=== PATIENT | female | born 1950 | race Caucasian/White ===

== ENCOUNTER 2016-12-12 12:32 | Inpatient (IN) ==
[2016-12-12] MEDS ORDERED: Aspirin 325 MG TABLET PO ONE (13:11)
[2016-12-12 13:14] LABS: Hematocrit 25.5 % (35.3-44.9); Mean Corpuscular Volume 95.5 fL (83.0-100.0); Mean Platelet Volume 11.6 fL (9.4-12.4); Red Blood Count 2.67 M/mcL (3.82-4.97)
[2016-12-12 13:16] LABS: Hemoglobin 8.2 g/dL (11.5-15.4); Immature Platelets 11.5 % (1.1-6.1); Mean Corpuscular HGB Conc 32.2 g/dL (31.6-35.5); Mean Corpuscular Hemoglobin 30.7 pg (28.0-33.3); Red Cell Distribution Width 16.9 % (11.5-14.5)
[2016-12-12 13:17] LABS: Platelet Count 54 K/mcL (140-400)
[2016-12-12 13:20] LABS: INR 1.2; Prothrombin Time 12.9 Seconds (9.4-12.1)
[2016-12-12 13:22] LABS: Activated Partial Thrombo Time 26.3 Seconds (26.0-36.0)
[2016-12-12 13:27] LABS: Calcium 8.8 mg/dL (8.6-10.8); Potassium 4.2 mEq/L (3.5-4.5)
[2016-12-12 13:33] LABS: Eosinophils # 0.4 K/mcL (0.0-0.6); Lymphocytes # 0.8 K/mcL (0.6-4.6); Monocytes # 0.1 K/mcL (0.0-1.3); Neutrophils # 2.3 K/mcL (1.6-8.9)
[2016-12-12 13:34] LABS: Platelet Estimate Marked Decrease (Normal)
[2016-12-12 13:35] LABS: Basophilic Stippling 1+ (Not Present)
[2016-12-12] MEDS ORDERED: *HR* Heparin 5,000 UNIT/ML VIAL IVP PRN ×2 (13:41)
[2016-12-12] MEDS ORDERED: *HR* Heparin 5,000 UNIT/ML VIAL IVP ONE (13:41)
[2016-12-12] MEDS ORDERED: Heparin 25,000 UNIT/500 ML D5W 25,000 UNIT/500 ML MLS IVC SCH (13:45)
[2016-12-12 13:49] LABS: Thyroid Stimulating Hormone 3.215 mcIU/mL (0.350-4.840)
--- NOTE | 2016-12-12 14:13 | Emergency Department Note ---
Disposition Clinical Impression: NSTEMI (non-ST elevated myocardial infarction), Abnormal EKG Disposition: Admitted As Inpatient Condition: Good Time of Disposition: 14:27 Chest Pain HPI - General Chief Complaint: ED Chest Pain Stated Complaint: JANENE, chest pain Time Seen by Provider: 12/12/16 12:57 Source: patient Mode of arrival: ambulatory Limitations: no limitations Vital Signs Reviewed: Yes Nursing Notes Reviewed: Yes - History of Present Illness HPI Narrative: Patient is a 66-year-old female with past medical history of MN in October with stent placement 2, CHF, HTN, hyperlipidemia. She is currently on Brilinta 90 mg twice daily. She presents today due to chest discomfort and shortness of breath. Patient has been short of breath the past week, she also has centered chest pressure and discomfort with exertion. Denies any radiation of the chest pain, any nausea, vomiting, sweating. Denies any other fevers, abdominal pain, diarrhea, urinary symptoms. Patient currently takes diuretic and states that is not helping with her shortness breath. She did not take any aspirin or nitroglycerin today. Severity scale (1-10): 0 - Related Data Home Medications Medication Instructions Recorded Confirmed Acetaminophen [Tylenol] 2 tab PO Q4H PRN 12/28/15 12/12/16 Aspirin 81 mg PO DAILY 12/28/15 12/12/16 Cholecalciferol (Vitamin D3) 1,000 unit PO DAILY 12/28/15 12/12/16 [Vitamin D3] Docusate Sodium [Dok] 100 mg PO BID 12/28/15 12/12/16 Levothyroxine [Synthroid] 75 mcg PO DAILY 12/28/15 12/12/16 Lisinopril 2.5 mg PO DAILY 12/28/15 12/12/16 Melatonin 3 mg PO HS 12/28/15 12/12/16 Metoprolol XL (24 HR) Succ [Toprol 50 mg PO DAILY 01/08/16 12/12/16 Xl] Pravastatin Sodium [Pravachol] 20 mg PO DAILY 02/08/16 12/12/16 Insulin Human Regular [HumuLIN R] 0 unit SQ AD MDD PER SLIDING SCALE 12/12/16 12/12/16 Insulin NPH, HUMAN [HumuLIN N] 0 unit SQ AD MDD SLIDING SCALE 12/12/16 12/12/16 Ticagrelor [Brilinta] 90 mg PO BID 12/12/16 12/12/16 Previous Rx's Medication Instructions Recorded Furosemide [Lasix] 60 mg PO DAILY #90 tablet 01/19/16 Metolazone [Zaroxolyn] 5 mg PO DAILY #90 tablet 03/02/16 Hydrocortisone 1% CREAM [Cortaid] 28 appl TP DAILY PRN #1 bottle 11/11/16 Lenalidomide [Revlimid] 15 mg PO DAILY #21 capsule 11/17/16 Allergies Allergy/AdvReac Type Severity Reaction Status Date / Time nitrofurantoin Allergy Rash Verified 08/08/16 16:39 [From Macrobid] octreotide Allergy Rash Verified 08/08/16 16:39 Penicillins Allergy Rash Verified 08/08/16 16:39 vancomycin Allergy Rash Verified 08/08/16 16:39 Constitutional: Denies: fever Cardiovascular: Reports: chest pain, dyspnea on exertion Respiratory: Reports: dyspnea. Denies: cough, wheezes Gastrointestinal: Denies: abdominal pain, nausea, vomiting, diarrhea Genitourinary: Denies: urgency, dysuria Integumentary: Denies: rash Neurological: Denies: headache, weakness, numbness, paresthesias Chest Pain PMH - Past Medical History Medical history: Reports: arthritis, CHF, coronary artery disease, diabetes, hyperlipidemia, hypertension, myocardial infarction, pulmonary embolus, renal disease, thyroid disease, other Surgical history: Reports: cataract, coronary bypass (CABG), other Psychiatric history: Reports: depression - Social History Smoking Status: Never smoker Alcohol use: Reports: none Drug use: Reports: none Physical Exam - General Limitations: no limitations General appearance: alert, in no apparent distress - Head Head exam: atraumatic, normocephalic, normal inspection - Eye Eye exam: Present: normal appearance, PERRL, EOMI - ENT ENT exam: normal exam, normal oropharynx, mucous membranes moist - Neck Neck exam: Present: normal inspection, full ROM, trachea midline - Chest Chest inspection: Present: normal inspection, symmetric chest wall rise - Respiratory Respiratory exam: Present: normal lung sounds bilaterally, other (mildly labored breathing) - Cardiovascular Cardiovascular exam: Present: regular rate, normal rhythm, normal heart sounds - Abdominal Exam Abdominal exam: Present: soft, Non-Tender. Absent: tenderness, distention, guarding, rebound, rigidity - Extremities Exam Extremities exam: Present: normal inspection, full ROM, pedal edema (bilateral, mild pitting). Absent: tenderness - Neurological Exam Neurological exam: Present: alert, oriented X3 - Psychiatric Psychiatric exam: Present: normal affect, normal mood - Skin Skin exam: Present: warm, dry, intact, normal color Course Course Narrative: Vitals within normal limits. Physical exam shows heart regular rate and rhythm , clear lungs to auscultation. Aspirin 325mg givne. However, the patient does have labored breathing while at rest. EKG obtained and showed new ST depression in V4, V5, V6. Cardiac labs obtained. Troponin elevated 0.18. Chest x-ray negative for any acute cardiopulmonary process. Dr. Ramirez was consulted, he recommended starting the patient heparin and giving the patient Brilinta if she didnt take her dosing today. However, the patient does state that she took her Brilinta 90mg today. Heparin started. Patient is currently chest pain-free as long as she is not exerting herself. No nitroglycerin given at this time.Dr. Marquez accepted for admission. Chest X-Ray 12/12/16 12:40 IMPRESSION: No acute cardiac or pulmonary disease. Ill-defined pulmonary nodules, seen better on recent CT. D/ / Vasquez Charles MD / Vasquez Charles MD Interpreting Provider: Vasquez Charles MD Vital Signs Temperature 98.4 F 12/12/16 12:35 Pulse Rate 75 12/12/16 12:35 Respiratory Rate 20 12/12/16 12:35 Blood Pressure 121/52 12/12/16 12:35 O2 Sat by Pulse Oximetry 99 12/12/16 12:35 Temperature 98.4 F 12/12/16 12:35 Pulse Rate 55 12/12/16 13:25 Respiratory Rate 20 12/12/16 13:25 Blood Pressure 121/46 12/12/16 13:25 O2 Sat by Pulse Oximetry 100 12/12/16 13:25 Oxygen Delivery Oxygen Delivery Nasal Cannula Chest Pain - MDM Narrative Medical decision making narrative: Vitals within normal limits. Physical exam shows heart regular rate and rhythm , clear lungs to auscultation. Aspirin 325mg givne. However, the patient does have labored breathing while at rest. EKG obtained and showed new ST depression in V4, V5, V6. Cardiac labs obtained. Troponin elevated 0.18. Chest x-ray negative for any acute cardiopulmonary process. Dr. Ramirez was consulted, he recommended starting the patient heparin and giving the patient Brilinta if she didnt take her dosing today. However, the patient does state that she took her Brilinta 90mg today. Heparin started. Patient is currently chest pain-free as long as she is not exerting herself. No nitroglycerin given at this time.Dr. Marquez accepted for admission. - Medical Records Medical records reviewed: Yes I reviewed the patient's medical records. - Lab Data Lab results reviewed: Yes I reviewed the patient's lab results. Result diagrams: 12/12/16 13:08 12/12/16 13:08 Lab Results 12/12/16 12/12/16 12/12/16 Range/Units 13:08 13:08 13:08 WBC 3.6 L (4.3-11.1) K/mcL RBC 2.67 L (3.82-4.97) M/mcL Hgb 8.2 L (11.5-15.4) g/dL Hct 25.5 L (35.3-44.9) % MCV 95.5 (83.0-100.0) fL MCH 30.7 (28.0-33.3) pg MCHC 32.2 (31.6-35.5) g/dL RDW 16.9 H (11.5-14.5) % Plt Count 54 L (140-400) K/mcL MPV 11.6 (9.4-12.4) fL Seg Neutrophils % 58.0 % Band Neutrophils % 6.0 H (0-4) % Lymphocytes % 22.0 % Monocytes % 2.0 % Eosinophils % 12.0 % Neutrophils # 2.3 (1.6-8.9) K/mcL Lymphocytes # 0.8 (0.6-4.6) K/mcL Monocytes # 0.1 (0.0-1.3) K/mcL Eosinophils # 0.4 (0.0-0.6) K/mcL Platelet Estimate Marked Decrease L (Normal) Immature Plt Fraction 11.5 H (1.1-6.1) % Basophilic Stippling 1+ A (Not Present) PT 12.9 H (9.4-12.1) Seconds INR 1.2 APTT 26.3 (26.0-36.0) Seconds Sodium 141 (136-145) mEq/L Potassium 4.2 (3.5-4.5) mEq/L Chloride 107 (98-109) mEq/L Carbon Dioxide 24 (19-29) mEq/L BUN 38 H (7-20) mg/dL Creatinine 1.36 H (0.57-1.11) mg/dL Est GFR ( Amer) 47 L (> 60) Est GFR (Non-Af Amer) 39 L (> 60) BUN/Creatinine Ratio 28 H (6-26) Glucose 114 H (70-99) mg/dL Calculated Osmolality 302 H (280-300) Calcium 8.8 (8.6-10.8) mg/dL Troponin I (0-0.03) ng/mL TSH 3.215 (0.350-4.840) mcIU/mL 12/12/16 Range/Units 13:08 WBC (4.3-11.1) K/mcL RBC (3.82-4.97) M/mcL Hgb (11.5-15.4) g/dL Hct (35.3-44.9) % MCV (83.0-100.0) fL MCH (28.0-33.3) pg MCHC (31.6-35.5) g/dL RDW (11.5-14.5) % Plt Count (140-400) K/mcL MPV (9.4-12.4) fL Seg Neutrophils % % Band Neutrophils % (0-4) % Lymphocytes % % Monocytes % % Eosinophils % % Neutrophils # (1.6-8.9) K/mcL Lymphocytes # (0.6-4.6) K/mcL Monocytes # (0.0-1.3) K/mcL Eosinophils # (0.0-0.6) K/mcL Platelet Estimate (Normal) Immature Plt Fraction (1.1-6.1) % Basophilic Stippling (Not Present) PT (9.4-12.1) Seconds INR APTT (26.0-36.0) Seconds Sodium (136-145) mEq/L Potassium (3.5-4.5) mEq/L Chloride (98-109) mEq/L Carbon Dioxide (19-29) mEq/L BUN (7-20) mg/dL Creatinine (0.57-1.11) mg/dL Est GFR ( Amer) (> 60) Est GFR (Non-Af Amer) (> 60) BUN/Creatinine Ratio (6-26) Glucose (70-99) mg/dL Calculated Osmolality (280-300) Calcium (8.6-10.8) mg/dL Troponin I 0.18 H* (0-0.03) ng/mL TSH (0.350-4.840) mcIU/mL - Radiology Data Radiology results reviewed: Yes I reviewed the patient's radiology results. Chest X-Ray 12/12/16 12:40 IMPRESSION: No acute cardiac or pulmonary disease. Ill-defined pulmonary nodules, seen better on recent CT. D/ / Vasquez Charles MD / Vasquez Charles MD Interpreting Provider: Vasquez Charles MD - EKG Data EKG attestation: Yes I reviewed and interpreted this EKG. EKG results narrative: 12/12/2016 at 12:48. Normal sinus rhythm. Rate 79.AL 163. QRS 101. QTC 399. Left axis deviation. ST depression in V3, V4, V5, V6. This is new from previous EKG on 10/05/2016 12/12/2016 at 13:13. Normal sinus rhythm. Rate 72. AL interval 166. QRS 86. QTC 381. Left axis deviation. Continued ST depression in V3, V4, V5, V6. S.B.A.R. - S.B.A.R. Situation: Demographics, MOA Background: Presenting Complaint, Relevant PMH, Meds, & Allergies Assessment: Vital Signs, Course and respsone to treatment, Exam Concerns, Patient/Family Expectation, Pertinant Lab Results, Outstanding Labs Recommendation: Barrier(s) to disposition, Recommendation based on pending studies, treatments, or consults S.B.A.R. Report Given to: Dr. marcos Hargrove Repor Time: 14:27 Attestation Statement - Attestation Attestation: I examined this patient and my medical decision-making was reviewed with the YARN MAN/PA/Advanced Practice Nurse/Resident Physician. I agree with the documented findings, disposition and treatment plan as described except to the extent set forth below. Patient to the emergency department with a chief complaint of chest pain. Describes substernal chest pain when she ambulates and exerts herself. History of an MN with stent placement in October. On examination she is in no acute distress. Her lungs are clear. Heart regular rate and rhythm. Plan. The patient has EKG changes with lateral ST depressions. Troponin is positive. She was discussed with cardiology. She started on heparin. Patient is admitted to medicine with cardiology consult. 35 minutes of critical care exclusive of separately billable procedures.
--- NOTE | 2016-12-12 14:40 | Internal Med History&Physical ---
Date of Encounter: 12/12/16 Time of Encounter: 14:36 Assessment and Plan (1) NSTEMI (non-ST elevated myocardial infarction) Current visit: Yes Status: Acute Elevated troponin to 0.18, complaints of chest pain with shortness of breath. Recently had stent placement, 2 stents placed at [facility] on October 2016. comes with chest pain thats vague , dull aching and has been going on for the last week. worsened by exertion. started on heparin drip, cardiology has been consulted. will follow recommendtaions, get records from [facility]. has been taking DAPT, will continue the same. (2) Diffuse large b-cell lymphoma, lymph nodes of multiple sites Current visit: No Status: Acute Follows with Dr. PALMER and is taking cancer therapy. (3) Pancytopenia due to antineoplastic chemotherapy Current visit: No Status: Chronic pancytopenia most likely 2/2 chemotherapy no urgent need for transfusion at this time/ no active bleeding, will monitor cbc Internal Medicine - H&P: HPI Chief complaint: chest pain Admitted From: Home Plans for Post Hospital Care: Home History of present illness: Ms. Noyola is a 66 year old female with past medical history of CAD, status post CABG and recent stent placement in October 2016 at [facility], hypertension, diffuse large cell lymphoma with complaints of chest pain. Patient reports that she has been having this chest pain on and off for the last week. Ever since she had stent placed in October/2016 at [facility], she never has been chest pain-free. She says it is very vague and is diffuse,she says it is worse when she moves or walks around, she has followed with her vocational coordinator once after stent placement. She says the chest pain started this morning today, diffuse, no exacerbating or relieving factor. Also complains of concomitant shortness of breath, denies any fever or cough. she has been taking asa and brilllinta as advised. No palpitations, no leg swelling. Past Med Surg Social Fam HX - Past Medical History Medical history: arthritis, CHF, coronary artery disease, diabetes, hyperlipidemia, hypertension, myocardial infarction, pulmonary embolus, renal disease, thyroid disease, other Psychiatric history: depression - Past Surgical History Surgical History: cataract, coronary bypass (CABG), other - Social History Smoking Status: Never smoker Smokeless Tobacco Status: No Alcohol use: none Drug use: none - Family History Father Hx Family Cardiac Disorders: No Hx Family Respiratory Disorders: No Hx Family Cancer: Yes Hx Family GI Disorders: No Hx Family Endocrine Disorder: No Hx Family Neuromuscular Disorders: No Hx Family Neurologic Disorders: No Hx Family HEENT Disorders: No Hx Family Autoimmune Disorders: No Internal Medicine - H&P: Meds Acetaminophen [Tylenol] 2 tab PO Q4H PRN 12/28/15 [History] Aspirin 81 mg PO DAILY 12/28/15 [History] Cholecalciferol (Vitamin D3) [Vitamin D3] 1,000 unit PO DAILY 12/28/15 [History] Docusate Sodium [Dok] 100 mg PO BID 12/28/15 [History] Levothyroxine [Synthroid] 75 mcg PO DAILY 12/28/15 [History] Lisinopril 2.5 mg PO DAILY 12/28/15 [History] Melatonin 3 mg PO HS 12/28/15 [History] Metoprolol XL (24 HR) Succ [Toprol Xl] 50 mg PO DAILY 01/08/16 [History] Furosemide [Lasix] 60 mg PO DAILY #90 tablet 01/19/16 [Rx] Pravastatin Sodium [Pravachol] 20 mg PO DAILY 02/08/16 [History] Metolazone [Zaroxolyn] 5 mg PO DAILY #90 tablet 03/02/16 [Rx] Hydrocortisone 1% CREAM [Cortaid] 28 appl TP DAILY PRN #1 bottle 11/11/16 [Rx] Lenalidomide [Revlimid] 15 mg PO DAILY #21 capsule 11/17/16 [Rx] Insulin Human Regular [HumuLIN R] 0 unit SQ AD MDD PER SLIDING SCALE 12/12/16 [ History] Insulin NPH, HUMAN [HumuLIN N] 0 unit SQ AD MDD SLIDING SCALE 12/12/16 [History ] Ticagrelor [Brilinta] 90 mg PO BID 12/12/16 [History] Allergies nitrofurantoin [From Macrobid] Allergy (Verified 08/08/16 16:39) Rash octreotide Allergy (Verified 08/08/16 16:39) Rash Red Man Syndrome Penicillins Allergy (Verified 08/08/16 16:39) Rash vancomycin Allergy (Verified 08/08/16 16:39) Rash Red Man Syndrome All Systems PM: A 10-system review of systems was performed and is negative for pertinent findings except as documented above in the HPI. - Constitutional Vitals: Temp Pulse Resp BP Pulse Ox 98.4 F 55 20 121/46 100 12/12/16 12:35 12/12/16 13:25 12/12/16 13:25 12/12/16 13:25 12/12/16 13:25 General appearance: Present: A&O X 3, no acute distress Exam: Neck supple. Chest bilateral clear, no added sounds. CVS S1-S2, no murmurs rubs or gallops. Abdomen soft, nontender, bowel sounds are present. Extremities no edema. Neuro no focal deficits, alert and awake. Internal Med - H&P Results - Labs CBC & Chem 7: 12/12/16 13:08 12/12/16 13:08 Labs: Short CBC 12/12/16 Range/Units 13:08 WBC 3.6 L (4.3-11.1) K/mcL Hgb 8.2 L (11.5-15.4) g/dL Hct 25.5 L (35.3-44.9) % Plt Count 54 L (140-400) K/mcL Neutrophils # 2.3 (1.6-8.9) K/mcL BMP 12/12/16 13:08 Sodium 141 Potassium 4.2 Chloride 107 Carbon Dioxide 24 BUN 38 H Creatinine 1.36 H Glucose 114 H Calcium 8.8 Cardiac Enzymes 12/12/16 Range/Units 13:08 Troponin I 0.18 H* (0-0.03) ng/mL - Impressions ITS Impressions Chest X-Ray 12/12/16 12:40 IMPRESSION: No acute cardiac or pulmonary disease. Ill-defined pulmonary nodules, seen better on recent CT. D/ / Vasquez Charles MD / Vasquez Charles MD Interpreting Provider: Vasquez Charles MD
[2016-12-12] MEDS ORDERED: Naloxone 0.4 MG/ML INJ IVP PRN (14:45)
[2016-12-12] MEDS ORDERED: *HR* Morphine 2 MG/ML SYRINGE IVP PRN (14:45)
[2016-12-12] MEDS ORDERED: Dextrose Gel 15 GM PO PRN ×2 (14:47)
[2016-12-12] MEDS ORDERED: D5% in Water 1,000 ML IVC PRN (14:47)
[2016-12-12] MEDS ORDERED: *HR* Dextrose 50 % in Water (Syg) 50 ML SYRINGE IVP PRN (14:47)
--- NOTE | 2016-12-12 14:56 | Cardiology Consult Note ---
Date of Encounter: 12/12/16 Time of Encounter: 14:54 Assessment and Plan (1) Abnormal EKG Current Visit: Yes Status: Acute EKG shows 1mm of ST depression in V4-V6. T wave changes present in precordial leads. If symptoms of chest pain, dyspnea, or arm/jaw pain begin recommend repeating. (2) NSTEMI (non-ST elevated myocardial infarction) Current Visit: Yes Status: Acute EKG does not show ST elevation. Inferior ST changes present in lateral leads. Troponin elevated at 0.18. Prior stent placed 1 month ago at [facility] No chest pain at rest. Agree with heparin drip Continue aspirin and Brilinta Recommend to trend troponin Recommend echocardiogram Will obtain cath report from [facility]. (3) Chest pain, exertional Current Visit: Yes Status: Acute Nitroglycerin PRN for chest discomfort. Currently asymptomatic at rest Discussion w patient/family: The assessment and plan as outlined above was discussed with the patient and/or family members who expressed understanding and agreement. All questions were answered. Thank you for involving us in the care of your patient. Please call with any questions. History of Present Illness Consult date: 12/12/16 Consult reason: EKG changes with elevated troponin Chief complaint: dyspnea/CP with exertion History of present illness: Ms. Noyola is a 66 year old female who presented to the ER today due to worsening dyspnea with exertion and chest pain with exertion. Significant PMH of B cell lymphoma and is currently on Rituximab. Significant cardiac history with failed stent and bypass in 1995. X1 stent in 2005. 1 month ago she had worsening CP/JANENE with exertion and received 2 stents at [facility] in [place]. Since then she has had worsening Dyspnea with exertion and chest pain. She denies any symptoms at rest. She has been having LE edema but it is no worse today. She is already on Brilinta 90 BID and asa 81mg. Does not take anticoagulants. She wears 2L of O2 at all times at home. Past Med Surg Social Fam HX - Past Medical History Medical history: arthritis, CHF, coronary artery disease, diabetes, hyperlipidemia, hypertension, myocardial infarction, pulmonary embolus, renal disease, thyroid disease, other Psychiatric history: depression - Past Surgical History Surgical History: cataract, coronary bypass (CABG), other - Social History Smoking Status: Never smoker Smokeless Tobacco Status: No Alcohol use: none Drug use: none - Family History Father Hx Family Cardiac Disorders: No Hx Family Respiratory Disorders: No Hx Family Cancer: Yes Hx Family GI Disorders: No Hx Family Endocrine Disorder: No Hx Family Neuromuscular Disorders: No Hx Family Neurologic Disorders: No Hx Family HEENT Disorders: No Hx Family Autoimmune Disorders: No Medications and Allergies Acetaminophen [Tylenol] 2 tab PO Q4H PRN 12/28/15 [History] Aspirin 81 mg PO DAILY 12/28/15 [History] Cholecalciferol (Vitamin D3) [Vitamin D3] 1,000 unit PO DAILY 12/28/15 [History] Docusate Sodium [Dok] 100 mg PO BID 12/28/15 [History] Levothyroxine [Synthroid] 75 mcg PO DAILY 12/28/15 [History] Lisinopril 2.5 mg PO DAILY 12/28/15 [History] Melatonin 3 mg PO HS 12/28/15 [History] Metoprolol XL (24 HR) Succ [Toprol Xl] 50 mg PO DAILY 01/08/16 [History] Furosemide [Lasix] 60 mg PO DAILY #90 tablet 01/19/16 [Rx] Pravastatin Sodium [Pravachol] 20 mg PO DAILY 02/08/16 [History] Metolazone [Zaroxolyn] 5 mg PO DAILY #90 tablet 03/02/16 [Rx] Hydrocortisone 1% CREAM [Cortaid] 28 appl TP DAILY PRN #1 bottle 11/11/16 [Rx] Lenalidomide [Revlimid] 15 mg PO DAILY #21 capsule 11/17/16 [Rx] Insulin Human Regular [HumuLIN R] 0 unit SQ AD MDD PER SLIDING SCALE 12/12/16 [ History] Insulin NPH, HUMAN [HumuLIN N] 0 unit SQ AD MDD SLIDING SCALE 12/12/16 [History ] Ticagrelor [Brilinta] 90 mg PO BID 12/12/16 [History] Allergies nitrofurantoin [From Macrobid] Allergy (Verified 08/08/16 16:39) Rash octreotide Allergy (Verified 08/08/16 16:39) Rash Red Man Syndrome Penicillins Allergy (Verified 08/08/16 16:39) Rash vancomycin Allergy (Verified 08/08/16 16:39) Rash Red Man Syndrome All Systems Review: A 10-system review of systems was performed and is negative for pertinent findings except as documented above in the HPI. - Constitutional Constitutional: no fever(s), no headache(s) - EENT Eyes: no blurred vision - Cardiovascular Cardiovascular: chest pain with exertion, dyspnea on exertion, leg edema, no claudication, no dyspnea at rest, no radiating jaw, neck or arm pain, no palpitations, no syncope - Respiratory Respiratory: no cough - Integumentary Integumentary: no rash - Neurological Neurological: no syncope Physical Examination General: Conversant, No Apparent Distress HEENT: Atraumatic Neck: No JVD Cardiac: Reg Rate and Rhythm, Other (systolic murmur.) Lungs: Normal Breath Sounds Neuro: Alert and responsive, No focal deficits noted Abdomen: Soft Skin: No rashes noted on visualized skin Musculoskeletal: No Chest Wall Tenderness Extremities: No Cyanosis, Normal Pulses, Other (2+ LE edema) Results 12/12/16 13:08 12/12/16 13:08 Consult Discharge Plan - Plan Referrals: Luis Martinez, REFRIGERATION MECHANIC HELPER [Primary Care Provider] -
[2016-12-12] MEDS: Insulin LISPRO 300 UNITS/3 ML VIAL SQ SCH ×2 (20:30→20:59)
[2016-12-12] MEDS ORDERED: *HR* Ticagrelor 90 MG TABLET PO SCH (21:00)
[2016-12-13 03:43] LABS: Basophils % 0.6 %; Eosinophils # 0.5 K/mcL (0.0-0.6); Eosinophils % 15.1 %; Hematocrit 22.7 % (35.3-44.9); Hemoglobin 7.4 g/dL (11.5-15.4); Immature Granulocytes % 0.3 % (0-4); Lymphocytes % 30.9 %; Mean Corpuscular HGB Conc 32.6 g/dL (31.6-35.5); Mean Corpuscular Hemoglobin 31.4 pg (28.0-33.3); Mean Corpuscular Volume 96.2 fL (83.0-100.0); Monocytes # 0.2 K/mcL (0.0-1.3); Monocytes % 6.1 %; Neutrophils # 1.5 K/mcL (1.6-8.9); Red Blood Count 2.36 M/mcL (3.82-4.97); Red Cell Distribution Width 16.9 % (11.5-14.5)
[2016-12-13 03:44] LABS: Platelet Count 49 K/mcL (140-400)
[2016-12-13 04:00] LABS: Calcium 8.4 mg/dL (8.6-10.8); Potassium 4.1 mEq/L (3.5-4.5)
--- NOTE | 2016-12-13 07:07 | Electrocardiograph Report ---
[place] [address] Test Date: 2016-12-12 Pat Name: Ai Noyola Department: 104 Room: [id number] Gender: F Territory Outside Sales Manager: : 1950 Requested By: Brooke See Order Number: [id number] Reading MD: Vick Ramirez MD Measurements Intervals Emerson Rate: 72 P: 36 WV: 166 QRS: -18 QRSD: 86 T: 161 QT: 357 QTc: 381 Interpretive Statements SINUS RHYTHM LEFT VENTRICULAR HYPERTROPHY AND ST-T CHANGE Electronically Signed On 12-13-2016 7:05:37 EDT by Vick Ramirez MD
[2016-12-13 07:13] LABS: Heparin anti-factor XA UFH 0.22 IU/mL (0.30-0.70)
--- NOTE | 2016-12-13 07:51 | Event Note ---
Date of Encounter: 12/13/16 Time of Encounter: 06:00 Notified by nursing staff of patient with count of less than 50,000 and associated episodes of bleeding from cutaneous wounds. This occurring while on intravenous heparin drip therapy for ACS/UA protocol. Concomitantly patient is receiving Brilinta and aspirin. Patient had recently received PCI intervention out [facility] and stent placement and likely required extended heparin therapy concern is made for possible HIT. He does acknowledge that the patient is a diagnosis of B-cell lymphoma and is currently on rituximab therapy. The case was discussed briefly with attending supervisor rose grading and since this is to discontinue heparin therapy at this time as well as interrupted Brilinta therapy pending further investigation. Cardiology has been consultative. Hematology oncology will also be consulted. Orders written. Vital Signs Temp Pulse Resp BP Pulse Ox 12/13/16 07:00 97.8 F 70 16 128/47 100 12/13/16 05:05 97.9 F 79 17 126/55 92 12/13/16 00:12 98.0 F 71 16 116/52 100 12/12/16 21:51 97.9 F 71 18 122/44 100 12/12/16 20:45 100 12/12/16 17:58 98.2 F 69 16 139/64 96 12/12/16 17:54 98 12/12/16 16:48 20 113/40 12/12/16 15:24 52 20 113/40 100 12/12/16 13:25 55 20 121/46 100 12/12/16 13:24 99 12/12/16 12:35 98.4 F 75 20 121/52 99 Intake and Output 12/12/16 12/12/16 12/13/16 15:59 23:59 07:59 Intake Total 100 / 100 300 / 300 Balance 100 / 100 300 / 300 Intake: IV Fluids 100 / 100 300 / 300 Heparin 25,000 UNIT/500 100 / 100 300 / 300 ML D5W 25,000 unit In 500 ml @ 9 UNIT/KG/HR 20.003 mls/hr IVC .Q24H KRISTA Rx# :[id number] Other: Weight 111.13 kg 132 kg Blood Glucose* 173 198 Patient Weight 12/13/16 23:59 Weight 132 kg Short CBC 12/13/16 12/12/16 Range/Units 03:08 13:08 WBC 3.1 L 3.6 L (4.3-11.1) K/mcL Hgb 7.4 L 8.2 L (11.5-15.4) g/dL Hct 22.7 L 25.5 L (35.3-44.9) % Plt Count 49 L 54 L (140-400) K/mcL Neutrophils # 1.5 L 2.3 (1.6-8.9) K/mcL BMP 12/13/16 12/12/16 Range/Units 03:08 13:08 Sodium 140 141 (136-145) mEq/L Potassium 4.1 4.2 (3.5-4.5) mEq/L Chloride 106 107 (98-109) mEq/L Carbon Dioxide 25 24 (19-29) mEq/L BUN 37 H 38 H (7-20) mg/dL Creatinine 1.31 H 1.36 H (0.57-1.11) mg/dL Glucose 143 H 114 H (70-99) mg/dL Calcium 8.4 L 8.8 (8.6-10.8) mg/dL Cardiac Enzymes 12/13/16 12/12/16 12/12/16 Range/Units 00:56 19:52 13:08 Troponin I 0.18 H* 0.18 H* 0.18 H* (0-0.03) ng/mL Abnormal lab results WBC 3.1 K/mcL (4.3-11.1) L 12/13/16 03:08 RBC 2.36 M/mcL (3.82-4.97) L 12/13/16 03:08 Hgb 7.4 g/dL (11.5-15.4) L 12/13/16 03:08 Hct 22.7 % (35.3-44.9) L 12/13/16 03:08 RDW 16.9 % (11.5-14.5) H 12/13/16 03:08 Plt Count 49 K/mcL (140-400) L 12/13/16 03:08 MPV 13.0 fL (9.4-12.4) H 12/13/16 03:08 Band Neutrophils % 6.0 % (0-4) H 12/12/16 13:08 Neutrophils # 1.5 K/mcL (1.6-8.9) L 12/13/16 03:08 Platelet Estimate Marked Decrease (Normal) L 12/12/16 13:08 Immature Plt Fraction 11.5 % (1.1-6.1) H 12/12/16 13:08 Basophilic Stippling 1+ (Not Present) A 12/12/16 13:08 PT 12.9 Seconds (9.4-12.1) H 12/12/16 13:08 APTT 74.5 Seconds (26.0-36.0) H D 12/13/16 03:08 D-Dimer 3905 ng/mLFEU (0-500) H 12/13/16 06:43 Heparin Anti-Xa, Unfract 0.22 IU/mL (0.30-0.70) L 12/13/16 06:43 BUN 37 mg/dL (7-20) H 12/13/16 03:08 Creatinine 1.31 mg/dL (0.57-1.11) H 12/13/16 03:08 Est GFR ( Amer) 49 (> 60) L 12/13/16 03:08 Est GFR (Non-Af Amer) 40 (> 60) L 12/13/16 03:08 BUN/Creatinine Ratio 28 (6-26) H 12/13/16 03:08 Glucose 143 mg/dL (70-99) H 12/13/16 03:08 POC Glucose 182 (58-89) H 12/13/16 05:43 Calculated Osmolality 301 (280-300) H 12/13/16 03:08 Calcium 8.4 mg/dL (8.6-10.8) L 12/13/16 03:08 Troponin I 0.18 ng/mL (0-0.03) H* 12/13/16 00:56 B-Natriuretic Peptide 224 pg/mL (0-100) H 12/13/16 03:08
[2016-12-13] MEDS: Aspirin 81 MG TAB.CHEW PO SCH (10:23)
[2016-12-13] MEDS: metOLazone 5 MG TABLET PO SCH (10:23)
[2016-12-13] MEDS: Metoprolol XL (24 HR) Succ 50 MG TAB.ER.24H PO SCH (10:23)
[2016-12-13] MEDS: Insulin LISPRO 300 UNITS/3 ML VIAL SQ SCH ×4 (10:24→21:16)
[2016-12-13] MEDS: Furosemide 20 MG TABLET PO SCH (10:24)
[2016-12-13] MEDS ORDERED: Ipratropium/Albuterol Neb 3 ML IH SCH (12:00)
[2016-12-13] MEDS ORDERED: 0.9 % Sodium Chloride 250 ML ONE (12:34)
--- NOTE | 2016-12-13 13:49 | Internal Med Progress Note ---
<Bryanna Duran - Last Filed: 12/13/16 15:13> Date of Encounter: 12/13/16 Time of Encounter: 09:00 - Assessment and plan (1) Shortness of breath Current Visit: Yes Status: Acute Assessment and plan: 1 week history of increasing shortness of breath chest x-ray negative for acute processes respiratory infection panel DuoNeb (2) Chest pain, exertional Current Visit: Yes Status: Acute Assessment and plan: nitroglycerin as needed for chest pain If chest pain occurs, repeat EKG (3) NSTEMI (non-ST elevated myocardial infarction) Current Visit: Yes Status: Acute Assessment and plan: Troponin elevated 0.18, prior stent 1 month ago at [facility] No chest pain at rest Brilinta and heparin stopped due to thrombocytopenia and bleeding Echo report pending (4) CAD (coronary artery disease) Current Visit: Yes Status: Acute Assessment and plan: s/p PCI with 2 stents October 2016 Qualifiers: Coronary Disease-Associated Artery/Lesion type: unspecified vessel or lesion type [place] vs. transplanted heart: [place] heart Associated angina: angina presence unspecified Qualified Code(s): I25.10 - Atherosclerotic heart disease of [place] coronary artery without angina pectoris (5) CKD (chronic kidney disease) stage 3, GFR 30-59 ml/min Current Visit: Yes Status: Acute Assessment and plan: follows outpatient with Dr. Butt continue to monitor (6) HTN (hypertension) Current Visit: Yes Status: Acute Assessment and plan: continue home medications Qualifiers: Hypertension type: essential hypertension Qualified Code(s): I10 - Essential (primary) hypertension (7) Diffuse large b-cell lymphoma, lymph nodes of multiple sites Current Visit: Yes Status: Chronic Assessment and plan: Patient of Dr. PALMER currently on revlimid Consult to hematology oncology, appreciate recommendations (8) Pancytopenia due to antineoplastic chemotherapy Current Visit: Yes Status: Chronic (9) Chronic respiratory failure Current Visit: Yes Status: Chronic Assessment and plan: patient uses 2L supplemental O2 Qualifiers: Respiratory failure complication: unspecified whether with hypoxia or hypercapnia Qualified Code(s): J96.10 - Chronic respiratory failure, unspecified whether with hypoxia or hypercapnia (10) Type II diabetes mellitus Current Visit: Yes Status: Chronic Assessment and plan: accuchecks and sliding scale Qualifiers: Diabetes mellitus complication status: with unspecified complications Diabetes mellitus long term care administrator insulin use: unspecified snf insulin use status Qualified Code(s): E11.8 - Type 2 diabetes mellitus with unspecified complications; N18.3 - Chronic kidney disease, stage 3 (moderate) (11) DVT prophylaxis Current Visit: Yes Status: Acute Assessment and plan: SCDs - Subjective Interval history: Patient seen and examined. She states her main concern and reason for coming to the hospital as a one-week history of increasing shortness of breath especially with exertion. When she is having this shortness of breath with exertion she also had chest pain. She has a recent history of PCI with 2 stents in October 2016. She states that her overall health has declined since then due to decreased mobility. - Constitutional Vitals: Temp Pulse Resp BP Pulse Ox 97.2 F L 52 14 124/51 98 12/13/16 12:41 12/13/16 12:41 12/13/16 12:41 12/13/16 12:41 12/13/16 12:41 General appearance: Present: A&O X 3, morbidly obese, no acute distress - Head Head exam: Present: atraumatic, normocephalic - Eye Eye exam: Present: PERRL, conjuntiva pink, sclera anicteric Pupils: Present: PERRL - Neck Neck exam general surgery: Present: supple - Respiratory Respiratory exam: Present: CTAB - Cardiovascular Cardiovascular exam: Present: RRR, +S1, +S2 - GI/Abdominal GI/Abdominal exam: Present: normal bowel sounds, soft. Absent: tenderness - Extremities Exam Extremities exam: Present: warm. Absent: pedal edema, tenderness - Neurological Exam Neurological exam: Present: alert, CN II-XII intact, oriented X3, no focal deficits Internal Medicine: Result - Labs CBC & Chem 7: 12/13/16 03:08 12/13/16 03:08 - ABG Interpretation ABG results: PT/INR, D-dimer PT 12.9 Seconds (9.4-12.1) H 12/12/16 13:08 D-Dimer 3905 ng/mLFEU (0-500) H 12/13/16 06:43 Consult Discharge Plan - Plan Referrals: Luis Martinez, CLINICAL PHARMACY SPECIALIST [Primary Care Provider] - <Tavo Gil - Last Filed: 04/18/17 17:41> Date of Encounter: 12/13/16 - Assessment and plan (1) Acute and chronic respiratory failure Current Visit: Yes Status: Acute Assessment and plan: Supportive care with oxygen supplementation. Qualifiers: Respiratory failure complication: hypoxia Qualified Code(s): J96.21 - Acute and chronic respiratory failure with hypoxia (2) CAD (coronary artery disease) Current Visit: Yes Status: Acute Qualifiers: Coronary Disease-Associated Artery/Lesion type: unspecified vessel or lesion type [place] vs. transplanted heart: [place] heart Associated angina: angina presence unspecified Qualified Code(s): I25.10 - Atherosclerotic heart disease of [place] coronary artery without angina pectoris (3) CKD (chronic kidney disease) stage 3, GFR 30-59 ml/min Current Visit: Yes Status: Acute (4) HTN (hypertension) Current Visit: Yes Status: Acute Qualifiers: Hypertension type: essential hypertension Qualified Code(s): I10 - Essential (primary) hypertension (5) Type II diabetes mellitus Current Visit: Yes Status: Chronic Qualifiers: Diabetes mellitus complication status: with kidney complications Diabetes mellitus complication detail: with chronic kidney disease Diabetes mellitus long term care administrator insulin use: without long term care administrator use Chronic kidney disease stage: stage 3 (moderate) Qualified Code(s): E11.22 - Type 2 diabetes mellitus with diabetic chronic kidney disease; N18.3 - Chronic kidney disease, stage 3 ( moderate) (6) Pancytopenia due to antineoplastic chemotherapy Current Visit: Yes Status: Chronic (7) Diffuse large b-cell lymphoma, lymph nodes of multiple sites Current Visit: Yes Status: Chronic - Constitutional Vitals: Temp Pulse Resp BP Pulse Ox 98.2 F 49 17 115/34 99 12/13/16 15:00 12/13/16 15:00 12/13/16 15:00 12/13/16 15:00 12/13/16 15:00 Internal Medicine: Result - Labs CBC & Chem 7: 12/13/16 03:08 12/13/16 03:08 - ABG Interpretation ABG results: PT/INR, D-dimer PT 12.9 Seconds (9.4-12.1) H 12/12/16 13:08 D-Dimer 3905 ng/mLFEU (0-500) H 12/13/16 06:43 - Attending Attestation I examined this patient and my medical decision-making was reviewed with the Resident Physician on 12/13/16. I agree with the documented findings, disposition and treatment plan as described except to the extent set forth below. Ms. Noyola is currently admitted for chest pain with concern for NSTEMI and pancytopenia. She is moderate to high risk due to potential for worsening respiratory and cardiac issues. Ms. Noyola is resting comfortably. No acute issues. Heparin is off due to bleeding. HIT antibody negative. Heme onc is coming to see her. Exam Alert. Comfortable Heart reg Lungs without wheeze or rales No edema I/P 1. Chest pain - awaiting cath report from [facility] 2. Dyspnea - unclear etiology. Further diagnoses and plan as above.
--- NOTE | 2016-12-13 14:59 | Cardiology Progress Note ---
Date of Encounter: 12/13/16 Time of Encounter: 14:57 Assessment and Plan (1) Abnormal EKG Current Visit: Yes Status: Acute EKG shows 1mm of ST depression in V4-V6. T wave changes present in precordial leads. If symptoms of chest pain, dyspnea, or arm/jaw pain begin recommend repeating. (2) NSTEMI (non-ST elevated myocardial infarction) Current Visit: Yes Status: Acute EKG does not show ST elevation. Inferior ST changes present in lateral leads. Troponin elevated at 0.18. Prior stent placed 1 month ago at [facility] No chest pain at rest. Heparin drip and brilinta has been stopped due to thrombocytopenia. Troponin did not increase after being trended Will obtain cath report from [facility]. Echocardiogram has been completed and read is pending. Cardiology will sign off if echocardiogram is unchanged from prior. (3) Chest pain, exertional Current Visit: Yes Status: Acute Nitroglycerin PRN for chest discomfort. Currently asymptomatic at rest Discussion w patient/family: The assessment and plan as outlined above was discussed with the patient and/or family members who expressed understanding and agreement. All questions were answered. Thank you for involving us in the care of your patient. Please call with any questions. Subjective Principal diagnosis: NSTEMI Interval history: She reports no change in her dyspnea with exertion. Denies any chest pain since admission. Heme/onc has been consulted as her platelet count has continued to fall. Her heparin was stopped due to the thrombocytopenia, as was her brilinta. laboratory apparatus glass blower report is still pending from [facility]. She did receive a platelet transfusion per primary team. Objective Vital Signs, Last 4 Hours Temp Pulse Resp BP Pulse Ox 12/13/16 14:13 97.9 F 70 14 110/62 95 General: Conversant HEENT: Atraumatic Neck: No JVD Cardiac: Reg Rate and Rhythm, Other (systolic murmur) Lungs: Normal Breath Sounds, No Wheeze, Rales, Rhonchi Neuro: Alert and responsive Abdomen: Soft Skin: No rashes noted on visualized skin Extremities: No Cyanosis, Normal Pulses, Other (2+ LE edema) Results 12/13/16 03:08 12/13/16 03:08 Consult Discharge Plan - Plan Referrals: Luis Martinez, CORPORATE HEALTH CONSULTANT [Primary Care Provider] -
[2016-12-13] MEDS ORDERED: Nitroglycerin 0.4 MG TAB.SUBL SL PRN (15:20)
--- NOTE | 2016-12-13 16:40 | Electrocardiograph Report ---
[address] [address] Test Date: 2016-12-12 Pat Name: Ai Noyola Department: 105 Room: [facility] Gender: F Environmental Web Crawler: AM : 1950 Requested By: Tavo Gil Order Number: [id number] Reading MD: Mi Gallo Measurements Intervals Prospect Rate: 79 P: 32 ID: [id number] QRS: -19 QRSD: 101 T: 161 QT: 365 QTc: 399 Interpretive Statements SINUS RHYTHM LEFT VENTRICULAR HYPERTROPHY AND ST-T CHANGE [VOLTAGE CRITERIA PLUS ST/T ABNORMALITY] Electronically Signed On 12-13-2016 16:38:57 EDT by Mi Gallo
--- NOTE | 2016-12-13 16:40 | ECHO - Doppler Report ---
Limited Echocardiogram Name: Ai Noyola Date of Study: 12/13/2016 Date: 1950 Ht: 63.0 in Medical Record#: [id number] Age: 66 Wt: 291.0 lb Gender: Female BSA: 2.27 Order #: [id number] Location: [facility] Room #: [id number] Reading Physician: Patel Arteaga DO, FACC, FASE Environment Artist: Glenda Coronado Ordering Physician: Dorian Colón DO Primary Physician: Luis Martinez CNP Indications: Elevated troponin w/chest pain Impressions: LVEF 60-65%. Normal LV chamber size and function. Mild concentric left ventricular hypertrophy. Left Ventricular Wall Motion: Rest Echo Findings All wall segments showed normal motion. Findings: Study Quality * Technically adequate exam. ECG Findings * Normal sinus rhythm. Left Ventricle * LVEF 60-65%. * Normal LV chamber size and function. * Mild concentric left ventricular hypertrophy. History Hypertension Diabetes Hypercholesteremia Family History of CAD History of CAD/PTCA Myocardial Infarction Coronary Artery Bypass Graft Congestive Heart Failure 04/25/2016 a Previous Echo was performed. Measurements: BP: 128/ 47 2D Normal Values RVIDd: 3.80 cm <2.7 cm IVSd: 1.30 cm 0.6 - 1.0 cm LVIDd: 4.70 cm 3.7 - 5.6 cm LVPWd: 1.30 cm 0.6 - 1.1 cm LVIDs: 2.90 cm 1.5 - 3.6 cm AO: 3.20 cm < 4.0 cm LA: 4.80 cm 2.0 - 4.0cm %FS: 38.30 cm >25 % LA volume: Updated by Patel Arteaga DO, FACC, FASE, FASNC on 12/13/2016 4:35:15 PM electronically signed on 12/13/2016 4:36:37 PM with status of Final Wall Motion Bruce: 1=Normal, 2=Hypokinesis, 3=Akinesis, 4=Dyskinesis, 5=Aneurysmal, 6=Hyperkinetic, X=Not Visualized (Blank)=Missing
--- NOTE | 2016-12-13 18:10 | Oncology Inp Consult Note ---
Date of Encounter: 12/13/16 Time of Encounter: 17:00 Assessment and Plan (1) Diffuse large b-cell lymphoma, lymph nodes of multiple sites Status: Chronic Assessment and plan: recurrent on revlimid and rituximab treatment, hospitalized with SOB, she is s/ p hospitalization at [facility] and cardiac w/u and stent placement after ID. Echo reviewed, cardiology input appreciated. Cytopenia from revlimid. Heparin held. She will stop her revlimid and restart with next cycle at 10mg dose. Riruximab next wk. Monitor plt counts. Consider imaging with Ct chest to r/o worsening lumg disease /lymphadenopathy. Transfuse plt for bleeding/PRBC is HGb<7 due to SOB. Plan of care discussed with patient. 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 She was then diagnosed with DLBCL. CT abdomen and pelvis showed lymphadenopathy and bone marrow biopsy from the OSH that was concerning for B cell lymphoma with extensive marrow involvement, diffuse interstitial to near solid infiltrative pattern, involving 80% of the core biopsy. Repeat Bone marrow at [facility] from 12/01/15 showed 90% hypercellular marrow with demonstration of CD20, Pax5, and focal CD10, and was negative for TdT, CD5, and CD3. PET scan showed hyperintensity of the right kidney and hypermetabolic lymph nodes in the chest, abdomen, and pelvis. RP mass/lymph node was biopsied by IR on 12/09/2015, which was consistent with diffuse large B cell lymphoma. LP was unable to be obtained due ascites and pleural effusions. The patient was given RCHOP on , which the patient tolerated relatively well. She had increased insulin requirement with the prednisone. Completed RCHOP C6 04/12.. 04/25/2016: Restaging CT shows near resolution of pleural effusions and ascites. LAD much better. 08/08/2016: Surveillance CT shows worsening Lymphadenopathy consistent with disease progression.\ She was seen at [facility] and PET was recommended, if she is progressing not a transplant candidate-revlimid could be an option Reimaging 10/14-lung nodules-disseminated lymphoma cannot be ruled out. She is SOB with exertion but is nl for her, no cough or cold symptoms. She could not have PET scan due to her inability to lay down flat--bronch bx and flow shows kappa restricted clonal cells positive for CD19 and Cd20 highly suspicious for lymphoma She did Revlimid and 2 days after she was hospitalized at at [facility] with chest pain/SOB rule out ID. Patient underwent a cardiac catheter and stent placement. She developed a skin rash in the back. Dose was decreased to 15mg daily. Rash improved. She is hospitalized with SOb and chest discomfort-non ST segment elevated ID. Heparin stopped due to worsening thrombocytopenia. Due to skin/ subcut bleeding, she was given a plt transfusion. She is not rs=estrated her revlimid. Echo nl LV, wall motion. CXR pulm nodules. SOB is stable as long as she is in the bed wearing oxygen. Denies cough or chest pain. Lower ext swelling. Past Med Surg Social Fam HX - Past Medical History Medical history: arthritis, CHF, coronary artery disease, diabetes, hyperlipidemia, hypertension, myocardial infarction, pulmonary embolus, renal disease, thyroid disease, other Psychiatric history: depression - Past Surgical History Surgical History: cataract, coronary bypass (CABG), other - Social History Smoking Status: Never smoker Smokeless Tobacco Status: No Alcohol use: none Drug use: none - Family History Father Hx Family Cardiac Disorders: No Hx Family Respiratory Disorders: No Hx Family Cancer: Yes Hx Family GI Disorders: No Hx Family Endocrine Disorder: No Hx Family Neuromuscular Disorders: No Hx Family Neurologic Disorders: No Hx Family HEENT Disorders: No Hx Family Autoimmune Disorders: No Medications and Allergies Acetaminophen [Tylenol] 2 tab PO Q4H PRN 12/28/15 [History] Aspirin 81 mg PO DAILY 12/28/15 [History] Cholecalciferol (Vitamin D3) [Vitamin D3] 1,000 unit PO DAILY 12/28/15 [History] Docusate Sodium [Dok] 100 mg PO BID 12/28/15 [History] Levothyroxine [Synthroid] 75 mcg PO DAILY 12/28/15 [History] Lisinopril 2.5 mg PO DAILY 12/28/15 [History] Melatonin 3 mg PO HS 12/28/15 [History] Metoprolol XL (24 HR) Succ [Toprol Xl] 50 mg PO DAILY 01/08/16 [History] Furosemide [Lasix] 60 mg PO DAILY #90 tablet 01/19/16 [Rx] Pravastatin Sodium [Pravachol] 20 mg PO DAILY 02/08/16 [History] Metolazone [Zaroxolyn] 5 mg PO DAILY #90 tablet 03/02/16 [Rx] Hydrocortisone 1% CREAM [Cortaid] 28 appl TP DAILY PRN #1 bottle 11/11/16 [Rx] Lenalidomide [Revlimid] 15 mg PO DAILY #21 capsule 11/17/16 [Rx] Insulin Human Regular [HumuLIN R] 0 unit SQ AD MDD PER SLIDING SCALE 12/12/16 [ History] Insulin NPH, HUMAN [HumuLIN N] 0 unit SQ AD MDD SLIDING SCALE 12/12/16 [History ] Ticagrelor [Brilinta] 90 mg PO BID 12/12/16 [History] Allergies nitrofurantoin [From Macrobid] Allergy (Verified 08/08/16 16:39) Rash octreotide Allergy (Verified 08/08/16 16:39) Rash [place] Syndrome Penicillins Allergy (Verified 08/08/16 16:39) Rash vancomycin Allergy (Verified 08/08/16 16:39) Rash [place] Syndrome Review of systems: as above Oncology - Exam - Constitutional Vitals: Temp Pulse Resp BP Pulse Ox 98.2 F 49 17 115/34 99 12/13/16 15:00 12/13/16 15:00 12/13/16 15:00 12/13/16 15:00 12/13/16 15:00 General appearance: obese - Head Head exam: Present: atraumatic, normal inspection - Eye Eye exam: Present: sclera anicteric - ENT ENT exam: Present: mucous membranes dry Additional comments: O2 NC - Neck Neck exam: Present: full ROM - Respiratory Respiratory exam: Present: CTAB - Cardiovascular Cardiovascular exam: Present: +S1, +S2 - GI/Abdominal GI/Abdominal exam: Present: distended, normal bowel sounds - Extremities Exam Additional comments: tiny bruisng left upper ext, IV line without bleeding - Neurological Exam Neurological exam: Present: alert, oriented X3 - Psychiatric Psychiatric exam: Present: normal affect, normal mood Consult Discharge Plan - Plan Referrals: Luis Martinez, NETWORK SECURITY OFFICER [Primary Care Provider] -
[2016-12-13] MEDS: Ipratropium/Albuterol Neb 3 ML IH SCH ×2 (19:00→20:08)
[2016-12-13] MEDS ORDERED: *HR* Ticagrelor 90 MG TABLET PO SCH (21:00)
[2016-12-14] MEDS: Ipratropium/Albuterol Neb 3 ML IH SCH ×7 (00:01→23:37)
[2016-12-14 04:59] LABS: INR 1.2
[2016-12-14 05:03] LABS: Activated Partial Thrombo Time 27.1 Seconds (26.0-36.0); Immature Granulocytes % 0.5 % (0-4)
[2016-12-14 05:05] LABS: Basophils % 0.5 %; Eosinophils # 0.2 K/mcL (0.0-0.6); Eosinophils % 9.3 %; Hematocrit 22.2 % (35.3-44.9); Hemoglobin 7.2 g/dL (11.5-15.4); Immature Platelets 9.3 % (1.1-6.1); Lymphocytes # 0.9 K/mcL (0.6-4.6); Lymphocytes % 41.7 %; Mean Corpuscular HGB Conc 32.4 g/dL (31.6-35.5); Mean Corpuscular Hemoglobin 30.6 pg (28.0-33.3); Mean Corpuscular Volume 94.5 fL (83.0-100.0); Mean Platelet Volume 12.7 fL (9.4-12.4); Monocytes # 0.1 K/mcL (0.0-1.3); Neutrophils # 0.9 K/mcL (1.6-8.9); Red Blood Count 2.35 M/mcL (3.82-4.97); Red Cell Distribution Width 16.7 % (11.5-14.5)
[2016-12-14 05:15] LABS: Calcium 8.9 mg/dL (8.6-10.8); Potassium 3.6 mEq/L (3.5-4.5)
[2016-12-14 05:47] LABS: Platelet Count 53 K/mcL (140-400)
[2016-12-14 05:48] LABS: Anisocytosis 1+ (Not Present); Macrocytosis Present (Not Present); Platelet Estimate Decreased (Normal)
[2016-12-14 05:49] LABS: Microcytosis Present (Not Present); Polychromasia 1+ (Not Present)
[2016-12-14] MEDS: Metoprolol XL (24 HR) Succ 50 MG TAB.ER.24H PO SCH (09:05)
[2016-12-14] MEDS: Aspirin 81 MG TAB.CHEW PO SCH (09:05)
[2016-12-14] MEDS: metOLazone 5 MG TABLET PO SCH (09:05)
[2016-12-14] MEDS: Furosemide 20 MG TABLET PO SCH (09:05)
[2016-12-14] MEDS: Insulin LISPRO 300 UNITS/3 ML VIAL SQ SCH ×4 (09:06→21:12)
--- NOTE | 2016-12-14 09:29 | Internal Med Progress Note ---
Addendum entered and electronically signed by Bryanna Duran DO 11:14: [facility] records show that stent is drug-eluting. Brilinta restarted with AM dose delayed. Original Note: <Bryanna Duran - Last Filed: 12/14/16 09:27> Date of Encounter: 12/14/16 Time of Encounter: 09:27 - Assessment and plan (1) Shortness of breath Current Visit: Yes Status: Acute Assessment and plan: 1 week history of increasing shortness of breath chest x-ray negative for acute processes respiratory infection panel DuoNeb 12/14 CTA chest ordered to rule out acute cardiopulmonary processes, hydrate with 500 mL of fluid (2) Chest pain, exertional Current Visit: Yes Status: Acute Assessment and plan: nitroglycerin as needed for chest pain If chest pain occurs, repeat EKG (3) NSTEMI (non-ST elevated myocardial infarction) Current Visit: Yes Status: Acute Assessment and plan: Troponin elevated 0.18, prior stent 1 month ago at [facility] No chest pain at rest Brilinta and heparin stopped due to thrombocytopenia and bleeding Echo report pending Getting records from [facility] to find out if stent was bare metal or drug-eluting (4) CAD (coronary artery disease) Current Visit: Yes Status: Acute Assessment and plan: s/p PCI with 2 stents October 2016 Qualifiers: Coronary Disease-Associated Artery/Lesion type: unspecified vessel or lesion type [place] vs. transplanted heart: [place] heart Associated angina: angina presence unspecified Qualified Code(s): I25.10 - Atherosclerotic heart disease of [place] coronary artery without angina pectoris (5) CKD (chronic kidney disease) stage 3, GFR 30-59 ml/min Current Visit: Yes Status: Acute Assessment and plan: follows outpatient with Dr. Butt continue to monitor (6) HTN (hypertension) Current Visit: Yes Status: Acute Assessment and plan: continue home medications Qualifiers: Hypertension type: essential hypertension Qualified Code(s): I10 - Essential (primary) hypertension (7) Diffuse large b-cell lymphoma, lymph nodes of multiple sites Current Visit: Yes Status: Chronic Assessment and plan: Patient of Dr. ESTELA barahona hematology oncology recommendations (8) Pancytopenia due to antineoplastic chemotherapy Current Visit: Yes Status: Chronic (9) Chronic respiratory failure Current Visit: Yes Status: Chronic Assessment and plan: patient uses 2L supplemental O2 Qualifiers: Respiratory failure complication: unspecified whether with hypoxia or hypercapnia Qualified Code(s): J96.10 - Chronic respiratory failure, unspecified whether with hypoxia or hypercapnia (10) Type II diabetes mellitus Current Visit: Yes Status: Chronic Assessment and plan: accuchecks and sliding scale Qualifiers: Diabetes mellitus complication status: with kidney complications Diabetes mellitus complication detail: with chronic kidney disease Diabetes mellitus assistant terminal manager insulin use: without mcc use Chronic kidney disease stage: stage 3 (moderate) Qualified Code(s): E11.22 - Type 2 diabetes mellitus with diabetic chronic kidney disease; N18.3 - Chronic kidney disease, stage 3 ( moderate) (11) DVT prophylaxis Current Visit: Yes Status: Acute Assessment and plan: SCDs - Subjective Interval history: Patient seen and examined. States that her oxygen saturation went down to 79 with using the bedside commode this morning. She is hesitant to use the nasal swab for the respiratory infection panel due to having a nosebleed recently and having to have nasal packing for 3 days. She states she will get it done this morning though. - Constitutional Vitals: Temp Pulse Resp BP Pulse Ox 98.5 F 67 18 108/41 96 12/14/16 07:55 12/14/16 07:55 12/14/16 08:09 12/14/16 07:55 12/14/16 08:09 General appearance: Present: A&O X 3, morbidly obese, no acute distress - Head Head exam: Present: atraumatic, normocephalic - Eye Eye exam: Present: PERRL, conjuntiva pink, sclera anicteric Pupils: Present: PERRL - Neck Neck exam general surgery: Present: supple - Respiratory Respiratory exam: Present: CTAB - Cardiovascular Cardiovascular exam: Present: RRR, +S1, +S2 - GI/Abdominal GI/Abdominal exam: Present: soft. Absent: tenderness - Extremities Exam Extremities exam: Present: warm. Absent: pedal edema, tenderness - Neurological Exam Neurological exam: Present: alert, CN II-XII intact, oriented X3, no focal deficits Internal Medicine: Result - Labs CBC & Chem 7: 12/14/16 04:16 12/14/16 04:16 Labs: Short CBC 12/14/16 Range/Units 04:16 WBC 2.2 L (4.3-11.1) K/mcL Hgb 7.2 L (11.5-15.4) g/dL Hct 22.2 L (35.3-44.9) % Plt Count 53 L (140-400) K/mcL Neutrophils # 0.9 L (1.6-8.9) K/mcL BMP 12/14/16 04:16 Sodium 140 Potassium 3.6 Chloride 102 Carbon Dioxide 27 BUN 34 H Creatinine 1.27 H Glucose 148 H Calcium 8.9 - ABG Interpretation ABG results: PT/INR, D-dimer PT 13.0 Seconds (9.4-12.1) H 12/14/16 04:16 D-Dimer 3905 ng/mLFEU (0-500) H 12/13/16 06:43 Consult Discharge Plan - Plan Referrals: Luis Martinez, [employer] [Primary Care Provider] - <Tavo Gil - Last Filed: 12/14/16 13:21> Date of Encounter: 12/14/16 - Assessment and plan (1) Acute and chronic respiratory failure Current Visit: Yes Status: Acute Assessment and plan: CTA of chest today. Qualifiers: Respiratory failure complication: hypoxia Qualified Code(s): J96.21 - Acute and chronic respiratory failure with hypoxia (2) CAD (coronary artery disease) Current Visit: Yes Status: Acute Qualifiers: Coronary Disease-Associated Artery/Lesion type: unspecified vessel or lesion type [place] vs. transplanted heart: [place] heart Associated angina: angina presence unspecified Qualified Code(s): I25.10 - Atherosclerotic heart disease of [place] coronary artery without angina pectoris (3) CKD (chronic kidney disease) stage 3, GFR 30-59 ml/min Current Visit: Yes Status: Acute (4) HTN (hypertension) Current Visit: Yes Status: Acute Qualifiers: Hypertension type: essential hypertension Qualified Code(s): I10 - Essential (primary) hypertension (5) Type II diabetes mellitus Current Visit: Yes Status: Chronic Qualifiers: Diabetes mellitus complication status: with kidney complications Diabetes mellitus complication detail: with chronic kidney disease Diabetes mellitus mcc insulin use: without assistant terminal manager use Chronic kidney disease stage: stage 3 (moderate) Qualified Code(s): E11.22 - Type 2 diabetes mellitus with diabetic chronic kidney disease; N18.3 - Chronic kidney disease, stage 3 ( moderate) (6) Pancytopenia due to antineoplastic chemotherapy Current Visit: Yes Status: Chronic Assessment and plan: Heme/onc following. (7) Diffuse large b-cell lymphoma, lymph nodes of multiple sites Current Visit: Yes Status: Chronic - Constitutional Vitals: Temp Pulse Resp BP Pulse Ox 98.5 F 75 18 105/40 95 12/14/16 11:59 12/14/16 11:59 12/14/16 11:59 12/14/16 11:59 12/14/16 11:59 Internal Medicine: Result - Labs CBC & Chem 7: 12/14/16 04:16 12/14/16 04:16 Labs: Short CBC 12/14/16 Range/Units 04:16 WBC 2.2 L (4.3-11.1) K/mcL Hgb 7.2 L (11.5-15.4) g/dL Hct 22.2 L (35.3-44.9) % Plt Count 53 L (140-400) K/mcL Neutrophils # 0.9 L (1.6-8.9) K/mcL BMP 12/14/16 04:16 Sodium 140 Potassium 3.6 Chloride 102 Carbon Dioxide 27 BUN 34 H Creatinine 1.27 H Glucose 148 H Calcium 8.9 - ABG Interpretation ABG results: PT/INR, D-dimer PT 13.0 Seconds (9.4-12.1) H 12/14/16 04:16 D-Dimer 3905 ng/mLFEU (0-500) H 12/13/16 06:43 - Impressions Impressions Chest CTA 12/14/16 11:30 IMPRESSION: 1. No acute pulmonary emboli. New trace bilateral pleural effusions. 2. Stable borderline enlarged lymph nodes with no interval progressive or new lymphadenopathy. 3. Improving bilateral lower lobe predominant subcentimeter pulmonary nodules. D/ / 12/14/2016 12:05:25 Rob Bacon MD / Mayte Maxwell Interpreting Provider: Rob Bacon MD - Attending Attestation I examined this patient and my medical decision-making was reviewed with the Resident Physician on 12/14/16. I agree with the documented findings, disposition and treatment plan as described except to the extent set forth below. Ms Noyola is currently admitted for thrombocytopenia and dyspnea. She is currently moderate to high risk due to potential for worsening respiratory status. Ms. Noyola is still dyspneic and desaturates with movement. No CP. No GI symptoms. [facility] records show she received 2 drug eluting stents. Brlinta restarted. Exam Alert. Comfortable Heart reg Lungs diminished but clear Abd soft I/P 1. Dyspnea - CTA ordered today 2. B cell lymphoma - per oncology 3. pancytopenia Further diagnoses and plan as above.
[2016-12-14] MEDS ORDERED: 0.9 % Sodium Chloride 1,000 ML IVC SCH (09:45)
[2016-12-14] MEDS: *HR* Ticagrelor 90 MG TABLET PO SCH ×2 (12:24→21:11)
--- NOTE | 2016-12-14 13:33 | Cardiology Progress Note ---
Date of Encounter: 12/14/16 Time of Encounter: 13:31 Assessment and Plan (1) Abnormal EKG Current Visit: Yes Status: Acute EKG shows 1mm of ST depression in V4-V6. T wave changes present in precordial leads. If symptoms of chest pain, dyspnea, or arm/jaw pain begin recommend repeating. (2) NSTEMI (non-ST elevated myocardial infarction) Current Visit: Yes Status: Acute EKG does not show ST elevation. Inferior ST changes present in lateral leads. Troponin elevated at 0.18. Prior stent placed 1 month ago at [facility] No chest pain at rest. Heparin drip and brilinta has been stopped due to thrombocytopenia. Troponin did not increase after being trended Will obtain cath report from [facility]. Echocardiogram has been completed and is unchanged from prior (3) Chest pain, exertional Current Visit: Yes Status: Acute Nitroglycerin PRN for chest discomfort. Currently asymptomatic at rest (4) Thrombocytopenia Current Visit: No Status: Acute Recommend to keep taking Brilinta due to risk of re-stenosis in drug eluting stent May hold aspirin while having thrombocytopenia Cardiology signing off. Please contact with any questions Discussion w patient/family: The assessment and plan as outlined above was discussed with the patient and/or family members who expressed understanding and agreement. All questions were answered. Thank you for involving us in the care of your patient. Please call with any questions. Subjective Principal diagnosis: NSTEMI Interval history: No changes overnight. label cutter report was obtained which showed 2 stents placed in the obtuse marginal. Drug eluting stents. Asked by inpatient team if the patient should be on Brilinta (which was recently held due to bleeding). Objective Vital Signs, Last 4 Hours Temp Pulse Resp BP Pulse Ox 12/14/16 11:59 98.5 F 75 18 105/40 95 General: Conversant HEENT: Atraumatic Neck: No JVD Cardiac: Other (systolic murmur present) Lungs: Normal Breath Sounds Neuro: Alert and responsive Abdomen: Soft Skin: No rashes noted on visualized skin Extremities: No Cyanosis, Normal Pulses Results 12/14/16 04:16 12/14/16 04:16 Lab Results 12/14/16 12/14/16 12/14/16 04:16 04:16 04:16 WBC 2.2 L Hgb 7.2 L Hct 22.2 L Plt Count 53 L INR 1.2 APTT 27.1 D Sodium 140 Potassium 3.6 Chloride 102 Carbon Dioxide 27 BUN 34 H Creatinine 1.27 H Glucose 148 H Calcium 8.9 Consult Discharge Plan - Plan Referrals: Luis Martinez, [employer] [Primary Care Provider] -
--- NOTE | 2016-12-14 19:50 | Oncology Inp Progress Note ---
Date of Encounter: 12/14/16 Time of Encounter: 21:19 (1) Diffuse large b-cell lymphoma, lymph nodes of multiple sites Current Visit: Yes Status: Chronic Assessment and plan: Status post treatment with 6 cycles of CHOP completed in March 2016 with progressive disease seen in July 2016 and so a started on Revlimid. On account of cytopenias we will hold Revlimid and consider restarting a lower dose. Repeat CT scans to assess response to Revlimid (2) Thrombocytopenia Current Visit: No Status: Acute Assessment and plan: Patient with chronic thrombocytopenia. Could have been worsened by Revlimid. Cytopenia preceded the initiation of heparin so NIXON is less likely. It could be due to bone marrow involvement by lymphoma or auto immune thrombocytopenia which is typically seen in patients with lymphoma. We will check platelet autoantibodies and direct Sarah test to rule out Lou syndrome. May consider trial of steroids. (3) NSTEMI (non-ST elevated myocardial infarction) Current Visit: Yes Status: Acute Assessment and plan: Troponin elevated 0.18, prior stent 1 month ago at [facility]. Brilinta and heparin stopped due to thrombocytopenia and bleeding, but brilinta was restarted on account of drug-eluting stent being placed a month ago. Management as per cardiology and primary team. (4) Anemia Current Visit: No Status: Chronic Assessment and plan: Chronic. Could be secondary to malignancy with bone marrow involvement with a component of immune mediated hemolytic anemia. We will check a direct Sarah test, haptoglobin. Typically hemoglobin should be maintained above 8, but in this setting of possible acute coronary syndrome would recommend a higher level of between 9 and 10. Patient with HB of 7.2 and chest pain with exertion. Will transfuse 2 units of PRBC. Qualifiers: Anemia type: bone marrow failure Bone marrow failure anemia type: pancytopenia, antineoplastic chemotherapy-induced Qualified Code(s): D61.810 - Antineoplastic chemotherapy induced pancytopenia Oncology: Subj Interval history: Patient is doing okay. She reports some chest pain with exertion but no chest pain at rest. - Constitutional Vitals: Vital Signs Temp Pulse Resp BP Pulse Ox 12/14/16 16:03 97.9 F 15 111/36 95 12/14/16 15:41 18 95 12/14/16 11:59 98.5 F 75 18 105/40 95 12/14/16 09:00 96 12/14/16 08:09 18 96 12/14/16 07:55 98.5 F 67 18 108/41 98 12/14/16 03:56 98.7 F 76 17 125/56 95 12/14/16 03:55 18 93 12/14/16 00:01 16 97 12/13/16 21:15 99 12/13/16 20:38 98.0 F 72 16 123/48 99 12/13/16 20:08 18 95 Intake and Output 12/14/16 12/14/16 12/14/16 07:59 15:59 23:59 Intake Total 0 / 0 240 / 240 500 / 500 Output Total 500 / 500 300 / 300 Balance -500 / -500 -60 / -60 500 / 500 Intake: Oral 0 / 0 240 / 240 500 / 500 Output: Urine 500 / 500 300 / 300 Other: Meal Lunch Percent of Meal Consumed 100% Stool Size Moderate Large Stool Consistency soft liquid Stool Characteristics Normal for Patient Stool Color Yellow Yellow # Voids 1 1 # Bowel Movements 1 1 # Bowel Movement Diapers 1 Weight 110.8 kg Blood Glucose* 231 248 199 Patient Weight 12/14/16 23:59 Weight 110.8 kg General appearance: obese, no febrile, no no acute distress, no severe distress - Head Head exam: Present: atraumatic, normal inspection - Eye Eye exam: Present: EOMI, normal appearance - ENT ENT exam: Present: mucous membranes moist, normal oropharynx - Neck Neck exam: Absent: lymphadenopathy, tenderness - Respiratory Respiratory exam: Present: CTAB - Cardiovascular Cardiovascular exam: Present: RRR, +S1, +S2 - GI/Abdominal GI/Abdominal exam: Present: soft, tenderness. Absent: mass, organomegaly, rebound, rigid - Extremities Exam Extremities exam: Present: normal inspection. Absent: pedal edema - Neurological Exam Neurological exam: Present: alert, oriented X3 - Psychiatric Psychiatric exam: Present: normal affect, normal mood Oncology: Obj Data - Labs CBC & Chem 7: 12/14/16 04:16 12/14/16 04:16 Labs: Laboratory Results - last 24 hr 12/13/16 12/13/16 12/14/16 15:43 20:39 04:16 WBC 2.2 L RBC 2.35 L Hgb 7.2 L Hct 22.2 L MCV 94.5 MCH 30.6 MCHC 32.4 RDW 16.7 H Plt Count 53 L MPV 12.7 H Immature Gran % 0.5 Seg Neutrophils % 42.0 Lymphocytes % 41.7 Monocytes % 6.0 Eosinophils % 9.3 Basophils % 0.5 Neutrophils # 0.9 L Lymphocytes # 0.9 Monocytes # 0.1 Eosinophils # 0.2 Basophils # 0.0 Platelet Estimate Decreased L Immature Plt Fraction 9.3 H Polychromasia 1+ A Anisocytosis 1+ A Microcytosis Present A Macrocytosis Present A PT INR APTT Sodium Potassium Chloride Carbon Dioxide BUN Creatinine Est GFR ( Amer) Est GFR (Non-Af Amer) BUN/Creatinine Ratio Glucose POC Glucose 137 H 173 H Calculated Osmolality Calcium 12/14/16 12/14/16 12/14/16 04:16 04:16 12:01 WBC RBC Hgb Hct MCV MCH MCHC RDW Plt Count MPV Immature Gran % Seg Neutrophils % Lymphocytes % Monocytes % Eosinophils % Basophils % Neutrophils # Lymphocytes # Monocytes # Eosinophils # Basophils # Platelet Estimate Immature Plt Fraction Polychromasia Anisocytosis Microcytosis Macrocytosis PT 13.0 H INR 1.2 APTT 27.1 D Sodium 140 Potassium 3.6 Chloride 102 Carbon Dioxide 27 BUN 34 H Creatinine 1.27 H Est GFR ( Amer) 51 L Est GFR (Non-Af Amer) 42 L BUN/Creatinine Ratio 27 H Glucose 148 H POC Glucose 248 H Calculated Osmolality 300 Calcium 8.9 12/14/16 16:10 WBC RBC Hgb Hct MCV MCH MCHC RDW Plt Count MPV Immature Gran % Seg Neutrophils % Lymphocytes % Monocytes % Eosinophils % Basophils % Neutrophils # Lymphocytes # Monocytes # Eosinophils # Basophils # Platelet Estimate Immature Plt Fraction Polychromasia Anisocytosis Microcytosis Macrocytosis PT INR APTT Sodium Potassium Chloride Carbon Dioxide BUN Creatinine Est GFR ( Amer) Est GFR (Non-Af Amer) BUN/Creatinine Ratio Glucose POC Glucose 199 H Calculated Osmolality Calcium - Impressions Impressions Chest CTA 12/14/16 11:30 IMPRESSION: 1. No acute pulmonary emboli. New trace bilateral pleural effusions. 2. Stable borderline enlarged lymph nodes with no interval progressive or new lymphadenopathy. 3. Improving bilateral lower lobe predominant subcentimeter pulmonary nodules. D/ / 12/14/2016 12:05:25 Rob Bacon MD / Mayte Maxwell Interpreting Provider: Rob Bacon MD - ABG Interpretation ABG results: PT/INR, D-dimer PT 13.0 Seconds (9.4-12.1) H 12/14/16 04:16 D-Dimer 3905 ng/mLFEU (0-500) H 12/13/16 06:43 Consult Discharge Plan - Plan Referrals: Luis Martinez, [employer] [Primary Care Provider] -
[2016-12-14] MEDS ORDERED: Furosemide 40 MG/4 ML VIAL IVP ONE (20:33)
[2016-12-14 20:40] LABS: Immature Reticulocyte % 12.5 % (11.0-38.0); Retculocyte # 0.06 M/mcL (0.05-0.10); Reticulocyte % 2.6 % (1.6-2.8)
[2016-12-14] MEDS ORDERED: 0.9 % Sodium Chloride 250 ML ONE (22:21)
[2016-12-15] MEDS: Ipratropium/Albuterol Neb 3 ML IH SCH ×6 (03:59→23:23)
[2016-12-15] MEDS ORDERED: 0.9 % Sodium Chloride 250 ML ONE (04:49)
[2016-12-15 06:00] LABS: Basophils % 0.9 %
[2016-12-15 06:02] LABS: Eosinophils # 0.3 K/mcL (0.0-0.6); Eosinophils % 11.2 %; Hematocrit 25.1 % (35.3-44.9); Hemoglobin 8.1 g/dL (11.5-15.4); Immature Granulocytes % 0.9 % (0-4); Lymphocytes # 0.7 K/mcL (0.6-4.6); Lymphocytes % 32.3 %; Mean Corpuscular HGB Conc 32.3 g/dL (31.6-35.5); Mean Corpuscular Hemoglobin 30.3 pg (28.0-33.3); Monocytes # 0.2 K/mcL (0.0-1.3); Monocytes % 9.9 %; Red Blood Count 2.67 M/mcL (3.82-4.97); Red Cell Distribution Width 17.4 % (11.5-14.5); Segmented Neutrophils % 44.8 %
[2016-12-15 06:04] LABS: INR 1.2; Prothrombin Time 13.4 Seconds (9.4-12.1)
[2016-12-15 06:07] LABS: Activated Partial Thrombo Time 31.2 Seconds (26.0-36.0)
[2016-12-15 06:08] LABS: Platelet Count 55 K/mcL (140-400)
[2016-12-15 06:18] LABS: Calcium 9.2 mg/dL (8.6-10.8); Potassium 4.2 mEq/L (3.5-4.5)
[2016-12-15 06:37] LABS: Platelet Estimate Decreased (Normal); Reactive Lymphocytes Present (Not Present)
[2016-12-15 06:40] LABS: Anisocytosis 1+ (Not Present)
[2016-12-15] MEDS: Insulin LISPRO 300 UNITS/3 ML VIAL SQ SCH ×4 (08:56→23:19)
[2016-12-15] MEDS: metOLazone 5 MG TABLET PO SCH (08:57)
[2016-12-15] MEDS: *HR* Ticagrelor 90 MG TABLET PO SCH ×2 (08:57→23:18)
[2016-12-15] MEDS: Furosemide 20 MG TABLET PO SCH (08:57)
[2016-12-15] MEDS: Metoprolol XL (24 HR) Succ 50 MG TAB.ER.24H PO SCH (08:57)
--- NOTE | 2016-12-15 09:19 | Oncology Inp Progress Note ---
Date of Encounter: 12/15/16 Time of Encounter: 19:59 (1) Diffuse large b-cell lymphoma, lymph nodes of multiple sites Current Visit: Yes Status: Chronic Assessment and plan: Status post treatment with 6 cycles of CHOP completed in March 2016 with progressive disease seen in July 2016 and so a started on Revlimid. On account of cytopenias Revlimid currently on hold and will be restarted a lower dose in the outpatient setting. Repeat CT scans showing stable borderline enlarged lymph nodes. (2) Thrombocytopenia Current Visit: No Status: Acute Assessment and plan: Patient with chronic thrombocytopenia. Could have been worsened by Revlimid. Cytopenia preceded the initiation of heparin so NIXON is less likely. It could be due to bone marrow involvement by lymphoma or auto immune thrombocytopenia which is typically seen in patients with lymphoma. Awaiting platelet autoantibodies and direct Sarah test to rule out Lou syndrome. (3) NSTEMI (non-ST elevated myocardial infarction) Current Visit: Yes Status: Acute Assessment and plan: Troponin elevated 0.18, prior stent 1 month ago at [facility]. Brilinta and heparin stopped due to thrombocytopenia and bleeding, but brilinta was restarted on account of drug-eluting stent being placed a month ago. Management as per cardiology and primary team. (4) Anemia Current Visit: Yes Status: Chronic Assessment and plan: Chronic. Could be secondary to malignancy with bone marrow involvement with a component of immune mediated hemolytic anemia. Direct Sarah test was however negative. Typically hemoglobin should be maintained above 8, but in this setting of possible acute coronary syndrome would recommend a higher level of between 9 and 10. Patient was transfused 2 units of PRBC. 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 She got PRBC transfusion overnight, which should help with intravascular volume. Qualifiers: Qualified Code(s): N17.9 - Acute kidney failure, unspecified Oncology: Subj Interval history: Patient is doing well and is baseline. She has no new complaints today. - Constitutional Vitals: Vital Signs Temp Pulse Resp BP Pulse Ox 12/15/16 09:00 98 12/15/16 08:30 97.9 F 67 16 106/49 98 12/15/16 08:01 12 98 12/15/16 07:42 97.9 F 67 16 106/49 98 12/15/16 05:22 97.9 F 70 18 112/46 99 12/15/16 05:14 20 99 12/15/16 05:07 97.9 F 16 112/52 12/15/16 04:23 98.9 F 70 15 119/57 99 12/15/16 02:08 98 F 71 16 103/41 98 12/15/16 00:15 98.4 F 65 16 124/43 98 12/14/16 23:40 16 95 12/14/16 23:14 98.5 F 56 18 122/42 99 12/14/16 22:59 99 F 56 18 110/38 100 12/14/16 21:15 100 12/14/16 20:19 98.2 F 74 16 123/61 100 12/14/16 20:08 16 99 12/14/16 16:03 97.9 F 15 111/36 95 12/14/16 15:41 18 95 12/14/16 11:59 98.5 F 75 18 105/40 95 Intake and Output 12/14/16 12/15/16 12/15/16 23:59 07:59 15:59 Intake Total 500 / 500 350 / 350 350 / 350 Output Total 575 / 575 Balance 500 / 500 -225 / -225 350 / 350 Intake: Oral 500 / 500 Blood Product 0 / 0 350 / 350 350 / 350 Rbcs Leuko Poor As-1 0 / 0 350 / 350 Unit [id number] Rbcs Leuko Poor As-1 0 / 0 350 / 350 Unit [id number] Output: Urine 575 / 575 Other: Stool Size Moderate Stool Consistency soft Stool Color Brown Yellow # Voids 1 1 # Bowel Movements 1 Blood Glucose* 235 263 General appearance: no acute distress, obese, no febrile - Head Head exam: Present: normal inspection - Eye Eye exam: Present: EOMI, normal appearance - ENT ENT exam: Present: normal external ear exam - Neck Neck exam: Present: normal inspection. Absent: meningismus - Respiratory Respiratory exam: Present: CTAB. Absent: stridor, wheezes - Cardiovascular Cardiovascular exam: Present: RRR, +S1, +S2 - GI/Abdominal GI/Abdominal exam: Present: soft. Absent: rebound, rigid, tenderness - Extremities Exam Additional comments: Trace bilateral pitting pedal edema - Neurological Exam Neurological exam: Present: alert, oriented X3 - Psychiatric Psychiatric exam: Present: normal affect, normal mood - Skin Additional comments: Bruises seen in the upper extremities Oncology: Obj Data - Labs CBC & Chem 7: 12/15/16 17:04 12/15/16 05:42 Labs: Laboratory Results - last 24 hr 12/14/16 12/14/16 12/14/16 07:54 12:01 16:10 WBC RBC Hgb Hct MCV MCH MCHC RDW Plt Count MPV Reticulocyte # Immature Gran % Seg Neutrophils % Lymphocytes % Monocytes % Eosinophils % Basophils % Neutrophils # Lymphocytes # Monocytes # Eosinophils # Basophils # Reactive Lymphocytes Platelet Estimate Immature Plt Fraction Anisocytosis Percent Retic Immature Retic Fraction Retic Hgb Equivalent PT INR APTT Sodium Potassium Chloride Carbon Dioxide BUN Creatinine Est GFR ( Amer) Est GFR (Non-Af Amer) BUN/Creatinine Ratio Glucose POC Glucose 231 H 248 H 199 H Calculated Osmolality Calcium Lactate Dehydrogenase MODESTA, Poly Interpret Crossmatch 12/14/16 12/14/16 12/14/16 20:26 20:26 20:26 WBC RBC Hgb Hct MCV MCH MCHC RDW Plt Count MPV Reticulocyte # 0.06 Immature Gran % Seg Neutrophils % Lymphocytes % Monocytes % Eosinophils % Basophils % Neutrophils # Lymphocytes # Monocytes # Eosinophils # Basophils # Reactive Lymphocytes Platelet Estimate Immature Plt Fraction Anisocytosis Percent Retic 2.6 Immature Retic Fraction 12.5 Retic Hgb Equivalent 32.9 PT INR APTT Sodium Potassium Chloride Carbon Dioxide BUN Creatinine Est GFR ( Amer) Est GFR (Non-Af Amer) BUN/Creatinine Ratio Glucose POC Glucose Calculated Osmolality Calcium Lactate Dehydrogenase 158 L MODESTA, Poly Interpret NEG Crossmatch See Detail 12/15/16 12/15/16 12/15/16 05:42 05:42 05:42 WBC 2.2 L RBC 2.67 L Hgb 8.1 L Hct 25.1 L MCV 94.0 MCH 30.3 MCHC 32.3 RDW 17.4 H Plt Count 55 L MPV 11.0 Reticulocyte # Immature Gran % 0.9 Seg Neutrophils % 44.8 Lymphocytes % 32.3 Monocytes % 9.9 Eosinophils % 11.2 Basophils % 0.9 Neutrophils # 1.0 L Lymphocytes # 0.7 Monocytes # 0.2 Eosinophils # 0.3 Basophils # 0.0 Reactive Lymphocytes Present A Platelet Estimate Decreased L Immature Plt Fraction 10.0 H Anisocytosis 1+ A Percent Retic Immature Retic Fraction Retic Hgb Equivalent PT 13.4 H INR 1.2 APTT 31.2 Sodium 139 Potassium 4.2 Chloride 101 Carbon Dioxide 28 BUN 38 H Creatinine 1.43 H Est GFR ( Amer) 44 L Est GFR (Non-Af Amer) 37 L BUN/Creatinine Ratio 27 H Glucose 248 H POC Glucose Calculated Osmolality 305 H Calcium 9.2 Lactate Dehydrogenase MODESTA, Poly Interpret Crossmatch - Impressions Impressions Chest CTA 12/14/16 11:30 IMPRESSION: 1. No acute pulmonary emboli. New trace bilateral pleural effusions. 2. Stable borderline enlarged lymph nodes with no interval progressive or new lymphadenopathy. 3. Improving bilateral lower lobe predominant subcentimeter pulmonary nodules. D/ / 12/14/2016 12:05:25 Rob Bacon MD / Mayte Maxwell Interpreting Provider: Rob Bacon MD - ABG Interpretation ABG results: PT/INR, D-dimer PT 13.4 Seconds (9.4-12.1) H 12/15/16 05:42 D-Dimer 3905 ng/mLFEU (0-500) H 12/13/16 06:43 Consult Discharge Plan - Plan Referrals: Luis Martinez, CAR KNOCKER [Primary Care Provider] -
--- NOTE | 2016-12-15 15:12 | Internal Med Progress Note ---
Date of Encounter: 12/15/16 Time of Encounter: 15:10 - Assessment and plan (1) Shortness of breath Current Visit: Yes Status: Acute Assessment and plan: 1 week history of increasing shortness of breath chest x-ray negative for acute processes respiratory infection panel DuoNeb 12/14 CTA chest ordered to rule out acute cardiopulmonary processes, hydrate with 500 mL of fluid 12/15 CTA negative for acute process, suspect a portion is due to patient de- conditioning s/p PCI 1 month ago (2) Chest pain, exertional Current Visit: Yes Status: Acute Assessment and plan: nitroglycerin as needed for chest pain If chest pain occurs, repeat EKG (3) NSTEMI (non-ST elevated myocardial infarction) Current Visit: Yes Status: Acute Assessment and plan: Troponin elevated 0.18, prior stent 1 month ago at [facility] No chest pain at rest [place] on board due to drug eluting stent Echo: LV 60-65%, normal LV chamber size and function, mild concentric LV hypertrophy. (4) CAD (coronary artery disease) Current Visit: Yes Status: Acute Assessment and plan: s/p PCI with 2 stents October 2016 Qualifiers: Coronary Disease-Associated Artery/Lesion type: unspecified vessel or lesion type [place] vs. transplanted heart: [place] heart Associated angina: angina presence unspecified Qualified Code(s): I25.10 - Atherosclerotic heart disease of [place] coronary artery without angina pectoris (5) CKD (chronic kidney disease) stage 3, GFR 30-59 ml/min Current Visit: Yes Status: Acute Assessment and plan: follows outpatient with Dr. Butt renal function decreased after CTA yesterday continue to monitor (6) HTN (hypertension) Current Visit: Yes Status: Acute Assessment and plan: continue home medications Qualifiers: Hypertension type: essential hypertension Qualified Code(s): I10 - Essential (primary) hypertension (7) Diffuse large b-cell lymphoma, lymph nodes of multiple sites Current Visit: Yes Status: Chronic Assessment and plan: Patient of Dr. ESTELA barahona hematology oncology recommendations (8) Pancytopenia due to antineoplastic chemotherapy Current Visit: Yes Status: Chronic Assessment and plan: Per Heme/onc Anemia: Transfused 2 units pRBC yesterday. Goal Hg 9-10 in setting of possible ACS. Thrombocytopenia: Checking platelet autoantibodies and direct Sarah test to rule out Lou syndrome. May consider trial of steroids. (9) Chronic respiratory failure Current Visit: Yes Status: Chronic Assessment and plan: patient uses 2L supplemental O2 Qualifiers: Respiratory failure complication: unspecified whether with hypoxia or hypercapnia Qualified Code(s): J96.10 - Chronic respiratory failure, unspecified whether with hypoxia or hypercapnia (10) Type II diabetes mellitus Current Visit: Yes Status: Chronic Assessment and plan: accuchecks and sliding scale Qualifiers: Diabetes mellitus complication status: with kidney complications Diabetes mellitus complication detail: with chronic kidney disease Diabetes mellitus salvage determiner insulin use: without salvage determiner use Chronic kidney disease stage: stage 3 (moderate) Qualified Code(s): E11.22 - Type 2 diabetes mellitus with diabetic chronic kidney disease; N18.3 - Chronic kidney disease, stage 3 ( moderate) (11) DVT prophylaxis Current Visit: Yes Status: Acute Assessment and plan: SCDs - Subjective Interval history: Patient seen and examined. Has not been out of bed except to bedside commode. Agreeable to PT evaluation to evaluate dyspnea during exertion. - Constitutional Vitals: Temp Pulse Resp BP Pulse Ox 98.2 F 70 18 109/46 96 12/15/16 11:27 12/15/16 11:27 12/15/16 11:27 12/15/16 11:27 12/15/16 11:27 General appearance: Present: A&O X 3, morbidly obese, no acute distress - Head Head exam: Present: atraumatic, normocephalic - Eye Eye exam: Present: PERRL, conjuntiva pink, sclera anicteric Pupils: Present: PERRL - Neck Neck exam general surgery: Present: supple - Respiratory Respiratory exam: Present: CTAB - Cardiovascular Cardiovascular exam: Present: RRR, +S1, +S2 - GI/Abdominal GI/Abdominal exam: Present: soft. Absent: tenderness - Extremities Exam Extremities exam: Present: warm. Absent: pedal edema, tenderness - Neurological Exam Neurological exam: Present: alert, CN II-XII intact, oriented X3, no focal deficits - Skin Skin exam: Present: dry, intact, warm Internal Medicine: Result - Labs CBC & Chem 7: 12/15/16 05:42 12/15/16 05:42 Labs: Short CBC 12/15/16 Range/Units 05:42 WBC 2.2 L (4.3-11.1) K/mcL Hgb 8.1 L (11.5-15.4) g/dL Hct 25.1 L (35.3-44.9) % Plt Count 55 L (140-400) K/mcL Neutrophils # 1.0 L (1.6-8.9) K/mcL BMP 12/15/16 05:42 Sodium 139 Potassium 4.2 Chloride 101 Carbon Dioxide 28 BUN 38 H Creatinine 1.43 H Glucose 248 H Calcium 9.2 - ABG Interpretation ABG results: PT/INR, D-dimer PT 13.4 Seconds (9.4-12.1) H 12/15/16 05:42 D-Dimer 3905 ng/mLFEU (0-500) H 12/13/16 06:43 - VTE Documentation of Mechanical Device: Intermittent pneumatic compression device Consult Discharge Plan - Plan Referrals: Luis Martinez, EDUCATION DEPARTMENT CHAIR [Primary Care Provider] -
[2016-12-15 15:37] LABS: Adenovirus Not Detected (Not Detect); Bordetella Pertussis Not Detected (Not Detect); Chlamydophila pneumoniae Not Detected (Not Detect); Coronavirus 229E Not Detected (Not Detect); Coronavirus HKU1 Not Detected (Not Detect); Coronavirus NL63 Not Detected (Not Detect); Coronavirus OC43 Not Detected (Not Detect); Human Metapneumovirus Not Detected (Not Detect); Human Rhinovirus/Enterovirus Not Detected (Not Detect); Influenza A Subtype 2009 H1 Not Detected (Not Detect); Influenza A Untypeable Not Detected (Not Detect); Influenza B Not Detected (Not Detect); Mycoplasma pneumoniae Not Detected (Not Detect); Parainfluenza Virus 1 Not Detected (Not Detect); Parainfluenza Virus 2 Not Detected (Not Detect); Parainfluenza Virus 3 Not Detected (Not Detect); Parainfluenza Virus 4 Not Detected (Not Detect); Respiratory Syncytial Virus Not Detected (Not Detect)
[2016-12-15 17:18] LABS: Hematocrit 28.8 % (35.3-44.9); Hemoglobin 9.3 g/dL (11.5-15.4)
[2016-12-16] MEDS: Ipratropium/Albuterol Neb 3 ML IH SCH ×3 (04:07→11:38)
[2016-12-16 05:38] LABS: Basophils % 0.8 %; Red Cell Distribution Width 17.1 % (11.5-14.5)
[2016-12-16 05:40] LABS: Eosinophils # 0.4 K/mcL (0.0-0.6); Eosinophils % 16.7 %; Hemoglobin 9.1 g/dL (11.5-15.4); Immature Platelets 7.3 % (1.1-6.1); Lymphocytes # 0.8 K/mcL (0.6-4.6); Lymphocytes % 31.5 %; Mean Corpuscular HGB Conc 32.5 g/dL (31.6-35.5); Mean Corpuscular Hemoglobin 30.2 pg (28.0-33.3); Mean Platelet Volume 11.4 fL (9.4-12.4); Monocytes # 0.2 K/mcL (0.0-1.3); Neutrophils # 1.1 K/mcL (1.6-8.9); Platelet Count 60 K/mcL (140-400); Red Blood Count 3.01 M/mcL (3.82-4.97)
[2016-12-16 05:41] LABS: INR 1.2; Prothrombin Time 12.9 Seconds (9.4-12.1)
[2016-12-16 05:44] LABS: Activated Partial Thrombo Time 31.7 Seconds (26.0-36.0)
[2016-12-16 05:50] LABS: Calcium 9.3 mg/dL (8.6-10.8); Potassium 3.5 mEq/L (3.5-4.5)
[2016-12-16 07:10] VITALS: BP 107/47
[2016-12-16] MEDS: Furosemide 20 MG TABLET PO SCH (08:46)
[2016-12-16] MEDS: *HR* Ticagrelor 90 MG TABLET PO SCH (08:47)
[2016-12-16] MEDS: metOLazone 5 MG TABLET PO SCH (08:47)
[2016-12-16] MEDS: Metoprolol XL (24 HR) Succ 50 MG TAB.ER.24H PO SCH (08:48)
[2016-12-16] MEDS: Insulin LISPRO 300 UNITS/3 ML VIAL SQ SCH ×2 (08:48→12:12)
--- NOTE | 2016-12-16 10:09 | Discharge Summary ---
Date of Encounter: 12/16/16 Time of Encounter: 09:30 - Discharge Diagnosis (1) Acute and chronic respiratory failure Priority: Primary Status: Acute Qualifiers: Respiratory failure complication: hypoxia Qualified Code(s): J96.21 - Acute and chronic respiratory failure with hypoxia (2) CAD (coronary artery disease) Priority: Primary Status: Acute Qualifiers: Coronary Disease-Associated Artery/Lesion type: unspecified vessel or lesion type [place] vs. transplanted heart: [place] heart Associated angina: angina presence unspecified Qualified Code(s): I25.10 - Atherosclerotic heart disease of [place] coronary artery without angina pectoris (3) CKD (chronic kidney disease) stage 3, GFR 30-59 ml/min Priority: Secondary Status: Acute (4) HTN (hypertension) Priority: Secondary Status: Acute Qualifiers: Hypertension type: essential hypertension Qualified Code(s): I10 - Essential (primary) hypertension (5) Type II diabetes mellitus Priority: Secondary Status: Chronic Qualifiers: Diabetes mellitus complication status: with kidney complications Diabetes mellitus complication detail: with chronic kidney disease Diabetes mellitus dowel inserting machine operator insulin use: without dowel inserting machine operator use Chronic kidney disease stage: stage 3 (moderate) Qualified Code(s): E11.22 - Type 2 diabetes mellitus with diabetic chronic kidney disease; N18.3 - Chronic kidney disease, stage 3 ( moderate) (6) Pancytopenia due to antineoplastic chemotherapy Priority: Primary Status: Chronic (7) Diffuse large b-cell lymphoma, lymph nodes of multiple sites Priority: Secondary Status: Chronic - Discharge Medications Home Medications: Acetaminophen [Tylenol] 2 tab PO Q4H PRN 12/28/15 [History] Cholecalciferol (Vitamin D3) [Vitamin D3] 1,000 unit PO DAILY 12/28/15 [History] Docusate Sodium [Dok] 100 mg PO BID 12/28/15 [History] Levothyroxine [Synthroid] 75 mcg PO DAILY 12/28/15 [History] Lisinopril 2.5 mg PO DAILY 12/28/15 [History] Melatonin 3 mg PO HS 12/28/15 [History] Metoprolol XL (24 HR) Succ [Toprol Xl] 50 mg PO DAILY 01/08/16 [History] Furosemide [Lasix] 60 mg PO DAILY #90 tablet 01/19/16 [Rx] Pravastatin Sodium [Pravachol] 20 mg PO DAILY 02/08/16 [History] Metolazone [Zaroxolyn] 5 mg PO DAILY #90 tablet 03/02/16 [Rx] Hydrocortisone 1% CREAM [Cortaid] 28 appl TP DAILY PRN #1 bottle 11/11/16 [Rx] Insulin Human Regular [HumuLIN R] 0 unit SQ AD MDD PER SLIDING SCALE 12/12/16 [ History] Insulin NPH, HUMAN [HumuLIN N] 0 unit SQ AD MDD SLIDING SCALE 12/12/16 [History ] Ticagrelor [Brilinta] 90 mg PO BID 12/12/16 [History] Allergies/Adverse Reactions: Allergies nitrofurantoin [From Macrobid] Allergy (Verified 08/08/16 16:39) Rash octreotide Allergy (Verified 08/08/16 16:39) Rash Red Man Syndrome Penicillins Allergy (Verified 08/08/16 16:39) Rash vancomycin Allergy (Verified 08/08/16 16:39) Rash Red Man Syndrome Procedures/tests Complete & Pending: Procedures Performed prior 72 hours Category Date Time Status CT angio chest [CT] Routine Cat Scan 12/14/16 11:30 Completed - Notes to Outpatient Provider Renal function needs to be followed as had a slight increase here following CTA of chest. Date of admission: 12/13/16 13:12 Primary care physician: Luis Martinez CNP Consults: 12/13/16 13:27 Consult to Oncology Hematology [CONS] Routine Consulting Provider: Linda Reddy Reason for Consult: diffuse large B cell lymphoma, on revlimid Time Notified: 14:09 Call Completed: Yes 12/15/16 09:29 Consult to Physical Therapy [CONS] Routine Comment: Evaluate, develop and implement POC 12/15/16 13:12 Consult to Children'S Lunchroom Supervisor [CONS] Routine Reason for SW Consult: discharge planning, ?cane Discharging clinician: Tavo Gil Anticipated date of discharge: 12/16/16 - Patient Status Disposition: Home, Self-Care Condition: Good Functional capacity at discharge: independent ambulation Overall status at discharge: patient is progressing back to baseline - Discharge Instructions Instructions: Myocardial Infarction (DC), Chest Pain (DC), Acute Respiratory Distress Syndrome (DC), Acute Kidney Injury (DC), Diabetes Mellitus Type 2 in Adults (DC), Chronic Hypertension (DC), Anemia (GEN) Follow Up With: Martinez,Luis R, SOFTWARE QUALITY ASSURANCE ENGINEER [Primary Care Provider] - Additional Instructions: Follow up with PCP in 1-2 weeks. Need to have renal function rechecked. Follow up with oncology as scheduled. - Diet and Activity Activity: increase activity as tolerated Diet: advance to your usual diet Hospital course: Ms. Noyola is a 66 year old female with hx of B cell lymphoma and pancytopenia presented to the ED with worsening dyspnea. She recently had coronary stent placed about a month ago. Her troponin was slightly elevated and she was admitted for further evaluation and treatment. Ms. Noyola was admitted to [facility]. She was started on heparin drip but started having some mucosal bleeding. Platelets are chronically. Heparin, Brlinta and ASA stopped. She was evaluated by cardiology and since she had 2 PRIYA placed Brlinta was restarted (ASA stopped). She was weaning from oxygen as able. She did have CTA which did not show PE. She was seen by oncology and did receive 2 unit PRBCs with improvement. Revlimid was held. She did have a slight increase in her creatinine following the CTA and will need to be followed. On 12/16/16 she was awake and alert. Her vitals were stable and she was afebrile. She was discharged home at that time. - Time Spent with Patient Total time spent providing and/or coordinating discharge services: 40min - Constitutional Vitals: Temp Pulse Resp BP Pulse Ox 97.9 F 74 18 107/47 100 12/16/16 07:03 12/16/16 07:03 12/16/16 07:42 12/16/16 07:03 12/16/16 08:00 General appearance: Present: A&O X 3, pleasant, answers questions appropriately - Head Head exam: Present: normocephalic - Eye Eye exam: Present: EOMI, conjuntiva pink - ENT ENT exam: Present: mucous membranes dry - Respiratory Respiratory exam: Present: decreased breath sounds, CTAB. Absent: rhonchi, wheezes - Cardiovascular Cardiovascular exam: Present: RRR. Absent: systolic murmur, tachycardia - GI/Abdominal GI/Abdominal exam: Present: normal bowel sounds, soft. Absent: tenderness - Extremities Exam Extremities exam: Present: warm. Absent: tenderness - Neurological Exam Neurological exam: Present: alert, oriented X3, no focal deficits - Psychiatric Psychiatric exam: Present: normal affect, normal mood - Skin Skin exam: Present: warm. Absent: rash - VTE Documentation of Mechanical Device: Intermittent pneumatic compression device
[2016-12-16 13:19] LABS: Haptoglobin 155 mg/dL (30-200)
[2016-12-17 11:28] LABS: Hep Ind Thromb(HIT) PF4 IgG 0.054 OD (<=0.399)
== END 2016-12-16 13:31 | disposition home or self-care (01) | DRG 280 ==
LOC: 2NNU 12:32 → EMEROO 12:32 → 2NENU 14:21
PROVIDERS: ADMIT Internal Medicine; ATTEND Internal Medicine

== ENCOUNTER 2017-03-18 05:30 | Inpatient (IN) ==
--- NOTE | 2017-03-18 05:54 | Emergency Department Note ---
Disposition Clinical Impression: Chest pain Qualifiers: Chest pain type: unspecified Qualified Code(s): R07.9 - Chest pain, unspecified Dyspnea Qualifiers: Dyspnea type: unspecified Qualified Code(s): R06.00 - Dyspnea, unspecified Disposition: Still a Patient Condition: Fair Referrals: Unassigned,Provider [Primary Care Provider] - Forms: ED Satisfaction Letter Time of Disposition: 05:57 SOB HPI - General Chief Complaint: ED Chest Pain Stated Complaint: JANENE, CP Time Seen by Provider: 03/18/17 05:41 Source: patient Limitations: no limitations Nursing Notes Reviewed: Yes Vital Signs Reviewed: Yes - History of Present Illness Alert and oriented and nontoxic-appearing 66-year-old female presents for evaluation of shortness of breath and chest pain. The patient states that she has had worsening shortness of breath over the course of the past 1 week. She states that this shortness of breath is exacerbated by movement, lying supine, and any type of exertion. She is on oxygen at 2 L by nasal cannula at all times at home. She also complains that upon going to bed yesterday evening, she developed some anterior chest wall pain that radiated into her interscapular area. She denies any nausea, diaphoresis, vomiting, cough, hemoptysis, or fever with this. She denies any noticeable increased swelling of her lower extremities. She states that at the onset of her chest pain, it was only a "dull ache". She states that at that time, she would rate her pain a 3 out of 10 on a 10 point scale. By the time of her arrival to the emergency department, she states that her chest pain has resolved. Pt Subjective Complaint: shortness of breath Onset (ago): week(s) (1 week) Severity: moderate Consistency/Duration: gradually worsening Improves with: nothing Worsens with: lying flat, exertion, movement Known history of: congestive heart failure Associated symptoms: Reports: chest pain. Denies: pain with inspiration, fever , cough, wheezing, sputum production, palpitations, hemoptysis, nausea/vomiting Treatment prior to arrival: oxygen Cough present: No - Related Data Home oxygen amount: 2 liters Home Medications Medication Instructions Recorded Confirmed Acetaminophen [Tylenol] 2 tab PO Q4H PRN 12/28/15 03/16/17 Levothyroxine [Synthroid] 75 mcg PO DAILY 12/28/15 03/16/17 Melatonin 3 mg PO HS 12/28/15 03/16/17 Metoprolol XL (24 HR) Succ [Toprol 50 mg PO DAILY 01/08/16 03/16/17 Xl] Pravastatin Sodium [Pravachol] 40 mg PO DAILY 02/08/16 03/16/17 Insulin Human Regular [HumuLIN R] 0 unit SQ AD MDD PER SLIDING SCALE 12/12/16 03/16/17 Insulin NPH, HUMAN [HumuLIN N] 0 unit SQ AD MDD SLIDING SCALE 12/12/16 03/16/17 Ticagrelor [Brilinta] 90 mg PO BID 12/12/16 03/16/17 Previous Rx's Medication Instructions Recorded Furosemide [Lasix] 60 mg PO DAILY #90 tablet 01/19/16 Metolazone [Zaroxolyn] 5 mg PO DAILY #90 tablet 03/02/16 Lenalidomide [Revlimid] 10 mg PO DAILY #21 capsule 03/07/17 Potassium Chloride 20 meq PO DAILY #15 tab.er.prt 03/16/17 Allergies Allergy/AdvReac Type Severity Reaction Status Date / Time nitrofurantoin Allergy Rash Verified 03/16/17 10:43 [From Macrobid] octreotide Allergy Rash Verified 03/16/17 10:43 Penicillins Allergy Rash Verified 03/16/17 10:43 vancomycin Allergy Rash Verified 03/16/17 10:43 All systems ED: reviewed and negative except as stated. Constitutional: Denies: fever, chills, weakness, weight change Eyes: Denies: eye pain, eye discharge, vision change ENT ED: Denies: ear pain, throat pain, dental pain, hearing loss, epistaxis, congestion, dysphagia Cardiovascular: Reports: as per HPI, chest pain, dyspnea on exertion, orthopnea. Denies: palpitations, edema, syncope Respiratory: Reports: as per HPI, dyspnea. Denies: cough, wheezes, hemoptysis, stridor Gastrointestinal: Denies: abdominal pain, nausea, vomiting, diarrhea, constipation, hematemesis, melena, hematochezia Genitourinary: Denies: dysuria, frequency, hematuria, discharge Musculoskeletal: Denies: back pain, neck pain, arthralgia, myalgia Integumentary: Denies: rash, abrasion, lesions Neurological: Denies: headache, weakness, numbness, paresthesias, confusion, abnormal gait, vertigo Psychiatric: Denies: anxiety, depression, suicidal thoughts, homicidal thoughts , auditory hallucinations, visual hallucinations Endocrine: Denies: fatigue Hematological/Lymphatic: Denies: easy bleeding, easy bruising Allergic/Immunologic: Denies: facial swelling, urticaria Past Medical History - Past Medical History Attestation: Yes The following information was validated with the patient. Source: patient, nursing notes reviewed Medical history: Reports: arthritis, cancer, CHF, coronary artery disease, diabetes, hyperlipidemia, hypertension, myocardial infarction, pulmonary embolus , renal disease, thyroid disease, other Surgical history: Reports: cataract, coronary bypass (CABG), other Psychiatric history: Reports: depression - Social History Smoking Status: Never smoker Smokeless Tobacco Status: No Alcohol use: Reports: none Drug use: Reports: none Physical Exam - General Limitations: no limitations General appearance: alert, in no apparent distress - Head Head exam: atraumatic, normocephalic, normal inspection - Eye Eye exam: Present: normal appearance, PERRL, EOMI. Absent: nystagmus - ENT ENT exam: mucous membranes moist - Neck Neck exam: Present: normal inspection, full ROM, trachea midline - Chest Chest inspection: Present: normal inspection, symmetric chest wall rise - Respiratory Respiratory exam: Present: normal lung sounds bilaterally. Absent: respiratory distress, wheezes, stridor, accessory muscle use, prolonged expiratory phase - Cardiovascular Cardiovascular exam: Present: regular rate, normal rhythm, normal heart sounds - Abdominal Exam Abdominal exam: Present: soft, Non-Tender, normal bowel sounds. Absent: tenderness, distention, guarding, rebound, rigidity - Extremities Exam Extremities exam: Present: normal inspection, full ROM. Absent: tenderness, pedal edema - Neurological Exam Neurological exam: Present: alert, oriented X3 - Psychiatric Psychiatric exam: Present: normal affect, normal mood - Skin Skin exam: Present: warm, dry, intact, normal color Course Vital Signs Temperature 98.0 F 03/18/17 05:31 Pulse Rate 78 03/18/17 05:31 Respiratory Rate 20 03/18/17 05:31 Blood Pressure 187/70 03/18/17 05:31 O2 Sat by Pulse Oximetry 99 03/18/17 05:31 Temperature 98.0 F 03/18/17 05:31 Pulse Rate 78 03/18/17 05:31 Respiratory Rate 20 03/18/17 05:31 Blood Pressure 187/70 03/18/17 05:31 O2 Sat by Pulse Oximetry 99 03/18/17 05:31 Oxygen Delivery Oxygen Delivery Nasal Cannula Shortness of Breath/Dyspnea - Medical Records Medical records reviewed: Yes I reviewed the patient's medical records. - EKG Data EKG attestation: Yes I reviewed and interpreted this EKG. EKG results narrative: EKG reviewed by Dr. Cobb as well. EKG shows a sinus rhythm with a sinus arrhythmia and a borderline left axis deviation. Ventricular rate 81 bpm, IA interval 157, QRS duration 96, QT/QTc interval 368/405. No ectopy noted. No STEMI. S.B.A.R. - S.B.A.R. Situation: Demographics, MOA Background: Presenting Complaint, Relevant PMH, Meds, & Allergies Assessment: Vital Signs, Course and respsone to treatment, Exam Concerns, Patient/Family Expectation, Pertinant Lab Results, Outstanding Labs Recommendation: Barrier(s) to disposition, Recommendation based on pending studies, treatments, or consults S.B.A.R. Report Given to: Dillan Villasenor PA-C [id number] Repor Time: 06:00 (Care of this patient has been transferred to Dillan Villasenor PA-C due to mid-level shift change.)
[2017-03-18 06:04] LABS: Mean Corpuscular HGB Conc 32.7 g/dL (31.6-35.5)
[2017-03-18 06:05] LABS: Basophils % 0.6 %; Eosinophils # 0.1 K/mcL (0.0-0.6); Eosinophils % 7.6 %; Hematocrit 29.4 % (35.3-44.9); Hemoglobin 9.6 g/dL (11.5-15.4); Immature Granulocytes % 0.6 % (0-4); Lymphocytes # 0.8 K/mcL (0.6-4.6); Lymphocytes % 50.6 %; Mean Corpuscular Hemoglobin 30.4 pg (28.0-33.3); Mean Platelet Volume 11.9 fL (9.4-12.4); Monocytes # 0.2 K/mcL (0.0-1.3); Monocytes % 14.6 %; Neutrophils # 0.4 K/mcL (1.6-8.9); Red Blood Count 3.16 M/mcL (3.82-4.97); Red Cell Distribution Width 15.3 % (11.5-14.5)
[2017-03-18 06:09] LABS: INR 1.1; Prothrombin Time 12.3 Seconds (9.4-12.1)
[2017-03-18 06:18] LABS: Platelet Count 73 K/mcL (140-400)
[2017-03-18 06:21] LABS: Platelet Estimate Decreased (Normal); Reactive Lymphocytes Present (Not Present)
[2017-03-18 06:27] LABS: BUN/Creatinine Ratio 27 (6-26); Blood Urea Nitrogen 29 mg/dL (7-20); Calcium 8.6 mg/dL (8.6-10.8); Carbon Dioxide 33 mEq/L (19-29); Chloride 100 mEq/L (98-109); Glucose 139 mg/dL (70-99); Osmolality,Calculated 302 (280-300); Potassium 3.2 mEq/L (3.5-4.5); Sodium 142 mEq/L (136-145); eGFR For African Americans > 60 (> 60); eGFR For Non-African Americans 51 (> 60)
[2017-03-18] MEDS ORDERED: Aspirin 81 MG TAB.CHEW PO ONE (06:56)
--- NOTE | 2017-03-18 07:09 | Emergency Department Note ---
Disposition Clinical Impression: Chest pain Qualifiers: Chest pain type: unspecified Qualified Code(s): R07.9 - Chest pain, unspecified Dyspnea Qualifiers: Dyspnea type: unspecified Qualified Code(s): R06.00 - Dyspnea, unspecified Disposition: Still a Patient Condition: Fair Referrals: Unassigned,Provider [Non-Partnered Physician] - Forms: ED Satisfaction Letter General Adult HPI - General Chief complaint: ED Chest Pain Stated complaint: JANENE, CP Time Seen by Provider: 03/18/17 05:41 Source: patient Limitations: no limitations - History of Present Illness Pain Scale: 8 - Related Data Home Medications Medication Instructions Recorded Confirmed Acetaminophen [Tylenol] 2 tab PO Q4H PRN 12/28/15 03/16/17 Levothyroxine [Synthroid] 75 mcg PO DAILY 12/28/15 03/16/17 Melatonin 3 mg PO HS 12/28/15 03/16/17 Metoprolol XL (24 HR) Succ [Toprol 50 mg PO DAILY 01/08/16 03/16/17 Xl] Pravastatin Sodium [Pravachol] 40 mg PO DAILY 02/08/16 03/16/17 Insulin Human Regular [HumuLIN R] 0 unit SQ AD MDD PER SLIDING SCALE 12/12/16 03/16/17 Insulin NPH, HUMAN [HumuLIN N] 0 unit SQ AD MDD SLIDING SCALE 12/12/16 03/16/17 Ticagrelor [Brilinta] 90 mg PO BID 12/12/16 03/16/17 Previous Rx's Medication Instructions Recorded Furosemide [Lasix] 60 mg PO DAILY #90 tablet 01/19/16 Metolazone [Zaroxolyn] 5 mg PO DAILY #90 tablet 03/02/16 Lenalidomide [Revlimid] 10 mg PO DAILY #21 capsule 03/07/17 Potassium Chloride 20 meq PO DAILY #15 tab.er.prt 03/16/17 Allergies Allergy/AdvReac Type Severity Reaction Status Date / Time nitrofurantoin Allergy Rash Verified 03/16/17 10:43 [From Macrobid] octreotide Allergy Rash Verified 03/16/17 10:43 Penicillins Allergy Rash Verified 03/16/17 10:43 vancomycin Allergy Rash Verified 03/16/17 10:43 Constitutional: Denies: fever, chills, weakness, weight change Eyes: Denies: eye pain, eye discharge, vision change ENT ED: Denies: ear pain, throat pain, dental pain, hearing loss, epistaxis, congestion, dysphagia Cardiovascular: Reports: as per HPI, chest pain, dyspnea on exertion, orthopnea. Denies: palpitations, edema, syncope Respiratory: Reports: as per HPI, dyspnea. Denies: cough, wheezes, hemoptysis, stridor Gastrointestinal: Denies: abdominal pain, nausea, vomiting, diarrhea, constipation, hematemesis, melena, hematochezia Genitourinary: Denies: dysuria, frequency, hematuria, discharge Musculoskeletal: Denies: back pain, neck pain, arthralgia, myalgia Integumentary: Denies: rash, abrasion, lesions Neurological: Denies: headache, weakness, numbness, paresthesias, confusion, abnormal gait, vertigo Psychiatric: Denies: anxiety, depression, suicidal thoughts, homicidal thoughts , auditory hallucinations, visual hallucinations Endocrine: Denies: fatigue Hematological/Lymphatic: Denies: easy bleeding, easy bruising Allergic/Immunologic: Denies: facial swelling, urticaria Past Medical History - Past Medical History Medical history: Reports: arthritis, cancer, CHF, coronary artery disease, diabetes, hyperlipidemia, hypertension, myocardial infarction, pulmonary embolus , renal disease, thyroid disease, other Surgical history: Reports: cataract, coronary bypass (CABG), other Psychiatric history: Reports: depression - Social History Smoking Status: Never smoker Smokeless Tobacco Status: No Alcohol use: Reports: none Drug use: Reports: none Physical Exam - General Limitations: no limitations General appearance: alert, in no apparent distress Course Vital Signs Temperature 98.0 F 03/18/17 05:31 Pulse Rate 78 03/18/17 05:31 Respiratory Rate 20 03/18/17 05:31 Blood Pressure 187/70 03/18/17 05:31 O2 Sat by Pulse Oximetry 99 03/18/17 05:31 Temperature 98.0 F 03/18/17 05:31 Pulse Rate 78 03/18/17 05:31 Respiratory Rate 20 03/18/17 05:31 Blood Pressure 187/70 03/18/17 05:31 O2 Sat by Pulse Oximetry 99 03/18/17 05:31 Oxygen Delivery Oxygen Delivery Nasal Cannula Medical Decision Making - Lab Data Result diagrams: 03/18/17 05:53 03/18/17 05:53 Lab Results 03/18/17 03/18/17 03/18/17 Range/Units 05:53 05:53 05:53 WBC 1.6 L (4.3-11.1) K/mcL RBC 3.16 L (3.82-4.97) M/mcL Hgb 9.6 L (11.5-15.4) g/dL Hct 29.4 L (35.3-44.9) % MCV 93.0 (83.0-100.0) fL MCH 30.4 (28.0-33.3) pg MCHC 32.7 (31.6-35.5) g/dL RDW 15.3 H (11.5-14.5) % Plt Count 73 L (140-400) K/mcL MPV 11.9 (9.4-12.4) fL Immature Gran % 0.6 (0-4) % Seg Neutrophils % 26.0 % Lymphocytes % 50.6 % Monocytes % 14.6 % Eosinophils % 7.6 % Basophils % 0.6 % Neutrophils # 0.4 L (1.6-8.9) K/mcL Lymphocytes # 0.8 (0.6-4.6) K/mcL Monocytes # 0.2 (0.0-1.3) K/mcL Eosinophils # 0.1 (0.0-0.6) K/mcL Basophils # 0.0 (0.0-0.2) K/mcL Reactive Lymphocytes Present A (Not Present) Platelet Estimate Decreased L (Normal) PT 12.3 H (9.4-12.1) Seconds INR 1.1 APTT 29.0 (26.0-36.0) Seconds Sodium (136-145) mEq/L Potassium (3.5-4.5) mEq/L Chloride (98-109) mEq/L Carbon Dioxide (19-29) mEq/L BUN (7-20) mg/dL Creatinine (0.57-1.11) mg/dL Est GFR ( Amer) (> 60) Est GFR (Non-Af Amer) (> 60) BUN/Creatinine Ratio (6-26) Glucose (70-99) mg/dL Calculated Osmolality (280-300) Calcium (8.6-10.8) mg/dL Troponin I (0-0.03) ng/mL B-Natriuretic Peptide 325 H (0-100) pg/mL 03/18/17 03/18/17 Range/Units 05:53 05:53 WBC (4.3-11.1) K/mcL RBC (3.82-4.97) M/mcL Hgb (11.5-15.4) g/dL Hct (35.3-44.9) % MCV (83.0-100.0) fL MCH (28.0-33.3) pg MCHC (31.6-35.5) g/dL RDW (11.5-14.5) % Plt Count (140-400) K/mcL MPV (9.4-12.4) fL Immature Gran % (0-4) % Seg Neutrophils % % Lymphocytes % % Monocytes % % Eosinophils % % Basophils % % Neutrophils # (1.6-8.9) K/mcL Lymphocytes # (0.6-4.6) K/mcL Monocytes # (0.0-1.3) K/mcL Eosinophils # (0.0-0.6) K/mcL Basophils # (0.0-0.2) K/mcL Reactive Lymphocytes (Not Present) Platelet Estimate (Normal) PT (9.4-12.1) Seconds INR APTT (26.0-36.0) Seconds Sodium 142 (136-145) mEq/L Potassium 3.2 L (3.5-4.5) mEq/L Chloride 100 (98-109) mEq/L Carbon Dioxide 33 H (19-29) mEq/L BUN 29 H (7-20) mg/dL Creatinine 1.08 (0.57-1.11) mg/dL Est GFR ( Amer) > 60 (> 60) Est GFR (Non-Af Amer) 51 L (> 60) BUN/Creatinine Ratio 27 H (6-26) Glucose 139 H (70-99) mg/dL Calculated Osmolality 302 H (280-300) Calcium 8.6 (8.6-10.8) mg/dL Troponin I 0.15 H* (0-0.03) ng/mL B-Natriuretic Peptide (0-100) pg/mL Attestation Statement - Attestation Attestation: I examined this patient and my medical decision-making was reviewed with the Resident Physician. I agree with the documented findings, disposition and treatment plan as described except to the extent set forth below. [id number] time provided Patient seen and evaluated in conjunction with the mid-level provider Kendell. She presented with chest pain and dyspnea. EKG reviewed by me and is unchanged from previous. Troponin returned elevated. In the setting of the patient's history of coronary artery disease patient will be admitted
--- NOTE | 2017-03-18 07:25 | Emergency Department Note ---
Disposition Clinical Impression: Elevated troponin Chest pain Qualifiers: Chest pain type: unspecified Qualified Code(s): R07.9 - Chest pain, unspecified Dyspnea Qualifiers: Dyspnea type: unspecified Qualified Code(s): R06.00 - Dyspnea, unspecified Disposition: Admitted As Inpatient Condition: Fair Referrals: Unassigned,Provider [Non-Partnered Physician] - Forms: ED Satisfaction Letter Time of Disposition: 08:07 Chest Pain HPI - General Chief Complaint: ED Chest Pain Stated Complaint: JANENE, CP Time Seen by Provider: 03/18/17 05:41 Source: patient Limitations: no limitations - History of Present Illness Severity scale (1-10): 8 - Related Data Home Medications Medication Instructions Recorded Confirmed Levothyroxine [Synthroid] 75 mcg PO DAILY 12/28/15 03/16/17 Melatonin 3 mg PO HS 12/28/15 03/16/17 Metoprolol XL (24 HR) Succ [Toprol 50 mg PO DAILY 01/08/16 03/16/17 Xl] Pravastatin Sodium [Pravachol] 40 mg PO DAILY 02/08/16 03/16/17 Insulin Human Regular [HumuLIN R] 0 unit SQ AD MDD PER SLIDING SCALE 12/12/16 03/16/17 Insulin NPH, HUMAN [HumuLIN N] 0 unit SQ AD MDD SLIDING SCALE 12/12/16 03/16/17 Ticagrelor [Brilinta] 90 mg PO BID 12/12/16 03/16/17 Furosemide [Lasix] 60 mg PO QPM 03/18/17 03/18/17 Lenalidomide [Revlimid] 10 mg PO DAILY 03/18/17 03/18/17 Metolazone [Zaroxolyn] 5 mg PO QPM 03/18/17 03/18/17 Nitroglycerin [Nitrostat] 0.4 mg SL AD PRN 03/18/17 03/18/17 Oxygen 2 l .ROUTE AD 03/18/17 03/18/17 Potassium Chloride 20 meq PO QPM 03/18/17 03/18/17 Allergies Allergy/AdvReac Type Severity Reaction Status Date / Time nitrofurantoin Allergy Rash Verified 03/16/17 10:43 [From Macrobid] octreotide Allergy Rash Verified 03/16/17 10:43 Penicillins Allergy Rash Verified 03/16/17 10:43 vancomycin Allergy Rash Verified 03/16/17 10:43 Constitutional: Denies: fever, chills, weakness, weight change Eyes: Denies: eye pain, eye discharge, vision change ENT ED: Denies: ear pain, throat pain, dental pain, hearing loss, epistaxis, congestion, dysphagia Cardiovascular: Reports: as per HPI, chest pain, dyspnea on exertion, orthopnea. Denies: palpitations, edema, syncope Respiratory: Reports: as per HPI, dyspnea. Denies: cough, wheezes, hemoptysis, stridor Gastrointestinal: Denies: abdominal pain, nausea, vomiting, diarrhea, constipation, hematemesis, melena, hematochezia Genitourinary: Denies: dysuria, frequency, hematuria, discharge Musculoskeletal: Denies: back pain, neck pain, arthralgia, myalgia Integumentary: Denies: rash, abrasion, lesions Neurological: Denies: headache, weakness, numbness, paresthesias, confusion, abnormal gait, vertigo Psychiatric: Denies: anxiety, depression, suicidal thoughts, homicidal thoughts , auditory hallucinations, visual hallucinations Endocrine: Denies: fatigue Hematological/Lymphatic: Denies: easy bleeding, easy bruising Allergic/Immunologic: Denies: facial swelling, urticaria Chest Pain PMH - Past Medical History Medical history: Reports: arthritis, cancer, CHF, coronary artery disease, diabetes, hyperlipidemia, hypertension, myocardial infarction, pulmonary embolus , renal disease, thyroid disease, other Surgical history: Reports: cataract, coronary bypass (CABG), other Psychiatric history: Reports: depression - Social History Smoking Status: Never smoker Alcohol use: Reports: none Drug use: Reports: none Physical Exam - General Limitations: no limitations General appearance: alert, in no apparent distress Course Course Narrative: I took over care of this patient at 0600. Labs were pending. Patient initially presented with intermittent chest pain that became more constant over the last 7 days. Troponin came back positive at 0.15. Plan is to admit patient for serial troponins and further workup. I discussed this with patient at the bedside. She verbalizes understanding and agreement with plan and care. She currently has no pain. Aspirin was given. Currently awaiting callback from hospitalist. [id number] - Consultations Consultation #1: I discussed this patient's case with cardiology, Dr. Matthews, he believes that the patient should be admitted for serial troponins. I talked with the hospitalist and they agreed with plan of care. Patient will be admitted. She is currently chest pain-free. There are no acute EKG changes. Time: 08:06 Vital Signs Temperature 98.0 F 03/18/17 05:31 Pulse Rate 78 03/18/17 05:31 Respiratory Rate 20 03/18/17 05:31 Blood Pressure 187/70 03/18/17 05:31 O2 Sat by Pulse Oximetry 99 03/18/17 05:31 Temperature 98.0 F 03/18/17 05:31 Pulse Rate 96 03/18/17 07:00 Respiratory Rate 20 03/18/17 05:31 Blood Pressure 167/70 03/18/17 07:00 O2 Sat by Pulse Oximetry 99 03/18/17 05:31 Oxygen Delivery Oxygen Delivery Nasal Cannula Chest Pain - Lab Data Result diagrams: 03/18/17 05:53 03/18/17 05:53 Lab Results 03/18/17 03/18/17 03/18/17 Range/Units 05:53 05:53 05:53 WBC 1.6 L (4.3-11.1) K/mcL RBC 3.16 L (3.82-4.97) M/mcL Hgb 9.6 L (11.5-15.4) g/dL Hct 29.4 L (35.3-44.9) % MCV 93.0 (83.0-100.0) fL MCH 30.4 (28.0-33.3) pg MCHC 32.7 (31.6-35.5) g/dL RDW 15.3 H (11.5-14.5) % Plt Count 73 L (140-400) K/mcL MPV 11.9 (9.4-12.4) fL Immature Gran % 0.6 (0-4) % Seg Neutrophils % 26.0 % Lymphocytes % 50.6 % Monocytes % 14.6 % Eosinophils % 7.6 % Basophils % 0.6 % Neutrophils # 0.4 L (1.6-8.9) K/mcL Lymphocytes # 0.8 (0.6-4.6) K/mcL Monocytes # 0.2 (0.0-1.3) K/mcL Eosinophils # 0.1 (0.0-0.6) K/mcL Basophils # 0.0 (0.0-0.2) K/mcL Reactive Lymphocytes Present A (Not Present) Platelet Estimate Decreased L (Normal) PT 12.3 H (9.4-12.1) Seconds INR 1.1 APTT 29.0 (26.0-36.0) Seconds Sodium (136-145) mEq/L Potassium (3.5-4.5) mEq/L Chloride (98-109) mEq/L Carbon Dioxide (19-29) mEq/L BUN (7-20) mg/dL Creatinine (0.57-1.11) mg/dL Est GFR ( Amer) (> 60) Est GFR (Non-Af Amer) (> 60) BUN/Creatinine Ratio (6-26) Glucose (70-99) mg/dL Calculated Osmolality (280-300) Calcium (8.6-10.8) mg/dL Troponin I (0-0.03) ng/mL B-Natriuretic Peptide 325 H (0-100) pg/mL 03/18/17 03/18/17 Range/Units 05:53 05:53 WBC (4.3-11.1) K/mcL RBC (3.82-4.97) M/mcL Hgb (11.5-15.4) g/dL Hct (35.3-44.9) % MCV (83.0-100.0) fL MCH (28.0-33.3) pg MCHC (31.6-35.5) g/dL RDW (11.5-14.5) % Plt Count (140-400) K/mcL MPV (9.4-12.4) fL Immature Gran % (0-4) % Seg Neutrophils % % Lymphocytes % % Monocytes % % Eosinophils % % Basophils % % Neutrophils # (1.6-8.9) K/mcL Lymphocytes # (0.6-4.6) K/mcL Monocytes # (0.0-1.3) K/mcL Eosinophils # (0.0-0.6) K/mcL Basophils # (0.0-0.2) K/mcL Reactive Lymphocytes (Not Present) Platelet Estimate (Normal) PT (9.4-12.1) Seconds INR APTT (26.0-36.0) Seconds Sodium 142 (136-145) mEq/L Potassium 3.2 L (3.5-4.5) mEq/L Chloride 100 (98-109) mEq/L Carbon Dioxide 33 H (19-29) mEq/L BUN 29 H (7-20) mg/dL Creatinine 1.08 (0.57-1.11) mg/dL Est GFR ( Amer) > 60 (> 60) Est GFR (Non-Af Amer) 51 L (> 60) BUN/Creatinine Ratio 27 H (6-26) Glucose 139 H (70-99) mg/dL Calculated Osmolality 302 H (280-300) Calcium 8.6 (8.6-10.8) mg/dL Troponin I 0.15 H* (0-0.03) ng/mL B-Natriuretic Peptide (0-100) pg/mL
[2017-03-18] MEDS ORDERED: Naloxone 0.4 MG/ML INJ IVP PRN (10:40)
[2017-03-18] MEDS ORDERED: Acetaminophen 325 MG TABLET PO PRN (10:40)
[2017-03-18] MEDS ORDERED: *HR* Dextrose 50 % in Water (Syg) 50 ML SYRINGE IVP PRN (10:45)
[2017-03-18] MEDS ORDERED: D5% in Water 1,000 ML IVC PRN (10:45)
[2017-03-18] MEDS ORDERED: Dextrose Gel 15 GM PO PRN ×2 (10:45)
[2017-03-18] MEDS ORDERED: Furosemide 40 MG/4 ML VIAL IVP SCH (10:45)
[2017-03-18] MEDS ORDERED: Nitroglycerin 0.4 MG TAB.SUBL SL PRN (10:47)
[2017-03-18] MEDS ORDERED: NON-FORMULARY MEDICATION 1 EACH EACH (Oxygen [Oxygen] 2 L) SCH (11:00)
--- NOTE | 2017-03-18 11:13 | Internal Med History&Physical ---
Date of Encounter: 03/18/17 Time of Encounter: 10:00 Assessment and Plan (1) CHF exacerbation Current visit: Yes Status: Acute patient has increased shortness of breath. Consider mild CHF exacerbation. Mild elevated BNP but pt is morbid obese. CXR is negative. - Will change pt's po lasix to IV. - Strict I/O. - Previous Echo (recent one in December 12) reviewed, EF 60%, consider diastolic CHF. Qualifiers: Congestive heart failure type: diastolic Qualified Code(s): I50.33 - Acute on chronic diastolic (congestive) heart failure (2) MONICA (obstructive sleep apnea) Current visit: No Status: Chronic Continue night CPAP supportive treatment (3) DVT prophylaxis Current visit: No Status: Acute EPCD, no heparin because of thrombocytopenia (4) Type II diabetes mellitus Current visit: No Status: Chronic continue basal and a sliding-scale insulin coverage Qualifiers: Diabetes mellitus complication status: with kidney complications Diabetes mellitus complication detail: with chronic kidney disease Diabetes mellitus nursing home insulin use: without nursing home use Chronic kidney disease stage: stage 3 (moderate) Qualified Code(s): E11.22 - Type 2 diabetes mellitus with diabetic chronic kidney disease; N18.3 - Chronic kidney disease, stage 3 ( moderate) (5) Morbid obesity Current visit: No Status: Chronic need lifestyle modification (6) Pancytopenia due to antineoplastic chemotherapy Current visit: No Status: Chronic no signs of active bleeding. Patient to follow up with oncology as outpatient. (7) Diffuse large b-cell lymphoma, lymph nodes of multiple sites Current visit: No Status: Chronic on chemotherapy. Patient is following with oncologist as outpatient (8) Hypokalemia Current visit: No Status: Acute Will give supplement. Follow-up potassium level (9) CKD (chronic kidney disease) stage 3, GFR 30-59 ml/min Current visit: No Status: Acute (10) HTN (hypertension) Current visit: No Status: Acute Continue home medications Qualifiers: Hypertension type: essential hypertension Qualified Code(s): I10 - Essential (primary) hypertension (11) CAD (coronary artery disease) Current visit: No Status: Acute patient has recent stent placed in [facility] in October 2016. will continue medical treatment. Pt is on Brilinta only, not on aspirin. 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 Will consult cardio for further management. Qualifiers: Coronary Disease-Associated Artery/Lesion type: unspecified vessel or lesion type [place] vs. transplanted heart: [place] heart Associated angina: angina presence unspecified Qualified Code(s): I25.10 - Atherosclerotic heart disease of [place] coronary artery without angina pectoris (12) Elevated troponin Current visit: Yes Status: Acute patient has chronic elevated troponin back to November 2016. however, patient has new chest pain and increased shortness of breath, need to rule out ACS. - Will place patient on continuous cardiac monitoring. - track 3 sets of troponin. - Cardio consult. Internal Medicine - H&P: HPI Chief complaint: shortness of breath and chest pain Admitted From: Home Plans for Post Hospital Care: Home History of present illness: Ms. Noyola is a 66 year old female with history of diabetes, CHF,diffuse large B cell lymphoma, CAD S/P stent, MONICA, CKD presented to emergency roomfor shortness of breath and chest pain. Patient said she has chronic shortness of breath and on home oxygen. The last week, patient's shortness of breath is gettiing gradually worse and pt has intermittent chest pain. The pain is dull ache, along with SOB. Pt denies nausea or diaphoresis. Pt cannot lay flat due to SOB. Last night, pt has "really bad" SOB and she came to ER this AM. In ER, she was found elevated troponin. She was admitted for further management. Past Med Surg Social Fam HX - Past Medical History Medical history: arthritis, cancer, CHF, coronary artery disease, diabetes, hyperlipidemia, hypertension, myocardial infarction, pulmonary embolus, renal disease, thyroid disease, other Psychiatric history: depression - Past Surgical History Surgical History: cataract, coronary bypass (CABG), other - Social History Smoking Status: Never smoker Smokeless Tobacco Status: No Alcohol use: none Drug use: none - Family History Father Hx Family Cardiac Disorders: No Hx Family Respiratory Disorders: No Hx Family Cancer: Yes Hx Family GI Disorders: No Hx Family Endocrine Disorder: No Hx Family Neuromuscular Disorders: No Hx Family Neurologic Disorders: No Hx Family HEENT Disorders: No Hx Family Autoimmune Disorders: No Internal Medicine - H&P: Meds Levothyroxine [Synthroid] 75 mcg PO QAM 12/28/15 [History] Melatonin 3 mg PO HS 12/28/15 [History] Metoprolol XL (24 HR) Succ [Toprol Xl] 50 mg PO QPM 01/08/16 [History] Pravastatin Sodium [Pravachol] 40 mg PO QPM 02/08/16 [History] Insulin Human Regular [HumuLIN R] 20 unit SQ BID 12/12/16 [History] Insulin NPH, HUMAN [HumuLIN N] 40 unit SQ BID 12/12/16 [History] Ticagrelor [Brilinta] 90 mg PO BID 12/12/16 [History] Furosemide [Lasix] 60 mg PO QPM 03/18/17 [History] Lenalidomide [Revlimid] 10 mg PO DAILY 03/18/17 [History] Metolazone [Zaroxolyn] 5 mg PO QPM 03/18/17 [History] Nitroglycerin [Nitrostat] 0.4 mg SL AD PRN 03/18/17 [History] Oxygen 2 l .ROUTE AD 03/18/17 [History] Potassium Chloride 20 meq PO QPM 03/18/17 [History] Allergies nitrofurantoin [From Macrobid] Allergy (Verified 03/16/17 10:43) Rash octreotide Allergy (Verified 03/16/17 10:43) Rash Red Man Syndrome Penicillins Allergy (Verified 03/16/17 10:43) Rash vancomycin Allergy (Verified 03/16/17 10:43) Rash Red Man Syndrome All Systems PM: A 10-system review of systems was performed and is negative for pertinent findings except as documented above in the HPI. - Constitutional Vitals: Temp Pulse Resp BP Pulse Ox 98.0 F 87 16 126/45 98 03/18/17 05:31 03/18/17 10:08 03/18/17 10:08 03/18/17 10:08 03/18/17 10:08 General appearance: Present: A&O X 3, no acute distress, answers questions appropriately - Head Head exam: Present: atraumatic, normocephalic - Eye Eye exam: Present: PERRL, conjuntiva pink, sclera anicteric Pupils: Present: PERRL - Neck Neck exam general surgery: Present: supple, trachea midline. Absent: lymphadenopathy - Respiratory Respiratory exam: Present: CTAB. Absent: accessory muscle use, rales, rhonchi, wheezes - Cardiovascular Cardiovascular exam: Present: RRR, +S1, +S2. Absent: diastolic murmur, gallop, rubs, systolic murmur - GI/Abdominal GI/Abdominal exam: Present: normal bowel sounds, soft, no peritoneal signs. Absent: distended, tenderness - Extremities Exam Extremities exam: Present: warm, radial pulses palpable and symetrical. Absent : calf tenderness, cyanotic, pedal edema - Neurological Exam Neurological exam: Present: CN II-XII intact, oriented X3, no focal deficits. Absent: pronater drift, facial droop, speech deficit - Skin Skin exam: Present: dry, intact Internal Med - H&P Results - Labs CBC & Chem 7: 03/18/17 05:53 03/18/17 05:53 Labs: Short CBC 03/18/17 Range/Units 05:53 WBC 1.6 L (4.3-11.1) K/mcL Hgb 9.6 L (11.5-15.4) g/dL Hct 29.4 L (35.3-44.9) % Plt Count 73 L (140-400) K/mcL Neutrophils # 0.4 L (1.6-8.9) K/mcL BMP 03/18/17 05:53 Sodium 142 Potassium 3.2 L Chloride 100 Carbon Dioxide 33 H BUN 29 H Creatinine 1.08 Glucose 139 H Calcium 8.6 Cardiac Enzymes 03/18/17 Range/Units 05:53 Troponin I 0.15 H* (0-0.03) ng/mL - EKG Data -: EKG Interpreted by Myself EKG shows normal: sinus rhythm Rate: normal - Impressions ITS Impressions Chest X-Ray 03/18/17 05:41 IMPRESSION: No acute disease. D/ / Shahzad Mina MD / Shahzad Mina MD Interpreting Provider: Shahzad Mina MD
[2017-03-18] MEDS: Insulin LISPRO 300 UNITS/3 ML VIAL SQ SCH ×2 (14:42→18:35)
--- NOTE | 2017-03-18 17:27 | Cardiology Consult Note ---
Date of Encounter: 03/18/17 Time of Encounter: 16:30 Assessment and Plan (1) Elevated troponin Current Visit: Yes Status: Acute Per cardiology: -Troponins 0.15, 0.63. -ECG with improved ST depression from previous ECG. -Recent stenting October 2016. -Reports chest achiness across chest that occured at rest. States has this pain when short of breath. -Limited Echo 11/2016 with LVEF 60-65%, mild concentric left ventricular hypertrophy, all coates with normal motion. -On brilinta, statin, and beta lizz. Does not take asa due to severe nosebleeds that required overnight packing. -Of note BP on admission noted to be 180s systolic. -Will trend troponins. -Of note, WBC 1.6, hemoglobin 9.6, and platelets 73. Patient not a good candidate for invasive cardiac procedures. -Further recommendations pending third troponin. (2) Pancytopenia due to antineoplastic chemotherapy Current Visit: No Status: Chronic Per cardiology: -Currently undergoing treatment for B cell lymphoma. -Last chemo . -WBC 1.6. -Hemoglobin 9.6. -PLatelets 73. -Follows with oncology. -Can consider oncology evaluation while inpatient. -Do not recommend heparin drip at this time due to pancytopenia. (3) CAD (coronary artery disease) Current Visit: No Status: Chronic Per cardiology: -KNown CAD with NSTEMI 10/2016 at [facility] with left main 20%, LAD 10%, ostial circumflex 20-30%, OM1 99%, RCA 10-20%, PDA 10-20%, VEGA to LAD patent, SVG to OM occluded. 2 PRIYA were placed in OM 1. -Echo 11/2016 with LVEF 60-65%, mild concentric left ventricular hypertrophy, all coates with normal motion. -On brilinta, beta lizz, and statin. Not on asa due to nose bleeds that required overnight packing. -Statin changed to atorvastatin. (4) Chest pain Current Visit: Yes Status: Acute Per cardiology: -Patient reports chest achiness. -Reports started at rest and she has had this before when she has been short of breath. -Patient reports shortness of breath. -Troponin elevated, see above. -Denies current chest pain. -Patient states was not on imdur at home. -Further recommendations pending third troponin. -Imdur was started per primary service. Will continue to monitor. Discussion w patient/family: The assessment and plan as outlined above was discussed with the patient who expressed understanding and agreement. All questions were answered. Thank you for involving us in the care of your patient. Please call with any questions. Discussed and reviewed with . History of Present Illness Consult date: 03/18/17 Requesting physician: Ashutosh Villasenor Consult reason: chest pain, elevated troponin, recent stent Chief complaint: shortness of breath History of present illness: Ms. Noyola is a 66 year old female with a relevant past medical history of CAD s /p stenting October 2016, CHF, DM, HTN, pulmonary hypertension, hyperlipidemia, obesity, PE 2003, hypothyroidism, depression, sleep apnea, anemia, B cell lymphoma. Patient presented to [facility] with complaints of increased shortness of breath and chest discomfort. Patient states she was unable to catch her breath at home. Patient states chest discomfort is an achiness in her chest, reports is right and left sided. Patient denies aggravating or alleviating factors. OF note, patient reports she has this pain when she is extremely short of breath. Patient denies current chest pain/achiness. Past Med Surg Social Fam HX - Past Medical History Attestation: Yes The following information was validated with the patient. Source: patient, old records reviewed Medical history: arthritis, cancer, CHF, coronary artery disease, diabetes, hyperlipidemia, hypertension, myocardial infarction, pulmonary embolus, renal disease, thyroid disease, other Psychiatric history: no psych history - Past Surgical History Surgical History: cataract, coronary bypass (CABG), other - Social History Smoking Status: Never smoker Smokeless Tobacco Status: No Alcohol use: none Drug use: none - Family History Father Hx Family Cardiac Disorders: No Hx Family Respiratory Disorders: No Hx Family Cancer: Yes Hx Family GI Disorders: No Hx Family Endocrine Disorder: No Hx Family Neuromuscular Disorders: No Hx Family Neurologic Disorders: No Hx Family HEENT Disorders: No Hx Family Autoimmune Disorders: No Medications and Allergies Levothyroxine [Synthroid] 75 mcg PO QAM 12/28/15 [History] Melatonin 3 mg PO HS 12/28/15 [History] Metoprolol XL (24 HR) Succ [Toprol Xl] 50 mg PO QPM 01/08/16 [History] Pravastatin Sodium [Pravachol] 40 mg PO QPM 02/08/16 [History] Insulin Human Regular [HumuLIN R] 20 unit SQ BID 12/12/16 [History] Insulin NPH, HUMAN [HumuLIN N] 40 unit SQ BID 12/12/16 [History] Ticagrelor [Brilinta] 90 mg PO BID 12/12/16 [History] Furosemide [Lasix] 60 mg PO QPM 03/18/17 [History] Lenalidomide [Revlimid] 10 mg PO DAILY 03/18/17 [History] Metolazone [Zaroxolyn] 5 mg PO QPM 03/18/17 [History] Nitroglycerin [Nitrostat] 0.4 mg SL AD PRN 03/18/17 [History] Oxygen 2 l .ROUTE AD 03/18/17 [History] Potassium Chloride 20 meq PO QPM 03/18/17 [History] Allergies nitrofurantoin [From Macrobid] Allergy (Verified 03/16/17 10:43) Rash octreotide Allergy (Verified 03/16/17 10:43) Rash Red Man Syndrome Penicillins Allergy (Verified 03/16/17 10:43) Rash vancomycin Allergy (Verified 03/16/17 10:43) Rash Red Man Syndrome All Systems Review: A 10-system review of systems was performed and is negative for pertinent findings except as documented above in the HPI. - Cardiovascular Cardiovascular: as per HPI, chest pain at rest, dyspnea at rest, dyspnea on exertion Physical Examination Vital Signs, Last 4 Hours Temp Pulse Resp BP Pulse Ox 03/18/17 15:31 98.2 F 66 17 150/51 97 03/18/17 15:16 79 18 144/60 99 General: Conversant, No Apparent Distress HEENT: Atraumatic, Normocephaly, Mucus Membranes Moist Neck: No JVD, Normal carotid pulses Cardiac: Reg Rate and Rhythm, Normal S1 and S2, No Murmur Lungs: Normal Breath Sounds, No Wheeze, Rales, Rhonchi Neuro: Alert and responsive, No focal deficits noted Abdomen: Soft, Non-Tender Skin: No rashes noted on visualized skin Musculoskeletal: No Chest Wall Tenderness Extremities: No Clubbing, No Cyanosis, No Edema, Normal Pulses Results 03/18/17 05:53 03/18/17 05:53 Impressions Chest X-Ray 03/18/17 05:41 IMPRESSION: No acute disease. D/ / Shahzad Mina MD / Shahzad Mina MD Interpreting Provider: Shahzad Mina MD Active Medications Acetaminophen (Tylenol) 650 mg PO Q6HR PRN PRN Reason: Mild Pain (1-3) Stop: 09/17/17 10:41 Atorvastatin Calcium (Lipitor) 40 mg PO HS [facility] Stop: 09/17/17 21:01 Dextrose/Water (Dextrose 50% (Syg)) 25 ml IVP AD PRN PRN Reason: Hypoglycemia Stop: 09/17/17 10:46 Glucagon (Glucagen) 1 mg IM ONCE PRN PRN Reason: Hypoglycemia Stop: 09/17/17 10:46 Glucose (Gluctose) 15 gm PO ONCE PRN PRN Reason: Hypoglycemia Stop: 09/17/17 10:46 Glucose (Gluctose) 30 gm PO ONCE PRN PRN Reason: Hypoglycemia Stop: 09/17/17 10:46 Dextrose (Dextrose 5%) 1,000 mls @ 100 mls/hr IVC .Q10H PRN PRN Reason: HYPOGLYCEMIA Stop: 09/17/17 10:46 Insulin Detemir (Levemir) 28 unit 0.25 unit/kg (28 unit) SQ HS KRISTA Stop: 09/17/17 21:01 Insulin Human Lispro (Humalog) 0 units SQ HS KRISTA PRN Reason: Protocol Stop: 09/17/17 21:01 Insulin Human Lispro (Humalog) 0 units SQ TIDAC [facility] PRN Reason: Protocol Stop: 09/17/17 11:31 Last Admin: 03/18/17 14:42 Dose: Not Given Isosorbide Mononitrate (Imdur) 30 mg PO DAILY [facility] Stop: 09/17/17 11:01 Levothyroxine Sodium (Synthroid) 75 mcg PO QAM [facility] Stop: 09/18/17 09:01 Melatonin (Melatonin) 3 mg PO HS [facility] Stop: 09/17/17 21:01 Metolazone (Zaroxolyn) 5 mg PO QPM KRISTA Stop: 09/17/17 18:01 Metoprolol Succinate (Toprol Xl) 50 mg PO QPM KRISTA Stop: 09/17/17 18:01 Naloxone HCl (Narcan) 0.4 mg IVP Q2MIN PRN PRN Reason: Opioid Reversal Stop: 09/17/17 10:41 Nitroglycerin (Nitroglycerin) 0.4 mg SL AD PRN PRN Reason: Chest Pain Stop: 09/17/17 10:48 Potassium Chloride (Potassium Chloride) 20 meq PO QPM KRISTA Stop: 09/17/17 18:01 Ticagrelor (Brilinta) 90 mg PO BID KRISTA Stop: 09/17/17 21:01 Laboratory Tests 03/18/17 03/18/17 03/18/17 05:53 05:53 05:53 WBC 1.6 L Hgb 9.6 L Plt Count 73 L Potassium 3.2 L Creatinine 1.08 Troponin I B-Natriuretic Peptide 325 H 03/18/17 03/18/17 05:53 11:42 WBC Hgb Plt Count Potassium Creatinine Troponin I 0.15 H* 0.63 H* B-Natriuretic Peptide - Imaging and Cardiology Chest Xray: report reviewed Echo: report reviewed Cardiac cath: report reviewed - EKG Interpretation EKG results cardiology: personally reviewed (ECG with Sinus rhythm, HR 81. ST depression noted in leads I and II, however improved from previous ECG 12/12/16.) Consult Discharge Plan - Plan Referrals: Luis Martinez, [employer] [Primary Care Provider] -
[2017-03-18] MEDS ORDERED: Metoprolol XL (24 HR) Succ 50 MG TAB.ER.24H PO SCH ×2 (18:00→18:45)
[2017-03-18] MEDS ORDERED: metOLazone 5 MG TABLET PO SCH (18:00)
[2017-03-18] MEDS: Isosorbide MONOnitrate (24 HR) 30 MG TAB.ER.24H PO SCH (18:13)
[2017-03-18] MEDS ORDERED: Melatonin 3 MG TABLET PO SCH (21:00)
[2017-03-18] MEDS ORDERED: Insulin DETEMIR 100 UNIT/ML X5UNITS SQ SCH (21:00)
[2017-03-18] MEDS ORDERED: Insulin LISPRO 300 UNITS/3 ML VIAL SQ SCH (21:00)
[2017-03-18] MEDS: *HR* Ticagrelor 90 MG TABLET PO SCH (22:42)
[2017-03-19 04:26] LABS: Hemoglobin 9.1 g/dL (11.5-15.4)
[2017-03-19 04:28] LABS: Basophils % 1.3 %; Eosinophils # 0.1 K/mcL (0.0-0.6); Eosinophils % 5.3 %; Hematocrit 27.7 % (35.3-44.9); Lymphocytes # 0.7 K/mcL (0.6-4.6); Lymphocytes % 49.3 %; Mean Corpuscular HGB Conc 32.9 g/dL (31.6-35.5); Mean Corpuscular Volume 94.2 fL (83.0-100.0); Mean Platelet Volume 11.8 fL (9.4-12.4); Monocytes # 0.2 K/mcL (0.0-1.3); Neutrophils # 0.4 K/mcL (1.6-8.9); Red Blood Count 2.94 M/mcL (3.82-4.97); Red Cell Distribution Width 15.3 % (11.5-14.5); Segmented Neutrophils % 28.1 %
[2017-03-19 04:37] LABS: Platelet Count 67 K/mcL (140-400)
[2017-03-19 04:39] LABS: BUN/Creatinine Ratio 22 (6-26); Blood Urea Nitrogen 22 mg/dL (7-20); Calcium 8.3 mg/dL (8.6-10.8); Carbon Dioxide 37 mEq/L (19-29); Chloride 100 mEq/L (98-109); Glucose 154 mg/dL (70-99); Magnesium 1.1 mg/dL (1.6-2.6); Osmolality,Calculated 300 (280-300); Potassium 3.6 mEq/L (3.5-4.5); Sodium 142 mEq/L (136-145); eGFR For African Americans > 60 (> 60); eGFR For Non-African Americans 56 (> 60)
[2017-03-19 04:50] LABS: Reactive Lymphocytes Present (Not Present)
[2017-03-19 04:51] LABS: Large Platelets Present (Not Present); Platelet Estimate Decreased (Normal)
[2017-03-19] MEDS: Isosorbide MONOnitrate (24 HR) 30 MG TAB.ER.24H PO SCH (08:32)
[2017-03-19] MEDS: *HR* Ticagrelor 90 MG TABLET PO SCH (08:32)
[2017-03-19] MEDS: Insulin LISPRO 300 UNITS/3 ML VIAL SQ SCH ×2 (08:34→12:22)
[2017-03-19] MEDS: Magnesium Sulfate 1 GM in D5% in Water 100 ML IVPB SCH ×2 (10:44→12:21)
--- NOTE | 2017-03-19 13:50 | Discharge Summary ---
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 insulin use: without nursing home use Chronic kidney disease stage: stage 3 (moderate) Qualified Code(s): E11.22 - Type 2 diabetes mellitus with diabetic chronic kidney disease; N18.3 - Chronic kidney disease, stage 3 ( moderate) (5) Morbid obesity Priority: Secondary Status: Chronic (6) Acute and chronic respiratory failure Priority: Primary Status: Resolved Qualifiers: Respiratory failure complication: hypoxia Qualified Code(s): J96.21 - Acute and chronic respiratory failure with hypoxia (7) HTN (hypertension) Priority: Secondary Status: Chronic Qualifiers: Hypertension type: essential hypertension Qualified Code(s): I10 - Essential (primary) hypertension (8) CAD (coronary artery disease) Priority: Secondary Status: Chronic Qualifiers: Coronary Disease-Associated Artery/Lesion type: unspecified vessel or lesion type [place] vs. transplanted heart: [place] heart Associated angina: angina presence unspecified Qualified Code(s): I25.10 - Atherosclerotic heart disease of [place] coronary artery without angina pectoris (9) Elevated troponin Priority: Secondary Status: Chronic - Discharge Medications Prescriptions: Atorvastatin [Lipitor] 40 mg PO HS #30 tab Isosorbide MONOnitrate (24 HR) [Imdur] 30 mg PO DAILY #30 Home Medications: Levothyroxine [Synthroid] 75 mcg PO QAM 12/28/15 [History] Melatonin 3 mg PO HS 12/28/15 [History] Metoprolol XL (24 HR) Succ [Toprol Xl] 50 mg PO QPM 01/08/16 [History] Insulin Human Regular [HumuLIN R] 20 unit SQ BID 12/12/16 [History] Insulin NPH, HUMAN [HumuLIN N] 40 unit SQ BID 12/12/16 [History] Ticagrelor [Brilinta] 90 mg PO BID 12/12/16 [History] Furosemide [Lasix] 60 mg PO QPM 03/18/17 [History] Lenalidomide [Revlimid] 10 mg PO DAILY 03/18/17 [History] Metolazone [Zaroxolyn] 5 mg PO QPM 03/18/17 [History] Nitroglycerin [Nitrostat] 0.4 mg SL AD PRN 03/18/17 [History] Oxygen 2 l .ROUTE AD 03/18/17 [History] Potassium Chloride 20 meq PO QPM 03/18/17 [History] Atorvastatin [Lipitor] 40 mg PO HS #30 tab 03/19/17 [Rx] Isosorbide MONOnitrate (24 HR) [Imdur] 30 mg PO DAILY #30 03/19/17 [Rx] Allergies/Adverse Reactions: Allergies nitrofurantoin [From Macrobid] Allergy (Verified 03/16/17 10:43) Rash octreotide Allergy (Verified 03/16/17 10:43) Rash Red Man Syndrome Penicillins Allergy (Verified 03/16/17 10:43) Rash vancomycin Allergy (Verified 03/16/17 10:43) Rash Red Man Syndrome Date of admission: 03/18/17 15:09 Primary care physician: Luis Martinez CNP Consults: 03/18/17 16:34 Consult to Computational Chemist [CONS] Routine Reason for SW Consult: LIVES ALONE, HAS CANCER NEEDS ADVANCE DIRECTIVE INFO. Discharging clinician: Laura Thorne Anticipated date of discharge: 03/19/17 - Patient Status Disposition: Home, Self-Care Condition: Fair Functional capacity at discharge: independent ambulation Overall status at discharge: patient is back to baseline - Discharge Instructions Follow Up With: Luis Martinez CNP [Primary Care Provider] - Additional Instructions: Please follow-up with your primary care physician and corrosion prevention metal sprayer within 1 week after your discharge from the hospital. Imdur has been added to your home medications, please take this medication as prescribed. Your home dose of simvastatin has been discontinued and atorvastatin has been started. Please take this medication as prescribed. Please inform your corrosion prevention metal sprayer that your metoprolol was not increased to 75 mg due to reported heart rate being in the 50s during your hospitalization. Please continue to take your Metoprolol XL 50mg once daily. Closely monitor your HR before and after taking this medication. Closely monitor your Blood pressure at home. If your Systolic Blood pressure if less than 100, please hold metoprolol and imdur and inform your primary care physician. Please seek medical help if you have chest pain or difficulty breathing. Please resume all your other home medications as prescribed by your primary care physician. - Diet and Activity Activity: resume usual activities as tolerated, wear oxygen at all times Diet: diabetic diet, low salt diet Hospital course: Ms. Noyola is a 66 year old female with PMH of diabetes, CHF,diffuse large B cell lymphoma, CAD S/P stent, MONICA, CKD who was admitted for management of worsening shortness of breath and noted to have mild elevation in TNI. Patient was seen by cardiology and Imdur was added to her home medications. Her simvastatin was changed to atorvastatin, and increase in BB was recommended. patient was noted to have HR in 50s due to which patient's BB was not increased , however she responded appropriately to the addition of imdur. She states she never really had any chest pain, it was more so exertional dyspnea. At this time she is back to baseline respiratory status and reports of feeling well at this time. Denies any chest, sob, or any discomfort. She is hemodynamically stable and will be discharged to home with follow up with PCP and cardiology. Patient demonstrates understanding of her diagnosis and agrees with the discharge care and plan. - Time Spent with Patient Total time spent providing and/or coordinating discharge services: Greater than 30 minutes - Constitutional Vitals: Temp Pulse Resp BP Pulse Ox 98.1 F 68 16 122/48 98 03/19/17 11:46 03/19/17 11:46 03/19/17 11:46 03/19/17 11:46 03/19/17 11:46 General appearance: Present: cooperative, A&O X 3, morbidly obese, pleasant, no acute distress, answers questions appropriately - Head Head exam: Present: atraumatic, normocephalic - Eye Eye exam: Present: normal appearance, conjuntiva pink, sclera anicteric - Respiratory Respiratory exam: Present: CTAB. Absent: accessory muscle use, rales, rhonchi, wheezes - Cardiovascular Cardiovascular exam: Present: RRR, +S1, +S2. Absent: diastolic murmur, gallop, rubs, systolic murmur - GI/Abdominal GI/Abdominal exam: Present: normal bowel sounds, soft, no peritoneal signs. Absent: distended, tenderness - Extremities Exam Extremities exam: Present: warm, radial pulses palpable and symetrical. Absent : calf tenderness, cyanotic, pedal edema - Neurological Exam Neurological exam: Present: alert, oriented X3 - Psychiatric Psychiatric exam: Present: normal affect, normal mood
[2017-03-19 16:03] VITALS: BP 135/51
[2017-03-19] MEDS ORDERED: Metoprolol XL (24 HR) Succ 25 MG TAB.ER.24H PO ONE (20:11)
--- NOTE | 2017-03-20 14:29 | Electrocardiograph Report ---
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
== END 2017-03-19 17:15 | disposition home or self-care (01) | DRG 291 ==
LOC: EMEROO 05:30 → 2NENU 15:09
PROVIDERS: ADMIT Internal Medicine; ATTEND Internal Medicine

== ENCOUNTER 2018-05-27 19:22 | Inpatient (IN) ==
[2018-05-27] MEDS ORDERED: Nitroglycerin 0.4 MG TAB.SUBL SL PRN (21:08)
[2018-05-27] MEDS ORDERED: NON-FORMULARY MEDICATION 1 EACH EACH (Oxygen [Oxygen] 2 L) SCH (21:15)
[2018-05-27] MEDS ORDERED: *HR* Heparin 5,000 UNIT/ML VIAL IVP PRN ×2 (21:28)
[2018-05-27] MEDS ORDERED: Heparin 25,000 UNIT/500 ML D5W 25,000 UNIT/500 ML BAG IVC SCH (21:30)
--- NOTE | 2018-05-27 21:58 | Internal Med History&Physical ---
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 She was then diagnosed with diffuse large B-cell lymphoma. She received 6 cycles of RCHOP in Mar 2016 then was on lenalidomide with rituximab but is now being monitored off therapy. She has significant CAD, getting a PRIYA in October 2016 at [facility] (left main 20%, LAD 10%, ostial circumflex 20-30%, OM1 99%, RCA 10-20%, PDA 10-20%, VEGA to LAD patent, SVG to OM occluded. 2 PRIYA were placed in OM 1). She has been admitted here on 2 occasions after that for NSTEMI that was medically managed, last seen in February 2018 at which time she was deemed not a suitable candidate for invasive cardiac procedures and was also notably pancytopenic from chemo therapy heparin was not given. She presents now on transfer from [facility] where she went to with complaints of chest pain, described as a heavy pressure on her chest. Her initial EKG showed ST depression in the anterior leads which did not appear unchanged from prior with 1st troponin negative. A 2nd troponin done 2 hours after elevated to 0.93. Her chest pain did not resolve with sublingual NTG and ASA so she was placed on NTG drip as well as heparin. On arrival here she reports feeling well and has no complaints. She says her chest pain has resolved and is no longer dyspneic. She does confirm that she frequently has chest pain episodes with moderate exertion but that they last usually only a minute and resolve however today she was at rest and it persisted over time accompanied by dyspnea. Review of outside records showed a normal CBC and BMP parameters. EKG seen independently by me revealing ST depression in D1 and aVL with 1 mm elevation in aVR. Past Med Surg Social Fam HX - Past Medical History Medical history: arthritis, cancer, CHF, coronary artery disease, diabetes, hyperlipidemia, hypertension, myocardial infarction, pulmonary embolus, renal disease, thyroid disease, other Additional medical history: SLEEP APNEA Psychiatric history: no psych history - Past Surgical History Surgical History: cataract, coronary bypass (CABG), other Additional surgical history: STOMACH SURGERY - Social History Smoking Status: Never smoker Smokeless Tobacco Status: No Alcohol use: none Drug use: none - Family History Father Hx Family Cardiac Disorders: No Hx Family Respiratory Disorders: No Hx Family Cancer: Yes Hx Family GI Disorders: No Hx Family Endocrine Disorder: No Hx Family Neuromuscular Disorders: No Hx Family Neurologic Disorders: No Hx Family HEENT Disorders: No Hx Family Autoimmune Disorders: No Internal Medicine - H&P: Meds Levothyroxine [Synthroid] 75 mcg PO QAM 12/28/15 [History] Melatonin 3 mg PO HS 12/28/15 [History] Metoprolol XL (24 HR) Succ [Toprol Xl] 75 mg PO QPM 01/08/16 [History] Insulin Human Regular [HumuLIN R] 45 unit SQ BID 12/12/16 [History] Ticagrelor [Brilinta] 90 mg PO BID 12/12/16 [History] Furosemide [Lasix] 60 mg PO Q48H 03/18/17 [History] Metolazone [Zaroxolyn] 5 mg PO Q48H 03/18/17 [History] Nitroglycerin [Nitrostat] 0.4 mg SL AD PRN 03/18/17 [History] Oxygen 2 l .ROUTE AD 03/18/17 [History] Potassium Chloride 20 meq PO DAILY 03/18/17 [History] Atorvastatin [Lipitor] 40 mg PO HS #30 tab 03/19/17 [Rx] Isosorbide MONOnitrate (24 HR) [Imdur] 30 mg PO DAILY #30 03/19/17 [Rx] Liraglutide [Victoza 2-Rob] 1.2 mg SQ DAILY 08/18/17 [History] Handicap Placard 1 each .ROUTE AD #1 each 04/20/18 [Rx] 3 Allergy/AdvReac Type Severity Reaction Status Date / Time nitrofurantoin Allergy Rash Verified 04/20/18 09:57 [From Macrobid] octreotide Allergy Rash Verified 04/20/18 09:57 Penicillins Allergy Rash Verified 04/20/18 09:57 vancomycin Allergy Rash Verified 04/20/18 09:57 All Systems PM: A 10-system review of systems was performed and is negative for pertinent findings except as documented above in the HPI. - Constitutional Vitals: Temp Pulse Resp BP Pulse Ox 98.9 F 90 15 150/69 98 05/27/18 21:19 05/27/18 21:19 05/27/18 21:19 05/27/18 21:19 05/27/18 21:19 Exam: Vitals: Reviewed General: Well-developed obese woman sitting comfortably up in bed in no acute distress Skin: Warm and supple HEENT: Moist mucous membranes. No conjunctivae pallor. Left eye pink with some clear discharge. Neck: No lymphadenopathy. No JVD. Chest: Normal thoracic expansion. Normal breath sounds. Clear to auscultation. Heart: Normal S1 & S2; rhythmic. Grade 4/6 holosystolic murmur in the right upper sternal border with radiation to the carotids. Abdomen: Non-distended, soft and non-tender to palpation. No peritoneal reaction. Extremities: No clubbing, cyanosis. 1+ lower extremity edema with trophic changes of venous stasis. No calf tenderness. Normal distal pulses. Neurological: Awake, alert and oriented to person, place and time. No focal deficits. Psych: Affect appropriate. - Assessment and plan (1) Angina at rest Current Visit: Yes Status: Acute Assessment and plan: Patient with known coronary artery disease who is now presenting with angina at rest which is concerning for unstable angina however with positive troponin level and EKG changes now concerning for a new episode of an NSTEMI. She will continue antiplatelet therapy; an intolerance to aspirin has been reported for which reason she is on ticagrelor alone. Continue beta-blockade. Will remain on heparin drip for now until cardiology is able to evaluate her. Monitor on telemetry, trend troponins and repeat EKG. (2) CAD (coronary artery disease) Current Visit: Yes Status: Chronic Assessment and plan: As noted above. Qualifiers: Coronary Disease-Associated Artery/Lesion type: bypass graft [place] vs. transplanted heart: [place] heart Associated angina: with unstable angina Qualified Code(s): I25.700 - Atherosclerosis of coronary artery bypass graft(s) , unspecified, with unstable angina pectoris (3) CKD (chronic kidney disease) stage 3, GFR 30-59 ml/min Current Visit: Yes Status: Chronic Assessment and plan: We will check her current creatinine clearance and medications will be adjusted accordingly. (4) Diffuse large b-cell lymphoma, lymph nodes of multiple sites Current Visit: Yes Status: Chronic Assessment and plan: Appears to be in remission and she follows with outpatient oncology. (5) HTN (hypertension) Current Visit: Yes Status: Chronic Assessment and plan: Home antihypertensives will be resumed. Qualifiers: Hypertension type: essential hypertension Qualified Code(s): I10 - Essential (primary) hypertension (6) Morbid obesity Current Visit: Yes Status: Chronic Assessment and plan: Low-fat diet. (7) Type II diabetes mellitus Current Visit: Yes Status: Chronic Assessment and plan: Insulin sliding scale in effect. Qualifiers: Diabetes mellitus exterminator insulin use: without exterminator use Diabetes mellitus complication status: with kidney complications Diabetes mellitus complication detail: with chronic kidney disease Chronic kidney disease stage : stage 3 (moderate) Qualified Code(s): E11.22 - Type 2 diabetes mellitus with diabetic chronic kidney disease; N18.3 - Chronic kidney disease, stage 3 ( moderate) - Time Spent With Patient Total time spent is greater than 50% in coordination of care (as documented) at patient's floor/unit and/or counseling patient: Greater than 35 minutes
[2018-05-27] MEDS ORDERED: D5% in Water 1,000 ML IVC PRN (22:02)
[2018-05-27] MEDS ORDERED: Dextrose Gel 15 GM/37.5 ML TUBE PO PRN ×2 (22:02)
[2018-05-27] MEDS ORDERED: *HR* Dextrose 50 % in Water (Syg) 50 ML SYRINGE IVP PRN (22:02)
[2018-05-27 23:12] LABS: Basophils % 0.3 %; Eosinophils # 0.1 K/mcL (0.0-0.6); Eosinophils % 0.9 %; Hematocrit 33.7 % (35.3-44.9); Hemoglobin 11.1 g/dL (11.5-15.4); Immature Granulocytes % 0.5 % (0-4); Lymphocytes # 0.8 K/mcL (0.6-4.6); Lymphocytes % 11.6 %; Mean Corpuscular HGB Conc 32.9 g/dL (31.6-35.5); Mean Corpuscular Hemoglobin 31.4 pg (28.0-33.3); Mean Corpuscular Volume 95.2 fL (83.0-100.0); Mean Platelet Volume 11.5 fL (9.4-12.4); Monocytes # 0.5 K/mcL (0.0-1.3); Monocytes % 7.5 %; Neutrophils # 5.2 K/mcL (1.6-8.9); Red Blood Count 3.54 M/mcL (3.82-4.97); Segmented Neutrophils % 79.2 %
[2018-05-27 23:13] LABS: Platelet Count 98 K/mcL (140-400)
[2018-05-27 23:18] LABS: Heparin anti-factor XA UFH 0.37 IU/mL (0.30-0.70); INR 1.1; Prothrombin Time 11.9 Seconds (9.4-12.1)
[2018-05-27 23:20] LABS: Activated Partial Thrombo Time 59.6 Seconds (26.0-36.0)
[2018-05-27 23:33] LABS: Alanine Aminotransferase 37 Units/L (7-52); Albumin 4.3 g/dL (3.5-5.7); Albumin/Globulin Ratio 2.2 (1.1-2.2); Alkaline Phosphatase 51 Units/L (34-104); Aspartate Amino Transferase 53 Units/L (13-39); BUN/Creatinine Ratio 20 (6-26); Bilirubin,Direct 0.2 mg/dL (0.0-0.2); Bilirubin,Indirect 0.4 mg/dL (0.0-1.2); Bilirubin,Total 0.6 mg/dL (0.3-1.0); Blood Urea Nitrogen 18 mg/dL (8-23); Calcium 9.3 mg/dL (8.6-10.3); Carbon Dioxide 32 mEq/L (23-29); Chloride 103 mEq/L (98-107); Glucose 199 mg/dL (70-105); Osmolality,Calculated 303 (280-300); Potassium 3.5 mEq/L (3.5-5.1); Sodium 143 mEq/L (136-145); Total Protein 6.3 g/dL (6.4-8.9); eGFR For Non-African Americans > 60 (> 60)
[2018-05-27 23:43] LABS: Troponin I 7.68 ng/mL (< 0.04)
[2018-05-28] MEDS ORDERED: Ciprofloxacin OPTH Soln 2.5 ML BOTTLE RIGHT EYE SCH
[2018-05-28] MEDS: Metoprolol XL (24 HR) Succ 50 MG TAB.ER.24H PO SCH ×2 (00:08→16:42)
[2018-05-28] MEDS: Ciprofloxacin OPTH Soln 2.5 ML BOTTLE BOTH EYES SCH ×3 (00:09→07:44)
[2018-05-28] MEDS: Insulin LISPRO 300 UNITS/3 ML VIAL SQ SCH ×4 (05:14→16:43)
--- NOTE | 2018-05-28 05:53 | Event Note ---
Date of Encounter: 05/28/18 Time of Encounter: 05:50 The patient has remained clinically stable. No chest pain since arrival to our unit therefore nitroglycerin drip was discontinued. Her vitals remain stable. Troponin noted to be elevating; heparin drip remains and is being titrated by pharmacy. She has no complaints and reports feeling well. Repeat EKGs done showing some ST depressions in the anterolateral leads, similar to previous. Cardiac monitoring ongoing. Cardiology consult requested. Will remain NPO for possible intervention.
[2018-05-28] MEDS: Isosorbide MONOnitrate (24 HR) 30 MG TAB.ER.24H PO SCH (07:44)
[2018-05-28] MEDS: *HR* Ticagrelor 90 MG TABLET PO SCH ×2 (07:44→22:11)
--- NOTE | 2018-05-28 10:34 | Cardiology Consult Note ---
Date of Encounter: 05/28/18 Time of Encounter: 10:31 Assessment and Plan (1) NSTEMI (non-ST elevated myocardial infarction) Current Visit: No Status: Acute Peak troponin 10.40. Presented with CP, radiation into shoulders and left neck. EKG similar to prior. Hx CAD with CABG in the remote past and PCI 10/2016 at [facility]. On heparin gtt. Continue Brilinta, Statin, BB. Will add 81mg ASA. PLT 98, chronic--large B cell lymphoma. No active bleeding issues. To note, plan for SCC removal with Dr. Coronado 06/07. Called his office, per nurse he performs resection on DAPT. TTE to evaluate structure and function. TTE 11/2016 EF preserved. Recommend LHC. R/B/A discussed. Pt agrees to proceed. LHC today. Continue to follow. (2) CAD (coronary artery disease) Current Visit: Yes Status: Chronic Hx CABG and PCI. ASA, Brilinta, Statin, BB. Qualifiers: Coronary Disease-Associated Artery/Lesion type: bypass graft [place] vs. transplanted heart: [place] heart Associated angina: with unstable angina Qualified Code(s): I25.700 - Atherosclerosis of coronary artery bypass graft(s) , unspecified, with unstable angina pectoris (3) Thrombocytopenia Current Visit: Yes Status: Acute Chronic. Large B cell lymphoma, currently off treatment. Discussion w patient/family: The assessment and plan as outlined above was discussed with the patient and/or family members who expressed understanding and agreement. All questions were answered. Thank you for involving us in the care of your patient. Please call with any questions. I will discuss all the above with Dr. Ramirez and make changes as necessary. History of Present Illness Consult date: 05/28/18 Requesting physician: Aniya Bhardwaj Consult reason: NSTEMI Chief complaint: Chest pain History of present illness: Ms. 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 She received 6 cycles of RCHOP in Mar 2016 then was on lenalidomide with rituximab but is now being monitored off therapy. Most recent LHC was PRIYA in October 2016 at [facility] (left main 20%, LAD 10% , ostial circumflex 20-30%, OM1 99%, RCA 10-20%, PDA 10-20%, VEGA to LAD patent , SVG to OM occluded. 2 PRIYA were placed in OM 1). States a couple of months after 10/2016 PCI she began experiencing exertional chest pain that was always brief and resolved spontaneously. Yesterday at rest she developed chest pain/ aching with radiation across chest and into her shoulders and into left side of neck associated with worsening dyspnea. Presented to [facility], troponin 0.93 and transferred to [facility]. Troponins 7.68, 10.40, currently CP free. Nitro improved her pain. Prior CV testing: Limited TTE 12/13/16: LVEF 60-65%. Normal LV chamber size and function. Mild concentric left ventricular hypertrophy. Past Med Surg Social Fam HX - Past Medical History Medical history: arthritis, cancer, CHF, coronary artery disease, diabetes, hyperlipidemia, hypertension, myocardial infarction, pulmonary embolus, renal disease, thyroid disease, other Additional medical history: SLEEP APNEA Psychiatric history: no psych history - Past Surgical History Surgical History: cataract, coronary bypass (CABG), other Additional surgical history: STOMACH SURGERY - Social History Smoking Status: Never smoker Smokeless Tobacco Status: No Alcohol use: none Drug use: none - Family History Father Hx Family Cardiac Disorders: No Hx Family Respiratory Disorders: No Hx Family Cancer: Yes Hx Family GI Disorders: No Hx Family Endocrine Disorder: No Hx Family Neuromuscular Disorders: No Hx Family Neurologic Disorders: No Hx Family HEENT Disorders: No Hx Family Autoimmune Disorders: No Medications and Allergies Levothyroxine [Synthroid] 75 mcg PO QAM 12/28/15 [History] Melatonin 3 mg PO HS 12/28/15 [History] Metoprolol XL (24 HR) Succ [Toprol Xl] 75 mg PO QPM 01/08/16 [History] Ticagrelor [Brilinta] 90 mg PO BID 12/12/16 [History] Furosemide [Lasix] 60 mg PO 3XW PRN 03/18/17 [History] Metolazone [Zaroxolyn] 5 mg PO 3XW PRN 03/18/17 [History] Nitroglycerin [Nitrostat] 0.4 mg SL AD PRN 03/18/17 [History] Oxygen 2 l .ROUTE AD 03/18/17 [History] Potassium Chloride 20 meq PO DAILY 03/18/17 [History] Atorvastatin [Lipitor] 40 mg PO HS #30 tab 03/19/17 [Rx] Isosorbide MONOnitrate (24 HR) [Imdur] 30 mg PO DAILY #30 03/19/17 [Rx] Liraglutide [Victoza 2-Rob] 1.2 mg SQ DAILY 08/18/17 [History] Insulin NPH Human Isophane [Novolin N] 50 unit SQ BID 05/28/18 [History] Insulin Regular, Human [Novolin R] 50 unit SQ BID 05/28/18 [History] glyBURIDE [GlyBURIDE] 5 mg PO DAILY 05/28/18 [History] 3 Allergy/AdvReac Type Severity Reaction Status Date / Time nitrofurantoin Allergy Rash Verified 04/20/18 09:57 [From Macrobid] octreotide Allergy Rash Verified 04/20/18 09:57 Penicillins Allergy Rash Verified 04/20/18 09:57 vancomycin Allergy Rash Verified 04/20/18 09:57 All Systems Review: The remainder of the systems were reviewed and are negative - Cardiovascular Cardiovascular: as per HPI, chest pain at rest, chest pain with exertion, dyspnea at rest, dyspnea on exertion, radiating jaw, neck or arm pain, orthopnea - Respiratory Respiratory: dyspnea Physical Examination Vital Signs, Last 4 Hours Temp Pulse Resp BP Pulse Ox 05/28/18 08:00 98.7 F 76 19 120/68 100 Vital Signs Temp Pulse Resp BP Pulse Ox 05/28/18 08:00 98.7 F 76 19 120/68 100 05/28/18 04:29 98.4 F 78 15 130/67 98 05/27/18 23:28 98.5 F 88 15 111/58 100 05/27/18 21:37 99 05/27/18 21:19 98.9 F 90 15 150/69 98 Intake and Output 05/27/18 05/28/18 05/28/18 23:59 07:59 15:59 Intake Total 100 / 100 Balance 100 / 100 Intake: IV Fluids 100 / 100 Heparin 25,000 UNIT/500 ML D5W 100 / 100 25,000 unit In 500 ml @ 8.8 UNIT/KG/HR 19.99 mls/hr IVC . Q24H [facility] Rx#:[id number] Other: Stool Size Small Stool Consistency formed # Voids 1 # Bowel Movements 1 Weight 113.58 kg Blood Glucose* 100 General: Conversant, No Apparent Distress HEENT: Atraumatic, Normocephaly, Mucus Membranes Moist Neck: No JVD, Normal carotid pulses Cardiac: Reg Rate and Rhythm, Normal S1 and S2, No Murmur Lungs: Normal Breath Sounds, No Wheeze, Rales, Rhonchi Neuro: Alert and responsive, No focal deficits noted Abdomen: Soft, Non-Tender Skin: No rashes noted on visualized skin Musculoskeletal: No Chest Wall Tenderness Extremities: No Clubbing, No Cyanosis, No Edema, Normal Pulses Results 05/27/18 22:22 05/27/18 22:22 Lab Results 05/27/18 05/27/18 05/27/18 22:22 22:22 22:22 WBC 6.6 Hgb 11.1 L Hct 33.7 L Plt Count 98 L INR 1.1 APTT 59.6 H Sodium 143 Potassium 3.5 Chloride 103 Carbon Dioxide 32 H BUN 18 Creatinine 0.88 Glucose 199 H Calcium 9.3 Total Bilirubin 0.6 AST 53 H ALT 37 Alkaline Phosphatase 51 Troponin I 7.68 H* 05/28/18 04:24 WBC Hgb Hct Plt Count INR APTT Sodium Potassium Chloride Carbon Dioxide BUN Creatinine Glucose Calcium Total Bilirubin AST ALT Alkaline Phosphatase Troponin I 10.40 H* Short CBC 05/27/18 Range/Units 22:22 WBC 6.6 (4.3-11.1) K/mcL Hgb 11.1 L (11.5-15.4) g/dL Hct 33.7 L (35.3-44.9) % Plt Count 98 L (140-400) K/mcL Neutrophils # 5.2 (1.6-8.9) K/mcL BMP 05/27/18 Range/Units 22:22 Sodium 143 (136-145) mEq/L Potassium 3.5 (3.5-5.1) mEq/L Chloride 103 (98-107) mEq/L Carbon Dioxide 32 H (23-29) mEq/L BUN 18 (8-23) mg/dL Creatinine 0.88 (0.60-1.20) mg/dL Glucose 199 H (70-105) mg/dL Calcium 9.3 (8.6-10.3) mg/dL Cardiac Enzymes 10/01/18 09/30/18 Range/Units 04:24 22:22 Troponin I 10.40 H* 7.68 H* (< 0.04) ng/mL Liver Function 05/27/18 Range/Units 22:22 Total Bilirubin 0.6 (0.3-1.0) mg/dL Direct Bilirubin 0.2 (0.0-0.2) mg/dL AST 53 H (13-39) Units/L ALT 37 (7-52) Units/L Alkaline Phosphatase 51 (34-104) Units/L Albumin 4.3 (3.5-5.7) g/dL Active Medications Atorvastatin Calcium (Lipitor) 40 mg PO HS [facility] Stop: 11/27/18 21:01 Ciprofloxacin HCl (Ciloxan Opth Soln) 2 drop BOTH EYES Q4HR [facility] Stop: 05/28/18 20:01 Last Admin: 05/28/18 07:44 Dose: Not Given Dextrose/Water (Dextrose 50% (Syg)) 25 ml IVP AD PRN PRN Reason: Hypoglycemia Stop: 11/26/18 22:03 Glucose (Gluctose) 15 gm PO ONCE PRN PRN Reason: Hypoglycemia Stop: 11/26/18 22:03 Glucose (Gluctose) 30 gm PO ONCE PRN PRN Reason: Hypoglycemia Stop: 11/26/18 22:03 Heparin Sodium (Porcine) (Heparin) 4,000 unit IVP Q6HR PRN PRN Reason: SEE COMMENTS Stop: 11/26/18 21:29 Heparin Sodium (Porcine) (Heparin) 2,000 unit IVP Q6H PRN PRN Reason: SEE COMMENTS Stop: 11/26/18 21:29 Last Admin: 05/28/18 08:36 Dose: 2,000 unit Heparin Sodium/Dextrose (Heparin 25,000 Unit/500 Ml D5w) 25,000 unit in 500 mls @ 19.99 mls/hr IVC .Q24H KRISTA; 8.8 UNIT/KG/HR PRN Reason: Protocol Stop: 11/26/18 21:31 Last Titration: 05/28/18 08:34 Dose: 10.82 unit/kg/hr, 24.6 mls/hr Dextrose (Dextrose 5%) 1,000 mls @ 100 mls/hr IVC .Q10H PRN PRN Reason: HYPOGLYCEMIA Stop: 11/26/18 22:03 Insulin Human Lispro (Humalog) 0 units SQ Q6HR [facility] PRN Reason: Protocol Stop: 11/27/18 00:01 Last Admin: 05/28/18 06:28 Dose: Not Given Isosorbide Mononitrate (Imdur) 30 mg PO DAILY [facility] Stop: 11/27/18 09:01 Last Admin: 05/28/18 07:44 Dose: 30 mg Levothyroxine Sodium (Synthroid) 75 mcg PO 0630 [facility] Stop: 11/27/18 06:31 Last Admin: 05/28/18 06:34 Dose: Not Given Melatonin (Melatonin) 3 mg PO HS [facility] Stop: 11/27/18 21:01 Metoprolol Succinate (Toprol Xl) 75 mg PO QPM [facility] Stop: 11/26/18 21:16 Last Admin: 05/28/18 00:08 Dose: 75 mg Nitroglycerin (Nitroglycerin) 0.4 mg SL AD PRN PRN Reason: Chest Pain Stop: 11/26/18 21:09 Ticagrelor (Brilinta) 90 mg PO BID [facility] Stop: 11/27/18 09:01 Last Admin: 05/28/18 07:44 Dose: 90 mg - Imaging and Cardiology Echo: report reviewed Cardiac cath: report reviewed - EKG Interpretation EKG results cardiology: personally reviewed, other (12 hr tele AVG HR 76, SR, no significant pauses or arrhythmias) Consult Discharge Plan - Plan Referrals: Pam Duenas, [employer] [Primary Care Provider] -
[2018-05-28] MEDS ORDERED: Perflutren Lipid Microsphere 1.3 ML in 0.9 % Sodium Chloride 8.7 ML IVP ONE (10:51)
--- NOTE | 2018-05-28 10:54 | Internal Med Progress Note ---
Hospitalist Progress Note - Encounter Date of Encounter: 05/28/18 Time of Encounter: 17:18 - Subjective Interval History: Pt states she had some chest pain this am but states has since resolved. Denies sOB or palpitations. She denies fever or chills, N/V or diarrhea. - Exam Vitals: Temp Pulse Resp BP Pulse Ox 98.7 F 76 19 120/68 100 05/28/18 08:00 05/28/18 08:00 05/28/18 08:00 05/28/18 08:00 05/28/18 08:00 Exam: Vitals: Reviewed General: Well-developed obese woman sitting comfortably up in bed in no acute distress Skin: Warm and supple HEENT: Moist mucous membranes. No conjunctivae pallor. Left eye pink with some clear discharge. Neck: No lymphadenopathy. No JVD. Chest: Normal thoracic expansion. Normal breath sounds. Clear to auscultation. Heart: Normal S1 & S2; rhythmic. Grade 4/6 holosystolic murmur in the right upper sternal border with radiation to the carotids. Abdomen: Non-distended, soft and non-tender to palpation. No peritoneal reaction. Extremities: No clubbing, cyanosis. 1+ lower extremity edema with trophic changes of venous stasis. No calf tenderness. Normal distal pulses. Neurological: Awake, alert and oriented to person, place and time. No focal deficits. Psych: Affect appropriate. - Assessment and Plan (1) NSTEMI (non-ST elevated myocardial infarction) Current Visit: No Status: Acute Assessment and Plan: Heparin gtt and NTG gtt. Seen by cardiology and echo done today. Planing for heart cath today. (2) CAD (coronary artery disease) Current Visit: Yes Status: Chronic Assessment and Plan: Lipitor and Brilinta. On Heparin. (3) Diffuse large b-cell lymphoma, lymph nodes of multiple sites Current Visit: Yes Status: Chronic Assessment and Plan: Pt states he is ni remission. Out pt f/u ith oncology as recommended. (4) CKD (chronic kidney disease) stage 3, GFR 30-59 ml/min Current Visit: Yes Status: Chronic Assessment and Plan: Per hx but GFR > 60 and Cr 0.88. (5) Type II diabetes mellitus Current Visit: Yes Status: Chronic Assessment and Plan: Glyburide and NPH 50 units BID. GLucose has been in 100's so will decrease NPH to 25 units BID. Also on SSI. (6) Morbid obesity Current Visit: Yes Status: Chronic Assessment and Plan: Life style modification such as diet and exercise recommended. (7) HTN (hypertension) Current Visit: Yes Status: Chronic Assessment and Plan: Imdur, Zaroxolyn and Metoprolol. 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 She was then diagnosed with diffuse large B-cell lymphoma. She received 6 cycles of RCHOP in Mar 2016 then was on lenalidomide with rituximab but is now being monitored off therapy. She has significant CAD, getting a PRIYA in October 2016 at [facility] (left main 20%, LAD 10%, ostial circumflex 20-30%, OM1 99%, RCA 10-20%, PDA 10-20%, VEGA to LAD patent, SVG to OM occluded. 2 PRIYA were placed in OM 1). She has been admitted here on 2 occasions after that for NSTEMI that was medically managed, last seen in February 2018 at which time she was deemed not a suitable candidate for invasive cardiac procedures and was also notably pancytopenic from chemo therapy heparin was not given. She presents now on transfer from [facility] where she went to with complaints of chest pain, described as a heavy pressure on her chest. Her initial EKG showed ST depression in the anterior leads which did not appear unchanged from prior with 1st troponin negative. A 2nd troponin done 2 hours after elevated to 0.93. Her chest pain did not resolve with sublingual NTG and ASA so she was placed on NTG drip as well as heparin. On arrival here she reports feeling well and has no complaints. She says her chest pain has resolved and is no longer dyspneic. She does confirm that she frequently has chest pain episodes with moderate exertion but that they last usually only a minute and resolve however today she was at rest and it persisted over time accompanied by dyspnea. Review of outside records showed a normal CBC and BMP parameters. EKG seen independently by me revealing ST depression in D1 and aVL with 1 mm elevation in aVR. - Time Spent with Patient Total time spent is greater than 50% in coordination of care (as documented) at patient's floor/unit and/or counseling patient: less than 15 minutes Plan of Care Discussed with: patient Internal Medicine: Result - Labs CBC & Chem 7: 05/27/18 22:22 05/27/18 22:22 Labs: Short CBC 05/27/18 Range/Units 22:22 WBC 6.6 (4.3-11.1) K/mcL Hgb 11.1 L (11.5-15.4) g/dL Hct 33.7 L (35.3-44.9) % Plt Count 98 L (140-400) K/mcL Neutrophils # 5.2 (1.6-8.9) K/mcL BMP 05/27/18 22:22 Sodium 143 Potassium 3.5 Chloride 103 Carbon Dioxide 32 H BUN 18 Creatinine 0.88 Glucose 199 H Calcium 9.3 Cardiac Enzymes 05/27/18 05/28/18 Range/Units 22:22 04:24 Troponin I 7.68 H* 10.40 H* (< 0.04) ng/mL Liver Function 05/27/18 Range/Units 22:22 Total Bilirubin 0.6 (0.3-1.0) mg/dL Direct Bilirubin 0.2 (0.0-0.2) mg/dL AST 53 H (13-39) Units/L ALT 37 (7-52) Units/L Alkaline Phosphatase 51 (34-104) Units/L Albumin 4.3 (3.5-5.7) g/dL - ABG Interpretation ABG results: PT/INR, D-dimer PT 11.9 Seconds (9.4-12.1) 05/27/18 22:22 Consult Discharge Plan - Plan Referrals: Pam Duenas, GIFT CONSULTANT [Primary Care Provider] - (2) CAD (coronary artery disease) Qualifiers: Coronary Disease-Associated Artery/Lesion type: bypass graft [place] vs. transplanted heart: [place] heart Associated angina: with unstable angina Qualified Code(s): I25.700 - Atherosclerosis of coronary artery bypass graft(s) , unspecified, with unstable angina pectoris (5) Type II diabetes mellitus Qualifiers: Diabetes mellitus dedicated intermodal truck driver insulin use: without dedicated intermodal truck driver use Diabetes mellitus complication status: with kidney complications Diabetes mellitus complication detail: with chronic kidney disease Chronic kidney disease stage: stage 3 (moderate) Qualified Code(s): E11.22 - Type 2 diabetes mellitus with diabetic chronic kidney disease; N18.3 - Chronic kidney disease, stage 3 ( moderate) (7) HTN (hypertension) Qualifiers: Hypertension type: essential hypertension Qualified Code(s): I10 - Essential (primary) hypertension
[2018-05-28] MEDS ORDERED: Furosemide 20 MG TABLET PO PRN (11:59)
[2018-05-28] MEDS ORDERED: metOLazone 5 MG TABLET PO PRN (11:59)
[2018-05-28] MEDS ORDERED: Tirofiban 12.5 MG/250ML 12.5 MG/250 ML BAG IVC SCH (12:00)
--- NOTE | 2018-05-28 12:07 | Pre-Sedation Evaluation ---
Pre-sedation evaluation - Pre-sedation checklist Date of procedure: 05/28/18 Procedure: C Recent Vitals: Last Vital Signs Temp 98.2 F 05/28/18 11:47 Pulse 81 05/28/18 11:47 Resp 18 05/28/18 11:47 BP 137/78 05/28/18 11:47 Pulse Ox 96 05/28/18 11:47 H&P (including ROS) documented in medical record: Yes Previous reaction to sedatives/anesthetics: No Dietary Status: NPO after Midnight Dentition: No loose teeth or bridges ASA Classification *see protocol: CLASS II-Mild systemic disease Cardiac Registry (Cardio Only) - Functional Capacity Functional Capacity: >=4 METS with symptoms - Clincal Frailty Scale Clinical Frailty Scale: Managing Well
[2018-05-28] MEDS ORDERED: 0.9 % Sodium Chloride 1,000 ML ONE ×2 (12:38→12:47)
[2018-05-28] MEDS ORDERED: *HR* Heparin 10,000 UNIT/10 ML VIAL ONE (12:38)
[2018-05-28] MEDS ORDERED: ISOVUE-370 200 ML INFUS..BTL IV ONE (12:38)
[2018-05-28] MEDS ORDERED: Nitroglycerin 1,000 MCG/10 ML VIAL IV ONE (12:38)
[2018-05-28] MEDS ORDERED: Heparin 1,000 UNITS/500 mL 500 ML ONE (12:38)
[2018-05-28] MEDS ORDERED: *HR* Midazolam HCl 2 MG/2 ML VIAL ONE (12:47)
[2018-05-28] MEDS ORDERED: *HR* FentaNYL (PF) 100 MCG/2 ML VIAL ONE (12:47)
--- NOTE | 2018-05-28 13:47 | Invasive Diagnostic Lab Proc ---
Name: Ai Noyola Date of Study: 05/28/2018 Date: 1950 Ht: 63.0in Medical Record#: [id number] Age: 68 Wt: 251.33lb Gender: Female BSA: 2.13 Order #: [id number] BMI: 44.53 Physicians Procedure Physician: You Nunez MD Referring MD: Referring MD: Staff Name Position Time In Holly Almazan RN Technician Helper Instrument 12:56 PM Michelle Jackson RN Monitor 12:56 PM Diana Harris RT (R) Scrub 12:56 PM Indications Indication Non-Stemi Procedures Performed Procedure CORONARY ART/GRFT ANGIO S&I Pre-Procedure Checklist Informed consent is complete signed and on chart. H&P is on chart. ID band is on and ID verified with patient. Patient NPO for procedure The procedure was described for the patient and questions were answered. ECG is on chart. Plan of Care Patient will tolerate the procedure without complications. Adequate level of comfort will be maintained. Hemodynamics will remain stable Patient will recover from procedure without complications. Respiratory function will be maintained. Cardiac rhythm will remain stable. Patient temperature will be maintained. Patient and/or family have verbalized understanding of the procedure. Patient Education Chief Complaint/Reason for Test: Cardiac Cath Developmental Category: Geriatric (65+ years) Developmentally Appropriate for Age: Yes Learning Barriers: None Education Needs: Procedure Education Method: Verbal Information Taught: Cardiac Cath Educational Evaluation: Able to repeat information Intravenous Access Time IV Size Location DC'd Fluid/Drip Rate Units RN 20g 1 08/31" Patent On Arrival 0.9NaCl Allergies Penicillin Nitrofurantoin Monohydrate/N nitrofurantoin Penicillins PENICILLAN, MACROBID octreotide vancomycin Vital Signs Time BP (mmHg) HR (bpm) O2 Sat. RR (bpm) LOC 12:56 PM / % 5 = Fully awake and oriented or at pre-proc level 12:56 PM / % 4 = Oriented but drowsy 01:12 PM / % 4 = Oriented but drowsy 01:31 PM 135 / 71 78 100 % 22 12:57 PM 151 / 78 87 100 % 21 01:01 PM 136 / 67 82 98 % 16 01:06 PM 126 / 69 80 98 % 17 01:11 PM 134 / 67 82 98 % 19 01:16 PM 135 / 60 78 98 % 15 01:21 PM 133 / 63 80 99 % 12 01:26 PM 124 / 68 85 100 % 30 Procedural Medications Time Medication Dose Units Method Given By 12:56 PM Oxygen 2 L/min nasal cannula Holly Almazan RN 01:09 PM Versed 1 mg Intravenous Holly Almazan RN 01:09 PM Fentanyl 50 mcg Intravenous Holly Almazan RN 01:14 PM Lidocaine 2% 20 ml Subcutaneous You Nunez MD ASA Classification: CLASS II- Mild systemic disease (i.e. well-controlled diabetes, hypertension, asthma, cigarette smoking) Garry Score Preprocedure Postprocedure Activity 2- Moves 4 extremities sustained head lift Activity 2- Moves 4 extremities sustained head lift Circulation 2- SBP +/= 20 points of pre-anesthetic level Circulation 2- SBP +/= 20 points of pre-anesthetic level Consciousness 2- Awake and alert oriented x 3 Consciousness 2- Awake and alert oriented x 3 O2 Saturation 2- Able to maintain O2 satruation of 92% on room air O2 Saturation 2- Able to maintain O2 satruation of 92% on room air Respiratory 2- Able to deep breathe and cough well Respiratory 2- Able to deep breathe and cough well Total Score 10 Total Score 10 Contrast Agent: Isovue Diagnostic Contrast: 71 ml Total Contrast: 71 ml Fluoro Dose: 6583 mGy Procedure Log Time Note Enter By 12:55 PM CathStat 12:55 PM Vitals capture started with the following parameters, Patient=Adult, Interval=5 min, Initial Ldvcvksq=162 mmHg, Deflation Rate=5 mmHg, Cuff placed on Right Arm 12:56 PM [facility] geophysical laboratory chief [facility] PM Physician arrived 12:56 [facility] 12:56 PM Meet and greet completed [facility] 12:56 PM Sign in performed according to hospital policy. Informed consent was obtained. [facility] 12:56 PM Procedure start 12:56 [facility] 12:56 PM Holly Almazan RN Position: Technician Helper Instrument Time in: 12:56 mm 12:56 PM Michelle Jackson RN Position: Monitor Time in: 12:56 [facility] 12:56 PM Diana Harris (R) Position: Scrub Time in: 12:56 [facility] 12:56 PM Patient charges- Angio tray pack, Navilyst 3mm J, Pulse Oximetry and ACIST tubing and transducer [facility] 12:56 PM Case Delayed [facility] 12[facility] PM Hair removed from procedure site in procedure lab using clippers. Bilateral groin prepped with Chloraprep by Michelle Jackson RN, then patient was draped. Skin intact. [facility] 12[facility]56 PM Time: 12:56 Oxygen on at 2 L/min per nasal cannula by Holly Almazan RN [email or web address] 12:56 PM Time: 12:56 Patient comfortable and pain free: Yes [facility] 12[facility] PM Time: 12:56LOC: 5 = Fully awake and oriented or at pre-proc level [facility] 12:57 PM HR=87 bpm, UVRP=088/78 mmhg, CoG2=123.0 %, Resp=21 B/min 01:00 PM Recorded ECG: HR=82 Condition=Condition 1 01:01 PM HR=82 bpm, IQVD=865/67 mmhg, SpO2=98.0 %, Resp=16 B/min, EtCO2=45 mmHg, Comment=nsr 01:06 PM HR=80 bpm, OHBS=759/69 mmhg, SpO2=98.0 %, Resp=17 B/min, EtCO2=46 mmHg, Comment=nsr 01:07 PM Pressure channel 1 zeroed. 01:08 PM ASA Class CLASS II- Mild systemic disease (i.e. well-controlled diabetes, hypertension, asthma, cigarette smoking) [facility] 01:09 PM Clinical Presentation: [facility]I [facility] 01[facility] PM Time out was performed according to hospital policy. Conscious sedation and anesthesia was achieved (see medication log with in this report above) [facility] 01:09 PM Time: 13:09 Versed 1 mg Intravenous Given by Holly Almazan RN jenifer 01:09 PM Time: 13:09 Fentanyl 50 mcg Intravenous Given by Holly Almazan RN [email or web address] 01:11 PM HR=82 bpm, FUDA=725/67 mmhg, SpO2=98.0 %, Resp=19 B/min, EtCO2=45 mmHg, Comment=nsr 01:12 PM Time: 12:56LOC: 4 = Oriented but drowsy [email or web address] 01:12 PM Time: 12:56 Patient comfortable and pain free: Yes 01:14 PM Time: 13:14 20 ml Lidocaine 2% to right groin Subcutaneous Given by You Nunez MD chandleraguilar 01:16 PM HR=78 bpm, VOES=816/60 mmhg, SpO2=98.0 %, Resp=15 B/min, EtCO2=46 mmHg, Comment=nsr 01:19 PM Access obtained by percutaneous puncture. 6Fr 10cm Terumo [place] sheath placed in right Femoral artery. [id number] 01:20 PM 0.035 145cm Navilyst 3mmJ wire [id number] 01:21 PM 5Fr FL 4 catheter inserted over the wire [facility] aguilar :21 PM HR=80 bpm, VEBM=196/63 mmhg, SpO2=99.0 %, Resp=12 B/min, EtCO2=47 mmHg, Comment=nsr 01: PM Recorded Pressure: Ao, HR=80, Condition=Condition 1 (Aorta) Ao 125/72/96 01:21 PM Wire removed :22 PM LCA angiography performed in multiple views. 01:23 PM Catheter removed 01:24 PM 5Fr FR 4 catheter inserted over the wire [facility] aguilar :25 PM RCA angiography performed in multiple views. oumm:25 PM Recorded Pressure: Ao, HR=86, Condition=Condition 1 (Aorta) Ao 122/79/98 01:26 PM Coronary Dominance: right aguilar :26 PM HR=85 bpm, AEZP=391/68 mmhg, BiV7=663.0 %, Resp=30 B/min, EtCO2=47 mmHg, Comment=nsr 01:26 PM Recorded Pressure: Ao, HR=86, Condition=Condition 1 (Aorta) Ao 133/83/107 01:27 PM catheter repositioned to view VEGA jenifer : PM Time: 13:12LOC: 4 = Oriented but drowsy tschandlermmaguilar :27 PM Left CARL to the LAD angio performed in multiple views. [email or web address] 01:27 PM Catheter removed jami :29 PM Bolus angiogram of right Femoral complete: 2 ml/sec for a total of 4 mls jenifer 01:29 PM Procedure completed at 13:29 05/28/2018 [email or web address] 01:30 PM Did you address TAMEKA flow and Dominance? Yes oumm 01:31 PM Sign out completed: Radiation Dose 652.28 mGy, 6582.51 cGy/cm2 Fluoro Time: 2.9 Isovue 370 - 200ml contrast 71 ml given by You Nunez MD. Complications: None. The patient was discharged out of the slab installer in stable condition. Cardiac Rehab Consult needed: NoConfirmed administered medications: Yes oummers 01:31 PM Isovue 370 - 200ml,1 Bottle(s) used. [email or web address] 01:31 PM HR=78 bpm, YBYU=569/71 mmhg, ZdW2=336.0 %, Resp=22 B/min, EtCO2=44 mmHg, Comment=nsr 01:31 PM Arterial sheath pulled, Angio-seal closure device used and was Successful [id number] S/N. tsoummers 01:32 PM Estimated Blood Loss: minimal tsoummers 01:32 PM Post ECG NSR tsoummers 01:32 PM Post Blood Pressure 135/71 tsoummers 01:32 PM 13:32 Post Pulses Bilateral DP & PT 1+ tsoummers 01:33 PM Information taught Cardiac Cath and Angioseal tsoummers 01:33 PM Education needs Procedure, Plan of Care, Responsibilities of Patient in Care, and Disease Process tsoummers 01:33 PM Learning barriers :None tsoummers 01:33 PM Education Methods Verbal tsoummers 01:33 PM Education evaluation Able to repeat information tsoummers 01:33 PM Site status No bleeding/hematoma - Rt Groin as reported by Sites, Diana RT (R) at 13:33 tsoummers 01:33 PM Opsite applied tsoummers 01:33 PM Plavix, Effient or Brilinta given No tsoummers 01:33 PM Delay to floor No tsoummers 01:33 PM No family present tsoummers 01:33 PM Complications: None tsoummers 01:34 PM Lesion found in Proximal LMCA. Pre Stenosis: 20 Pre TAMEKA Flow: tsoummers 01:34 PM Lesion found in Mid LAD. Pre Stenosis: 100 Pre TAMEKA Flow: tsoummers 01:35 PM Lesion found in Distal Circumflex. Pre Stenosis: 50 Pre TAMEKA Flow: tsoummers 01:35 PM Lesion found in 1st Marginal. Pre Stenosis: 100 Pre TAMEKA Flow: tsoummers 01:35 PM Left Main Coronary Artery with 20% stenosis tsoummers 01:35 PM Mid/Distal Left Anterior Descending Coronary Artery and diagonal branches with 100% stenosis. If graft is supplying this area, 0 % stenosis tsoummers 01:35 PM Circumflex, Obtuse Marginal, Left Posterior Descending, and Left Posterolateral Coronary Arteries with 100 % stenosis. If graft is supplying this area, 0 % stenosis tsoummers 01:40 PM Report given to Fanny SIDHU Pt taken to 2A Room #34. 13:40 jami 01:40 PM Patient out of room: 13:40 jami Complications Complication None Hemodynamics Pressures Site Systolic/A Wave Diastolic/V Wave Mean AO 125 72 96 AO 122 79 98 AO 133 83 107 Post Procedure Information Blood Pressure: 135/71 mmHg Rhythm: NSR Post procedural instructions were given Closure Device Time Device Success/Fail 05/28/2018 1:31:00 PM Angio-Seal VIP Successful Site Checks Time Location Status Staff Sheath In? Note 01:33 PM Rt Groin No bleeding/hematoma Sites, Diana RT (R) Pulses Time Site Pre-Procedure Post-Procedure Note Bilateral DP & PT 2+ Bilateral radial 2+ 1:32:00 PM Bilateral DP & PT 1+ Updated by Michelle Jackson RN on 05/28/2018 1:41:15 PM electronically signed on 05/28/2018 1:41:37 PM with status of Final
[2018-05-28] MEDS: Moxifloxacin OPTH Drops 3 ML BOTTLE BOTH EYES SCH ×2 (16:42→22:21)
[2018-05-28] MEDS: Insulin NPH/REG 70/30 100 UNIT/ML (x5UNIT) SQ SCH (16:43)
[2018-05-28] MEDS ORDERED: Melatonin 3 MG TABLET PO SCH (21:00)
[2018-05-28] MEDS ORDERED: Insulin NPH 100 UNIT/ML (x5UNIT) SQ SCH (21:00)
[2018-05-28] MEDS ORDERED: Insulin Regular, Human 100 UNIT/ML SQ SCH (21:00)
[2018-05-29] MEDS: Insulin LISPRO 300 UNITS/3 ML VIAL SQ SCH (05:48)
[2018-05-29] MEDS ORDERED: Furosemide 20 MG/2 ML VIAL IVP ONE (06:27)
[2018-05-29] MEDS: *HR* Ticagrelor 90 MG TABLET PO SCH (08:04)
[2018-05-29] MEDS: Insulin NPH/REG 70/30 100 UNIT/ML (x5UNIT) SQ SCH (08:04)
[2018-05-29] MEDS: Isosorbide MONOnitrate (24 HR) 30 MG TAB.ER.24H PO SCH (08:04)
[2018-05-29] MEDS: Moxifloxacin OPTH Drops 3 ML BOTTLE BOTH EYES SCH (08:05)
[2018-05-29 08:29] LABS: BUN/Creatinine Ratio 16 (6-26); Blood Urea Nitrogen 13 mg/dL (8-23); eGFR For Non-African Americans > 60 (> 60)
[2018-05-29 08:47] LABS: Hematocrit 33.1 % (35.3-44.9)
[2018-05-29] MEDS ORDERED: LIRAGLUTIDE 1.2 MG SQ SCH (09:00)
[2018-05-29] MEDS ORDERED: *HR* GlyBURIDE 5 MG TABLET PO SCH (09:00)
--- NOTE | 2018-05-29 10:23 | Cardiology Progress Note ---
Date of Encounter: 05/29/18 Time of Encounter: 10:20 Assessment and Plan (1) NSTEMI (non-ST elevated myocardial infarction) Current Visit: No Status: Acute Peak troponin 10.40. Presented with CP, radiation into shoulders and left neck. EKG similar to prior. Hx CAD with CABG in the remote past and PCI 10/2016 at [facility]. S/P [place] yesterday--S/P CABG 1 of 2 patent bypass grafts. The SVG to OM is known to be occluded per previous cath. There is severe two vessel coronary artery disease. Occluded STENTS to the OM1 recently placed at outside hospital. Collaterals from distal RCA to OM1. Medical management was recommended. No intervention. Pt denies chest pain overnight. Reports dyspnea is worse today than yesterday. Dose of IV Lasix given this AM. Diurese as needed. TTE --Technically difficult study due to poor windows. LVEF 60-65%. No obvious segmental wall motion abnormalities. Mild cLVH, mild LVDD. Moderate . Mean gradient 21 mmHg. Mild phtn. Add 81mg ASA in setting of NSTEMI. Continue Brilinta. DAPT, pt verbalizes understanding. Continue BB, Statin. Will increase Imdur. Right femoral access site healing well. No bleeding, hematoma or ecchymosis noted. Restrictions discussed. Cardiology signing off. Reconsult PRN. (2) CAD (coronary artery disease) Current Visit: Yes Status: Chronic Hx CABG and PCI. [place] yesterday no intervention. ASA, Brilinta, Statin, BB, nitrates. Qualifiers: Coronary Disease-Associated Artery/Lesion type: bypass graft [place] vs. transplanted heart: [place] heart Associated angina: with unstable angina Qualified Code(s): I25.700 - Atherosclerosis of coronary artery bypass graft(s) , unspecified, with unstable angina pectoris (3) Thrombocytopenia Current Visit: Yes Status: Acute Chronic. Large B cell lymphoma, currently off treatment. Discussion w patient/family: The assessment and plan as outlined above was discussed with the patient and/or family members who expressed understanding and agreement. All questions were answered. Thank you for involving us in the care of your patient. Please call with any questions. I will discuss all the above with Dr. Ramirez and make changes as necessary. Subjective Principal diagnosis: nstemi Interval history: S/P [place] yesterday--S/P CABG 1 of 2 patent bypass grafts. The SVG to OM is known to be occluded per previous cath. There is severe two vessel coronary artery disease. Occluded STENTS to the OM1 recently placed at outside hospital. Collaterals from distal RCA to OM1. Pt denies chest pain overnight. Reports dyspnea is worse today than yesterday. TTE resulted--Technically difficult study due to poor windows. LVEF 60-65%. No obvious segmental wall motion abnormalities. Mild cLVH, mild LVDD. Moderate aortic stenosis. Mean gradient 21 mmHg. Mild pulmonary hypertension. Objective Vital Signs, Last 4 Hours Temp Pulse Resp BP Pulse Ox 05/29/18 07:43 99.0 F 74 16 119/66 99 Vital Signs Temp Pulse Resp BP Pulse Ox 05/29/18 07:43 99.0 F 74 16 119/66 99 05/29/18 03:52 98.3 F 74 16 123/67 97 05/28/18 23:56 98.1 F 74 16 125/59 98 05/28/18 19:41 98.0 F 77 16 114/70 99 05/28/18 16:36 98.2 F 74 16 118/59 99 05/28/18 14:31 74 113/51 05/28/18 14:19 77 137/65 05/28/18 14:02 130/62 05/28/18 11:47 98.2 F 81 18 137/78 96 Intake and Output 05/28/18 05/29/18 05/29/18 23:59 07:59 15:59 Output Total 400 / 400 Balance -400 / -400 Output: Urine 400 / 400 Other: Stool Size Large Stool Consistency loose Stool Color Brown # Voids 1 Weight 113.6 kg Blood Glucose* 172 267 General: Conversant, No Apparent Distress HEENT: Atraumatic, Normocephaly, Mucus Membranes Moist Neck: No JVD, Normal carotid pulses Cardiac: Reg Rate and Rhythm, Normal S1 and S2, No Murmur Lungs: Other (diminished) Neuro: Alert and responsive, No focal deficits noted Abdomen: Soft, Non-Tender Skin: Other (right femoral access site healing well. No bleeding, hematoma or ecchymosis noted.) Musculoskeletal: No Chest Wall Tenderness Extremities: No Clubbing, No Cyanosis, No Edema, Normal Pulses Results 05/29/18 07:32 05/29/18 07:32 Lab Results 05/28/18 05/29/18 05/29/18 10:18 07:32 07:32 Hgb 11.0 L Hct 33.1 L Plt Count 82 L BUN 13 Creatinine 0.81 Troponin I 8.34 H* Short CBC 05/29/18 Range/Units 07:32 Hgb 11.0 L (11.5-15.4) g/dL Hct 33.1 L (35.3-44.9) % Plt Count 82 L (140-400) K/mcL BMP 05/29/18 Range/Units 07:32 BUN 13 (8-23) mg/dL Creatinine 0.81 (0.60-1.20) mg/dL Cardiac Enzymes 05/28/18 Range/Units 10:18 Troponin I 8.34 H* (< 0.04) ng/mL Impressions Echocardiogram 05/28/18 22:03 Impressions: Technically difficult study due to poor windows. LVEF 60-65%. Normal LV chamber size and function. No obvious segmental wall motion abnormalities. Mild concentric left ventricular hypertrophy. Mild left ventricular diastolic dysfunction. Normal right ventricular structure and function. Moderate aortic stenosis. Mean gradient 21 mmHg. Mild pulmonary hypertension. Left Ventricular Wall Motion: Rest Echo Findings All wall segments showed normal motion. Findings: Study Quality * Technically sub-optimal due to poor echocardiographic windows. ECG Findings * Normal sinus rhythm. Left Ventricle * LVEF 60-65%. * Normal LV chamber size and function. * Mild concentric left ventricular hypertrophy. * Atypical septal motion consistent with postoperative septum. * Mild left ventricular diastolic dysfunction. Right Ventricle * Normal right ventricular structure and function. Left Atrium * Moderately dilated left atrium. Right Atrium * Normal right atrial size. Aortic Valve * Mildly calcified aortic valve. Number of leaflets cannot be determined. * Mild aortic regurgitation. * Moderate aortic stenosis. Mean gradient 21 mmHg. Mitral Valve * Mild mitral annular calcification * Trace mitral regurgitation. * No mitral stenosis. Tricuspid Valve * Normal tricuspid valve structure and function. * Trace tricuspid regurgitation. * Mild pulmonary hypertension. Pulmonic Valve * Pulmonic valve is not well visualized. Aorta * Normally sized aortic root. Pericardium * The pericardium appears normal. IVC * The IVC is not well evaluated. Pulmonary Artery * Pulmonary artery not well visualized. Active Medications Atorvastatin Calcium (Lipitor) 40 mg PO HS KRISTA Stop: 11/27/18 21:01 Last Admin: 05/28/18 22:11 Dose: 40 mg Dextrose/Water (Dextrose 50% (Syg)) 25 ml IVP AD PRN PRN Reason: Hypoglycemia Stop: 11/26/18 22:03 Glucose (Gluctose) 15 gm PO ONCE PRN PRN Reason: Hypoglycemia Stop: 11/26/18 22:03 Glucose (Gluctose) 30 gm PO ONCE PRN PRN Reason: Hypoglycemia Stop: 11/26/18 22:03 Dextrose (Dextrose 5%) 1,000 mls @ 100 mls/hr IVC .Q10H PRN PRN Reason: HYPOGLYCEMIA Stop: 11/26/18 22:03 Insulin Human Lispro (Humalog) 0 units SQ HS KRISTA PRN Reason: Protocol Stop: 11/28/18 21:01 Insulin Human Lispro (Humalog) 0 units SQ TIDAC KRISTA PRN Reason: Protocol Stop: 11/28/18 11:31 Insulin Isophane/Insulin Regular (Humulin 70/30 Vial) 25 unit SQ BIDAC [facility] Stop: 11/27/18 16:31 Last Admin: 05/29/18 08:04 Dose: 25 unit Isosorbide Mononitrate (Imdur) 30 mg PO DAILY [facility] Stop: 11/27/18 09:01 Last Admin: 05/29/18 08:04 Dose: 30 mg Levothyroxine Sodium (Synthroid) 75 mcg PO 0630 KRISTA Stop: 11/27/18 06:31 Last Admin: 05/29/18 06:01 Dose: 75 mcg Melatonin (Melatonin) 3 mg PO HS [facility] Stop: 11/27/18 21:01 Last Admin: 05/28/18 22:12 Dose: 3 mg Metoprolol Succinate (Toprol Xl) 75 mg PO QPM [facility]STA Stop: 11/26/18 21:16 Last Admin: 05/28/18 16:42 Dose: 75 mg Moxifloxacin HCl (Vigamox) 1 drop BOTH EYES BID [facility] Stop: 05/29/18 11:16 Last Admin: 05/29/18 08:05 Dose: 1 drop Nitroglycerin (Nitroglycerin) 0.4 mg SL AD PRN PRN Reason: Chest Pain Stop: 11/26/18 21:09 Potassium Chloride (Potassium Chloride) 20 meq PO DAILY KRISTA Stop: 11/28/18 09:01 Last Admin: 05/29/18 08:04 Dose: 20 meq Ticagrelor (Brilinta) 90 mg PO BID KRISTA Stop: 11/27/18 09:01 Last Admin: 05/29/18 08:04 Dose: 90 mg - Imaging and Cardiology Echo: report reviewed Cardiac cath: report reviewed - EKG Interpretation EKG results cardiology: other (12 hr tele AVG HR 74, SR, no significant pauses or arrhythmias) Consult Discharge Plan - Plan Additional Instructions: RISK FACTORS: STOP SMOKING: If you smoke, STOP. Smoking or tobacco use significantly increases your risk of heart disease because nicotine causes the arteries to narrow or constrict. It also causes fats to stick to the artery. Your chances of having a heart attack are greatly increased if you continue to smoke. For more information, call the education line for smoking cessation 3-734-FTBBFQO EAT A LOW FAT/CHOLESTEROL/SODIUM DIET: This diet may help reduce your chances of having a heart attack. LIFTING: Avoid lifting anything more than 10 pounds for 5-7 days Prior to straining, laughing, sneezing and/or coughing, apply manual pressure directly over insertion site. ACTIVITY: You may walk or climb stairs as tolerated You can resume sexual activity as tolerated In general, you are encouraged to engage in a minimum of 30 minutes or more of moderate intensity physical activity, such as brisk walking, daily or at least 3 -4 times weekly BATHING Do not submerge the site into water (bath tub, hot tub, swimming pool) for 1 week. This can be a source for infection into the blood stream. You may shower after 24 hours SITE CARE: After 24 hours, you may remove the dressing and leave the site open to air. Keep the site clean and dry. Clean gently and pat dry. You can expect bruising and tenderness that gradually resolve within a week or two. Return to work as instructed per your physician Resume driving as instructed per physician Keep all scheduled follow up appointments Resume medications as instructed IMPORTANT: If prescribed a Platelet Aggregation Inhibitor such as, Plavix, Brilinta or Effient: Duration of therapy is minimum one year These medications are often used in combination with Aspirin in prevention of future heart attacks Never discontinue unless consult with your Manufacturing Area Manager STROKE (CVA) Risk factors for a stroke are: Age, cigarette smoking, diabetes, excessive alcohol consumption, family history, high blood pressure, overweight, physical inactivity, prior stroke, heart attack, diagnosis of carotid artery stenosis or other artery disease. Warning signs: Sudden numbness or weakness of the face, arm or leg; especially on one side of the body, sudden confusion, trouble speaking or understanding, sudden trouble seeing in one or both eyes, sudden trouble walking, dizziness, loss of balance or coordination, sudden severe headache with no cause. Call 911 or go to the Emergency Room. CONGESTIVE HEART FAILURE: If you have been diagnosed with Congestive Heart Failure (CHF) and your symptoms return, make an appointment with your physician Weigh yourself daily. Notify your physician if you have a weight gain of two or more pounds in one day or five or more pounds in one week. If you experience any difficulty breathing, please call 911 BLEEDING: Although the risk of bleeding is minimal, it can happen. If you have any bleeding from the site, apply firm pressure above the puncture site for 10-15 minutes. If the bleeding does not stop, continue manual pressure and call 911 Contact your physician if: You develop a fever greater than 101 degrees Fahrenheit Your site becomes reddened or has any drainage You have an increase in pain or burning at the site or if a large knot forms at the site. If you experience chest pain, shortness of breath, dizziness, or extreme tiredness, stop the activity and rest. Please notify your physicians office if you experience any of these symptoms and they are not relieved by rest please call 911! Referrals: Pam Duenas, JERI [Primary Care Provider] -
[2018-05-29] MEDS ORDERED: Aspirin 81 MG TAB.CHEW PO SCH (10:30)
[2018-05-29 11:19] VITALS: BP 136/73
[2018-05-29] MEDS ORDERED: Insulin LISPRO 300 UNITS/3 ML VIAL SQ SCH ×2 (11:30→21:00)
--- NOTE | 2018-05-29 11:53 | Discharge Summary ---
- NOTES TO OUTPATIENT PROVIDER Notes to Outpatient Provider: PCP in 5 to 7 days Orders not resulted at time of discharge: Pending orders 05/29/18 06:00 ECG 12 lead ECG [ECG] AM 0600 Date of Encounter: 05/29/18 Time of Encounter: 11:52 - Discharge Diagnosis (1) NSTEMI (non-ST elevated myocardial infarction) Priority: Primary Status: Acute Assessment and Plan: Heparin gtt and NTG gtt. Seen by cardiology and is s/p LHC. Per cardiology LHC showed 1 of 2 patent bypass grafts, SVG to OM is known to be occluded per previous cath, severe two vessel coronary artery disease, Occluded STENTS to the OM1 recently placed at outside hospital, and Collaterals from distal RCA to OM1. Cardiology recommends medical management and no further intervention. ASA, Brilinta, BB, Statin and cardiology increased imdur dose. Echo EV/EV echocardiogram Impressions: Technically difficult study due to poor windows. LVEF 60-65%. Normal LV chamber size and function. No obvious segmental wall motion abnormalities. Mild concentric left ventricular hypertrophy. Mild left ventricular diastolic dysfunction. Normal right ventricular structure and function. Moderate aortic stenosis. Mean gradient 21 mmHg. Mild pulmonary hypertension. Left Ventricular Wall Motion: Rest Echo Findings All wall segments showed normal motion. (2) CAD (coronary artery disease) Priority: Secondary Status: Chronic Assessment and Plan: Hx CABG and PCI. [place] yesterday no intervention. ASA, Brilinta, Statin, BB, nitrates. Qualifiers: Coronary Disease-Associated Artery/Lesion type: bypass graft [place] vs. transplanted heart: [place] heart Associated angina: with unstable angina Qualified Code(s): I25.700 - Atherosclerosis of coronary artery bypass graft(s) , unspecified, with unstable angina pectoris (3) Diffuse large b-cell lymphoma, lymph nodes of multiple sites Priority: Secondary Status: Chronic Assessment and Plan: Pt states she is in remission. Out pt f/u with oncology as recommended. (4) CKD (chronic kidney disease) stage 3, GFR 30-59 ml/min Priority: Secondary Status: Chronic Assessment and Plan: Per hx but GFR > 60 and Cr 0.88. (5) Type II diabetes mellitus Priority: Secondary Status: Chronic Assessment and Plan: Glyburide and NPH 50 units BID. Glucose has been in 100's so will decrease NPH to 25 units BID. Also on SSI. Qualifiers: Diabetes mellitus halfway insulin use: without halfway use Diabetes mellitus complication status: with kidney complications Diabetes mellitus complication detail: with chronic kidney disease Chronic kidney disease stage : stage 3 (moderate) Qualified Code(s): E11.22 - Type 2 diabetes mellitus with diabetic chronic kidney disease; N18.3 - Chronic kidney disease, stage 3 ( moderate) (6) Morbid obesity Priority: Secondary Status: Chronic Assessment and Plan: Life style modification such as diet and exercise recommended. (7) HTN (hypertension) Priority: Secondary Status: Chronic Assessment and Plan: mdnica, Zaroxolyn and Metoprolol. Qualifiers: Hypertension type: essential hypertension Qualified Code(s): I10 - Essential (primary) hypertension Hospital course: Ms. 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 She was then diagnosed with diffuse large B-cell lymphoma. She received 6 cycles of RCHOP in Mar 2016 then was on lenalidomide with rituximab but is now being monitored off therapy. She has significant CAD, getting a PRIYA in October 2016 at [facility] (left main 20%, LAD 10%, ostial circumflex 20-30%, OM1 99%, RCA 10-20%, PDA 10-20%, VEGA to LAD patent, SVG to OM occluded. 2 PRIYA were placed in OM 1). She has been admitted here on 2 occasions after that for NSTEMI that was medically managed, last seen in February 2018 at which time she was deemed not a suitable candidate for invasive cardiac procedures and was also notably pancytopenic from chemo therapy heparin was not given. She presented from [facility] with c/o chest pain and heavy chets pressur. HEr initial EKG showed ST depression in anterior leads which did not appear unchanged from prior with 1st troponin negative. A 2nd troponin done 2 hours after elevated to 0.93. Her chest pain did not resolve with sublingual NTG and ASA so she was placed on NTG drip as well as heparin. Upon arrival she stated her chest pain had resolved. Troponin was elevated at 7.68. Pt was therefore admitted for evaluation by cardiology. Discharge discussed with: patient - Time Spent with Patient Total time spent providing and/or coordinating discharge services: Greater than 30 minutes - Discharge Medications Home Medications: Levothyroxine [Synthroid] 75 mcg PO QAM 12/28/15 [History] Melatonin 3 mg PO HS 12/28/15 [History] Metoprolol XL (24 HR) Succ [Toprol Xl] 75 mg PO QPM 01/08/16 [History] Ticagrelor [Brilinta] 90 mg PO BID 12/12/16 [History] Furosemide [Lasix] 60 mg PO 3XW PRN 03/18/17 [History] Metolazone [Zaroxolyn] 5 mg PO 3XW PRN 03/18/17 [History] Nitroglycerin [Nitrostat] 0.4 mg SL AD PRN 03/18/17 [History] Oxygen 2 l .ROUTE AD 03/18/17 [History] Potassium Chloride 20 meq PO DAILY 03/18/17 [History] Atorvastatin [Lipitor] 40 mg PO HS #30 tab 03/19/17 [Rx] Isosorbide MONOnitrate (24 HR) [Imdur] 30 mg PO DAILY #30 03/19/17 [Rx] Liraglutide [Victoza 2-Rob] 1.2 mg SQ DAILY 08/18/17 [History] Insulin NPH Human Isophane [Novolin N] 50 unit SQ BID 05/28/18 [History] Insulin Regular, Human [Novolin R] 50 unit SQ BID 05/28/18 [History] glyBURIDE [GlyBURIDE] 5 mg PO DAILY 05/28/18 [History] Allergies/Adverse Reactions: 3 Allergy/AdvReac Type Severity Reaction Status Date / Time nitrofurantoin Allergy Rash Verified 04/20/18 09:57 [From Macrobid] octreotide Allergy Rash Verified 04/20/18 09:57 Penicillins Allergy Rash Verified 04/20/18 09:57 vancomycin Allergy Rash Verified 04/20/18 09:57 Date of admission: 05/27/18 21:07 Primary care physician: Pam Duenas CNP Consults: 05/27/18 21:32 Consult to Cardiology [CONS] Routine Comment: Consulting Provider: Cardiology [place] Reason for Consult: NSTEMI patient. Recurring symptoms. Call Completed: No 05/28/18 02:40 Consult to Invasive Line Access Team [CONS] Routine Reason for Consult: Difficult peripheral access in a patient who needs IV heparin Line Type: EPIV 05/28/18 11:57 Consult to Cardiac Rehabilitation-Phase1 [CONS] Routine Comment: Reason for Consult: post op PCI Call Completed: Yes Discharging clinician: Sharri Schultz Anticipated date of discharge: 05/29/18 - Constitutional Vitals: Temp Pulse Resp BP Pulse Ox 99.3 F 86 15 136/73 100 05/29/18 11:14 05/29/18 11:14 05/29/18 11:14 05/29/18 11:14 05/29/18 11:14 Exam: Vitals: Reviewed General: Well-developed obese woman sitting comfortably up in bed in no acute distress Skin: Warm and supple HEENT: Moist mucous membranes. No conjunctivae pallor. Left eye pink with some clear discharge. Neck: No lymphadenopathy. No JVD. Chest: Normal thoracic expansion. Normal breath sounds. Clear to auscultation. Heart: Normal S1 & S2; rhythmic. Grade 4/6 holosystolic murmur in the right upper sternal border with radiation to the carotids. Abdomen: Non-distended, soft and non-tender to palpation. No peritoneal reaction. Extremities: No clubbing, cyanosis. 1+ lower extremity edema with trophic changes of venous stasis. No calf tenderness. Normal distal pulses. Neurological: Awake, alert and oriented to person, place and time. No focal deficits. Psych: Affect appropriate. - Neck Neck exam general surgery: Absent: lymphadenopathy - Respiratory Respiratory exam: Absent: accessory muscle use, rales, rhonchi, wheezes - Cardiovascular Cardiovascular exam: Absent: diastolic murmur, gallop, rubs, systolic murmur - GI/Abdominal GI/Abdominal exam: Absent: distended, tenderness - Extremities Exam Extremities exam: Absent: calf tenderness, cyanotic, pedal edema - Neurological Exam Neurological exam: Absent: pronater drift, facial droop, speech deficit - Patient Status Disposition: Home, Self-Care Condition: Fair Overall status at discharge: patient is progressing back to baseline - Discharge Instructions Follow Up With: Pam Duenas BREAKDOWN WORKER [Primary Care Provider] - Additional Instructions: RISK FACTORS: STOP SMOKING: If you smoke, STOP. Smoking or tobacco use significantly increases your risk of heart disease because nicotine causes the arteries to narrow or constrict. It also causes fats to stick to the artery. Your chances of having a heart attack are greatly increased if you continue to smoke. For more information, call the education line for smoking cessation 9-517-JLTWOUM EAT A LOW FAT/CHOLESTEROL/SODIUM DIET: This diet may help reduce your chances of having a heart attack. LIFTING: Avoid lifting anything more than 10 pounds for 5-7 days Prior to straining, laughing, sneezing and/or coughing, apply manual pressure directly over insertion site. ACTIVITY: You may walk or climb stairs as tolerated You can resume sexual activity as tolerated In general, you are encouraged to engage in a minimum of 30 minutes or more of moderate intensity physical activity, such as brisk walking, daily or at least 3 -4 times weekly BATHING Do not submerge the site into water (bath tub, hot tub, swimming pool) for 1 week. This can be a source for infection into the blood stream. You may shower after 24 hours SITE CARE: After 24 hours, you may remove the dressing and leave the site open to air. Keep the site clean and dry. Clean gently and pat dry. You can expect bruising and tenderness that gradually resolve within a week or two. Return to work as instructed per your physician Resume driving as instructed per physician Keep all scheduled follow up appointments Resume medications as instructed IMPORTANT: If prescribed a Platelet Aggregation Inhibitor such as, Plavix, Brilinta or Effient: Duration of therapy is minimum one year These medications are often used in combination with Aspirin in prevention of future heart attacks Never discontinue unless consult with your Outdoor Pursuits Instructor STROKE (CVA) Risk factors for a stroke are: Age, cigarette smoking, diabetes, excessive alcohol consumption, family history, high blood pressure, overweight, physical inactivity, prior stroke, heart attack, diagnosis of carotid artery stenosis or other artery disease. Warning signs: Sudden numbness or weakness of the face, arm or leg; especially on one side of the body, sudden confusion, trouble speaking or understanding, sudden trouble seeing in one or both eyes, sudden trouble walking, dizziness, loss of balance or coordination, sudden severe headache with no cause. Call 911 or go to the Emergency Room. CONGESTIVE HEART FAILURE: If you have been diagnosed with Congestive Heart Failure (CHF) and your symptoms return, make an appointment with your physician Weigh yourself daily. Notify your physician if you have a weight gain of two or more pounds in one day or five or more pounds in one week. If you experience any difficulty breathing, please call 911 BLEEDING: Although the risk of bleeding is minimal, it can happen. If you have any bleeding from the site, apply firm pressure above the puncture site for 10-15 minutes. If the bleeding does not stop, continue manual pressure and call 911 Contact your physician if: You develop a fever greater than 101 degrees Fahrenheit Your site becomes reddened or has any drainage You have an increase in pain or burning at the site or if a large knot forms at the site. If you experience chest pain, shortness of breath, dizziness, or extreme tiredness, stop the activity and rest. Please notify your physicians office if you experience any of these symptoms and they are not relieved by rest please call 911! - Diet and Activity Activity: increase activity as tolerated Diet: diabetic diet, low fat, low cholesterol, low salt diet
[2018-05-30] MEDS ORDERED: Isosorbide MONOnitrate (24 HR) 30 MG TAB.ER.24H PO SCH (09:00)
--- NOTE | 2018-05-31 09:37 | Electrocardiograph Report ---
[place] [id number] Test Date: 2018-05-28 Pat Name: Ai Noyola Department: 109 Room: 2A34 Gender: F City Attorney: : 1950 Requested By: You Nunez Order Number: [id number] Reading MD: You Nunez Measurements Intervals [place] Rate: 81 P: 112 NM: 221 QRS: -28 QRSD: 98 T: 124 QT: 388 QTc: 425 Interpretive Statements SINUS RHYTHM WITH FIRST DEGREE AV BLOCK BORDERLINE LEFT AXIS DEVIATION LEFT VENTRICULAR HYPERTROPHY ST depression consider ischemia ant-lat lds ant-lat lds Electronically Signed On 05-31-2018 9:35:53 EDT by You Nunez
== END 2018-05-29 13:34 | disposition home or self-care (01) | DRG 281 ==
LOC: 2ANU
PROVIDERS: ADMIT Internal Medicine; ATTEND Internal Medicine

== ENCOUNTER 2018-08-28 05:19 | Inpatient (IN) ==
[2018-08-28 08:25] LABS: Hemoglobin 11.9 g/dL (11.5-15.4); Mean Corpuscular Hemoglobin 31.2 pg (28.0-33.3); Mean Corpuscular Volume 94.8 fL (83.0-100.0)
[2018-08-28 08:27] LABS: Hematocrit 36.2 % (35.3-44.9); Immature Platelets 6.2 % (1.1-6.1); Mean Corpuscular HGB Conc 32.9 g/dL (31.6-35.5); Mean Platelet Volume 11.2 fL (9.4-12.4); Red Blood Count 3.82 M/mcL (3.82-4.97); Red Cell Distribution Width 13.6 % (11.5-14.5)
[2018-08-28 08:34] LABS: Heparin anti-factor XA UFH 0.11 IU/mL (0.30-0.70); INR 1.1; Prothrombin Time 11.9 Seconds (9.4-12.1)
[2018-08-28] MEDS ORDERED: Naloxone 0.4 MG/ML INJ IVP PRN (10:22)
[2018-08-28] MEDS ORDERED: Dextrose Gel 15 GM/37.5 ML TUBE PO PRN ×2 (10:47)
[2018-08-28] MEDS ORDERED: *HR* Dextrose 50 % in Water (Syg) 50 ML SYRINGE IVP PRN (10:47)
[2018-08-28] MEDS ORDERED: D5% in Water 1,000 ML IVC PRN (10:47)
[2018-08-28] MEDS ORDERED: *HR* Heparin 5,000 UNIT/ML VIAL IVP PRN (10:51)
[2018-08-28] MEDS: Insulin NPH 100 UNIT/ML (x5UNIT) SQ SCH ×2 (11:23→20:51)
[2018-08-28 11:24] LABS: Hematocrit 37.9 % (35.3-44.9); Hemoglobin 12.7 g/dL (11.5-15.4); Mean Corpuscular HGB Conc 33.5 g/dL (31.6-35.5); Mean Corpuscular Hemoglobin 31.4 pg (28.0-33.3); Mean Corpuscular Volume 93.6 fL (83.0-100.0); Platelet Count 101 K/mcL (140-400); Red Blood Count 4.05 M/mcL (3.82-4.97); Red Cell Distribution Width 13.8 % (11.5-14.5)
[2018-08-28] MEDS: Heparin 25,000 UNIT/500 ML D5W 25,000 UNIT/500 ML BAG IVC SCH (11:30)
[2018-08-28 11:32] LABS: Heparin anti-factor XA UFH 0.18 IU/mL (0.30-0.70)
[2018-08-28 11:33] LABS: Prothrombin Time 11.6 Seconds (9.4-12.1)
[2018-08-28] MEDS: *HR* Heparin 5,000 UNIT/ML VIAL IVP PRN ×2 (11:33→18:07)
[2018-08-28] MEDS: Insulin LISPRO 300 UNITS/3 ML VIAL SQ SCH ×5 (11:39→20:51)
[2018-08-28 12:11] LABS: Estimated Average Glucose 160 mg/dl; Hemoglobin A1C 7.2 %
--- NOTE | 2018-08-28 18:25 | Internal Med History&Physical ---
Date of Encounter: 08/28/18 Time of Encounter: 11:00 Internal Medicine - H&P: HPI Chief complaint: CP Admitted From: Home Plans for Post Hospital Care: Home History of present illness: The patient is a 68-year-old woman. She has underlying type 2 diabetes mellitus, hypertension and hyperlipidemia. She does have coronary artery disease; had CABG surgery in the past. Her last cardiac catheterization was done on May 28, 2018. It showed patent 1 of 2 bypass grafts. It showed severe 2 vessel coronary artery disease. There were occluded stents to the TAMIKA. There were collaterals from the distal RCA to OM1. It was yesterday evening around 8 PM when she developed upper anterior chest pain with radiation to her neck and shoulder. After a few hours as she came to the [facility]'s clinic in [place], [place]. She arrived there around 1 AM last night. After emergency room treatments and starting her on IV heparin her chest pain subsided. The patient admits having exertional chest pain recently. Associated with some dyspnea but not nausea or vomiting. PAST MEDICAL HX: Coronary artery disease (had CABG surgery and stents). Type 2 diabetes mellitus, hypertension, hyperlipidemia, COPD and hypothyroidism. PAST FAMILY HX: See below.. PAST SOCIAL HX: See below.. REVIEW OF SYSTEMS: All 14 organ systems were reviewed by me with the patient. Positive and pertinent negative findings are listed above. The rest of organ systems is negative. PHYSICAL EXAM: The patient is obese; BMI of 44.5. Skin: Free of rash and discoloration. Eyes: Sclera is white. There is no discharge from eyes. ENMT: Oral/pharyngeal mucosa is normal in appearance. There is no discharge from nose or ears. Respiratory: Normal breath sounds with no crackles and wheezes bilaterally. CV: Heart is regular with no gallop or murmur. GI: Abdomen is flat and soft with no palpable mass or visceromegaly. : There is no tenderness in patient's flanks bilaterally. Neuro exam: He has good strength in upper and lower extremities. He has normal eye movements. Psychiatric: He has normal affect. His thought process is appropriate to the situation. ADDITIONAL DATA: EKG done last night showed sinus tachycardia with heart rate of 113; no evidence for ischemia or myocardial infarction. Repeated EKG done at 4:23 AM showed features of LVH with secondary repolarization abnormality. Heart rate was 99. Her troponin was below 0.056 and 0.063; with normal range between 0 and 0.056. They did a CBC. It was normal. They did BMP. Potassium was 3.2 with creatinine of 1.14 and random glucose of 230. They did NT proBNP. It was 1165. They did CT Angio of chest. It showed normal findings (no evidence for emboli). We did EKG today morningafter the admission. It showed heart rate of 68 and features of left ventricular hypertrophy. We did troponin on 2 occasions they were 0.21 and 0.13. A/P: The patient likely suffers from NSTEMI. Cardiology is consulted. We will continue IV heparin drip with Lopressor, Lipitor, Brilinta and aspirin. She is also on Imdur and Ranexa. Type 2 diabetes mellitus. Insulin-dependent. I will continue her Humulin N. She will get Humalog with meals. She will stay on diabetic diet. Hypertension. Seems to be under control. To continue Lopressor. Hypothyroidism. We will check her TSH. It seems to be under control. Lymphoma. In remission. The patient will continue outpatient follow-up with her oncologist. Past Med Surg Social Fam HX - Past Medical History Medical history: arthritis, cancer, CHF, coronary artery disease, diabetes, hyperlipidemia, hypertension, myocardial infarction, pulmonary embolus, renal disease, thyroid disease, other Additional medical history: SLEEP APNEA Psychiatric history: no psych history - Past Surgical History Surgical History: cataract, coronary bypass (CABG), other Additional surgical history: STOMACH SURGERY - Social History Smoking Status: Never smoker Smokeless Tobacco Status: No Alcohol use: none Drug use: none - Family History Mother Living Status: Age at : 72 Hx Family Cardiac Disorders: Yes Hx Family Respiratory Disorders: Yes Hx Family Cancer: No Hx Family GI Disorders: Yes Hx Family Genitourinary Disorders: No Hx Family Endocrine Disorder: No Hx Family Musculoskeletal Disorders: No Hx Family Neuromuscular Disorders: No Father Living Status: Age at : 75 Cause of : lung cancer Hx Family Cardiac Disorders: No Hx Family Respiratory Disorders: No Hx Family Cancer: Yes Hx Family GI Disorders: No Hx Family Endocrine Disorder: No Hx Family Neuromuscular Disorders: No Hx Family Neurologic Disorders: No Hx Family HEENT Disorders: No Hx Family Autoimmune Disorders: No Internal Medicine - H&P: Meds Levothyroxine [Synthroid] 75 mcg PO QAM 12/28/15 [History] Melatonin 3 mg PO HS 12/28/15 [History] Metoprolol XL (24 HR) Succ [Toprol Xl] 75 mg PO QPM 01/08/16 [History] Ticagrelor [Brilinta] 90 mg PO BID 12/12/16 [History] Furosemide [Lasix] 60 mg PO 3XW PRN 03/18/17 [History] Nitroglycerin [Nitrostat] 0.4 mg SL AD PRN 03/18/17 [History] Oxygen 2 l .ROUTE AD 03/18/17 [History] Potassium Chloride 20 meq PO DAILY 03/18/17 [History] Atorvastatin [Lipitor] 40 mg PO HS #30 tab 03/19/17 [Rx] Liraglutide [Victoza 2-Rob] 1.2 mg SQ DAILY 08/18/17 [History] Insulin NPH Human Isophane [Novolin N] 50 unit SQ BID 05/28/18 [History] Insulin Regular, Human [Novolin R] 50 unit SQ BID 05/28/18 [History] glyBURIDE [GlyBURIDE] 5 mg PO DAILY 05/28/18 [History] Aspirin 81 mg PO DAILY tab.chew 05/29/18 [Rx] Cholecalciferol (D-3) [Vitamin D] 2,000 unit PO DAILY 08/28/18 [History] Isosorbide MONOnitrate [Isosorbide Mononitrate ER] 120 mg PO DAILY 08/28/18 [History] metOLazone [Zaroxolyn] 5 mg PO 3XW 08/28/18 [History] Allergy/AdvReac Type Severity Reaction Status Date / Time nitrofurantoin Allergy Rash Verified 08/28/18 11:26 [From Macrobid] octreotide Allergy Rash Verified 08/28/18 11:26 Penicillins Allergy Rash Verified 08/28/18 11:26 vancomycin Allergy Rash Verified 08/28/18 11:26 - Constitutional Vitals: Temp Pulse Resp BP Pulse Ox 98.3 F 68 16 167/85 98 08/28/18 15:47 08/28/18 15:47 08/28/18 15:47 08/28/18 15:47 08/28/18 15:47 General appearance: Present: A&O X 3, no acute distress, obese, answers questions appropriately Exam: XX Internal Med - H&P Results - Labs CBC & Chem 7: 08/28/18 11:08 Labs: Short CBC 08/28/18 08/28/18 Range/Units 08:13 11:08 WBC 5.3 5.8 (4.3-11.1) K/mcL Hgb 11.9 12.7 (11.5-15.4) g/dL Hct 36.2 37.9 (35.3-44.9) % Plt Count 89 L 101 L (140-400) K/mcL Cardiac Enzymes 08/28/18 08/28/18 Range/Units 08:13 11:08 Troponin I 0.13 H* 0.21 H* (< 0.04) ng/mL - Assessment and plan (1) NSTEMI (non-ST elevated myocardial infarction) Current Visit: Yes Status: Acute (2) Type 2 diabetes mellitus Current Visit: Yes Status: Chronic Qualifiers: Diabetes mellitus longwall foreman insulin use: with usp use Diabetes charles carter complication status: without complication Qualified Code(s): E11.9 - Type 2 diabetes mellitus without complications; Z79.4 - tank terminal gauger (current) use of insulin (3) Hypothyroidism (acquired) Current Visit: Yes Status: Chronic (4) Lymphoma in remission Current Visit: Yes Status: Chronic - Time Spent With Patient Total time spent is greater than 50% in coordination of care (as documented) at patient's floor/unit and/or counseling patient: 25 - 35 minutes - VTE Deep Vein Thrombosis/Pulmonary Embolism Present on Admission: No
[2018-08-28] MEDS: *HR* Ticagrelor 90 MG TABLET PO SCH (20:08)
[2018-08-29] MEDS: Heparin 25,000 UNIT/500 ML D5W 25,000 UNIT/500 ML BAG IVC SCH ×2 (05:57→23:23)
--- NOTE | 2018-08-29 08:36 | Cardiology Consult Note ---
Addendum entered and electronically signed by Zeferino Lou DO 08/30/18 14:55: I examined this patient and my medical decision-making was reviewed with the Re sident Physician. I agree with the documented findings, disposition and treatment plan as described except to the extent set forth below. CC: Chest pain HPI: Pt presents for evaluation of mid epigastric chest pain, severe, 7/10, radiating into left shoulder, onset at rest, lasted approx ten minutes before took sl ntg, with improvement in pain, but did not resolve. She reports several months history of continued chest pain on and off, has also resolved with either rest or sl ntg withing minutes. Chest pain prior to admission did not resolve with two sl ntg, and pt called squad. Chest pain eventually resolved with IV medications. She is currently pain free. She has an extensive history of CAD, post CABG, with most recent LHC 06/14, with findings as below. She continues to experience episodes of mild chest pain, 2/10, which come and go spontaneously, last up to ten minutes, resolve if she sits very still. She is pain free at the time of exam. ROS: reviewed PMH: reviewed PE: pt seen and examined, agree with findings as documented Labs and cath films reviewed. IMP/PLan: 1. Chest pain consistent with previous anginal pain, discussed options, recommend LHC/possible, risks and benefits discussed, pt agrees to proceed. 2. CAD: severe triple vessel CAD post CABG, with known failed SVG to OM1 3. NSTEMI: Troponin elevated, recommend LHC 4. BEH: adequate control on current meds, will continue to monitor. Original Note: Date of Encounter: 08/29/18 Time of Encounter: 09:01 Assessment and Plan (1) NSTEMI (non-ST elevated myocardial infarction) Current Visit: Yes Status: Acute Ms. Noyola is a 68 year old female with PMHx significant for CAD s/p stenting and CABG in distant past, CHF, CKD Stage III, HTN, HLD, DM, COPD, Hypothyroidism, large B-cell lymphoma currently in remission who presents with chest pain. Hx of chronic exertional angina and dyspnea; However, angina persisted at rest in this instance; associated with mild dyspnea at rest Workup in [facility] ED: Initial Vitals: BP = 155/71, T = 99.3, HR = 112, RR = 24, O2 = 99% on RA CBC: Within Normal Limits (Plts = 100) EKG: Sinus Tachycardia, HR = 113, No acute ST changes Troponin: 0.056 --> 0.063 BNP: 1165 CT Angio Chest: Negative for PE Pt started on Heparin Drip, and admitted for further observation. Chest pain resolved except for with exertion. Troponins were slightly elevated, but repeat EKG was largely unchanged. Pt requested transfer to [facility]. At [facility]: EKG: HR = 68, normal sinus rhythm, IN = 190, QRS = 89, QTc = 417; left axis deviation; no acute ST changes Troponins: 0.13 --> 0.21 --> 0.10 Recently was evaluated for NSTEMI at the end of Apr 2018. Most recent cardiac catheterization was done 05/28/18 - indicated patent 1 of 2 bypass grafts, and showed severe 2 vessel CAD. Per chart review, Heart catheterization at that time showed left main proximal 20%, mid LAD 100%, distal circumflex 50%, OM1 100% with collaterals from right to left, RCA free of disease. Had patent VEGA to mid LAD. Occluded SVG graft to OM1 area and OM1 drug-eluting stents from October 2016 were occluded. Recent Echo 05/28/18: EF = 60-65%; mild concentric LVH; mild LV diastolic dysfunction; moderate aortic stenosis; mild pulm htn PLAN: Monitor Vitals Cont Heparin Drip Cont Aspirin, brillinta, lopressor, lipitor Cont Imdur, Ranexa Plan for [facility] tomorrow (2) Thrombocytopenia Current Visit: Yes Status: Chronic Chronic Hx of thrombocytopenia Hx of large B-cell lymphoma currently in remission Plts = 89 --> 101 PLAN: Cont to monitor (3) HTN (hypertension) Current Visit: Yes Status: Chronic BP on admission = 158/81 PLAN: Cont Lopressor Qualifiers: Hypertension type: essential hypertension Qualified Code(s): I10 - Essential (primary) hypertension Discussion w patient/family: The assessment and plan as outlined above was discussed with the patient and/or family members who expressed understanding and agreement. All questions were answered. Thank you for involving us in the care of your patient. Please call with any questions. History of Present Illness Consult date: 08/29/18 Requesting physician: Nathan M Sobieraj Consult reason: Chest Pain Chief complaint: Chest Pain History of present illness: Ms. Noyola is a 68 year old female with PMHx significant for CAD s/p stenting and CABG in distant past, CHF, CKD Stage III, HTN, HLD, DM, COPD, H ypothyroidism, large B-cell lymphoma currently in remission who presents with chest pain. Pt notes that she has had multiple NSTEMIs in the past, and chest pain felt similar to previous instances. States that she tends to have exertional angina chronically that resolves with rest after about a minute. However, as of 2 days ago, she had an instance of angina that persisted while she was at rest. Describes heavy, pressure-like, aching pain across her anterior chest that spread up to her neck and to bilateral arms. Also states that she noted her O2 saturation dipped to 90-92% (normally 96-98% on 2L O2). Denied headache, blurry vision, abdominal pain, nausea, vomiting, weakness, fatigue. Immediately proceeded to [facility] ED. EKG: Sinus Tachycardia, HR = 113, No acute ST changes Troponin: 0.056 --> 0.063 BNP: 1165 CT Angio Chest: Negative for PE Pt started on Heparin Drip, and admitted for further observation. Chest resolved except for with exertion. Troponins were slightly elevated, but repeat EKG was largely unchanged. Pt requested transfer to [facility]. On arrival to [facility], patient's chest pain had mostly resolved. Pt seen and examined at bedside in no acute distress, resting comfortably. Denies headache, blurry vision, chest pain, SOB, abdominal pain, nausea, vomiting, extremity weakness, fatigue. Repeat EKG notable for possible conduction abnormality, but otherwise normal sinus rhythm with left ventricular hypertrophy. Troponins trended here: 0.13 --> 0.21 --> 0.10. Currently managed with heparin drip, lopressor, lipitor, brillinta, aspirin, imdur, and ranexa. Past Med Surg Social Fam HX - Past Medical History Attestation: Yes The following information was validated with the patient. Source: old records reviewed Medical history: arthritis, cancer, CHF, coronary artery disease, diabetes, hyperlipidemia, hypertension, myocardial infarction, pulmonary embolus, renal disease, thyroid disease, other Additional medical history: SLEEP APNEA Psychiatric history: no psych history - Past Surgical History Surgical History: cataract, coronary bypass (CABG), other Additional surgical history: STOMACH SURGERY - Social History Smoking Status: Never smoker Smokeless Tobacco Status: No Alcohol use: none Drug use: none - Family History Mother Living Status: Age at : 72 Hx Family Cardiac Disorders: Yes Hx Family Respiratory Disorders: Yes Hx Family Cancer: No Hx Family GI Disorders: Yes Hx Family Genitourinary Disorders: No Hx Family Endocrine Disorder: No Hx Family Musculoskeletal Disorders: No Hx Family Neuromuscular Disorders: No Father Living Status: Age at : 75 Cause of : lung cancer Hx Family Cardiac Disorders: No Hx Family Respiratory Disorders: No Hx Family Cancer: Yes Hx Family GI Disorders: No Hx Family Endocrine Disorder: No Hx Family Neuromuscular Disorders: No Hx Family Neurologic Disorders: No Hx Family HEENT Disorders: No Hx Family Autoimmune Disorders: No Medications and Allergies Levothyroxine [Synthroid] 75 mcg PO QAM 12/28/15 [History] Melatonin 3 mg PO HS 12/28/15 [History] Metoprolol XL (24 HR) Succ [Toprol Xl] 75 mg PO QPM 01/08/16 [History] Ticagrelor [Brilinta] 90 mg PO BID 12/12/16 [History] Furosemide [Lasix] 60 mg PO 3XW PRN 03/18/17 [History] Nitroglycerin [Nitrostat] 0.4 mg SL AD PRN 03/18/17 [History] Oxygen 2 l .ROUTE AD 03/18/17 [History] Potassium Chloride 20 meq PO DAILY 03/18/17 [History] Atorvastatin [Lipitor] 40 mg PO HS #30 tab 03/19/17 [Rx] Liraglutide [Victoza 2-Rob] 1.2 mg SQ DAILY 08/18/17 [History] Insulin NPH Human Isophane [Novolin N] 50 unit SQ BID 05/28/18 [History] Insulin Regular, Human [Novolin R] 50 unit SQ BID 05/28/18 [History] glyBURIDE [GlyBURIDE] 5 mg PO DAILY 05/28/18 [History] Aspirin 81 mg PO DAILY tab.chew 05/29/18 [Rx] Cholecalciferol (D-3) [Vitamin D] 2,000 unit PO DAILY 08/28/18 [History] Isosorbide MONOnitrate [Isosorbide Mononitrate ER] 120 mg PO DAILY 08/28/18 [History] metOLazone [Zaroxolyn] 5 mg PO 3XW 08/28/18 [History] Allergy/AdvReac Type Severity Reaction Status Date / Time nitrofurantoin Allergy Rash Verified 08/28/18 11:26 [From Macrobid] octreotide Allergy Rash Verified 08/28/18 11:26 Penicillins Allergy Rash Verified 08/28/18 11:26 vancomycin Allergy Rash Verified 08/28/18 11:26 All Systems Review: The remainder of the systems were reviewed and are negative - Constitutional Constitutional: no chills, no fatigue, no fever(s), no headache(s), no lethargy, no malaise, no weakness - EENT Eyes: no blurred vision - Cardiovascular Cardiovascular: chest pain with exertion, no chest pain at rest, no dyspnea at rest, no dyspnea on exertion, no irregular heart rhythm, no radiating jaw, neck or arm pain, no lightheadedness, no palpitations, no rapid heart rate - Respiratory Respiratory: no cough - Gastrointestinal Gastrointestinal: no abdominal pain, no diarrhea, no nausea - Musculoskeletal Musculoskeletal: no back pain - Integumentary Integumentary: no rash Physical Examination Vital Signs, Last 4 Hours Temp Pulse Resp BP Pulse Ox 08/29/18 07:43 97.6 F 68 18 130/75 99 General: Conversant HEENT: Atraumatic, Normocephaly, Mucus Membranes Moist Cardiac: Reg Rate and Rhythm, Normal S1 and S2, No Murmur Lungs: Normal Breath Sounds, No Wheeze, Rales, Rhonchi Neuro: Alert and responsive, No focal deficits noted Abdomen: Soft, Non-Tender Skin: No rashes noted on visualized skin Extremities: No Edema, Normal Pulses Results 08/28/18 11:08 Lab Results 08/28/18 08/28/18 08/28/18 08:13 08:13 11:08 WBC 5.8 Hgb 12.7 Hct 37.9 Plt Count 101 L INR 1.1 Troponin I 0.13 H* 08/28/18 08/28/18 11:08 11:08 WBC Hgb Hct Plt Count INR 1.0 Troponin I 0.21 H* Consult Discharge Plan - Plan Referrals: Pam Duenas, POT FIREMAN [Advanced Practice Nurse] - 09/05/18 12:30 pm
[2018-08-29] MEDS: Insulin LISPRO 300 UNITS/3 ML VIAL SQ SCH ×7 (10:57→21:07)
[2018-08-29] MEDS: Isosorbide MONOnitrate (24 HR) 60 MG TAB.ER.24H PO SCH (11:03)
[2018-08-29] MEDS: *HR* Ticagrelor 90 MG TABLET PO SCH ×2 (11:03→21:08)
[2018-08-29] MEDS: Aspirin 81 MG TAB.CHEW PO SCH (11:04)
--- NOTE | 2018-08-29 12:27 | Internal Med Progress Note ---
Hospitalist Progress Note - Encounter Date of Encounter: 08/29/18 Time of Encounter: 12:25 - Subjective Interval History: Pt states that she has no chest pain right now. denies sob, palpitation, or syncope. - Exam Vitals: Temp Pulse Resp BP Pulse Ox 98.2 F 69 19 124/66 100 08/29/18 11:29 08/29/18 11:29 08/29/18 11:29 08/29/18 11:29 08/29/18 11:29 Exam: PHYSICAL EXAMINATION: GENERAL APPEARANCE: The patient is alert, oriented and in no acute distress. HEENT: Head is normocephalic. The sinuses are nontender. Pupils are equal and reactive. The nares are patent. Oropharynx clear without lesions. NECK: Supple without lymphadenopathy. HEART: Regular rate and rhythm. LUNGS: No crackles or wheezes are heard. ABDOMEN: Soft, nontender, nondistended with good bowel sounds heard. Inguinal area is normal. EXTREMITIES: Without cyanosis, clubbing or edema. NEUROLOGICAL: Gross nonfocal. SKIN: Warm and dry without any rash. - Assessment and Plan (1) NSTEMI (non-ST elevated myocardial infarction) Current Visit: Yes Status: Acute Assessment and Plan: Ms. Noyola is a 68 year old female with PMHx significant for CAD s/p stenting and CABG in distant past, CHF, CKD Stage III, HTN, HLD, DM, COPD, Hypothyroidism, large B-cell lymphoma currently in remission who presents with chest pain. troponin was elevated upon arrival but has went down on the repeat labs. EKG remains free of acute ST-T changes. - cardiology consulted. recommended continue Heparin gtt. Plan for [facility] tomorrow. - Continue asa, brillinta, BB, imdue, and statins. - Continue tele, EAKG as needed. (2) Type 2 diabetes mellitus Current Visit: Yes Status: Chronic Assessment and Plan: Continue current insulin regimen. (3) Hypothyroidism (acquired) Current Visit: No Status: Chronic Assessment and Plan: Continue home meds. (4) Lymphoma in remission Current Visit: Yes Status: Chronic Assessment and Plan: outpt f/u. DVT Prophylaxis: ON Heparin gtt. - Time Spent with Patient Total time spent is greater than 50% in coordination of care (as documented) at patient's floor/unit and/or counseling patient: Greater than 35 minutes Plan of Care Discussed with: patient Internal Medicine: Result - Labs CBC & Chem 7: 08/28/18 11:08 Labs: Cardiac Enzymes 08/29/18 Range/Units 08:59 Troponin I 0.10 H* (< 0.04) ng/mL - ABG Interpretation ABG results: PT/INR, D-dimer PT 11.6 Seconds (9.4-12.1) 08/28/18 11:08 - VTE Deep Vein Thrombosis/Pulmonary Embolism Present on Admission: No Consult Discharge Plan - Plan Referrals: Pam Duenas, WOOD INSPECTOR [Advanced Practice Nurse] - 09/05/18 12:30 pm __ (2) Type 2 diabetes mellitus Qualifiers: Diabetes mellitus senior living insulin use: with terminal worker use Diabetes mellitus complication status: without complication Qualified Code(s): E11.9 - Type 2 diabetes mellitus without complications; Z79.4 - watermaster (current) use of insulin
[2018-08-29] MEDS: Insulin NPH 100 UNIT/ML (x5UNIT) SQ SCH ×2 (12:42→21:07)
--- NOTE | 2018-08-29 15:48 | Electrocardiograph Report ---
[place] [id number] Test Date: 2018-08-28 Pat Name: Ai Noyola Department: 113 Room: 3B Gender: F Medical Engineer: : 1950 Requested By: Nathan Herr Order Number: [id number] Reading MD: Patel Arteaga Measurements Intervals [place] Rate: 68 P: 23 MO: 190 QRS: -28 QRSD: 89 T: 154 QT: 399 QTc: 417 Interpretive Statements SINUS RHYTHM WITH PACs BORDERLINE LEFT AXIS DEVIATION LEFT VENTRICULAR HYPERTROPHY AND ST-T CHANGE Electronically Signed On 08-29-2018 15:46:28 EST by Patel Arteaga
[2018-08-29] MEDS ORDERED: Metoprolol XL (24 HR) Succ 50 MG TAB.ER.24H PO SCH (21:00)
[2018-08-29] MEDS: Metoprolol XL (24 HR) Succ 50 MG TAB.ER.24H PO SCH (21:06)
--- NOTE | 2018-08-30 04:16 | Event Note ---
Date of Encounter: 08/30/18 Time of Encounter: 03:45 Alerted by pts. nurse Sandie Segura that the pt. was experiencing a slight nosebleed. Patient had been admitted for chest pain and was currently on heparin gtt. Went to see pt. who was seated on the side of the bed. Asked the pt. about the nose bleed and she stated that she was having to dab her nose because of small amount of blood from left nostril. Hospital gown had drops of blood present. Examined pts. nose and left nostril had small clot inside. Nose was not bleeding during exam. Instructed nurse to use 2x2 gauze squares to roll and lightly pack the pts. left nostril until bleeding subsided. Pt. agreed w/plan of care. Pt. denied any other bleeding. Nurse instructed to monitor pt. closely and inform me immediately of any worsening bleeding or related symptoms.
[2018-08-30 07:47] LABS: Monocytes # 0.4 K/mcL (0.0-1.3)
[2018-08-30 07:49] LABS: Basophils % 0.6 %; Eosinophils # 0.2 K/mcL (0.0-0.6); Eosinophils % 2.8 %; Hematocrit 35.4 % (35.3-44.9); Hemoglobin 11.5 g/dL (11.5-15.4); Immature Granulocytes % 0.2 % (0-4); Immature Platelets 7.2 % (1.1-6.1); Lymphocytes # 0.7 K/mcL (0.6-4.6); Lymphocytes % 13.4 %; Mean Corpuscular HGB Conc 32.5 g/dL (31.6-35.5); Mean Corpuscular Hemoglobin 30.7 pg (28.0-33.3); Mean Corpuscular Volume 94.7 fL (83.0-100.0); Mean Platelet Volume 10.8 fL (9.4-12.4); Red Blood Count 3.74 M/mcL (3.82-4.97); Red Cell Distribution Width 13.8 % (11.5-14.5)
[2018-08-30 07:57] LABS: Neutrophils # 4.1 K/mcL (1.6-8.9); Platelet Count 85 K/mcL (140-400)
[2018-08-30 08:02] LABS: BUN/Creatinine Ratio 28 (6-26); Blood Urea Nitrogen 23 mg/dL (8-23); Calcium 9.5 mg/dL (8.6-10.3); Carbon Dioxide 34 mEq/L (23-29); Chloride 101 mEq/L (98-107); Glucose 204 mg/dL (70-105); Osmolality,Calculated 298 (280-300); Potassium 3.7 mEq/L (3.5-5.1); Sodium 139 mEq/L (136-145); eGFR For Non-African Americans > 60 (> 60)
--- NOTE | 2018-08-30 09:35 | Internal Med Progress Note ---
Hospitalist Progress Note - Encounter Date of Encounter: 08/30/18 Time of Encounter: 09:33 - Subjective Interval History: Pt states that she has no chest pain right now. denies sob, palpitation, or syncope. - Exam Vitals: Temp Pulse Resp BP Pulse Ox 98.5 F 65 15 133/62 100 08/30/18 07:56 08/30/18 07:56 08/30/18 07:56 08/30/18 07:56 08/30/18 07:56 Exam: PHYSICAL EXAMINATION: GENERAL APPEARANCE: The patient is alert, oriented and in no acute distress. HEENT: Head is normocephalic. The sinuses are nontender. Pupils are equal and reactive. The nares are patent. Oropharynx clear without lesions. NECK: Supple without lymphadenopathy. HEART: Regular rate and rhythm. LUNGS: No crackles or wheezes are heard. ABDOMEN: Soft, nontender, nondistended with good bowel sounds heard. Inguinal area is normal. EXTREMITIES: Without cyanosis, clubbing or edema. NEUROLOGICAL: Gross nonfocal. SKIN: Warm and dry without any rash. - Assessment and Plan (1) NSTEMI (non-ST elevated myocardial infarction) Current Visit: Yes Status: Acute Assessment and Plan: 08/29/2018 Ms. Noyola is a 68 year old female with PMHx significant for CAD s/p stenting and CABG in distant past, CHF, CKD Stage III, HTN, HLD, DM, COPD, Hypothyroidism, large B-cell lymphoma currently in remission who presents with chest pain. troponin was elevated upon arrival but has went down on the repeat labs. EKG remains free of acute ST-T changes. - cardiology consulted. recommended continue Heparin gtt. Plan for [facility] tomorrow. - Continue asa, brillinta, BB, imdue, and statins. - Continue tele, EAKG as needed. 1/3 [facility] today. (2) Type 2 diabetes mellitus Current Visit: Yes Status: Chronic Assessment and Plan: Continue current insulin regimen. (3) Hypothyroidism (acquired) Current Visit: No Status: Chronic Assessment and Plan: Continue home meds. (4) Lymphoma in remission Current Visit: Yes Status: Chronic Assessment and Plan: outpt f/u. DVT Prophylaxis: ON Heparin gtt. - Time Spent with Patient Total time spent is greater than 50% in coordination of care (as documented) at patient's floor/unit and/or counseling patient: Greater than 35 minutes Plan of Care Discussed with: patient Internal Medicine: Result - Labs CBC & Chem 7: 08/30/18 07:23 08/30/18 07:23 Labs: Short CBC 08/30/18 Range/Units 07:23 WBC 5.4 (4.3-11.1) K/mcL Hgb 11.5 (11.5-15.4) g/dL Hct 35.4 (35.3-44.9) % Plt Count 85 L (140-400) K/mcL Neutrophils # 4.1 (1.6-8.9) K/mcL BMP 08/30/18 07:23 Sodium 139 Potassium 3.7 Chloride 101 Carbon Dioxide 34 H BUN 23 Creatinine 0.83 Glucose 204 H Calcium 9.5 Cardiac Enzymes 08/29/18 Range/Units 08:59 Troponin I 0.10 H* (< 0.04) ng/mL - ABG Interpretation ABG results: PT/INR, D-dimer PT 11.6 Seconds (9.4-12.1) 08/28/18 11:08 - VTE Deep Vein Thrombosis/Pulmonary Embolism Present on Admission: No Consult Discharge Plan - Plan Referrals: Pam Duenas, MAT MACHINE OPERATOR [Advanced Practice Nurse] - 09/05/18 12:30 pm (2) Type 2 diabetes mellitus Qualifiers: Diabetes mellitus reuse technician insulin use: with reuse technician use Diabetes mellitus complication status: without complication Qualified Code(s): E11.9 - Type 2 diabetes mellitus without complications; 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
[2018-08-30] MEDS ORDERED: Acetaminophen 325 MG TABLET PO PRN (09:57)
[2018-08-30] MEDS: *HR* Ticagrelor 90 MG TABLET PO SCH ×2 (10:04→20:14)
[2018-08-30] MEDS: Aspirin 81 MG TAB.CHEW PO SCH (10:04)
[2018-08-30] MEDS: Isosorbide MONOnitrate (24 HR) 60 MG TAB.ER.24H PO SCH (10:04)
[2018-08-30] MEDS: Insulin LISPRO 300 UNITS/3 ML VIAL SQ SCH ×7 (10:11→20:15)
[2018-08-30] MEDS ORDERED: 0.9 % Sodium Chloride 1,000 ML ONE ×2 (10:47→14:19)
[2018-08-30] MEDS ORDERED: *HR* Midazolam HCl 2 MG/2 ML VIAL ONE (10:55)
[2018-08-30] MEDS ORDERED: *HR* FentaNYL (PF) 100 MCG/2 ML VIAL ONE (10:55)
--- NOTE | 2018-08-30 11:02 | Pre-Sedation Evaluation ---
Pre-sedation evaluation - Pre-sedation checklist Date of procedure: 08/30/18 Procedure: [facility] Recent Vitals: Last Vital Signs Temp 98.5 F 08/30/18 07:56 Pulse 65 08/30/18 07:56 Resp 15 08/30/18 07:56 BP 133/62 08/30/18 07:56 Pulse Ox 100 08/30/18 07:56 H&P (including ROS) documented in medical record: Yes Previous reaction to sedatives/anesthetics: No Dietary Status: NPO after Midnight Dentition: dentures removed ASA Classification *see protocol: CLASS II-Mild systemic disease Plan of Care: Pt appropriate candidate for procedure/moderate/conscious sedation, Risks/benefits of procedure/sedation discussed w/ patient/family Cardiac Registry (Cardio Only) - Functional Capacity Functional Capacity: >=4 METS with symptoms - Clincal Frailty Scale Clinical Frailty Scale: Vulnerable
--- NOTE | 2018-08-30 11:51 | Invasive Diagnostic Lab Proc ---
Name: Ai Noyola Date of Study: 08/30/2018 Date: 1950 Ht: 63.0in Medical Record#: [id number] Age: 68 Wt: 251.33lb Gender: Female BSA: 2.13 Order #: [id number] BMI: 44.53 Physicians Procedure Physician: Vick Ramirez MD, [facility] Referring MD: Referring MD: Staff Name Position Time In Dharmesh Rodolfo RT (R) Scrub 11:05 AM DharmeshDiana RT (R) Monitor 11:05 AM Yordan Bartlett RN Rehabilitation Nurse 11:05 AM Indications Indication Non-Stemi Procedures Performed Procedure L HRT ART/GRFT ANGIO Pre-Procedure Checklist Informed consent is complete signed and on chart. H&P is on chart. ID band is on and ID verified with patient. Patient NPO for procedure The procedure was described for the patient and questions were answered. Blood Pressure: 177/85 ECG is on chart. Rhythm: NSR Plan of Care Patient will tolerate the procedure without complications. Adequate level of comfort will be maintained. Hemodynamics will remain stable Patient will recover from procedure without complications. Respiratory function will be maintained. Cardiac rhythm will remain stable. Patient temperature will be maintained. Patient and/or family have verbalized understanding of the procedure. Patient Education Chief Complaint/Reason for Test: Cardiac Cath Developmental Category: Geriatric (65+ years) Developmentally Appropriate for Age: Yes Learning Barriers: None Education Needs: Procedure Education Method: Verbal Information Taught: Cardiac Cath Educational Evaluation: Able to repeat information Intravenous Access Time IV Size Location DC'd Fluid/Drip Rate Units RN 10:54 AM 20g 1 1/" Patent On Arrival Lt Antecubital 0.9NaCl 25 ml/hr Yordan Bartlett RN Allergies Penicillin Nitrofurantoin Monohydrate/N nitrofurantoin Penicillins PENICILLAN, MACROBID octreotide vancomycin Vital Signs Time BP (mmHg) HR (bpm) O2 Sat. RR (bpm) LOC 10:54 AM / % 11:05 AM / % 5 = Fully awake and oriented or at pre-proc level 11:05 AM / % 4 = Oriented but drowsy 11:20 AM / % 4 = Oriented but drowsy 11:01 AM 177 / 85 76 100 % 11 11:06 AM 167 / 78 76 100 % 12 11:10 AM 133 / 72 76 100 % 17 11:15 AM 142 / 72 76 100 % 18 11:20 AM 144 / 61 75 100 % 17 11:25 AM 139 / 68 74 100 % 30 11:30 AM 126 / 63 65 100 % 33 11:35 AM 138 / 62 76 100 % 25 Procedural Medications Time Medication Dose Units Method Given By 11:05 AM Oxygen 2 L/min nasal cannula Yordan Bartlett RN 11:06 AM Versed 2 mg Intravenous Yordan Bartlett RN 11:06 AM Fentanyl 50 mcg Intravenous Yordan Bartlett RN 11:14 AM Lidocaine 2% 20 ml Subcutaneous Vick Ramirez MD, [facility] ASA Classification: CLASS II- Mild systemic disease (i.e. well-controlled diabetes, hypertension, asthma, cigarette smoking) Garry Score Preprocedure Postprocedure Activity 2- Moves 4 extremities sustained head lift Activity 2- Moves 4 extremities sustained head lift Circulation 2- SBP +/= 20 points of pre-anesthetic level Circulation 2- SBP +/= 20 points of pre-anesthetic level Consciousness 2- Awake and alert oriented x 3 Consciousness 2- Awake and alert oriented x 3 O2 Saturation 2- Able to maintain O2 satruation of 92% on room air O2 Saturation 2- Able to maintain O2 satruation of 92% on room air Respiratory 2- Able to deep breathe and cough well Respiratory 2- Able to deep breathe and cough well Total Score 10 Total Score 10 Contrast Agent: Isovue Diagnostic Contrast: 92 ml Total Contrast: 92 ml Fluoro Dose: 7379 mGy Procedure Log Time Note Enter By 10:58 AM CathStat 11:00 AM Vitals capture started with the following parameters, Patient=Adult, Interval=5 min, Initial Xgedcvwa=165 mmHg, Deflation Rate=5 mmHg, Cuff placed on Right Arm 11:01 AM HR=76 bpm, FRCL=416/85 mmhg, BfA0=977.0 %, Resp=11 B/min 11:05 AM Pt arrived to lab head 2 at 11:05 11:05 AM Physician arrived 11:05 11:05 AM Meet and greet completed 11:05 AM Sign in performed according to hospital policy. Informed consent was obtained. 11: AM Procedure start 11:05 11:05 AM Patient charges- Angio tray pack, Navilyst 3mm J, Pulse Oximetry and ACIST tubing and transducer twilson 11:05 AM Rodolfo Barroso RT (R) Position: Scrub Time in: : tw 11: AM Diana Barroso RT (R) Position: Monitor Time in: : tw: AM Yordan Bartlett RN Position: Rehabilitation Nurse Time in: : twilson 11: AM Case Delayed no twilson : AM Hair removed from procedure site in procedure lab using clippers. Bilateral groin prepped with Chloraprep by Micheal Ace RN, then patient was draped. Skin intact. twilson : AM Time: : Patient comfortable and pain free: Yes twilson AM Time: :LOC: 5 = Fully awake and oriented or at pre-proc level twilson AM Time: : Oxygen on at 2 L/min per nasal cannula by Yordan Bartlett RN [facility] : AM Time: : Versed 2 mg Intravenous Given by Yordan Bartlett RN [facility] : AM HR=76 bpm, CMPN=197/78 mmhg, RxF0=917.0 %, Resp=12 B/min 11: AM Time: 11: Fentanyl 50 mcg Intravenous Given by Yordan Bartlett RN [facility] 11: AM Recorded ECG: HR=86 Condition=Condition 1 11:10 AM HR=76 bpm, RSZD=504/72 mmhg, TjV3=031.0 %, Resp=17 B/min 11:12 AM ASA Class CLASS II- Mild systemic disease (i.e. well-controlled diabetes, hypertension, asthma, cigarette smoking) twilson 11:13 AM Time out was performed according to hospital policy. Conscious sedation and anesthesia was achieved (see medication log with in this report above) twilson : AM Time: 11:14 20 ml Lidocaine 2% to right groin Subcutaneous Given by Vick Ramirez MD, FACC twilson 11:15 AM HR=76 bpm, XSSP=715/72 mmhg, StX0=782.0 %, Resp=18 B/min 11:17 AM Access obtained by percutaneous puncture. 5Fr 10cm [address] sheath placed in right Femoral artery. [id number] twilson 11:17 AM 5Fr FR 4 catheter inserted over the wire DNC twilson : AM Wire removed, intact. twilson : AM Recorded Pressure: Ao, HR=74, Condition=Condition 1 (Aorta) Ao 131/52/84 11:19 AM RCA angiography performed in multiple views. twilson 11:19 AM Recorded Pressure: Ao, HR=79, Condition=Condition 1 (Aorta) Ao 120/65/91 11:20 AM Time: 11:05 Patient comfortable and pain free: Yes twilson 11:20 AM Time: 11:05LOC: 4 = Oriented but drowsy twilson 11:20 AM HR=75 bpm, FJFC=966/61 mmhg, SeX3=437.0 %, Resp=17 B/min 11:21 AM Coronary Dominance: right twilson 11: AM Lesion found in Proximal RCA. Pre Stenosis: 20 Pre TAMEKA Flow: twilson 11: AM Lesion found in Right PDA. Pre Stenosis: 15 Pre TAMEKA Flow: twilson 11:21 AM Right Coronary, Right Posterior Descending Arteries with Right Posterolateral and Acute Marginal branches with 20 % stenosis. If graft is supplying this area, 0 % stenosis twilson 11: AM Pressure channel 1 zeroed. 11:22 AM 0.035 260cm VSI Conrad-Torque wire [id number] twilson 11:22 AM Catheter removed twilson 11: AM 5Fr IM catheter inserted over the wire [id number] twilson 11:23 AM Wire removed twilson 11:23 AM Recorded Pressure: Ao, HR=77, Condition=Condition 1 (Aorta) Ao 109/63/84 11:24 AM Left CARL to the LAD angio performed in multiple views. twilson 11:25 AM Recorded Pressure: Ao, HR=76, Condition=Condition 1 (Aorta) Ao 119/63/88 11:25 AM Recorded Pressure: Ao, HR=75, Condition=Condition 1 (Aorta) Ao 116/63/87 11:25 AM HR=74 bpm, CNLL=305/68 mmhg, HjB3=180.0 %, Resp=30 B/min 11:26 AM Wire reinserted. twilson 11: AM Catheter removed twilson 11: AM 5Fr FL 4 catheter inserted over the wire DNC twilson 11: AM Wire removed, intact. twilson 11:28 AM Recorded Pressure: Ao, HR=76, Condition=Condition 1 (Aorta) Ao 140/-37/55 11:28 AM Recorded Pressure: Ao, HR=73, Condition=Condition 1 (Aorta) Ao 114/60/84 11:29 AM LCA angiography performed in multiple views. twilson 11:29 AM Lesion found in Mid LAD. Pre Stenosis: 100 Pre TAMEKA Flow: twilson 11:29 AM Mid/Distal Left Anterior Descending Coronary Artery and diagonal branches with 100% stenosis. If graft is supplying this area, 0 % stenosis twilson 11:30 AM Lesion found in 1st Marginal. Pre Stenosis: 100 Pre TAMEKA Flow: twilson 11:30 AM Circumflex, Obtuse Marginal, Left Posterior Descending, and Left Posterolateral Coronary Arteries with 100 % stenosis. If graft is supplying this area, 0 % stenosis twilson 11:30 AM Wire reinserted. twilson 11:30 AM Recorded Pressure: LV, HR=75, Condition=Condition 1 (Left Ventricle) LV 153/15/25 11:30 AM HR=65 bpm, CWJX=289/63 mmhg, YjO7=676.0 %, Resp=33 B/min 11:31 AM Catheter removed. twilson 11:31 AM 5Fr Pigtail catheter inserted over the wire [facility] twilson 11:31 AM Catheter crossed the aortic valve and was selectively placed in the left ventricle. Pressures recorded on pullback for left heart catheterization. twilson 11:31 AM Wire removed twilson 11:31 AM Recorded Pressure: LV, Ao, HR=32, Condition=Condition 1 (Left Ventricle) LV ?/?/?, (Aorta) Ao ?/?/? 11:31 AM Bolus angiogram of left Ventricle complete: 10 ml/sec for a total of 30 mls twilson 11:32 AM Wire reinserted. twilson 11:32 AM Catheter removed twilson 11:32 AM Wire removed twilson 11:32 AM Procedure completed at 11:32 08/30/2018 twilson 11:32 AM Bolus angiogram of right Femoral complete: 2 ml/sec for a total of 4 mls twilson 11:32 AM Did you address TAMEKA flow and Dominance? Yes twilson 11:33 AM Sign out completed: Radiation Dose 718.86 mGy, 7379.05 cGy/cm2 Fluoro Time: 4.0 Isovue 370 - 200ml contrast 92 ml given by Vick Ramirez MD, [facility]. Complications: None. The patient was discharged out of the cath lab radiological technologist in stable condition. Cardiac Rehab Consult needed: NoConfirmed administered medications: Yes twilson 11:33 AM Isovue 370 - 200ml,1 Bottle(s) used. twilson 11:33 AM Arterial sheath pulled, Mynx closure device used and was Successful S/N. twilson 11:33 AM Estimated Blood Loss: minimal twilson 11:34 AM Post ECG NSR twilson 11:34 AM Post Blood Pressure 126/63 twilson 11:34 AM 11:34 Post Pulses Bilateral DP & PT 1+ twilson 11:34 AM 11:34 Post Pulses Bilateral radial 2+ twilson 11:34 AM Information taught Cardiac Cath and Mynx twilson 11:35 AM Education needs Procedure, Plan of Care, and Responsibilities of Patient in Care twilson 11:35 AM Learning barriers :None twilson 11:35 AM Education Methods Verbal twilson 11:35 AM Education evaluation Able to repeat information twilson 11:35 AM Site status No bleeding/hematoma - Rt Groin as reported by Rodolfo Barroso RT (R) at 11:35 twilson 11:35 AM Opsite applied twilson 11:35 AM Family placed in consult room. twilson 11:35 AM HR=76 bpm, EZUU=448/62 mmhg, HnC3=311.0 %, Resp=25 B/min 11:36 AM Time: 11:20LOC: 4 = Oriented but drowsy twilson 11:36 AM Time: 11:20 Patient comfortable and pain free: Yes twilson 11:44 AM Report given to Chantale SIDHU Pt taken to 3B Room #. 11:43 twilson 11:44 AM Delay to floor No twilson 11:44 AM Patient out of room: 11:44 twilson Complications Complication None Hemodynamics Pressures Site Systolic/A Wave Diastolic/V Wave Mean AO 131 52 84 AO 120 65 91 AO 109 63 84 AO 119 63 88 AO 116 63 87 AO 140 -37 55 AO 114 60 84 LV 153 15 25 LV AO Post Procedure Information Blood Pressure: 126/63 mmHg Rhythm: NSR Post procedural instructions were given Closure Device Time Device Success/Fail 08/30/2018 11:38:00 AM MynxGrip Successful Site Checks Time Location Status Staff Sheath In? Note 11:35 AM Rt Groin No bleeding/hematoma Rodolfo Barroso RT (R) Pulses Time Site Pre-Procedure Post-Procedure Note 08/30/2018 10:54:00 AM 08/30/2018 10:54:00 AM 11:34:00 AM Bilateral DP & PT 1+ 11:34:00 AM Bilateral radial 2+ Updated by RT Monisha (R) on 08/30/2018 11:44:54 AM electronically signed on 08/30/2018 11:45:18 AM with status of Final
--- NOTE | 2018-08-30 14:16 | Event Note ---
Date of Encounter: 08/30/18 Time of Encounter: 14:15 - Cardiology Event Note Per discussion with Dr. Ramirez following Cath, no intervention needed. Cath report to follow. Plan to maximize medical management. Will increase Lipitor to 80mg qHS, increase Imdur to 180mg PO QD. Cont Aspirin, Metoprolol, Brilinta. Cardiology to sign off for now. Reconsult PRN. Will coordinate outpatient follow up.
[2018-08-30] MEDS ORDERED: *HR* Heparin 10,000 UNIT/10 ML VIAL ONE (14:20)
[2018-08-30] MEDS ORDERED: Heparin 1,000 UNITS/500 mL 500 ML ONE (14:20)
[2018-08-30] MEDS ORDERED: Nitroglycerin 1,000 MCG/10 ML VIAL IV ONE ×2 (14:20→14:28)
[2018-08-30] MEDS ORDERED: ISOVUE-370 200 ML INFUS..BTL ONE (14:20)
[2018-08-30] MEDS: Insulin NPH 100 UNIT/ML (x5UNIT) SQ SCH ×2 (17:12→20:14)
[2018-08-30] MEDS: Metoprolol XL (24 HR) Succ 50 MG TAB.ER.24H PO SCH (20:14)
[2018-08-31 05:56] LABS: Hematocrit 33.1 % (35.3-44.9); Hemoglobin 10.9 g/dL (11.5-15.4); Mean Corpuscular HGB Conc 32.9 g/dL (31.6-35.5); Mean Corpuscular Hemoglobin 30.9 pg (28.0-33.3); Mean Corpuscular Volume 93.8 fL (83.0-100.0); Mean Platelet Volume 11.1 fL (9.4-12.4); Red Blood Count 3.53 M/mcL (3.82-4.97); Red Cell Distribution Width 13.7 % (11.5-14.5)
[2018-08-31 05:57] LABS: Platelet Count 78 K/mcL (140-400)
[2018-08-31 07:26] LABS: BUN/Creatinine Ratio 26 (6-26); Blood Urea Nitrogen 22 mg/dL (8-23); Calcium 9.4 mg/dL (8.6-10.3); Carbon Dioxide 24 mEq/L (23-29); Chloride 105 mEq/L (98-107); Glucose 241 mg/dL (70-105); Osmolality,Calculated 303 (280-300); Potassium 4.2 mEq/L (3.5-5.1); Sodium 141 mEq/L (136-145); eGFR For Non-African Americans > 60 (> 60)
[2018-08-31 08:28] VITALS: BP 160/71
[2018-08-31] MEDS: Insulin LISPRO 300 UNITS/3 ML VIAL SQ SCH ×4 (08:45→12:42)
[2018-08-31] MEDS: *HR* Ticagrelor 90 MG TABLET PO SCH (08:46)
[2018-08-31] MEDS: Aspirin 81 MG TAB.CHEW PO SCH (08:46)
[2018-08-31] MEDS ORDERED: Isosorbide MONOnitrate (24 HR) 60 MG TAB.ER.24H PO SCH (09:00)
[2018-08-31] MEDS: Insulin NPH 100 UNIT/ML (x5UNIT) SQ SCH (09:50)
--- NOTE | 2018-08-31 10:14 | Discharge Summary ---
- NOTES TO OUTPATIENT PROVIDER Notes to Outpatient Provider: f/u with PCP within a week. f/u with cardiology within 2 weeks. 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 Noyola is a 68 year old female. She has underlying type 2 diabetes mellitus, hypertension and hyperlipidemia. She does have coronary artery disease; had CABG surgery in the past. Her last cardiac catheterization was done on May 28, 2018. It showed patent 1 of 2 bypass grafts. It showed severe 2 vessel coronary artery disease. There were occluded stents to the TAMIKA. There were collaterals from the distal RCA to OM1. It was yesterday evening around 8 PM when she developed upper anterior chest pain with radiation to her neck and shoulder. After a few hours as she came to the [facility]'s clinic in [place], [place]. She arrived there around 1 AM last night. After emergency room treatments and starting her on IV heparin her chest pain subsided. The patient admits having exertional chest pain recently. Associated with some dyspnea but not nausea or vomiting. Troponin was slightly elevated and pt was placed on heparin gtt. She underwent left cardiac catheterization on 08/30/2018. Per discussion with Dr. Ramirez following Cath, no intervention needed. Plan to maximize medical management. increase Lipitor to 80mg qHS, increase Imdur to 180mg PO QD. Cont Aspirin, Metoprolol, Brilinta. On the discharge day, her vital signs were stable, She is pain free. Pt will be discharged home. Medications reviewed with pt. She will f/u with PCP and cardiology as scheduled. Discharge discussed with: patient Time spent discussing smoking cessation with patient: more than 10 minutes - Time Spent with Patient Total time spent providing and/or coordinating discharge services: Greater than 30 minutes - Discharge Medications Prescriptions: Atorvastatin [Lipitor] 80 mg PO HS #30 tablet Isosorbide MONOnitrate (24 HR) [Imdur] 180 mg PO DAILY #30 tab.er.24h Home Medications: Levothyroxine [Synthroid] 75 mcg PO QAM 12/28/15 [History] Melatonin 3 mg PO HS 12/28/15 [History] Metoprolol XL (24 HR) Succ [Toprol Xl] 75 mg PO QPM 01/08/16 [History] Ticagrelor [Brilinta] 90 mg PO BID 12/12/16 [History] Furosemide [Lasix] 60 mg PO 3XW PRN 03/18/17 [History] Nitroglycerin [Nitrostat] 0.4 mg SL AD PRN 03/18/17 [History] Oxygen 2 l .ROUTE AD 03/18/17 [History] Potassium Chloride 20 meq PO DAILY 03/18/17 [History] Liraglutide [Victoza 2-Rob] 1.2 mg SQ DAILY 08/18/17 [History] Insulin NPH Human Isophane [Novolin N] 50 unit SQ BID 05/28/18 [History] Insulin Regular, Human [Novolin R] 50 unit SQ BID 05/28/18 [History] glyBURIDE [GlyBURIDE] 5 mg PO DAILY 05/28/18 [History] Aspirin 81 mg PO DAILY tab.chew 05/29/18 [Rx] Cholecalciferol (D-3) [Vitamin D] 2,000 unit PO DAILY 08/28/18 [History] metOLazone [Zaroxolyn] 5 mg PO 3XW 08/28/18 [History] Atorvastatin [Lipitor] 80 mg PO HS #30 tablet 08/31/18 [Rx] Isosorbide MONOnitrate (24 HR) [Imdur] 180 mg PO DAILY #30 tab.er.24h 08/31/18 [Rx] Allergies/Adverse Reactions: Allergy/AdvReac Type Severity Reaction Status Date / Time nitrofurantoin Allergy Rash Verified 08/28/18 11:26 [From Macrobid] octreotide Allergy Rash Verified 08/28/18 11:26 Penicillins Allergy Rash Verified 08/28/18 11:26 vancomycin Allergy Rash Verified 08/28/18 11:26 Date of admission: 08/28/18 06:44 Primary care physician: Lalito Stark CNP Consults: 08/28/18 10:26 Consult to Cardiology [CONS] Routine Comment: Consulting Provider: Cardiology Jena Reason for Consult: ACS Time Notified: 10:00 Call Completed: Yes Anticipated date of discharge: 08/31/18 - Constitutional Vitals: Temp Pulse Resp BP Pulse Ox 98.5 F 56 15 160/71 99 08/31/18 08:21 08/31/18 08:21 08/31/18 08:21 08/31/18 08:21 08/31/18 08:21 General appearance: Present: A&O X 3, no acute distress, obese, answers questions appropriately Exam: PHYSICAL EXAMINATION: GENERAL APPEARANCE: The patient is alert, oriented and in no acute distress. HEENT: Head is normocephalic. The sinuses are nontender. Pupils are equal and reactive. The nares are patent. Oropharynx clear without lesions. NECK: Supple without lymphadenopathy. HEART: Regular rate and rhythm. LUNGS: No crackles or wheezes are heard. ABDOMEN: Soft, nontender, nondistended with good bowel sounds heard. Inguinal area is normal. EXTREMITIES: Without cyanosis, clubbing or edema. NEUROLOGICAL: Gross nonfocal. SKIN: Warm and dry without any rash. - Patient Status Disposition: Home, Self-Care Condition: Fair Functional capacity at discharge: independent ambulation Overall status at discharge: patient is progressing back to baseline - Discharge Instructions Follow Up With: Pam Duenas CNP [Advanced Practice Nurse] - 09/05/18 12:30 pm - Diet and Activity Activity: increase activity as tolerated Diet: diabetic diet, low fat, low cholesterol, low salt diet - VTE Deep Vein Thrombosis/Pulmonary Embolism Present on Admission: No
== END 2018-08-31 13:56 | disposition home or self-care (01) | DRG 281 ==
LOC: 3BNU → OBSVTOIN 06:44 → SUATTDRO 06:44
PROVIDERS: ADMIT Family Medicine; ATTEND Internal Medicine

== ENCOUNTER 2018-10-18 09:36 | Inpatient (IN) ==
--- NOTE | 2018-10-18 10:26 | Emergency Department Note ---
Disposition Clinical Impression: Exertional dyspnea, Unstable angina Disposition: Admitted As Inpatient Condition: Fair Time of Disposition: 12:02 General Adult HPI - General Chief complaint: ED Chest Pain Stated complaint: CP/SOB Time Seen by Provider: 10/18/18 09:38 Source: patient, family Mode of arrival: wheelchair Limitations: no limitations Nursing Notes Reviewed: Yes Vital Signs Reviewed: Yes - History of Present Illness HPI Narrative: Patient is a 68-year-old female with a past medical history of CHF, CAD with CABG and stent placement with most recent catheter in May 2018 which she required no stents, HTN, PAD, renal disease and thyroid disorder presents to the emergency department for evaluation of exertional dyspnea and chest pain. Patient states that over the past week has been normal for her to have chest pain with exertion however there have been several moments where she is having chest pain at rest. She denies any chest pain at this time but states she is having and this prior to arrival. States the chest pain goes across her entire chest and across her upper back describes as an aching-like pain associated with dyspnea. She is on 2 L nasal cannula at home. States this morning in particular when she woke up she was diaphoretic and had increasing dyspnea as well as chest pain which prompted her to come in for evaluation. Her sister is at bedside states the patient appears to be more short of breath than usual even when speaking. Pain Scale: 0 - Related Data Home Medications Medication Instructions Recorded Confirmed Levothyroxine [Synthroid] 75 mcg PO QAM 12/28/15 10/18/18 Melatonin 3 mg PO HS PRN 12/28/15 10/18/18 Metoprolol XL (24 HR) Succ [Toprol 75 mg PO QPM 01/08/16 10/18/18 Xl] Furosemide [Lasix] 60 mg PO Q48H 03/18/17 10/18/18 Nitroglycerin [Nitrostat] 0.4 mg SL AD PRN 03/18/17 10/18/18 Oxygen 2 l .ROUTE AD 03/18/17 10/18/18 Potassium Chloride 20 meq PO DAILY 03/18/17 10/18/18 Liraglutide [Victoza 2-Rob] 1.2 mg SQ DAILY 08/18/17 10/18/18 Insulin NPH Human Isophane 50 unit SQ BID 05/28/18 10/18/18 [Novolin N] Insulin Regular, Human [Novolin R] 50 unit SQ BID 05/28/18 10/18/18 glyBURIDE [GlyBURIDE] 5 mg PO DAILY 05/28/18 10/18/18 Cholecalciferol (D-3) [Vitamin D] 2,000 unit PO DAILY 08/28/18 10/18/18 metOLazone [Zaroxolyn] 5 mg PO Q48H 08/28/18 10/18/18 Clopidogrel [Plavix] 75 mg PO DAILY 10/18/18 10/18/18 Previous Rx's Medication Instructions Recorded Aspirin 81 mg PO DAILY tab.chew 05/29/18 Atorvastatin [Lipitor] 80 mg PO HS #30 tablet 08/31/18 Isosorbide MONOnitrate (24 HR) 180 mg PO DAILY #30 tab.er.24h 08/31/18 [Imdur] Allergies Allergy/AdvReac Type Severity Reaction Status Date / Time nitrofurantoin Allergy Rash Verified 08/28/18 11:26 [From Macrobid] octreotide Allergy Rash Verified 08/28/18 11:26 Penicillins Allergy Rash Verified 08/28/18 11:26 vancomycin Allergy Rash Verified 08/28/18 11:26 All systems ED: reviewed and negative except as stated. Review of Systems: As Per HPI Constitutional: Denies: fever, chills Cardiovascular: Reports: chest pain, dyspnea on exertion, orthopnea. Denies: palpitations, edema, syncope, paroxysmal nocturnal dyspnea Respiratory: Reports: dyspnea. Denies: cough, wheezes, hemoptysis, sputum production Gastrointestinal: Denies: abdominal pain, nausea, vomiting, diarrhea Genitourinary: Denies: urgency, dysuria, frequency Musculoskeletal: Denies: back pain, neck pain Integumentary: Denies: rash Past Medical History - Past Medical History Attestation: Yes The following information was validated with the patient. Medical history: Reports: arthritis, cancer, CHF, coronary artery disease, diabetes, hyperlipidemia, hypertension, myocardial infarction, pulmonary embolus, renal disease, thyroid disease, other Surgical history: Reports: cataract, coronary bypass (CABG), other Psychiatric history: Reports: no psych history - Social History Smoking Status: Never smoker Smokeless Tobacco Status: No Alcohol use: Reports: none Drug use: Reports: none Physical Exam - General Limitations: no limitations General appearance: alert, in no apparent distress - Head Head exam: atraumatic, normocephalic, normal inspection - Eye Eye exam: Present: normal appearance, PERRL, EOMI - ENT ENT exam: normal exam, normal oropharynx, mucous membranes moist - Neck Neck exam: Present: normal inspection, full ROM, trachea midline - Chest Chest inspection: Present: normal inspection, symmetric chest wall rise - Respiratory Respiratory exam: Present: wheezes (RUL wheezing appreciated). Absent: respiratory distress - Cardiovascular Cardiovascular exam: Present: regular rate, normal rhythm, normal heart sounds, +S1, +S2 - Abdominal Exam Abdominal exam: Present: soft, Non-Tender. Absent: tenderness, distention, guarding, rebound, rigidity - Extremities Exam Extremities exam: Present: normal inspection, full ROM, other (chronic venous stasis changes). Absent: tenderness, pedal edema - Back Exam Back exam: Present: normal inspection, full ROM. Absent: tenderness, CVA tenderness (R), CVA tenderness (L) - Neurological Exam Neurological exam: Present: alert, oriented X3 - Psychiatric Psychiatric exam: Present: normal affect, normal mood - Skin Skin exam: Present: warm, dry, intact, normal color Course Course Narrative: Patient was seen and evaluated in August 2018 which she was admitted for an an STEMI with troponin elevations. She had a heart catheterization of time and there is no need for stent intervention. She is medically managed with cardio logy consultation. She will undergo evaluation for her exertional dyspnea and chest pain with chest x-ray, cardiac workup including troponin and BNP. She is a symptomatically as far as chest pain at this time but she will given a full dose of aspirin. She does have mild wheezing we will give her one breathing treatment however I do not think this is an exacerbation of her COPD. Ultimately given her comorbidities and risk factors she will need to come into the hospital for further evaluation of her chest pain. - Reevaluation(s) Reevaluation #1: Patient was found elevation of her troponin of 0.2 which she has had chronic elevations in the past. But in the setting of worsening unstable angina the patient will be brought in to the hospital for further evaluation. I discussed the patient's case with hospitalist on-call, Dr. Henderson. She agrees to accept the patient. Time: 12:13 Vital Signs Temperature 98.1 F 10/18/18 09:51 Pulse Rate 98 10/18/18 09:51 Respiratory Rate 22 10/18/18 09:51 Blood Pressure 165/70 10/18/18 09:51 O2 Sat by Pulse Oximetry 91 10/18/18 09:51 Temperature 98.1 F 10/18/18 10:06 Pulse Rate 91 10/18/18 10:06 Respiratory Rate 17 10/18/18 10:55 Blood Pressure 166/68 10/18/18 10:06 O2 Sat by Pulse Oximetry 100 10/18/18 10:55 Oxygen Delivery Oxygen Delivery Nasal Cannula Medical Decision Making - Medical Records Medical records reviewed: Yes I reviewed the patient's medical records. - Lab Data Lab results reviewed: Yes I reviewed the patient's lab results. Result diagrams: 10/18/18 12:08 10/18/18 10:37 Lab Results 10/18/18 10/18/18 10/18/18 Range/Units 10:37 10:37 10:37 WBC 5.2 (4.3-11.1) K/mcL RBC 3.74 L (3.82-4.97) M/mcL Hgb 11.5 (11.5-15.4) g/dL Hct 36.3 (35.3-44.9) % MCV 97.1 (83.0-100.0) fL MCH 30.7 (28.0-33.3) pg MCHC 31.7 (31.6-35.5) g/dL RDW 14.4 (11.5-14.5) % Plt Count 93 L (140-400) K/mcL MPV 10.9 (9.4-12.4) fL Immature Gran % 0.6 (0-4) % Seg Neutrophils % 81.6 % Lymphocytes % 7.7 % Monocytes % 8.7 % Eosinophils % 1.2 % Basophils % 0.2 % Neutrophils # 4.2 (1.6-8.9) K/mcL Lymphocytes # 0.4 L (0.6-4.6) K/mcL Monocytes # 0.5 (0.0-1.3) K/mcL Eosinophils # 0.1 (0.0-0.6) K/mcL Basophils # 0.0 (0.0-0.2) K/mcL Immature Plt Fraction 5.8 (1.1-6.1) % Sodium 143 (136-145) mEq/L Potassium 4.0 (3.5-5.1) mEq/L Chloride 102 (98-107) mEq/L Carbon Dioxide 33 H (23-29) mEq/L BUN 13 (8-23) mg/dL Creatinine 0.79 (0.60-1.20) mg/dL Est GFR ( Amer) > 60 (> 60) Est GFR (Non-Af Amer) > 60 (> 60) BUN/Creatinine Ratio 16 (6-26) Glucose 180 H (70-105) mg/dL Calculated Osmolality 301 H (280-300) Calcium 9.9 (8.6-10.3) mg/dL Troponin I 0.21 H* (< 0.04) ng/mL B-Natriuretic Peptide 187 H (Less than 100) pg/mL Urine Color (Yellow) Urine Clarity (Clear) Urine pH (5.0-8.0) pH Units Ur Specific [place] (1.010-1.025) Urine Protein (Neg-Trace) mg/dL Urine Glucose (UA) (Normal) mg/dL Urine Ketones (Negative) mg/dL Urine Blood (Negative) Urine Nitrite (Negative) Urine Bilirubin (Negative) Urine Urobilinogen (Normal) mg/dL Ur Leukocyte Esterase (Negative) Ur Culture Indicated? (NO) 10/18/18 Range/Units 10:46 WBC (4.3-11.1) K/mcL RBC (3.82-4.97) M/mcL Hgb (11.5-15.4) g/dL Hct (35.3-44.9) % MCV (83.0-100.0) fL MCH (28.0-33.3) pg MCHC (31.6-35.5) g/dL RDW (11.5-14.5) % Plt Count (140-400) K/mcL MPV (9.4-12.4) fL Immature Gran % (0-4) % Seg Neutrophils % % Lymphocytes % % Monocytes % % Eosinophils % % Basophils % % Neutrophils # (1.6-8.9) K/mcL Lymphocytes # (0.6-4.6) K/mcL Monocytes # (0.0-1.3) K/mcL Eosinophils # (0.0-0.6) K/mcL Basophils # (0.0-0.2) K/mcL Immature Plt Fraction (1.1-6.1) % Sodium (136-145) mEq/L Potassium (3.5-5.1) mEq/L Chloride (98-107) mEq/L Carbon Dioxide (23-29) mEq/L BUN (8-23) mg/dL Creatinine (0.60-1.20) mg/dL Est GFR ( Amer) (> 60) Est GFR (Non-Af Amer) (> 60) BUN/Creatinine Ratio (6-26) Glucose (70-105) mg/dL Calculated Osmolality (280-300) Calcium (8.6-10.3) mg/dL Troponin I (< 0.04) ng/mL B-Natriuretic Peptide (Less than 100) pg/mL Urine Color Yellow (Yellow) Urine Clarity Clear (Clear) Urine pH 6.5 (5.0-8.0) pH Units Ur Specific [place] 1.014 (1.010-1.025) Urine Protein Negative (Neg-Trace) mg/dL Urine Glucose (UA) Normal (Normal) mg/dL Urine Ketones Negative (Negative) mg/dL Urine Blood Negative (Negative) Urine Nitrite Negative (Negative) Urine Bilirubin Negative (Negative) Urine Urobilinogen Normal (Normal) mg/dL Ur Leukocyte Esterase Negative (Negative) Ur Culture Indicated? NO (NO) - Radiology Data Radiology results reviewed: Yes I reviewed the patient's radiology results. Chest X-Ray 10/18/18 10:06 IMPRESSION: No acute process. Stable elevation of the right hemidiaphragm D/ / Laz Meyers MD / Laz Meyers MD Interpreting Provider: Laz Meyers MD - EKG Data EKG #1 EKG attestation: Yes I reviewed and interpreted this EKG. EKG results narrative: EKG done at 10:07 shows sinus tachycardia rate of 90 bpm. Normal axis. Intervals within normal limits. No signs of ST elevation, ST depression or Q waves present patient does have 3 PVCs. Attestation Statement - Attestation Attestation: I, Augustine Fragoso, examined this patient and my medical decision-making was reviewed with the RIB CUTTER/PA/Advanced Practice Nurse/Resident Physician. I agree with the documented findings, disposition and treatment plan as described except to the extent set forth below. 68-year-old female presents emergency Department with concerns of acute shortness of breath. Patient states she woke during the middle the night with diaphoresis shortness of breath and chest pain. Patient states she has a history of COPD and cardiac disease. Patient had a stent about 4 months ago which did not show evidence of coronary artery stenosis requiring stenting. Patient had elevated troponin of 0.21 but she did not have evidence of STEMI on EKG. Patient will be admitted to the hospitalist for further care and evaluation.
[2018-10-18] MEDS: Aspirin 81 MG TAB.CHEW PO SCH (10:34)
[2018-10-18] MEDS ORDERED: Ipratropium/Albuterol Neb 3 ML IH ONE (10:36)
[2018-10-18 10:56] LABS: Basophils % 0.2 %; Immature Granulocytes % 0.6 % (0-4)
[2018-10-18 10:58] LABS: Eosinophils # 0.1 K/mcL (0.0-0.6); Eosinophils % 1.2 %; Hematocrit 36.3 % (35.3-44.9); Hemoglobin 11.5 g/dL (11.5-15.4); Immature Platelets 5.8 % (1.1-6.1); Lymphocytes # 0.4 K/mcL (0.6-4.6); Lymphocytes % 7.7 %; Mean Corpuscular HGB Conc 31.7 g/dL (31.6-35.5); Mean Corpuscular Hemoglobin 30.7 pg (28.0-33.3); Mean Corpuscular Volume 97.1 fL (83.0-100.0); Mean Platelet Volume 10.9 fL (9.4-12.4); Monocytes # 0.5 K/mcL (0.0-1.3); Monocytes % 8.7 %; Neutrophils # 4.2 K/mcL (1.6-8.9); Red Blood Count 3.74 M/mcL (3.82-4.97); Red Cell Distribution Width 14.4 % (11.5-14.5); Segmented Neutrophils % 81.6 %
[2018-10-18 11:08] LABS: Bilirubin,Urine Negative (Negative); Blood,Urine Negative (Negative); Clarity,Urine Clear (Clear); Color,Urine Yellow (Yellow); Glucose,Urine (UA) Normal (Normal); Ketones,Urine Negative (Negative); Leukocyte Esterase,Urine Negative (Negative); Nitrite,Urine Negative (Negative); PH,Urine 6.5 pH Units (5.0-8.0); Protein,Urine Negative (Neg-Trace); Specific Gravity,Urine 1.014 (1.010-1.025); Urobilinogen,Urine Normal (Normal)
[2018-10-18 11:16] LABS: BUN/Creatinine Ratio 16 (6-26); Blood Urea Nitrogen 13 mg/dL (8-23); Calcium 9.9 mg/dL (8.6-10.3); Carbon Dioxide 33 mEq/L (23-29); Chloride 102 mEq/L (98-107); Glucose 180 mg/dL (70-105); Osmolality,Calculated 301 (280-300); Sodium 143 mEq/L (136-145); eGFR For Non-African Americans > 60 (> 60)
[2018-10-18 11:18] LABS: Platelet Count 93 K/mcL (140-400)
[2018-10-18 11:19] LABS: Troponin I 0.21 ng/mL (< 0.04)
[2018-10-18] MEDS ORDERED: *HR* Heparin 5,000 UNIT/ML VIAL IVP ONE (12:01)
[2018-10-18] MEDS ORDERED: *HR* Heparin 5,000 UNIT/ML VIAL IVP PRN ×2 (12:01)
[2018-10-18 12:18] LABS: Hematocrit 34.4 % (35.3-44.9); Mean Corpuscular Hemoglobin 30.8 pg (28.0-33.3); Mean Corpuscular Volume 96.4 fL (83.0-100.0); Mean Platelet Volume 11.1 fL (9.4-12.4); Red Blood Count 3.57 M/mcL (3.82-4.97); Red Cell Distribution Width 14.5 % (11.5-14.5)
[2018-10-18 12:19] LABS: Platelet Count 87 K/mcL (140-400)
[2018-10-18 12:26] LABS: INR 1.1; Prothrombin Time 12.2 Seconds (9.4-12.1)
[2018-10-18] MEDS: Heparin 25,000 UNIT/500 ML D5W 25,000 UNIT/500 ML BAG IVC SCH (12:48)
[2018-10-18] MEDS ORDERED: Nitroglycerin 0.4 MG TAB.SUBL SL PRN (12:51)
--- NOTE | 2018-10-18 12:53 | Internal Med History&Physical ---
Date of Encounter: 10/18/18 Time of Encounter: 12:47 Internal Medicine - H&P: HPI Chief complaint: chest pain at rest and on exertion Admitted From: Home Plans for Post Hospital Care: Home History of present illness: Ms. 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 as per patietn she has started to experience chest pain for the past 2 weeks that is progressively worsening. chest pain is intermittent and pressure like. her pain lasts for a few minutes and is relieved by rest. she reports that exertiona dn ambulation aggravate the chest pain. she is compliant with all her medications however she reports that she has not taken her Plavix this morning. In addition to chest pressure she also complains of shortness of breath both on exertion and at rest. She denies PND or orthopnea however its been getting increasingly difficult for her to move around the house due to shortness of breath. In addition to shortness of breath she complains of bilateral lower extremity swelling and tightness. She has never had symptoms like this before and feels as though her calfs are More Tight. She Does Report That She Is Not Ambulating As Much As She Used To Due To Chest Pressure and Shortness of Breath. She Denies fever, chills, recent upper respiratory tract infections, palpitations, nausea, vomiting, diarrhea. While in the emergency department her troponin was 0.21 EKG did not show any significant changes she was started on heparin drip and was loaded with aspirin and was endorsed for further evaluation of her non-STEMI. As per chart review she had a recent catheter performed in August 2018 and as per the cardiology recommendations she was to optimize medical management. At that time and/or and Lipitor dosages were increased. Past Med Surg Social Fam HX - Past Medical History Medical history: arthritis, cancer, CHF, coronary artery disease, diabetes, hyperlipidemia, hypertension, myocardial infarction, pulmonary embolus, renal disease, thyroid disease, other Additional medical history: SLEEP APNEA Psychiatric history: no psych history - Past Surgical History Surgical History: cataract, coronary bypass (CABG), other Additional surgical history: STOMACH SURGERY - Social History Smoking Status: Never smoker Smokeless Tobacco Status: No Alcohol use: none Drug use: none - Family History Mother Living Status: Hx Family Cardiac Disorders: Yes Hx Family Respiratory Disorders: Yes Hx Family Cancer: No Hx Family GI Disorders: Yes Hx Family Endocrine Disorder: No Hx Family Neuromuscular Disorders: No Father Living Status: Hx Family Cardiac Disorders: No Hx Family Respiratory Disorders: No Hx Family Cancer: Yes Hx Family GI Disorders: No Hx Family Endocrine Disorder: No Hx Family Neuromuscular Disorders: No Hx Family Neurologic Disorders: No Hx Family HEENT Disorders: No Hx Family Autoimmune Disorders: No Internal Medicine - H&P: Meds Levothyroxine [Synthroid] 75 mcg PO QAM 12/28/15 [History] Melatonin 3 mg PO HS 12/28/15 [History] Metoprolol XL (24 HR) Succ [Toprol Xl] 75 mg PO QPM 01/08/16 [History] Furosemide [Lasix] 60 mg PO 3XW PRN 03/18/17 [History] Nitroglycerin [Nitrostat] 0.4 mg SL AD PRN 03/18/17 [History] Oxygen 2 l .ROUTE AD 03/18/17 [History] Potassium Chloride 20 meq PO DAILY 03/18/17 [History] Liraglutide [Victoza 2-Rob] 1.2 mg SQ DAILY 08/18/17 [History] Insulin NPH Human Isophane [Novolin N] 50 unit SQ BID 05/28/18 [History] Insulin Regular, Human [Novolin R] 50 unit SQ BID 05/28/18 [History] glyBURIDE [GlyBURIDE] 5 mg PO DAILY 05/28/18 [History] Aspirin 81 mg PO DAILY tab.chew 05/29/18 [Rx] Cholecalciferol (D-3) [Vitamin D] 2,000 unit PO DAILY 08/28/18 [History] metOLazone [Zaroxolyn] 5 mg PO 3XW 08/28/18 [History] Atorvastatin [Lipitor] 80 mg PO HS #30 tablet 08/31/18 [Rx] Isosorbide MONOnitrate (24 HR) [Imdur] 180 mg PO DAILY #30 tab.er.24h 08/31/18 [Rx] Clopidogrel [Plavix] 75 mg PO DAILY 10/18/18 [History] Allergy/AdvReac Type Severity Reaction Status Date / Time nitrofurantoin Allergy Rash Verified 08/28/18 11:26 [From Macrobid] octreotide Allergy Rash Verified 08/28/18 11:26 Penicillins Allergy Rash Verified 08/28/18 11:26 vancomycin Allergy Rash Verified 08/28/18 11:26 All Systems PM: A 10-system review of systems was performed and is negative for pertinent findings except as documented above in the HPI. - Constitutional Vitals: Temp Pulse Resp BP Pulse Ox 98.1 F 75 20 130/50 98 10/18/18 10:06 10/18/18 12:11 10/18/18 12:11 10/18/18 12:11 10/18/18 12:11 Exam: General: Patient is alert, oriented, no acute distress, speaks in full sente nces, obese Head: atraumatic, normocephalic, Eye: normal appearance, PERRL, no scleral icterus, no conjunctival injection ENT: mucous membranes moist, normal external ear exam Neck: normal inspection, trachea midline, full ROM, no carotid bruits Chest: normal inspection, symmetric chest rise Respiratory: Distant breath sounds secondary to body habitus Good respiratory effort. Bilateral breath sounds are clear without wheezing, crackles, or rhonchi. Cardiovascular: Distant heart sounds secondary to body habitus Regular rate and rhythm. s1 and s2 No clicks, rubs, gallops, or murmors. Abdomen: Bowel sounds present normoactive x-4 quadrants. Abdomen is soft, nondistended. no Epigastric tenderness. No guarding or rebound. No organomegaly noted, obese musculoskeletal: Spontaneously moving all extremities.+1 edema of bilateral lower extremities, the calfs are tight and tender to touch, varicose veins Skin: warm, dry, intact. Neuro: Alert and oriented x4. no focal deficit Psych: Patient's affect is normal Internal Med - H&P Results - Labs CBC & Chem 7: 10/18/18 12:08 10/18/18 10:37 Labs: Short CBC 10/18/18 10/18/18 Range/Units 10:37 12:08 WBC 5.2 5.1 (4.3-11.1) K/mcL Hgb 11.5 11.0 L (11.5-15.4) g/dL Hct 36.3 34.4 L (35.3-44.9) % Plt Count 93 L 87 L (140-400) K/mcL Neutrophils # 4.2 (1.6-8.9) K/mcL BMP 10/18/18 10:37 Sodium 143 Potassium 4.0 Chloride 102 Carbon Dioxide 33 H BUN 13 Creatinine 0.79 Glucose 180 H Calcium 9.9 Cardiac Enzymes 10/18/18 Range/Units 10:37 Troponin I 0.21 H* (< 0.04) ng/mL Urine 10/18/18 Range/Units 10:46 Urine Color Yellow (Yellow) Urine Clarity Clear (Clear) Urine pH 6.5 (5.0-8.0) pH Units Ur Specific [place] 1.014 (1.010-1.025) Urine Protein Negative (Neg-Trace) mg/dL Urine Glucose (UA) Normal (Normal) mg/dL - EKG Data -: EKG Interpreted by Myself (Sinus tachycardia, PVCs, left axis deviation,) - EKG Data Prior EKG available for review: yes When compared to previous EKG: there is no significant change - Impressions ITS Impressions Chest X-Ray 10/18/18 10:06 IMPRESSION: No acute process. Stable elevation of the right hemidiaphragm D/ / Laz Meyers MD / Laz Meyers MD Interpreting Provider: Laz Meyers MD - Assessment and plan (1) NSTEMI (non-ST elevated myocardial infarction) Current Visit: No Status: Acute Assessment and plan: Chest pain on exertion now at rest Troponin is 0.21, continue to follow every 6 hours along with EKG Heparin drip was started in the emergency department we will continue Was loaded with aspirin 325 mg daily ED will continue Continue with home dose aspirin and plavix- she did not take dose this AM Continue with beta blockers, statins and IMDUR - starting today- has not taken medications today cardiology consulted and i discussed case with Dr. Mann who will see the patient and is in agreement with heparin Drip continue with cardiac monitoring cardiac cath 08/2018- Impressions: There is severe two vessel coronary artery disease. The left ventricle is normal and has normal contractility EF 65% S/P CABG 1 of 2 patent bypass grafts. Left to left collateral vessels of small Oms that are occluded There is a previous stent in Mid LAD with severe in-stent stenosis that was not intervened on (VEGA patent) TTE 05/2018-Impressions: Technically difficult study due to poor windows. LVEF 60-65%. Normal LV chamber size and function. No obvious segmental wall motion abnormalities. Mild concentric left ventricular hypertrophy. Mild left ventricular diastolic dysfunction. Normal right ventricular structure and function. Moderate aortic stenosis. Mean gradient 21 mmHg. Mild pulmonary hypertension. (2) Dyspnea Current Visit: Yes Status: Acute Assessment and plan: dyspnea both at rest and on ambulation rule out PE wells criteria for PE 8.5 ( tachycardic, history of cancer, HR >100, clinical sign of DVT, PE likely) Chest x-ray is clear will get VQ scan ( has history of ARF) DVT study of bilateral lower extremities as they are swollen Doubt due to heart failure as BNP is 187 echocardiogram Qualifiers: Dyspnea type: dyspnea on exertion Qualified Code(s): R06.09 - Other forms of dyspnea (3) Thrombocytopenia Current Visit: No Status: Chronic Assessment and plan: Chronic thrombocytopenia Continue to monitor platelets (4) Type II diabetes mellitus Current Visit: No Status: Chronic Assessment and plan: Started on long-acting insulin along with sliding scale adjust as per fingersticks A1c in AM Qualifiers: Diabetes mellitus alf insulin use: with alf use Diabetes mellitus complication status: with circulatory complication Diabetes mellitus complication detail: with other circulatory complications Qualified Code(s): E11.59 - Type 2 diabetes mellitus with other circulatory complications; Z79.4 - skilled nursing (current) use of insulin (5) MONICA on CPAP Current Visit: Yes Status: Acute Assessment and plan: continue with CPAP at nights (6) Hypothyroidism (acquired) Current Visit: Yes Status: Acute Assessment and plan: continue home synthroid (7) DLBCL (diffuse large B cell lymphoma) Current Visit: Yes Status: Acute Assessment and plan: DLBCL-who is seen in follow-up after cycle 6 [facility] (04/12) She also has FL/grade IIIA per [facility] records She had seen Dr. Byrne at [facility]-- Revlimid/rituximab if there is evidence of relapse She started revlimid and was hospitalized due to cardiac issues and treatment interrupted. follows with Dr. Lott - consider hematology/oncology consult Qualifiers: Lymphoma site: unspecified region Qualified Code(s): C83.30 - Diffuse large B-cell lymphoma, unspecified site (8) DVT prophylaxis Current Visit: Yes Status: Acute Assessment and plan: on heparin drip - Time Spent With Patient Total time spent is greater than 50% in coordination of care (as documented) at patient's floor/unit and/or counseling patient:
[2018-10-18] MEDS ORDERED: *HR* HYDROcodone/Acet 5/325 mg TABLET PO PRN (12:55)
[2018-10-18] MEDS ORDERED: Acetaminophen 325 MG TABLET PO PRN (12:55)
[2018-10-18] MEDS ORDERED: Naloxone 0.4 MG/ML INJ IVP PRN (12:55)
[2018-10-18] MEDS ORDERED: *HR* Ticagrelor 90 MG TABLET PO SCH (13:00)
[2018-10-18] MEDS ORDERED: Dextrose 4 GM Chewable Tablets PO PRN ×2 (13:02)
[2018-10-18] MEDS ORDERED: Dextrose Gel 15 GM/37.5 ML TUBE PO PRN ×2 (13:02)
[2018-10-18] MEDS ORDERED: *HR* Dextrose 50 % in Water (Syg) 50 ML SYRINGE IVP PRN (13:02)
[2018-10-18] MEDS ORDERED: D5% in Water 1,000 ML IVC PRN (13:02)
[2018-10-18] MEDS ORDERED: metOLazone 5 MG TABLET PO SCH (13:30)
[2018-10-18] MEDS ORDERED: Melatonin 3 MG TABLET PO PRN (13:30)
[2018-10-18] MEDS: Furosemide 20 MG TABLET PO SCH (14:10)
[2018-10-18] MEDS: Isosorbide MONOnitrate (24 HR) 60 MG TAB.ER.24H PO SCH (14:10)
--- NOTE | 2018-10-18 14:13 | Cardiology Consult Note ---
<Ubaldo Fraga - Last Filed: 10/18/18 14:24> Date of Encounter: 10/18/18 Time of Encounter: 14:05 Assessment and Plan (1) Elevated troponin Current Visit: Yes Status: Acute Elevated troponin at 0.12. Continue to trend. NSTEMI vs demand ischemia. Known severe small vessel CAD not amendable to PCI on [facility] 08/29/18. Medical Management recommended at that time. Ranexa was recommended. Patient does not remember starting. Appears to have chronic troponin elevation. Symptoms concerning for angina. Start ranexa. TTE and VQ scan pending. Trend troponin. She is on heparin gtt. Continue asa, plavix, statin, and bb. Indication, use, and adverse effects of SL NTG discussed. (2) CAD (coronary artery disease) Current Visit: No Status: Chronic H/o prior CABG. Last [facility] 08/29/18 100% stenosis in the Mid LAD. VEGA-LAD patent. The lesion has collaterals which feed from left to left. 100% stenosis in the 1st Marginal (and second Marginal) - small vessels. The lesion has collaterals which feed from left to left. SVG- OM occluded. 20% stenosis in the Proximal RCA, 15% stenosis in the Right PDA. EF 65%. Last TTE 05/28/18-LVEF 60-65%. Normal LV chamber size and function. No obvious segmental wall motion abnormalities. Mild concentric left ventricular hypertrophy. Mild left ventricular diastolic dysfunction. Normal right ventricular structure and function. Moderate aortic stenosis. Mean gradient 21 mmHg. Mild pulmonary hypertension. Continue GDMT with asa, plavix, statin, bb. Continue imdur and add ranexa. Qualifiers: Coronary Disease-Associated Artery/Lesion type: bypass graft [place] vs. transplanted heart: [place] heart Associated angina: with unstable angina Qualified Code(s): I25.700 - Atherosclerosis of coronary artery bypass graft(s), unspecified, with unstable angina pectoris Discussion w patient/family: The assessment and plan as outlined above was discussed with the patient and/or family members who expressed understanding and agreement. All questions were answered. Thank you for involving us in the care of your patient. Please call with any questions. History of Present Illness Consult date: 10/18/18 Requesting physician: Beatriz Ortez Consult reason: chest pain/NSTEMI Chief complaint: increasing chest pain, SOB, diaphoresis History of present illness: Ms. Noyola is a 68 year old female with past medical history of CAD s/p 2V CABG, HFpEF, COPD, HTN, HLD, DM type II, and b cell lymphoma in remission who presents with chest pain. She is s/p NSTEMI 08/29/18. She underwent LHC at that time with no intervention. Medical management recommended. She has chronic angina. States that over the past couple of weeks she noted increased frequency of chest pain and SOB. C/o midsternal chest burning and pressure with minimal activity around her home. The pain is relieved with rest. Denies using SL NTG. States she is af raid it will mask a heart attack. Cardiac work up reveals elevated troponin at 0.21. Her troponin was also elevated up to 0.21 in August. Past Med Surg Social Fam HX - Past Medical History Medical history: arthritis, cancer, CHF, coronary artery disease, diabetes, hyperlipidemia, hypertension, myocardial infarction, pulmonary embolus, renal disease, thyroid disease, other Additional medical history: SLEEP APNEA Psychiatric history: no psych history - Past Surgical History Surgical History: cataract, coronary bypass (CABG), other Additional surgical history: STOMACH SURGERY - Social History Smoking Status: Never smoker Smokeless Tobacco Status: No Alcohol use: none Drug use: none - Family History Mother Living Status: Hx Family Cardiac Disorders: Yes Hx Family Respiratory Disorders: Yes Hx Family Cancer: No Hx Family GI Disorders: Yes Hx Family Endocrine Disorder: No Hx Family Neuromuscular Disorders: No Father Living Status: Hx Family Cardiac Disorders: No Hx Family Respiratory Disorders: No Hx Family Cancer: Yes Hx Family GI Disorders: No Hx Family Endocrine Disorder: No Hx Family Neuromuscular Disorders: No Hx Family Neurologic Disorders: No Hx Family HEENT Disorders: No Hx Family Autoimmune Disorders: No Medications and Allergies Levothyroxine [Synthroid] 75 mcg PO QAM 12/28/15 [History] Melatonin 3 mg PO HS PRN 12/28/15 [History] Metoprolol XL (24 HR) Succ [Toprol Xl] 75 mg PO QPM 01/08/16 [History] Furosemide [Lasix] 60 mg PO Q48H 03/18/17 [History] Nitroglycerin [Nitrostat] 0.4 mg SL AD PRN 03/18/17 [History] Oxygen 2 l .ROUTE AD 03/18/17 [History] Potassium Chloride 20 meq PO DAILY 03/18/17 [History] Liraglutide [Victoza 2-Rob] 1.2 mg SQ DAILY 08/18/17 [History] Insulin NPH Human Isophane [Novolin N] 50 unit SQ BID 05/28/18 [History] Insulin Regular, Human [Novolin R] 50 unit SQ BID 05/28/18 [History] glyBURIDE [GlyBURIDE] 5 mg PO DAILY 05/28/18 [History] Aspirin 81 mg PO DAILY tab.chew 05/29/18 [Rx] Cholecalciferol (D-3) [Vitamin D] 2,000 unit PO DAILY 08/28/18 [History] metOLazone [Zaroxolyn] 5 mg PO Q48H 08/28/18 [History] Atorvastatin [Lipitor] 80 mg PO HS #30 tablet 08/31/18 [Rx] Isosorbide MONOnitrate (24 HR) [Imdur] 180 mg PO DAILY #30 tab.er.24h 08/31/18 [Rx] Clopidogrel [Plavix] 75 mg PO DAILY 10/18/18 [History] Allergy/AdvReac Type Severity Reaction Status Date / Time nitrofurantoin Allergy Rash Verified 08/28/18 11:26 [From Macrobid] octreotide Allergy Rash Verified 08/28/18 11:26 Penicillins Allergy Rash Verified 08/28/18 11:26 vancomycin Allergy Rash Verified 08/28/18 11:26 All Systems Review: The remainder of the systems were reviewed and are negative Physical Examination Vital Signs, Last 4 Hours Temp Pulse Resp BP Pulse Ox 10/18/18 12:11 75 20 130/50 98 10/18/18 10:55 17 100 10/18/18 10:06 98.1 F 91 18 166/68 100 General: Conversant, No Apparent Distress HEENT: Atraumatic, Normocephaly, Mucus Membranes Moist Neck: No JVD, Normal carotid pulses Cardiac: Reg Rate and Rhythm, Normal S1 and S2, Other (2/6 murmur) Lungs: Normal Breath Sounds, No Wheeze, Rales, Rhonchi Neuro: Alert and responsive, No focal deficits noted Abdomen: Soft, Non-Tender Skin: No rashes noted on visualized skin Musculoskeletal: No Chest Wall Tenderness Extremities: No Clubbing, No Cyanosis, No Edema, Normal Pulses Results 10/18/18 12:08 10/18/18 10:37 Lab Results 10/18/18 10/18/18 10/18/18 10:37 10:37 10:37 WBC 5.2 Hgb 11.5 Hct 36.3 Plt Count 93 L INR Sodium 143 Potassium 4.0 Chloride 102 Carbon Dioxide 33 H BUN 13 Creatinine 0.79 Glucose 180 H Calcium 9.9 Troponin I 0.21 H* B-Natriuretic Peptide 187 H 10/18/18 10/18/18 12:08 12:08 WBC 5.1 Hgb 11.0 L Hct 34.4 L Plt Count 87 L INR 1.1 Sodium Potassium Chloride Carbon Dioxide BUN Creatinine Glucose Calcium Troponin I B-Natriuretic Peptide - Imaging and Cardiology Echo: report reviewed - EKG Interpretation EKG results cardiology: personally reviewed Consult Discharge Plan - Plan Referrals: Pam Duenas, [employer] COUNTER CLERK [Primary Care Provider] - <Shreyas Mann - Last Filed: 10/18/18 17:49> Date of Encounter: 10/18/18 - Attending Attestation Patient was seen and evaluated independently by me. Findings, assessment and plan were discussed at length with patient, questions answered. Agree with nurse practitioner's/resident's documentation. Addition as follows, 68 yoCF ho CABG last [facility] for NSTEMI: VEGA-LAD patent with L-L collaterals to LCx, mild RCA stenosis, HFpEF, DM2, HTN, lymphoma. P/w worsening exertional angina 2 wks. ECG SR, PVCs, NS TWI. Trop to 0.2. No LARISSA VSS, CTA, RR, no LE edema. A: NSTEMI type II vs I, accelerating angina, need anti-anginal optimization CAD s/p CABG HFpEF DM2 P: limited Echo trending trop till flat not on ranexa at home, add ranexa, c/w imdur, toprol c/w DAPT, statin if EF nl w/o RWMA with mild trop, no LHC Shreyas Mann MD, PhD Assessment and Plan Discussion w patient/family: The assessment and plan as outlined above was discussed with the patient and/or family members who expressed understanding and agreement. All questions were answered. Thank you for involving us in the care of your patient. Please call with any questions. History of Present Illness History of present illness: Ms. Noyola is a 68 year old female All Systems Review: The remainder of the systems were reviewed and are negative Physical Examination Vital Signs, Last 4 Hours Temp Pulse Resp BP Pulse Ox 10/18/18 14:06 98.4 F 85 16 130/60 95 Results 10/18/18 12:08 10/18/18 10:37 Lab Results 10/18/18 10/18/18 10/18/18 10:37 10:37 10:37 WBC 5.2 Hgb 11.5 Hct 36.3 Plt Count 93 L INR Sodium 143 Potassium 4.0 Chloride 102 Carbon Dioxide 33 H BUN 13 Creatinine 0.79 Glucose 180 H Calcium 9.9 Troponin I 0.21 H* B-Natriuretic Peptide 187 H 10/18/18 10/18/18 12:08 12:08 WBC 5.1 Hgb 11.0 L Hct 34.4 L Plt Count 87 L INR 1.1 Sodium Potassium Chloride Carbon Dioxide BUN Creatinine Glucose Calcium Troponin I B-Natriuretic Peptide
[2018-10-18] MEDS ORDERED: Perflutren Lipid Microsphere 1.3 ML in 0.9 % Sodium Chloride 8.7 ML IVP ONE (15:11)
[2018-10-18] MEDS: Metoprolol XL (24 HR) Succ 50 MG TAB.ER.24H PO SCH (17:09)
[2018-10-18] MEDS: Ranolazine 500 MG TAB.ER.12H PO SCH ×2 (17:10→20:14)
[2018-10-18] MEDS: Insulin LISPRO 300 UNITS/3 ML VIAL SQ SCH ×2 (17:10→20:14)
[2018-10-18] MEDS: Insulin DETEMIR 100 UNIT/ML X5UNITS SQ SCH (20:14)
--- NOTE | 2018-10-18 20:54 | Electrocardiograph Report ---
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
[2018-10-19 01:58] LABS: Basophils % 0.4 %; Red Blood Count 3.78 M/mcL (3.82-4.97)
[2018-10-19 01:59] LABS: Eosinophils # 0.1 K/mcL (0.0-0.6); Eosinophils % 1.9 %; Hematocrit 36.3 % (35.3-44.9); Hemoglobin 11.8 g/dL (11.5-15.4); Immature Granulocytes % 0.2 % (0-4); Immature Platelets 5.7 % (1.1-6.1); Lymphocytes # 0.8 K/mcL (0.6-4.6); Lymphocytes % 16.9 %; Mean Corpuscular HGB Conc 32.5 g/dL (31.6-35.5); Mean Corpuscular Hemoglobin 31.2 pg (28.0-33.3); Mean Platelet Volume 10.3 fL (9.4-12.4); Monocytes # 0.5 K/mcL (0.0-1.3); Monocytes % 10.7 %; Neutrophils # 3.3 K/mcL (1.6-8.9); Red Cell Distribution Width 14.5 % (11.5-14.5); Segmented Neutrophils % 69.9 %
[2018-10-19 02:11] LABS: Platelet Count 94 K/mcL (140-400)
[2018-10-19 02:28] LABS: BUN/Creatinine Ratio 18 (6-26); Blood Urea Nitrogen 19 mg/dL (8-23); Calcium 9.8 mg/dL (8.6-10.3); Carbon Dioxide 36 mEq/L (23-29); Chloride 96 mEq/L (98-107); Chol/HDL Ratio 3.3 (0-4.9); Cholesterol 98 mg/dL (< 200); Glucose 155 mg/dL (70-105); HDL Cholesterol 30 mg/dL (40-59); LDL Cholesterol,Calculated 40 mg/dL (0-99); Magnesium 1.5 mg/dL (1.6-2.6); Osmolality,Calculated 295 (280-300); Phosphorous 4.8 mg/dL (2.7-4.5); Potassium 3.8 mEq/L (3.5-5.1); Sodium 140 mEq/L (136-145); Triglycerides 140 mg/dL (< 150); eGFR For Non-African Americans 51 (> 60)
[2018-10-19 03:03] LABS: Estimated Average Glucose 148 mg/dl; Hemoglobin A1C 6.8 %
[2018-10-19] MEDS: Cholecalciferol (D-3) 1,000 UNIT TABLET PO SCH (08:19)
[2018-10-19] MEDS: Insulin LISPRO 300 UNITS/3 ML VIAL SQ SCH ×4 (08:19→20:47)
[2018-10-19] MEDS: Isosorbide MONOnitrate (24 HR) 60 MG TAB.ER.24H PO SCH (08:19)
[2018-10-19] MEDS: Ranolazine 500 MG TAB.ER.12H PO SCH ×2 (08:20→20:47)
[2018-10-19] MEDS: Aspirin 81 MG TAB.CHEW PO SCH ×2 (08:20→08:23)
--- NOTE | 2018-10-19 10:22 | Cardiology Progress Note ---
Date of Encounter: 10/19/18 Time of Encounter: 10: Assessment and Plan (1) NSTEMI (non-ST elevated myocardial infarction) Current Visit: No Status: Acute Elevated troponin up to 1.2. Now trending down. Known severe small vessel CAD not amendable to PCI on [facility] 08/29/18 and 05/2018. Both [facility] completed for NSTEMI. Medical management recommended both times. [facility] 06/14- 1/2 patent bypass grafts. VEGA -LAD patent. Known occluded SVG-OM. Severe ISR of recently placed OM stent. R-L collaterals. Mild disease in RCA. Troponin up to 10 at that time. [facility] 08/29/18- Stable CAD. No intervention recommended. Troponin up to 0.21 at that time. Appears to have chronic troponin elevation. Continues to have recurrent symptoms despite medical management. Symptoms are concerning for angina. TTE ordered and pending. VQ scan was normal. We asked interventional cardiology to review cath films. Ranexa was started. Continue heparin gtt. More recommendations pending cath film review. (2) CAD (coronary artery disease) Current Visit: No Status: Chronic H/o prior CABG. Last [facility] 08/29/18 100% stenosis in the Mid LAD. VEGA-LAD patent. The lesion has collaterals which feed from left to left. 100% stenosis in the 1st Marginal (and second Marginal) - small vessels. The lesion has collaterals which feed from left to left. SVG- OM occluded. 20% stenosis in the Proximal RCA, 15% stenosis in the Right PDA. EF 65%. Last TTE 05/28/18-LVEF 60-65%. Normal LV chamber size and function. No obvious segmental wall motion abnormalities. Mild concentric left ventricular hypertrophy. Mild left ventricular diastolic dysfunction. Normal right ventricular structure and function. Moderate aortic stenosis. Mean gradient 21 mmHg. Mild pulmonary hypertension. Continue GDMT with asa, plavix, statin, bb. Continue imdur and add ranexa. Qualifiers: Coronary Disease-Associated Artery/Lesion type: bypass graft [place] vs. transplanted heart: [place] heart Associated angina: with unstable angina Qualified Code(s): I25.700 - Atherosclerosis of coronary artery bypass graft(s), unspecified, with unstable angina pectoris Discussion w patient/family: The assessment and plan as outlined above was discussed with the patient and/or family members who expressed understanding and agreement. All questions were answered. Thank you for involving us in the care of your patient. Please call with any questions. Subjective Principal diagnosis: NSTEMI Interval history: Ms. Noyola states that her chest pain has improved but she woke up feeling very unwell. C/o feeling hot and nauseated. She felt the same way the day before and that is what prompted her to come to the hospital. C/o feeling more SOB than usual. Objective Vital Signs, Last 4 Hours Temp Pulse Resp BP Pulse Ox 10/19/18 07:36 97.8 F 72 16 162/63 99 Results 10/19/18 01:50 10/19/18 01:50 Lab Results 10/18/18 10/18/18 10/18/18 10:37 10:37 10:37 WBC 5.2 Hgb 11.5 Hct 36.3 Plt Count 93 L INR Sodium 143 Potassium 4.0 Chloride 102 Carbon Dioxide 33 H BUN 13 Creatinine 0.79 Glucose 180 H Calcium 9.9 Magnesium Troponin I 0.21 H* B-Natriuretic Peptide 187 H 10/18/18 10/18/18 10/18/18 12:08 12:08 17:08 WBC 5.1 Hgb 11.0 L Hct 34.4 L Plt Count 87 L INR 1.1 Sodium Potassium Chloride Carbon Dioxide BUN Creatinine Glucose Calcium Magnesium Troponin I 1.20 H* B-Natriuretic Peptide 10/18/18 10/19/18 10/19/18 22:25 01:50 01:50 WBC 4.7 Hgb 11.8 Hct 36.3 Plt Count 94 L INR Sodium Potassium Chloride Carbon Dioxide BUN Creatinine Glucose Calcium Magnesium Troponin I 1.03 H* 1.11 H* B-Natriuretic Peptide 10/19/18 10/19/18 01:50 08:08 WBC Hgb Hct Plt Count INR Sodium 140 Potassium 3.8 Chloride 96 L Carbon Dioxide 36 H BUN 19 Creatinine 1.07 Glucose 155 H Calcium 9.8 Magnesium 1.5 L Troponin I 0.77 H* B-Natriuretic Peptide Consult Discharge Plan - Plan Referrals: Pam Duenas, SALES PROMOTION OFFICER [Primary Care Provider] -
--- NOTE | 2018-10-19 11:04 | Internal Med Progress Note ---
Hospitalist Progress Note - Encounter Date of Encounter: 10/19/18 Time of Encounter: 10:10 - Subjective Interval History: Patient is feeling better today. Chest pain has improved. Patient does report associated shortness of breath. Denies any palpitations. No nausea or vomiting. - Exam Vitals: Temp Pulse Resp BP Pulse Ox 98 F 74 16 109/48 97 10/19/18 10:55 10/19/18 10:55 10/19/18 10:55 10/19/18 10:55 10/19/18 10:55 Exam: General: Patient is alert, mild distress, oriented x 3 ENT: Mucous membranes moist Respiratory: Good respiratory effort. Normal breath sounds. No wheezing or crackles. Cardiovascular: Regular rate and rhythm. s1 and s2 normal No clicks, rubs, gallops, or murmurs. No pedal edema Abdomen: Abdomen is soft, nontender. Bowel sounds are present Musculoskeletal: Spontaneously moving all extremities , varicose veins noted in bilateral lower extremities but more prominent on the right Skin: warm, dry, intact. Neuro: Alert oriented x 3 normal cranial nerves, no focal deficits - Assessment and Plan (1) NSTEMI (non-ST elevated myocardial infarction) Current Visit: Yes Status: Acute Assessment and Plan: Troponins peaked at 1.2. On IV heparin. Cardiology following. continue aspirin, Plavix and statin. Patient did have left heart catheterization done last month which showed small vessel disease not amenable to stenting. Likely cause of her non-ST elevation [place]. Will follow cardiology recommendations further evaluation. (2) Congestive heart failure Current Visit: Yes Status: Chronic Assessment and Plan: Patient with history of chronic diastolic congestive heart failure. He does report shortness of breath with exertion. However no pedal edema. Chest x-ray did not show any signs of pulmonary edema. Patient does take oral Lasix and received 2 doses today. We will give a trial of 20 mg IV Lasix today and see if this improves her respiratory status. (3) Type II diabetes mellitus Current Visit: Yes Status: Chronic Assessment and Plan: Blood sugars remain slightly elevated. Will add long-acting insulin in the mor josé miguel. (4) Thrombocytopenia Current Visit: Yes Status: Chronic Assessment and Plan: Platelets 94. Patient is receiving IV heparin. Will monitor platelet counts closely (5) MONICA on CPAP Current Visit: Yes Status: Acute Assessment and Plan: Continue CPAP use (6) DVT prophylaxis Current Visit: Yes Status: Acute (7) Dyspnea Current Visit: Yes Status: Acute Assessment and Plan: Patient reports increased dyspnea today. No pedal edema. VQ scan shows low probability of PE. Patient is on IV heparin anyway. Most likely related to non-ST elevation [place]. Will give a small dose of IV Lasix today if blood pressure tolerates. (8) Hypothyroidism (acquired) Current Visit: Yes Status: Chronic Assessment and Plan: Continue levothyroxin (9) DLBCL (diffuse large B cell lymphoma) Current Visit: Yes Status: Chronic Assessment and Plan: Patient willing to follow up with oncology as outpatient. - Time Spent with Patient Total time spent is greater than 50% in coordination of care (as documented) at patient's floor/unit and/or counseling patient: Internal Medicine: Result - Labs CBC & Chem 7: 10/19/18 01:50 10/19/18 01:50 Labs: Short CBC 10/18/18 10/18/18 10/19/18 Range/Units 10:37 12:08 01:50 WBC 5.2 5.1 4.7 (4.3-11.1) K/mcL Hgb 11.5 11.0 L 11.8 (11.5-15.4) g/dL Hct 36.3 34.4 L 36.3 (35.3-44.9) % Plt Count 93 L 87 L 94 L (140-400) K/mcL Neutrophils # 4.2 3.3 (1.6-8.9) K/mcL BMP 10/18/18 10/19/18 10:37 01:50 Sodium 143 140 Potassium 4.0 3.8 Chloride 102 96 L Carbon Dioxide 33 H 36 H BUN 13 19 Creatinine 0.79 1.07 Glucose 180 H 155 H Calcium 9.9 9.8 Cardiac Enzymes 10/18/18 10/18/18 10/18/18 Range/Units 10:37 17:08 22:25 Troponin I 0.21 H* 1.20 H* 1.03 H* (< 0.04) ng/mL 10/19/18 10/19/18 Range/Units 01:50 08:08 Troponin I 1.11 H* 0.77 H* (< 0.04) ng/mL Urine 10/18/18 Range/Units 10:46 Urine Color Yellow (Yellow) Urine Clarity Clear (Clear) Urine pH 6.5 (5.0-8.0) pH Units Ur Specific [place] 1.014 (1.010-1.025) Urine Protein Negative (Neg-Trace) mg/dL Urine Glucose (UA) Normal (Normal) mg/dL - ABG Interpretation ABG results: PT/INR, D-dimer PT 12.2 Seconds (9.4-12.1) H 10/18/18 12:08 - Impressions Impressions Chest X-Ray 10/18/18 10:06 IMPRESSION: No acute process. Stable elevation of the right hemidiaphragm D/ / Laz Meyers MD / Laz Meyers MD Interpreting Provider: Laz Meyers MD Pulmonary Perfusion Imaging 10/18/18 12:59 IMPRESSION: Low probability for pulmonary embolus. D/ / Haider Flores MD / Haider Flores MD Interpreting Provider: Haider Flores MD Consult Discharge Plan - Plan Referrals: Pam Duenas, SPOT FACER [Primary Care Provider] - (2) Congestive heart failure Qualifiers: Heart failure type: diastolic Heart failure chronicity: chronic Qualified Code(s): I50.32 - Chronic diastolic (congestive) heart failure (3) Type II diabetes mellitus Qualifiers: Diabetes mellitus bathroom tiling professional insulin use: with bathroom tiling professional use Diabetes mellitus complication status: with circulatory complication Diabetes mellitus complication detail: with other circulatory complications Qualified Code(s): E11.59 - Type 2 diabetes mellitus with other circulatory complications; Z79.4 - bus steward (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
[2018-10-19] MEDS: Heparin 25,000 UNIT/500 ML D5W 25,000 UNIT/500 ML BAG IVC SCH (11:41)
[2018-10-19] MEDS: Insulin DETEMIR 100 UNIT/ML X5UNITS SQ SCH ×2 (12:04→20:47)
[2018-10-19] MEDS: Metoprolol XL (24 HR) Succ 50 MG TAB.ER.24H PO SCH (17:37)
[2018-10-20] MEDS: Isosorbide MONOnitrate (24 HR) 60 MG TAB.ER.24H PO SCH (07:39)
[2018-10-20] MEDS: Insulin LISPRO 300 UNITS/3 ML VIAL SQ SCH ×2 (07:39→12:01)
[2018-10-20] MEDS: Cholecalciferol (D-3) 1,000 UNIT TABLET PO SCH (07:39)
[2018-10-20] MEDS: Ranolazine 500 MG TAB.ER.12H PO SCH (07:39)
[2018-10-20] MEDS: Aspirin 81 MG TAB.CHEW PO SCH (07:39)
[2018-10-20] MEDS: Insulin DETEMIR 100 UNIT/ML X5UNITS SQ SCH (07:40)
[2018-10-20] MEDS: Heparin 25,000 UNIT/500 ML D5W 25,000 UNIT/500 ML BAG IVC SCH (08:47)
--- NOTE | 2018-10-20 10:16 | Discharge Summary ---
- NOTES TO OUTPATIENT PROVIDER Notes to Outpatient Provider: Patient with history of coronary artery disease status post CABG, diastolic heart failure with preserved ejection fraction, hypertension, diabetes was hospitalized here with complaints of chest pressure and shortness of breath. She was diagnosed with possible non-ST elevation NC as her troponins bumped up to a peak of 1.2. She was placed on IV heparin drip and cardiology was consulted. Cardiology evaluated the patient and her prior films from her most recent left heart catheterization done last month. Patient does have a known severe small vessel coronary artery disease not amenable to PCI. This is likely cause of her chest pain. At this time cardiology recommends continued outpatient management with aspirin, Plavix. They recommended starting patient on Ranexa but patient has a very high co-pay for it. As such they have place her on Cardizem instead. Patient will be discharged later today once she completes IV heparin therapy for 48 hours. Currently she is chest pain-free and feels close to her baseline. She will follow up with cardiology as outpatient for further management. Orders not resulted at time of discharge: Pending orders 10/18/18 16:00 EKG [ECG 12 lead ECG] [ECG] Q6H 10/18/18 22:00 EKG [ECG 12 lead ECG] [ECG] Q6H 10/20/18 14:00 Heparin anti-factor XA UFH [COAG] Timed Date of Encounter: 10/20/18 Time of Encounter: 10:13 - Discharge Diagnosis (1) NSTEMI (non-ST elevated myocardial infarction) Priority: Primary Status: Acute (2) Congestive heart failure Priority: Secondary Status: Chronic Qualifiers: Heart failure type: diastolic Heart failure chronicity: chronic Qualified Code(s): I50.32 - Chronic diastolic (congestive) heart failure (3) Type II diabetes mellitus Priority: Secondary Status: Chronic Qualifiers: Diabetes mellitus watermelon inspector insulin use: with watermelon inspector use Diabetes mellitus complication status: with circulatory complication Diabetes mellitus complication detail: with other circulatory complications Qualified Code(s): E11.59 - Type 2 diabetes mellitus with other circulatory complications; Z79.4 - detention (current) use of insulin (4) Thrombocytopenia Priority: Secondary Status: Chronic (5) MONICA on CPAP Priority: Secondary Status: Acute (6) DVT prophylaxis Priority: Secondary Status: Acute (7) Dyspnea Priority: Secondary Status: Acute Qualifiers: Dyspnea type: dyspnea on exertion Qualified Code(s): R06.09 - Other forms of dyspnea (8) Hypothyroidism (acquired) Priority: Secondary Status: Chronic (9) DLBCL (diffuse large B cell lymphoma) Priority: Secondary Status: Chronic Qualifiers: Lymphoma site: unspecified region Qualified Code(s): C83.30 - Diffuse large B-cell lymphoma, unspecified site (10) Chronic respiratory failure Priority: Secondary Status: Chronic Qualifiers: Respiratory failure complication: hypoxia Qualified Code(s): J96.11 - Chronic respiratory failure with hypoxia Hospital course: Ms. Noyola is a 68 year old female Patient with history of coronary artery disease status post CABG, diastolic heart failure with preserved ejection fraction, hypertension, diabetes was hospitalized here with complaints of chest pressure and shortness of breath. She was diagnosed with possible non-ST elevation NC as her troponins bumped up to a peak of 1.2. She was placed on IV heparin drip and cardiology was consulted. Cardiology evaluated the patient and her prior films from her most recent left heart catheterization done last month. Patient does have a known severe small vessel coronary artery disease not amenable to PCI. This is likely cause of her chest pain. At this time cardiology recommends continued outpatient management with aspirin, Plavix. They recommended starting patient on Ranexa but patient has a very high co-pay for it. As such they have place her on Cardizem instead. Patient will be discharged later today once she completes IV heparin therapy for 48 hours. Currently she is chest pain-free and feels close to her baseline. She will follow up with cardiology as outpatient for further management. Discharge discussed with: patient, nurse - Time Spent with Patient Total time spent providing and/or coordinating discharge services: Greater than 30 minutes (32 min) - Discharge Medications Prescriptions: New Ranolazine [Ranexa] 500 mg PO BID #60 tab.er.12h Diltiazem [Cardizem] 30 mg PO Q8HR #180 tablet Continue Melatonin 3 mg PO HS PRN PRN Reason: Sleep Levothyroxine [Synthroid] 75 mcg PO QAM Metoprolol XL (24 HR) Succ [Toprol Xl] 75 mg PO QPM Oxygen 2 l .ROUTE AD Furosemide [Lasix] 60 mg PO Q48H Potassium Chloride 20 meq PO DAILY Nitroglycerin [Nitrostat] 0.4 mg SL AD PRN PRN Reason: Chest Pain Liraglutide [Victoza 2-Rob] 1.2 mg SQ DAILY Insulin Regular, Human [Novolin R] 50 unit SQ BID Insulin NPH Human Isophane [Novolin N] 50 unit SQ BID glyBURIDE [GlyBURIDE] 5 mg PO DAILY Aspirin 81 mg PO DAILY tab.chew Cholecalciferol (D-3) [Vitamin D] 2,000 unit PO DAILY metOLazone [Zaroxolyn] 5 mg PO Q48H Atorvastatin [Lipitor] 80 mg PO HS #30 tablet Isosorbide MONOnitrate (24 HR) [Imdur] 180 mg PO DAILY #30 tab.er.24h Clopidogrel [Plavix] 75 mg PO DAILY Home Medications: Levothyroxine [Synthroid] 75 mcg PO QAM 12/28/15 [History] Melatonin 3 mg PO HS PRN 12/28/15 [History] Metoprolol XL (24 HR) Succ [Toprol Xl] 75 mg PO QPM 01/08/16 [History] Furosemide [Lasix] 60 mg PO Q48H 03/18/17 [History] Nitroglycerin [Nitrostat] 0.4 mg SL AD PRN 03/18/17 [History] Oxygen 2 l .ROUTE AD 03/18/17 [History] Potassium Chloride 20 meq PO DAILY 03/18/17 [History] Liraglutide [Victoza 2-Rob] 1.2 mg SQ DAILY 08/18/17 [History] Insulin NPH Human Isophane [Novolin N] 50 unit SQ BID 05/28/18 [History] Insulin Regular, Human [Novolin R] 50 unit SQ BID 05/28/18 [History] glyBURIDE [GlyBURIDE] 5 mg PO DAILY 05/28/18 [History] Aspirin 81 mg PO DAILY tab.chew 05/29/18 [Rx] Cholecalciferol (D-3) [Vitamin D] 2,000 unit PO DAILY 08/28/18 [History] metOLazone [Zaroxolyn] 5 mg PO Q48H 08/28/18 [History] Atorvastatin [Lipitor] 80 mg PO HS #30 tablet 08/31/18 [Rx] Isosorbide MONOnitrate (24 HR) [Imdur] 180 mg PO DAILY #30 tab.er.24h 08/31/18 [Rx] Clopidogrel [Plavix] 75 mg PO DAILY 10/18/18 [History] Ranolazine [Ranexa] 500 mg PO BID #60 tab.er.12h 10/19/18 [Rx] Diltiazem [Cardizem] 30 mg PO Q8HR #180 tablet 10/20/18 [Rx] Allergies/Adverse Reactions: Allergy/AdvReac Type Severity Reaction Status Date / Time nitrofurantoin Allergy Rash Verified 08/28/18 11:26 [From Macrobid] octreotide Allergy Rash Verified 08/28/18 11:26 Penicillins Allergy Rash Verified 08/28/18 11:26 vancomycin Allergy Rash Verified 08/28/18 11:26 Date of admission: 10/19/18 15:36 Primary care physician: Pam Duenas CNP Consults: 10/18/18 12:57 Consult to Cardiology [CONS] Routine Comment: Consulting Provider: Cardiology Jena Reason for Consult: chest pain, NSTEMI Call Completed: No Discharging clinician: Sherry Prasad Anticipated date of discharge: 10/20/18 - Constitutional Vitals: Temp Pulse Resp BP Pulse Ox 97.8 F 65 20 136/53 98 10/20/18 06:53 10/20/18 06:53 10/20/18 04:00 10/20/18 06:53 10/20/18 04:00 General appearance: Present: cooperative, A&O X 3, pleasant, no acute distress, answers questions appropriately Exam: . - Respiratory Respiratory exam: Present: CTAB. Absent: accessory muscle use, rales, rhonchi, wheezes - Cardiovascular Cardiovascular exam: Present: RRR, +S1, +S2. Absent: diastolic murmur, gallop, rubs, systolic murmur - GI/Abdominal GI/Abdominal exam: Present: normal bowel sounds, soft, no peritoneal signs. Absent: distended, tenderness - Patient Status Disposition: Home, Self-Care Condition: Good Functional capacity at discharge: independent ambulation Overall status at discharge: patient is progressing back to baseline - Discharge Instructions Follow Up With: Pam Duenas CNP [Primary Care Provider] - (In 1 week) Otilio Tomlin CNP [Advanced Practice Nurse] - (In 1-2 weeks) - Diet and Activity Activity: as per physical therapy, wear oxygen at all times Diet: diabetic diet, low fat, low cholesterol, low salt diet, other (Fluid restriction to 1.5 L per day)
[2018-10-20 11:21] VITALS: BP 121/41
[2018-10-20] MEDS: Furosemide 20 MG TABLET PO SCH (13:11)
--- NOTE | 2018-10-20 20:31 | Electrocardiograph Report ---
[place] [id number] Test Date: 2018-10-18 Pat Name: Ai Noyola Department: 111 Room: 2NE30 Gender: F Assemblies And Installations Inspector: EDISON : 1950 Requested By: Beatriz Ortez Order Number: [id number] Reading MD: Shreyas Mnan Measurements Intervals Ferdinand Rate: 85 P: 53 WV: 213 QRS: -26 QRSD: 111 T: 149 QT: 389 QTc: 432 Interpretive Statements SINUS RHYTHM WITH FIRST DEGREE AV BLOCK LEFT VENTRICULAR HYPERTROPHY AND ST-T CHANGE Electronically Signed On 10-20-2018 20:29:30 EST by Shreyas Mann
== END 2018-10-20 13:45 | disposition home or self-care (01) | DRG 281 ==
LOC: 2NENU 09:36 → EMEROOARM 09:36 → 2NENU 13:05
PROVIDERS: ADMIT Internal Medicine; ATTEND Internal Medicine

== ENCOUNTER 2019-03-30 13:40 | Observation (INO) ==
[2019-03-30] MEDS ORDERED: Naloxone 0.4 MG/ML INJ IVP PRN (16:53)
[2019-03-30] MEDS ORDERED: *HR* Heparin 5,000 UNIT/ML VIAL IVP PRN ×2 (16:54)
[2019-03-30] MEDS ORDERED: Heparin 25,000 UNIT/250 ML D5W 25,000 UNIT/250 ML IV.SOLN IVC SCH (17:00)
[2019-03-30] MEDS ORDERED: Dextrose Gel 15 GM/37.5 ML TUBE PO PRN ×2 (17:38)
[2019-03-30] MEDS ORDERED: D5% in Water 1,000 ML IVC PRN (17:38)
[2019-03-30] MEDS ORDERED: *HR* Dextrose 50 % in Water (Syg) 50 ML SYRINGE IVP PRN (17:38)
--- NOTE | 2019-03-30 17:44 | Internal Med History&Physical ---
Date of Encounter: 03/30/19 Time of Encounter: 17:15 Internal Medicine - H&P: HPI Chief complaint: Shortness of breath, chest pain Admitted From: Hospital to Hospital Transfer Plans for Post Hospital Care: Home History of present illness: Ms. Noyola is a 68 year old female patient with history of coronary artery disease status post CABG, varicose veins, diabetes, hypertension who presented to the ER with complaints of shortness of breath that has been ongoing for the past week. She also reported increasing chest pain in her upper chest that comes on with exertion and relieved with rest. This chest pain has been pretty chronic for her but recently especially over the past week it has become more prominent. She denies any cough. No fevers or chills. She has not noticed any increased lower extremity swelling. No orthopnea or PND. Patient does have chronic respiratory failure and is on home oxygen. She was admitted here in September for similar complaints and at that time was diagnosed with non-ST eleva tion MN. 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 She was placed on Ranexa but it was too costly for her. As such she was discharged on Cardizem instead. According to her, she was switched from Cardizem to amlodipine recently. She has been compliant with her treatment regimen. Past Med Surg Social Fam HX - Past Medical History Attestation: Yes The following information was validated with the patient. Source: patient Medical history: arthritis, cancer (Diffuse large B-cell lymphoma), CHF, coronary artery disease, diabetes, hyperlipidemia, hypertension, myocardial infarction, pulmonary embolus, renal disease, thyroid disease, other Additional medical history: SLEEP APNEA Psychiatric history: no psych history - Past Surgical History Surgical History: cataract, coronary bypass (CABG), other Additional surgical history: STOMACH SURGERY - Social History Smoking Status: Never smoker Smokeless Tobacco Status: No Alcohol use: none Drug use: none - Family History Mother Living Status: Hx Family Cardiac Disorders: Yes Hx Family Respiratory Disorders: Yes Hx Family Cancer: No Hx Family GI Disorders: Yes Hx Family Endocrine Disorder: No Hx Family Neuromuscular Disorders: No Father Living Status: Hx Family Cardiac Disorders: No Hx Family Respiratory Disorders: No Hx Family Cancer: Yes Hx Family GI Disorders: No Hx Family Endocrine Disorder: No Hx Family Neuromuscular Disorders: No Hx Family Neurologic Disorders: No Hx Family HEENT Disorders: No Hx Family Autoimmune Disorders: No Internal Medicine - H&P: Meds Levothyroxine [Synthroid] 75 mcg PO QAM 12/28/15 [History] Melatonin 3 mg PO HS PRN 12/28/15 [History] Metoprolol XL (24 HR) Succ [Toprol Xl] 100 mg PO QPM 01/08/16 [History] Furosemide [Lasix] 60 mg PO Q48H 03/18/17 [History] Nitroglycerin [Nitrostat] 0.4 mg SL AD PRN 03/18/17 [History] Oxygen 2 l .ROUTE AD 03/18/17 [History] Potassium Chloride 20 meq PO DAILY 03/18/17 [History] Liraglutide [Victoza 2-Rob] 1.2 mg SQ DAILY 08/18/17 [History] Insulin NPH Human Isophane [Novolin N] 50 unit SQ BID 05/28/18 [History] Insulin Regular, Human [Novolin R] 50 unit SQ BID 05/28/18 [History] glyBURIDE [GlyBURIDE] 5 mg PO DAILY 05/28/18 [History] Aspirin 81 mg PO DAILY tab.chew 05/29/18 [Rx] Cholecalciferol (D-3) [Vitamin D] 2,000 unit PO DAILY 08/28/18 [History] metOLazone [Zaroxolyn] 5 mg PO Q48H 08/28/18 [History] Atorvastatin [Lipitor] 80 mg PO HS #30 tablet 08/31/18 [Rx] Clopidogrel [Plavix] 75 mg PO DAILY 10/18/18 [History] Diltiazem [Cardizem] 30 mg PO Q8HR #180 tablet 10/20/18 [Rx] Isosorbide MONOnitrate (24 HR) [Imdur] 240 mg PO DAILY 11/09/18 [History] Allergy/AdvReac Type Severity Reaction Status Date / Time nitrofurantoin Allergy Rash Verified 01/16/19 09:12 [From Macrobid] octreotide Allergy Rash Verified 01/16/19 09:12 Penicillins Allergy Rash Verified 01/16/19 09:12 vancomycin Allergy Rash Verified 01/16/19 09:12 All Systems PM: A 10-system review of systems was performed and is negative for pertinent find ings except as documented above in the HPI. - Constitutional Constitutional: malaise, no chills, no fever(s), no night sweats - EENT Eyes: no change in vision, no discharge, no pain, no photophobia Ears: no ear discharge, no ear pain, no tinnitus Nose, mouth and throat: no dysphagia, no nasal discharge, no neck pain, no sore throat - Cardiovascular Cardiovascular ROS IM: chest pain, no diaphoresis, no dyspnea, no lightheadedness, no palpitations, no syncope - Respiratory Respiratory: dyspnea, no cough, no wheezing, no excessive phlegm production - Gastrointestinal Gastrointestinal: no abdominal pain, no diarrhea, no hematemesis, no hematochezia, no melena, no nausea, no vomiting - Genitourinary Genitourinary: no change in urinary stream, no dysuria, no flank pain, no hematuria - Musculoskeletal Musculoskeletal ROS IM: no numbness, no tingling - Integumentary Integumentary IM: no rash, no unusual bruising - Neurological Neurological ROS: no confusion, no convulsions, no focal weakness, no numbness, no tingling, no tremor(s) - Hematologic/Lymphatic Hematologic/Lymphatic: no easy bruising - Constitutional Vitals: Temp Pulse Resp BP Pulse Ox 98.2 F 76 15 146/68 100 03/30/19 15:55 03/30/19 15:55 03/30/19 15:55 03/30/19 15:55 03/30/19 15:55 Exam: General: Patient is alert, mild distress, oriented x 3, morbidly obese Head: atraumatic, normocephalic, ENT: Mucous membranes moist Eye: normal appearance, PERRL, no scleral icterus, no conjunctival injection Neck: normal inspection, trachea midline, full ROM, no carotid bruits Chest: normal inspection, mild tenderness in the right-sided upper chest wall over the clavicle and first ribs ,symmetric chest rise Respiratory: Good respiratory effort. Normal breath sounds. No wheezing or crackles. Cardiovascular: Regular rate and rhythm. s1 and s2 normal No clicks, rubs, gallops, or murmurs. No pedal edema Abdomen: Abdomen is soft, nontender. Bowel sounds are present Musculoskeletal: Spontaneously moving all extremities , varicose veins lower extremities Skin: warm, dry, intact. Neuro: Alert oriented x 3 normal cranial nerves, no focal deficits Psych: Patient's affect is normal Internal Med - H&P Results - Labs CBC & Chem 7: 03/30/19 17:18 Labs: Troponin 0.17, sodium 145, BUN 22, creatinine 0.95 - EKG Data -: EKG Interpreted by Myself EKG shows normal: sinus rhythm - EKG Data When compared to previous EKG: there is no significant change EKG comments: 03/30/19 17:48 Sinus rhythm with PVCs and left axis deviation - Assessment and Plan (1) Chest pain Current Visit: Yes Status: Suspected Qualifiers: Chest pain type: chest pain due to myocardial ischemia Ischemic chest pain type: unstable angina pectoris Qualified Code(s): I20.0 - Unstable angina (2) Chronic respiratory failure Current Visit: Yes Status: Chronic Qualifiers: Respiratory failure complication: hypoxia Qualified Code(s): J96.11 - Chronic respiratory failure with hypoxia (3) CKD (chronic kidney disease) stage 3, GFR 30-59 ml/min Current Visit: Yes Status: Chronic (4) Congestive heart failure Current Visit: Yes Status: Chronic Qualifiers: Heart failure type: diastolic Heart failure chronicity: chronic Qualified Code(s): I50.32 - Chronic diastolic (congestive) heart failure (5) HTN (hypertension) Current Visit: Yes Status: Chronic Qualifiers: Hypertension type: essential hypertension Qualified Code(s): I10 - Essential (primary) hypertension (6) Type 2 diabetes mellitus Current Visit: Yes Status: Chronic Qualifiers: Diabetes mellitus penitentiary insulin use: with penitentiary use Diabetes mellitus complication status: without complication Qualified Code(s): E11.9 - Type 2 diabetes mellitus without complications; Z79.4 - medical terminologist (current) use of insulin - Summary of Assessment and Plan Summary of Assessment and Plan: Chest pain: Concerning for unstable angina/non-ST elevation MN. Patient has known small vessel disease not amenable to PCI. Trend troponins. Consult cardiology. Limited echo. IV heparin. Telemetry. High risk for comp lications. Continue Plavix, aspirin , beta lizz and Imdur Diabetes mellitus type 2: Uncontrolled. Monitor blood sugars. Add long-acting insulin. Sliding scale insulin. Chronic diastolic congestive heart failure: Not in acute exacerbation. Apparently chest x-ray was done at [facility] but we do not have the results here. We will repeat chest x-ray tomorrow. She did receive 60 mg of IV Lasix in the ER. Will continue Lasix at home dose. Chronic kidney disease stage III: Monitor renal function. Currently renal function is normal. Essential hypertension: Continue home meds History of diffuse cell lymphoma and chronic thrombocytopenia: Platelet count 88 here. Will monitor closely especially as patient is receiving IV heparin. If troponins trending down, will stop IV heparin drip. DVT prophylaxis: Patient will be on IV heparin Resume home medications once med rec completed. - Time Spent With Patient Total time spent is greater than 50% in coordination of care (as documented) at patient's floor/unit and/or counseling patient:
[2019-03-30 17:46] LABS: Hemoglobin 11.9 g/dL (11.5-15.4)
[2019-03-30 17:48] LABS: Hematocrit 36.1 % (35.3-44.9); Immature Platelets 6.2 % (1.1-6.1); Mean Platelet Volume 11.2 fL (9.4-12.4); Red Blood Count 3.84 M/mcL (3.82-4.97); White Blood Count 4.8 K/mcL (4.3-11.1)
[2019-03-30 17:53] LABS: Heparin anti-factor XA UFH 0.51 IU/mL (0.30-0.70)
[2019-03-30 17:54] LABS: INR 1.1; Prothrombin Time 12.8 Seconds (9.4-12.1)
[2019-03-30] MEDS: Insulin LISPRO 300 UNITS/3 ML VIAL SQ SCH ×2 (18:48→22:03)
[2019-03-31 02:24] LABS: Immature Granulocytes % 0.2 % (0-4)
[2019-03-31 02:25] LABS: Basophils % 0.2 %; Eosinophils # 0.1 K/mcL (0.0-0.6); Eosinophils % 1.6 %; Hemoglobin 12.3 g/dL (11.5-15.4); Immature Platelets 6.8 % (1.1-6.1); Lymphocytes # 0.4 K/mcL (0.6-4.6); Lymphocytes % 9.5 %; Mean Corpuscular HGB Conc 31.5 g/dL (31.6-35.5); Mean Corpuscular Hemoglobin 30.1 pg (28.0-33.3); Mean Corpuscular Volume 95.6 fL (83.0-100.0); Monocytes # 0.4 K/mcL (0.0-1.3); Monocytes % 8.8 %; Neutrophils # 3.5 K/mcL (1.6-8.9); Red Blood Count 4.08 M/mcL (3.82-4.97); Red Cell Distribution Width 14.2 % (11.5-14.5); Segmented Neutrophils % 79.7 %; White Blood Count 4.4 K/mcL (4.3-11.1)
[2019-03-31 02:42] LABS: BUN/Creatinine Ratio 23 (6-26); Blood Urea Nitrogen 23 mg/dL (8-23); Calcium 9.5 mg/dL (8.6-10.3); Carbon Dioxide 37 mEq/L (23-29); Chloride 96 mEq/L (98-107); Chol/HDL Ratio 3.7 (0-4.9); Cholesterol 112 mg/dL (< 200); Glucose 216 mg/dL (70-105); HDL Cholesterol 30 mg/dL (40-59); LDL Cholesterol,Calculated 46 mg/dL (0-99); Osmolality,Calculated 302 (280-300); Potassium 3.4 mEq/L (3.5-5.1); Sodium 141 mEq/L (136-145); Triglycerides 179 mg/dL (< 150); eGFR For African Americans > 60 (> 60); eGFR For Non-African Americans 56 (> 60)
[2019-03-31 03:38] LABS: Platelet Count 95 K/mcL (140-400)
[2019-03-31] MEDS: Furosemide 20 MG TABLET PO SCH (08:32)
[2019-03-31] MEDS: Aspirin 81 MG TAB.CHEW PO SCH (08:32)
[2019-03-31] MEDS: Insulin LISPRO 300 UNITS/3 ML VIAL SQ SCH ×4 (08:32→20:19)
--- NOTE | 2019-03-31 10:11 | Cardiology Consult Note ---
Date of Encounter: 03/31/19 Time of Encounter: 10:05 Assessment and Plan (1) CAD in [place] artery Current Visit: Yes Status: Acute (2) Elevated troponin Current Visit: Yes Status: Acute Chronically elevated troponin. ECG unchanged from previous. Currently comfortable while at rest. Symptoms appear unchanged from previous. (3) Chronic stable angina Current Visit: Yes Status: Acute Ai is a pleasant 68-year-old with a history of CAD, prior CABG. Recent LHC performed August 2018. RCA demonstrated mild CAD. VEGA to LAD patent. Circumflex/OM occluded and SVG to OM occluded. Left to left collaterals were noted. Medical therapy was recommended. Today, patient reports her chest pain is chronic. It occurs typically with activity and improves within 1 minute of resting. Troponin has been chronically elevated since 2017. I suspect that she has chronic stable angina. We discussed the importance of medical therapy and ongoing risk factor modification. Recommend continue aspirin, atorvastatin, Plavix, beta lizz, and Imdur therapy. Start Ranexa 500 mg BID. Continue to monitor telemetry. Repeat limited TTE. Further recommendations to follow. (4) Heart failure with preserved ejection fraction, borderline, class III Current Visit: Yes Status: Acute Pulmonary vascular congestion described on chest x-ray. No lower extremity edema noted. CHF education provided. Resume oral home Lasix. If needed, cautious IV diuresis is okay. Monitor strict I's and O's, daily weights, serum creatinine. Discussion w patient/family: The assessment and plan as outlined above was discussed with the patient and/or family members who expressed understanding and agreement. All questions were answered. Thank you for involving us in the care of your patient. Please call with any questions. History of Present Illness Consult date: 03/31/19 Requesting physician: Sherry Prasad Consult reason: chest pain Chief complaint: chest pain History of present illness: Ms. Noyola is a 68 year old female with a significant history of CAD, prior CABG. LHC performed 08/2018, results as described below. OM1 occluded as well as SVG to OM, small vessel. Medical therapy was recommended. VEGA to LAD patent and minimal disease described in the RCA. She was transferred from an outside facility with complaints of chest discomfort. Mild troponin elevation noted, which appears to be chronic since 2017 upon reviewing records. Pulmonary vascular congestion described on chest x-ray. Today, patient reports chronic chest pain over the last 2 years. She describes as a substernal discomfort with occasional radiation. Typically resolves within a minute. Recent symptoms are unchanged compared to previous. She describes chronic dyspnea with activity. Wears supplemental oxygen, but states she has never been officially diagnosed with any primary pulmonary issues. Previous testing: TTE 09/2018: LVEF 55%. Mildly dilated LV. Normal RV size and function. Mild aortic regurgitation, moderate aortic stenosis. Mean gradient 20 mmHg. Peak velocity 3.0 m/s. No evidence of pulmonary hypertension. C 08/30/2018: Left main normal. LAD mid 100% stenosis, left to left collaterals. OM1 100% stenosis, small vessel, left to left collaterals. RCA proximal 20% stenosis. RPDA 15% stenosis. VEGA to mid LAD patent. Tortuous vessel. SVG to OM1 occluded. EF 65%. Medical therapy recommended. Past Med Surg Social Fam HX - Past Medical History Medical history: arthritis, cancer (Diffuse large B-cell lymphoma), CHF, coronary artery disease, diabetes, hyperlipidemia, hypertension, myocardial infarction, pulmonary embolus, renal disease, thyroid disease, other Additional medical history: SLEEP APNEA Psychiatric history: no psych history - Past Surgical History Surgical History: cataract, coronary bypass (CABG), other Additional surgical history: STOMACH SURGERY - Social History Smoking Status: Never smoker Smokeless Tobacco Status: No Alcohol use: none Drug use: none - Family History Mother Living Status: Hx Family Cardiac Disorders: Yes Hx Family Respiratory Disorders: Yes Hx Family Cancer: No Hx Family GI Disorders: Yes Hx Family Endocrine Disorder: No Hx Family Neuromuscular Disorders: No Father Living Status: Hx Family Cardiac Disorders: No Hx Family Respiratory Disorders: No Hx Family Cancer: Yes Hx Family GI Disorders: No Hx Family Endocrine Disorder: No Hx Family Neuromuscular Disorders: No Hx Family Neurologic Disorders: No Hx Family HEENT Disorders: No Hx Family Autoimmune Disorders: No Medications and Allergies Levothyroxine [Synthroid] 75 mcg PO QAM 12/28/15 [History] Melatonin 3 mg PO HS PRN 12/28/15 [History] Metoprolol XL (24 HR) Succ [Toprol Xl] 100 mg PO QPM 01/08/16 [History] Furosemide [Lasix] 60 mg PO DAILY 03/18/17 [History] Nitroglycerin [Nitrostat] 0.4 mg SL AD PRN 03/18/17 [History] Oxygen 2 l .ROUTE AD 03/18/17 [History] Potassium Chloride 20 meq PO BID 03/18/17 [History] Liraglutide [Victoza 2-Orb] 1.2 mg SQ DAILY 08/18/17 [History] Insulin NPH Human Isophane [Novolin N] 50 unit SQ BID 05/28/18 [History] Insulin Regular, Human [Novolin R] 50 unit SQ BID 05/28/18 [History] glyBURIDE [GlyBURIDE] 5 mg PO DAILY 05/28/18 [History] Aspirin 81 mg PO DAILY tab.chew 05/29/18 [Rx] Cholecalciferol (D-3) [Vitamin D] 2,000 unit PO DAILY 08/28/18 [History] metOLazone [Zaroxolyn] 5 mg PO DAILY 08/28/18 [History] Atorvastatin [Lipitor] 80 mg PO HS #30 tablet 08/31/18 [Rx] Clopidogrel [Plavix] 75 mg PO DAILY 10/18/18 [History] Diltiazem [Cardizem] 30 mg PO Q8HR #180 tablet 10/20/18 [Rx] Isosorbide MONOnitrate (24 HR) [Imdur] 240 mg PO DAILY 11/09/18 [History] Allergy/AdvReac Type Severity Reaction Status Date / Time nitrofurantoin Allergy Rash Verified 01/16/19 09:12 [From Macrobid] octreotide Allergy Rash Verified 01/16/19 09:12 Penicillins Allergy Rash Verified 01/16/19 09:12 vancomycin Allergy Rash Verified 01/16/19 09:12 All Systems Review: The remainder of the systems were reviewed and are negative - Cardiovascular Cardiovascular: as per HPI, chest pain with exertion, paroxysmal nocturnal dyspnea (Describes 2 episodes over the last 2 weeks.) - Respiratory Respiratory: dyspnea Physical Examination Vital Signs, Last 4 Hours Temp Pulse Resp BP Pulse Ox 03/31/19 08:37 100 03/31/19 07:48 98.5 F 85 16 127/73 100 General: Conversant, No Apparent Distress, Other (No conversational dyspnea. Appears comfortable.) HEENT: Atraumatic, Normocephaly, Mucus Membranes Moist Neck: No JVD, Normal carotid pulses Cardiac: Reg Rate and Rhythm, Normal S1 and S2, No Murmur Lungs: Normal Breath Sounds, Other (Shallow, poor effort.) Neuro: Alert and responsive, No focal deficits noted Abdomen: Soft, Non-Tender, Other (Morbidly obese.) Skin: No rashes noted on visualized skin Musculoskeletal: No Chest Wall Tenderness Extremities: No Clubbing, No Cyanosis, No Edema, Other (Varicosities noted.) Results 03/31/19 01:58 03/31/19 01:58 Lab Results 03/30/19 03/30/19 03/30/19 17:18 17:18 17:18 WBC 4.8 Hgb 11.9 Hct 36.1 Plt Count 88 L INR 1.1 Sodium Potassium Chloride Carbon Dioxide BUN Creatinine Glucose Calcium Troponin I 0.11 H* 03/30/19 03/31/19 03/31/19 22:52 01:58 01:58 WBC 4.4 Hgb 12.3 Hct 39.0 Plt Count 95 L INR Sodium 141 Potassium 3.4 L Chloride 96 L Carbon Dioxide 37 H BUN 23 Creatinine 0.98 Glucose 216 H Calcium 9.5 Troponin I 0.10 H* - Imaging and Cardiology Echo: report reviewed Cardiac cath: report reviewed - EKG Interpretation EKG results cardiology: personally reviewed (ECG from 03/30/[address]. [address] and T wave changes similar to previous.) Consult Discharge Plan - Plan Referrals: Pam Duenas, [employer]PER [Primary Care Provider] -
[2019-03-31] MEDS ORDERED: Perflutren Lipid Microsphere 1.3 ML in 0.9 % Sodium Chloride 8.7 ML IVP ONE (11:10)
[2019-03-31] MEDS: Ranolazine 500 MG TAB.ER.12H PO SCH ×2 (12:32→20:18)
[2019-03-31] MEDS: *HR* Heparin 5,000 UNIT/ML VIAL SQ SCH ×2 (12:32→20:19)
[2019-03-31] MEDS: Isosorbide MONOnitrate (24 HR) 30 MG TAB.ER.24H PO SCH (12:32)
--- NOTE | 2019-03-31 15:02 | Internal Med Progress Note ---
Hospitalist Progress Note - Encounter Date of Encounter: 03/31/19 Time of Encounter: 09:00 - Subjective Interval History: No major events overnight. Patient was seen this a.m. sHe denied fever, chills or night sweats. sHe has no nausea, vomiting or abdominal pain. Patient denied chest pain, shortness of breath or palpitation. - Exam Vitals: Temp Pulse Resp BP Pulse Ox 99.3 F 76 16 131/44 100 03/31/19 12:17 03/31/19 12:17 03/31/19 12:17 03/31/19 12:17 03/31/19 12:17 Exam: General: Patient is alert, oriented 3. Moderately obese. Head: Atraumatic, normal inspection, normocephalic. Eye: EOMI, PERRLA, no scleral icterus noted. ENT: Mucous membranes moist. No odontogenic infection noted. Neck: Normal inspection, no meningismus. Respiratory: No respiratory distress, rhonchi, or wheezes noted. Cardiovascular: Regular rate and regular rhythm, S1 and S2 audible. No murmurs, rubs, or gallops. GI: Soft, nondistended, normal bowel sounds. Extremities:No joint swelling, pedal edema, or tenderness noted. Neurological: Alert, oriented 3, no focal deficits. Psychiatric: normal affect, normal mood. Skin: Dry, intact, warm. Normal color. No rashes. - Assessment and Plan (1) Chronic respiratory failure Current Visit: Yes Status: Acute (2) CKD (chronic kidney disease) stage 3, GFR 30-59 ml/min Current Visit: Yes Status: Chronic (3) HTN (hypertension) Current Visit: Yes Status: Chronic (4) Chest pain Current Visit: Yes Status: Resolved (5) Type 2 diabetes mellitus Current Visit: Yes Status: Chronic (6) Congestive heart failure Current Visit: Yes Status: Chronic - Summary of Assessment and Plan Summary of Assessment and Plan: 68-year-old female with history of CAD status post CABG, HFpEF, insulin- dependent diabetes mellitus, lymphoma in remission, MONICA who came into the hospital with shortness of breath and chest pain mainly on exertion. Her symptoms were managed as following: NSTEMI: - Patient has known small vessel disease not amenable to PCI as per [facility] done on 08/2018. troponins peaked to 0.10. Consult cardiology. -Limited echo with preserved EF 55%. IV heparin DC by cardiology -Continue Plavix, aspirin , beta lizz and Imdur -Start Ranexa 500mg BID as per cardio Chest pain: - Seconded to above, likely chronic stable angina. - D-dimer is negative. Diabetes mellitus type 2: - Uncontrolled. Monitor blood sugars. Add Levemir 30 units. Sliding scale insulin. Continue BgM check TIDACHS Chronic diastolic HFpEF: -Not in acute exacerbation clinically. She is on home dose requirement of O2. -chest x-ray revealed stable cardiomegaly with pulmonary vascular congestion, continue home dose lasix. Chronic kidney disease stage III: Monitor renal function. Currently renal function is normal. Hypokalemia: Continue oral supplements. Essential hypertension: Continue home meds History of diffuse cell lymphoma, not on active chemotherapy. DVT prophylaxis: Subcutaneous heparin - Time Spent with Patient Total time spent is greater than 50% in coordination of care (as documented) at patient's floor/unit and/or counseling patient: Plan of Care Discussed with: patient Internal Medicine: Result - Labs CBC & Chem 7: 03/31/19 01:58 03/31/19 01:58 Labs: Short CBC 03/30/19 03/31/19 Range/Units 17:18 01:58 WBC 4.8 4.4 (4.3-11.1) K/mcL Hgb 11.9 12.3 (11.5-15.4) g/dL Hct 36.1 39.0 (35.3-44.9) % Plt Count 88 L 95 L (140-400) K/mcL Neutrophils # 3.5 (1.6-8.9) K/mcL BMP 03/31/19 01:58 Sodium 141 Potassium 3.4 L Chloride 96 L Carbon Dioxide 37 H BUN 23 Creatinine 0.98 Glucose 216 H Calcium 9.5 Cardiac Enzymes 03/30/19 03/30/19 Range/Units 17:18 22:52 Troponin I 0.11 H* 0.10 H* (< 0.04) ng/mL - ABG Interpretation ABG results: PT/INR, D-dimer PT 12.8 Seconds (9.4-12.1) H 03/30/19 17:18 D-Dimer 321 ng/mLFEU (0-500) 03/31/19 13:31 - Impressions Impressions Echocardiogram Limited Views 03/30/19 17:36 Impressions: LVEF 55%. Mildly dilated left ventricle. Atypical septal motion consistent with post-operative status. Findings: Study Quality * Technically adequate exam. ECG Findings * Normal sinus rhythm. Left Ventricle * LVEF 55%. * Mildly dilated left ventricle. * Atypical septal motion consistent with post-operative status. Chest X-Ray 03/31/19 07:00 IMPRESSION: Stable cardiomegaly with pulmonary vascular congestion. D/ / Melba Lim MD / Melba Lim MD Interpreting Provider: Melba Lim MD Consult Discharge Plan - Plan Referrals: Pam Duenas CNP [Primary Care Provider] - (1) Chronic respiratory failure Qualifiers: Respiratory failure complication: hypoxia Qualified Code(s): J96.11 - Chronic respiratory failure with hypoxia (3) HTN (hypertension) Qualifiers: Hypertension type: essential hypertension Qualified Code(s): I10 - Essential (primary) hypertension (4) Chest pain Qualifiers: Chest pain type: chest pain due to myocardial ischemia Ischemic chest pain type: unstable angina pectoris Qualified Code(s): I20.0 - Unstable angina (5) Type 2 diabetes mellitus Qualifiers: Diabetes mellitus longterm insulin use: with longterm use Diabetes mellitus complication status: without complication Qualified Code(s): E11.9 - Type 2 diabetes mellitus without complications; Z79.4 - MCC (current) use of insulin (6) Congestive heart failure Qualifiers: Heart failure type: diastolic Heart failure chronicity: chronic Qualified Code(s): I50.32 - Chronic diastolic (congestive) heart failure
[2019-03-31] MEDS ORDERED: Metoprolol XL (24 HR) Succ 50 MG TAB.ER.24H PO SCH (18:00)
[2019-03-31] MEDS ORDERED: Insulin DETEMIR 100 UNIT/ML X5UNITS SQ SCH (21:00)
[2019-04-01] MEDS ORDERED: Insulin DETEMIR 100 UNIT/ML X5UNITS SQ ONE (01:41)
[2019-04-01] MEDS: *HR* Heparin 5,000 UNIT/ML VIAL SQ SCH ×2 (06:15→13:28)
[2019-04-01 06:49] LABS: BUN/Creatinine Ratio 28 (6-26); Blood Urea Nitrogen 25 mg/dL (8-23); Carbon Dioxide 31 mEq/L (23-29); Chloride 96 mEq/L (98-107); Glucose 329 mg/dL (70-105); Osmolality,Calculated 301 (280-300); Sodium 137 mEq/L (136-145); eGFR For African Americans > 60 (> 60); eGFR For Non-African Americans > 60 (> 60)
[2019-04-01] MEDS: Ranolazine 500 MG TAB.ER.12H PO SCH (09:17)
[2019-04-01] MEDS: Insulin LISPRO 300 UNITS/3 ML VIAL SQ SCH ×4 (09:18→12:26)
[2019-04-01] MEDS: Isosorbide MONOnitrate (24 HR) 30 MG TAB.ER.24H PO SCH (09:18)
[2019-04-01] MEDS: Aspirin 81 MG TAB.CHEW PO SCH (09:18)
--- NOTE | 2019-04-01 09:29 | Cardiology Progress Note ---
Date of Encounter: 04/01/19 Time of Encounter: 09:00 Assessment and Plan (1) Chronic stable angina Current Visit: Yes Status: Acute Ai is a pleasant 68-year-old with a history of CAD, prior CABG. Recent LHC performed August 2018. RCA demonstrated mild CAD. VEGA to LAD patent. Circumflex/OM occluded and SVG to OM occluded. Left to left collater als were noted. Medical therapy was recommended. Today, patient reports her chest pain is chronic. It occurs typically with activity and improves within 1 minute of resting. Troponin has been chronically elevated since 2017. Suspect that she has chronic stable angina. We discussed the importance of medical therapy and ongoing risk factor modification. Recommend continue aspirin, atorvastatin, Plavix, beta lizz, and Imdur therapy. Start Ranexa 500 mg BID--pt states today she is unable to afford. Will place social work consult to determine if assistance can be provided. TTE shows preserved LVEF 55%. No events on telemetry. Patient feels well today. No further inpt. recommendations, Cardiology will sign-off. Will coordinate outpatient follow-up. (2) CAD in [place] artery Current Visit: Yes Status: Acute (3) Elevated troponin Current Visit: Yes Status: Acute Chronically elevated troponin. ECG unchanged from previous. Currently comfortable while at rest. Symptoms appear unchanged from previous. (4) Heart failure with preserved ejection fraction, borderline, class III Current Visit: Yes Status: Acute Pulmonary vascular congestion described on chest x-ray. No lower extremity edema noted. CHF education provided. Resume oral home Lasix. If needed, cautious IV diuresis is okay. Monitor strict I's and O's, daily weights, serum creatinine. TTE demonstrated preserved LVEF, 55%. No further inpt recommendations, will sign-off. Discussion w patient/family: The assessment and plan as outlined above was discussed with the patient and/or family members who expressed understanding and agreement. All questions were answered. Thank you for involving us in the care of your patient. Please call with any questions. The patient will be discussed and reviewed with Dr. Mann; changes to be made accordingly. Subjective Principal diagnosis: Chest pain Interval history: Seen and examined. No complaints overnight. Reports has been walking in the hallway this morning with minimal symptoms. Unfortunately, she is unable to afford Ranexa. ($242/month, has been previously denied pt. assistance) Objective Vital Signs, Last 4 Hours Temp Pulse Resp BP Pulse Ox 04/01/19 07:41 98.6 F 70 16 162/73 100 General: Conversant, No Apparent Distress, Other (morbidly obese) HEENT: Atraumatic, Normocephaly, Mucus Membranes Moist Cardiac: Reg Rate and Rhythm, Normal S1 and S2 Lungs: Normal Breath Sounds Neuro: Alert and responsive Abdomen: Soft Skin: No rashes noted on visualized skin Musculoskeletal: No Chest Wall Tenderness Extremities: No Edema, Normal Pulses Results 03/31/19 01:58 04/01/19 06:06 Lab Results 03/31/19 04/01/19 13:31 06:06 D-Dimer 321 Sodium 137 Potassium 4.0 Chloride 96 L Carbon Dioxide 31 H BUN 25 H Creatinine 0.89 Glucose 329 H Calcium 9.0 Active Medications Aspirin (Aspirin) 81 mg PO DAILY [facility] Stop: 09/30/19 09:01 Last Admin: 04/01/19 09:18 Dose: 81 mg Documented by: Atorvastatin Calcium (Lipitor) 80 mg PO [facility] Stop: 09/29/19 21:01 Last Admin: 03/31/19 20:18 Dose: 80 mg Documented by: Clopidogrel Bisulfate (Plavix) 75 mg PO DAILY [facility] Stop: 09/30/19 09:01 Last Admin: 04/01/19 09:18 Dose: 75 mg Documented by: Dextrose/Water (Dextrose 50% (Syg)) 25 ml IVP AD PRN PRN Reason: Hypoglycemia Stop: 09/29/19 17:39 Furosemide (Lasix) 60 mg PO DAILY [facility] Stop: 09/30/19 09:01 Last Admin: 03/31/19 08:32 Dose: 60 mg Documented by: Glucagon (Glucagen) 1 mg IM ONCE PRN PRN Reason: Hypoglycemia Stop: 09/29/19 17:39 Glucose (Gluctose) 15 gm PO ONCE PRN PRN Reason: Hypoglycemia Stop: 09/29/19 17:39 Glucose (Gluctose) 30 gm PO ONCE PRN PRN Reason: Hypoglycemia Stop: 09/29/19 17:39 Heparin Sodium (Porcine) (Heparin) 5,000 unit SQ Q8HCO [facility]; Protocol Stop: 09/30/19 14:01 Last Admin: 04/01/19 06:15 Dose: 5,000 unit Documented by: Dextrose (Dextrose 5%) 1,000 mls @ 100 mls/hr IVC .Q10H PRN PRN Reason: HYPOGLYCEMIA Stop: 09/29/19 17:39 Insulin Detemir (Levemir) 30 unit SQ HS [facility] Stop: 09/30/19 21:01 Last Admin: 03/31/19 20:19 Dose: 30 unit Documented by: Insulin Human Lispro (Humalog) 0 units SQ HS [facility]; Protocol Stop: 09/29/19 21:01 Last Admin: 03/31/19 20:19 Dose: 8 units Documented by: Insulin Human Lispro (Humalog) 0 units SQ TIDAC [facility]; Protocol Stop: 09/29/19 17:39 Last Admin: 04/01/19 09:18 Dose: 12 unit Documented by: Insulin Human Lispro (Humalog) 6 units SQ TIDWM [facility] Stop: 10/01/19 08:01 Last Admin: 04/01/19 09:18 Dose: 6 units Documented by: Isosorbide Mononitrate (Imdur) 120 mg PO DAILY [facility] Stop: 09/30/19 10:46 Last Admin: 04/01/19 09:18 Dose: 120 mg Documented by: Levothyroxine Sodium (Synthroid) 75 mcg PO DAILY@0630 [facility] Stop: 09/30/19 06:31 Last Admin: 04/01/19 06:15 Dose: 75 mcg Documented by: Metoprolol Succinate (Toprol Xl) 100 mg PO QPM [facility] Stop: 09/30/19 18:01 Last Admin: 03/31/19 17:31 Dose: 100 mg Documented by: Naloxone HCl (Narcan) 0.4 mg IVP Q2MPRN PRN PRN Reason: SEE COMMENTS Stop: 09/29/19 16:54 Potassium Chloride (Potassium Chloride) 20 meq PO BID [facility] Stop: 09/30/19 09:01 Last Admin: 04/01/19 09:18 Dose: 20 meq Documented by: Ranolazine (Ranexa) 500 mg PO BID [facility] Stop: 09/30/19 10:46 Last Admin: 04/01/19 09:17 Dose: 500 mg Documented by: - Imaging and Cardiology Echo: report reviewed Other Results: 12 hour tele: avg HR=70 SR. Poor tracing noted. - EKG Interpretation EKG results cardiology: personally reviewed Consult Discharge Plan - Plan Referrals: Pma Duenas, MEETING FACILITATOR [Primary Care Provider] -
[2019-04-01 12:12] VITALS: BP 125/68
--- NOTE | 2019-04-01 13:11 | Discharge Summary ---
- NOTES TO OUTPATIENT PROVIDER Notes to Outpatient Provider: Patient was admitted with chest pain and shortness of breath. She was treated for NSTEMI. Cardiology evaluated the patient and they recommended medical management. Patient blood sugars were not controlled appropriately and she may need adjustment of her insulin as outpatient. Date of Encounter: 04/01/19 Time of Encounter: 10:00 - Discharge Diagnosis (1) Chronic respiratory failure Priority: Secondary Status: Resolved Qualifiers: Respiratory failure complication: hypoxia Qualified Code(s): J96.11 - Chronic respiratory failure with hypoxia (2) CKD (chronic kidney disease) stage 3, GFR 30-59 ml/min Priority: Secondary Status: Chronic (3) HTN (hypertension) Priority: Secondary Status: Chronic Qualifiers: Hypertension type: essential hypertension Qualified Code(s): I10 - Essential (primary) hypertension (4) Chest pain Priority: Primary Status: Resolved Qualifiers: Chest pain type: chest pain due to myocardial ischemia Ischemic chest pain type: unstable angina pectoris Qualified Code(s): I20.0 - Unstable angina (5) Type 2 diabetes mellitus Priority: Secondary Status: Chronic Qualifiers: Diabetes mellitus termination clerk insulin use: with termination clerk use Diabetes mellitus complication status: without complication Qualified Code(s): E11.9 - Type 2 diabetes mellitus without complications; Z79.4 - [facility] (current) use of insulin (6) Congestive heart failure Priority: Secondary Status: Resolved Qualifiers: Heart failure type: diastolic Heart failure chronicity: chronic Qualified Code(s): I50.32 - Chronic diastolic (congestive) heart failure Hospital course: 68-year-old female with history of CAD status post CABG, HFpEF, insulin- dependent diabetes mellitus, lymphoma in remission, MONICA who came into the hospital with shortness of breath and chest pain mainly on exertion. Her symptoms were managed as following: NSTEMI: -Patient has known small vessel disease not amenable to PCI as per LHC done on 08/2018. troponins peaked to 0.10. patient was placed on aspirin, Plavix and heparin drip. Cardiology consulted and limited echo revealed ejection fraction of 55%. Patient had LHC earlier this year WITH RCA demonstrated mild CAD. VEGA to LAD patent. Circumflex/OM occluded and SVG to OM occluded. Patient was advised to continue medical therapy and Ranexa was added to her medication however patient had an difficulty paying for it in the past due to cost. 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 Diabetes mellitus type 2: - Her blood sugars were slightly Uncontrolled. I recommended the patient to follow with her family doctor to adjust for her insulin doses. Today, patient is asymptomatic, hemodynamically stable. She will be discharged home in stable condition. Discharge discussed with: patient - Time Spent with Patient Total time spent providing and/or coordinating discharge services: 40 minutes - Discharge Medications Prescriptions: New Ranolazine [Ranexa] 500 mg PO BID #60 tab.er.12h Continued Melatonin 3 mg PO HS PRN PRN Reason: Sleep Levothyroxine [Synthroid] 75 mcg PO QAM Metoprolol XL (24 HR) Succ [Toprol Xl] 100 mg PO QPM Furosemide [Lasix] 60 mg PO DAILY Potassium Chloride 20 meq PO DAILY Nitroglycerin [Nitrostat] 0.4 mg SL AD PRN PRN Reason: Chest Pain Liraglutide [Victoza 2-Rob] 1.2 mg SQ DAILY Insulin Regular, Human [Novolin R] 50 unit SQ BID Insulin NPH Human Isophane [Novolin N] 50 unit SQ BID glyBURIDE [GlyBURIDE] 5 mg PO DAILY Aspirin 81 mg PO DAILY tab.chew Cholecalciferol (D-3) [Vitamin D] 2,000 unit PO DAILY metOLazone [Zaroxolyn] 5 mg PO DAILY Atorvastatin [Lipitor] 80 mg PO HS #30 tablet Clopidogrel [Plavix] 75 mg PO DAILY Isosorbide MONOnitrate [Isosorbide Mononitrate ER] 240 mg PO QAM Amlodipine Besylate 5 mg PO DAILY Home Medications: Levothyroxine [Synthroid] 75 mcg PO QAM 12/28/15 [History] Melatonin 3 mg PO HS PRN 12/28/15 [History] Metoprolol XL (24 HR) Succ [Toprol Xl] 100 mg PO QPM 01/08/16 [History] Furosemide [Lasix] 60 mg PO DAILY 03/18/17 [History] Nitroglycerin [Nitrostat] 0.4 mg SL AD PRN 03/18/17 [History] Potassium Chloride 20 meq PO DAILY 03/18/17 [History] Liraglutide [Victoza 2-Rob] 1.2 mg SQ DAILY 08/18/17 [History] Insulin NPH Human Isophane [Novolin N] 50 unit SQ BID 05/28/18 [History] Insulin Regular, Human [Novolin R] 50 unit SQ BID 05/28/18 [History] glyBURIDE [GlyBURIDE] 5 mg PO DAILY 05/28/18 [History] Aspirin 81 mg PO DAILY tab.chew 05/29/18 [Rx] Cholecalciferol (D-3) [Vitamin D] 2,000 unit PO DAILY 08/28/18 [History] metOLazone [Zaroxolyn] 5 mg PO DAILY 08/28/18 [History] Atorvastatin [Lipitor] 80 mg PO HS #30 tablet 08/31/18 [Rx] Clopidogrel [Plavix] 75 mg PO DAILY 10/18/18 [History] Amlodipine Besylate 5 mg PO DAILY 03/31/19 [History] Isosorbide MONOnitrate [Isosorbide Mononitrate ER] 240 mg PO QAM 03/31/19 [History] Ranolazine [Ranexa] 500 mg PO BID #60 tab.er.12h 04/01/19 [Rx] Allergies/Adverse Reactions: Allergy/AdvReac Type Severity Reaction Status Date / Time nitrofurantoin Allergy Rash Verified 01/16/19 09:12 [From Macrobid] octreotide Allergy Rash Verified 01/16/19 09:12 Penicillins Allergy Rash Verified 01/16/19 09:12 vancomycin Allergy Rash Verified 01/16/19 09:12 Date of admission: 03/30/19 15:17 Primary care physician: Pam Duenas CNP Consults: 03/30/19 16:54 Consult to Cardiology [CONS] Routine Comment: Consulting Provider: Cardiology Jena Reason for Consult: CHest pain/ Trop elevation. Known small vessel disease not amenable to PCI Time Notified: 16:54 Call Completed: No 04/01/19 09:38 Consult to Director Hematology [CONS] Routine Reason for SW Consult: cost assistance for Ranexa, if able. - Constitutional Vitals: Temp Pulse Resp BP Pulse Ox 97.8 F 73 18 125/68 99 04/01/19 12:09 04/01/19 12:09 04/01/19 12:09 04/01/19 12:09 04/01/19 12:09 Exam: General: Patient is alert, oriented 3. Moderately obese. Head: Atraumatic, normal inspection, normocephalic. Eye: EOMI, PERRLA, no scleral icterus noted. ENT: Mucous membranes moist. No odontogenic infection noted. Neck: Normal inspection, no meningismus. Respiratory: No respiratory distress, rhonchi, or wheezes noted. Cardiovascular: Regular rate and regular rhythm, S1 and S2 audible. No murmurs, rubs, or gallops. Diffuse lower extremity varicose veins with no pitting edema or swelling noted. GI: Soft, nondistended, normal bowel sounds. Extremities:No joint swelling, pedal edema, or tenderness noted. Neurological: Alert, oriented 3, no focal deficits. Psychiatric: normal affect, normal mood. Skin: Dry, intact, warm. Normal color. No rashes. - Patient Status Disposition: Home, Self-Care Condition: Good Functional capacity at discharge: independent ambulation Overall status at discharge: patient is back to baseline - Discharge Instructions Follow Up With: Pam Duenas DISPLAY DIRECTOR [Primary Care Provider] - - Diet and Activity Activity: resume usual activities as tolerated Diet: low salt diet
[2019-04-01] MEDS: Furosemide 20 MG TABLET PO SCH (15:37)
== END 2019-04-01 17:10 | disposition home or self-care (01) ==
LOC: 2ANU → SUATTDRO 15:17
PROVIDERS: ADMIT Student in an Organized Health Care Education/Training Program; ATTEND Internal Medicine

== ENCOUNTER 2019-07-20 14:00 | Inpatient (IN) ==
[2019-07-20] MEDS ORDERED: Ondansetron 4 MG/2 ML VIAL IVP PRN (17:34)
[2019-07-20] MEDS ORDERED: Naloxone 0.4 MG/ML INJ IVP PRN (17:34)
[2019-07-20] MEDS ORDERED: D5% in Water 1,000 ML IVC PRN (19:06)
[2019-07-20] MEDS ORDERED: *HR* Dextrose 50 % in Water (Syg) 50 ML SYRINGE IVP PRN (19:06)
[2019-07-20] MEDS ORDERED: Dextrose Gel 15 GM/37.5 ML TUBE PO PRN ×2 (19:06)
[2019-07-20] MEDS ORDERED: Nitroglycerin 0.4 MG TAB.SUBL SL PRN (19:07)
[2019-07-20 19:12] LABS: Basophils % 0.1 %; Hematocrit 36.5 % (35.3-44.9); Hemoglobin 12.1 g/dL (11.5-15.4); Immature Granulocytes % 0.4 % (0-4); Lymphocytes # 0.2 K/mcL (0.6-4.6); Lymphocytes % 2.7 %; Mean Corpuscular HGB Conc 33.2 g/dL (31.6-35.5); Mean Corpuscular Hemoglobin 30.8 pg (28.0-33.3); Mean Corpuscular Volume 92.9 fL (83.0-100.0); Monocytes # 0.1 K/mcL (0.0-1.3); Monocytes % 1.1 %; Neutrophils # 6.8 K/mcL (1.6-8.9); Platelet Count 107 K/mcL (140-400); Red Blood Count 3.93 M/mcL (3.82-4.97); Red Cell Distribution Width 14.8 % (11.5-14.5); Segmented Neutrophils % 95.7 %; White Blood Count 7.1 K/mcL (4.3-11.1)
[2019-07-20 19:39] LABS: Platelet Estimate Normal (Normal)
[2019-07-20 20:30] LABS: Calcium 9.7 mg/dL (8.6-10.3); Magnesium 1.8 mg/dL (1.6-2.6); Potassium 3.9 mEq/L (3.5-5.1)
[2019-07-20] MEDS ORDERED: Insulin DETEMIR 100 UNIT/ML X5UNITS SQ SCH (21:00)
[2019-07-20 21:28] LABS: Troponin I 0.09 ng/mL (< 0.04)
[2019-07-20] MEDS ORDERED: *HR* Heparin 5,000 UNIT/ML VIAL SQ SCH (22:00)
[2019-07-20] MEDS: Ranolazine 500 MG TAB.ER.12H PO SCH (22:45)
[2019-07-20] MEDS ORDERED: Insulin LISPRO 300 UNITS/3 ML VIAL SQ SCH (22:53)
[2019-07-21 01:28] LABS: Basophils % 0.1 %; Eosinophils % 0.5 %; Hematocrit 36.7 % (35.3-44.9); Hemoglobin 11.6 g/dL (11.5-15.4); Immature Granulocytes % 0.6 % (0-4); Lymphocytes # 0.2 K/mcL (0.6-4.6); Lymphocytes % 2.4 %; Mean Corpuscular HGB Conc 31.6 g/dL (31.6-35.5); Mean Corpuscular Hemoglobin 30.4 pg (28.0-33.3); Mean Corpuscular Volume 96.1 fL (83.0-100.0); Mean Platelet Volume 11.2 fL (9.4-12.4); Monocytes # 0.1 K/mcL (0.0-1.3); Monocytes % 1.7 %; Neutrophils # 7.8 K/mcL (1.6-8.9); Platelet Count 100 K/mcL (140-400); Red Blood Count 3.82 M/mcL (3.82-4.97); Red Cell Distribution Width 14.9 % (11.5-14.5); Segmented Neutrophils % 94.7 %; White Blood Count 8.2 K/mcL (4.3-11.1)
[2019-07-21] MEDS ORDERED: Insulin Human Regular 10 UNIT in 0.9 % Sodium Chloride 10 ML IV ONE ×4 (01:43→23:02)
[2019-07-21 01:47] LABS: Calcium 9.7 mg/dL (8.6-10.3); Magnesium 1.9 mg/dL (1.6-2.6); Potassium 3.9 mEq/L (3.5-5.1)
[2019-07-21] MEDS ORDERED: *HR* Heparin 5,000 UNIT/ML VIAL IVP PRN ×2 (03:07)
[2019-07-21] MEDS ORDERED: *HR* Heparin 5,000 UNIT/ML VIAL IVP ONE (03:07)
[2019-07-21 03:52] LABS: Mean Corpuscular Volume 93.1 fL (83.0-100.0)
[2019-07-21 03:54] LABS: Hematocrit 36.3 % (35.3-44.9); Immature Platelets 7.1 % (1.1-6.1); Mean Corpuscular HGB Conc 33.1 g/dL (31.6-35.5); Mean Corpuscular Hemoglobin 30.8 pg (28.0-33.3); Mean Platelet Volume 10.9 fL (9.4-12.4); Red Blood Count 3.9 M/mcL (3.82-4.97); Red Cell Distribution Width 14.9 % (11.5-14.5); White Blood Count 7.5 K/mcL (4.3-11.1)
[2019-07-21 03:58] LABS: Heparin anti-factor XA UFH 0.04 IU/mL (0.30-0.70); INR 1.1; Prothrombin Time 12.8 Seconds (9.4-12.1)
[2019-07-21 04:01] LABS: Activated Partial Thrombo Time 33.1 Seconds (26.0-36.0)
[2019-07-21] MEDS: Heparin 25,000 UNIT/250 ML D5W 25,000 UNIT/250 ML IV.SOLN IVC SCH ×2 (04:57→23:38)
[2019-07-21] MEDS: Aspirin 81 MG TAB.CHEW PO SCH (07:51)
[2019-07-21] MEDS: Isosorbide MONOnitrate (24 HR) 60 MG TAB.ER.24H PO SCH (07:51)
[2019-07-21] MEDS: Insulin LISPRO 300 UNITS/3 ML VIAL SQ SCH ×3 (07:51→16:59)
[2019-07-21] MEDS: Ranolazine 500 MG TAB.ER.12H PO SCH ×2 (07:51→19:52)
[2019-07-21] MEDS: amLODIPine 5 MG TABLET PO SCH (07:51)
[2019-07-21] MEDS: Cholecalciferol (D-3) 1,000 UNIT (25MCG) TABLET PO SCH (07:51)
[2019-07-21] MEDS ORDERED: Furosemide 40 MG/4 ML VIAL IVP SCH (09:00)
[2019-07-21] MEDS ORDERED: Insulin LISPRO 300 UNITS/3 ML VIAL SQ ONE (12:10)
[2019-07-21] MEDS ORDERED: Insulin DETEMIR 100 UNIT/ML X5UNITS SQ ONE (13:55)
[2019-07-21] MEDS: Metoprolol XL (24 HR) Succ 50 MG TAB.ER.24H PO SCH (16:59)
[2019-07-21] MEDS ORDERED: Insulin DETEMIR 100 UNIT/ML X5UNITS SQ SCH (21:00)
[2019-07-21] MEDS: Levalbuterol Neb 1.25 MG/3 ML IH SCH (23:08)
[2019-07-22] MEDS ORDERED: Furosemide 20 MG/2 ML VIAL IVP ONE ×2 (00:02→00:13)
[2019-07-22 00:32] LABS: ABG Base Excess 7 mEq/L (-2 to 3); ABG HCO3 32 mEq/L (21-27); ABG Oxygen Saturation 91 % (95-98); ABG PCO2 47 mmHg (35-45); ABG PH 7.44 pH Units (7.32-7.45); ABG PO2 59 mmHg (85-104); ABG TCO2 34 mEq/L (20-26)
[2019-07-22] MEDS ORDERED: Insulin NPH 100 UNIT/ML (x5UNIT) SQ ONE ×2 (01:14→20:57)
[2019-07-22] MEDS ORDERED: Insulin LISPRO 300 UNITS/3 ML VIAL SQ ONE ×3 (01:22→20:58)
[2019-07-22 01:36] LABS: Adenovirus Not Detected (Not Detect); Bordetella Pertussis Not Detected (Not Detect); Chlamydophila pneumoniae Not Detected (Not Detect); Coronavirus 229E Not Detected (Not Detect); Coronavirus HKU1 Not Detected (Not Detect); Coronavirus NL63 Not Detected (Not Detect); Coronavirus OC43 Not Detected (Not Detect); Human Metapneumovirus Not Detected (Not Detect); Human Rhinovirus/Enterovirus Not Detected (Not Detect); Influenza A Subtype 2009 H1 Not Detected (Not Detect); Influenza A Untypeable Not Detected (Not Detect); Influenza B Not Detected (Not Detect); Mycoplasma pneumoniae Not Detected (Not Detect); Parainfluenza Virus 1 Not Detected (Not Detect); Parainfluenza Virus 2 Not Detected (Not Detect); Parainfluenza Virus 3 Not Detected (Not Detect); Parainfluenza Virus 4 Not Detected (Not Detect); Respiratory Syncytial Virus Not Detected (Not Detect)
[2019-07-22 01:37] LABS: Basophils % 0.1 %; Eosinophils % 0.2 %; Hematocrit 38.7 % (35.3-44.9); Hemoglobin 12.3 g/dL (11.5-15.4); Immature Granulocytes % 0.8 % (0-4); Lymphocytes # 0.2 K/mcL (0.6-4.6); Lymphocytes % 1.4 %; Mean Corpuscular HGB Conc 31.8 g/dL (31.6-35.5); Mean Corpuscular Hemoglobin 30.4 pg (28.0-33.3); Mean Corpuscular Volume 95.8 fL (83.0-100.0); Monocytes # 0.9 K/mcL (0.0-1.3); Monocytes % 6.5 %; Neutrophils # 12.8 K/mcL (1.6-8.9); Platelet Count 129 K/mcL (140-400); Red Blood Count 4.04 M/mcL (3.82-4.97); Red Cell Distribution Width 14.9 % (11.5-14.5)
[2019-07-22 01:39] LABS: White Blood Count 14.1 K/mcL (4.3-11.1)
[2019-07-22 01:57] LABS: Calcium 9.5 mg/dL (8.6-10.3); Magnesium 1.8 mg/dL (1.6-2.6); Potassium 3.8 mEq/L (3.5-5.1)
[2019-07-22 03:01] LABS: Estimated Average Glucose 160 mg/dl
[2019-07-22] MEDS: Levalbuterol Neb 1.25 MG/3 ML IH SCH ×4 (04:08→21:45)
[2019-07-22] MEDS ORDERED: Insulin Human Regular 10 UNIT in 0.9 % Sodium Chloride 10 ML IV ONE (04:36)
[2019-07-22] MEDS ORDERED: *HR* Promethazine 25 MG/ML VIAL IVP PRN (04:44)
[2019-07-22] MEDS ORDERED: levoFLOXacin 750 MG/150 ML 750 MG/150 ML BAG IVPB SCH (05:00)
[2019-07-22] MEDS: Isosorbide MONOnitrate (24 HR) 60 MG TAB.ER.24H PO SCH (08:01)
[2019-07-22] MEDS: amLODIPine 5 MG TABLET PO SCH (08:01)
[2019-07-22] MEDS: Ranolazine 500 MG TAB.ER.12H PO SCH ×2 (08:01→21:51)
[2019-07-22] MEDS: Insulin LISPRO 300 UNITS/3 ML VIAL SQ SCH ×3 (08:02→16:28)
[2019-07-22] MEDS: Aspirin 81 MG TAB.CHEW PO SCH (08:02)
[2019-07-22] MEDS: Cholecalciferol (D-3) 1,000 UNIT (25MCG) TABLET PO SCH (08:02)
[2019-07-22] MEDS ORDERED: Furosemide 20 MG/2 ML VIAL IVP SCH (09:00)
[2019-07-22] MEDS: Furosemide 40 MG/4 ML VIAL IVP SCH (09:09)
[2019-07-22] MEDS: Insulin DETEMIR 100 UNIT/ML X5UNITS SQ SCH ×2 (09:09→21:52)
[2019-07-22] MEDS ORDERED: Perflutren Lipid Microsphere 2 ML VIAL ONE (09:44)
[2019-07-22] MEDS: Acetaminophen 325 MG TABLET PO PRN (11:52)
[2019-07-22] MEDS: Metoprolol XL (24 HR) Succ 50 MG TAB.ER.24H PO SCH (16:28)
[2019-07-22] MEDS: Heparin 25,000 UNIT/250 ML D5W 25,000 UNIT/250 ML IV.SOLN IVC SCH (21:20)
[2019-07-23 02:38] LABS: Basophils % 0.2 %; Eosinophils % 0.2 %; Hematocrit 32.8 % (35.3-44.9); Mean Corpuscular Volume 92.9 fL (83.0-100.0); Red Blood Count 3.53 M/mcL (3.82-4.97)
[2019-07-23 02:40] LABS: Hemoglobin 10.7 g/dL (11.5-15.4); Immature Granulocytes % 0.3 % (0-4); Immature Platelets 6.5 % (1.1-6.1); Lymphocytes # 0.3 K/mcL (0.6-4.6); Lymphocytes % 5.4 %; Mean Corpuscular HGB Conc 32.6 g/dL (31.6-35.5); Mean Corpuscular Hemoglobin 30.3 pg (28.0-33.3); Mean Platelet Volume 10.8 fL (9.4-12.4); Monocytes # 0.5 K/mcL (0.0-1.3); Monocytes % 7.7 %; Neutrophils # 5.3 K/mcL (1.6-8.9); Red Cell Distribution Width 14.7 % (11.5-14.5); Segmented Neutrophils % 86.2 %; White Blood Count 6.1 K/mcL (4.3-11.1)
[2019-07-23 02:45] LABS: Platelet Count 85 K/mcL (140-400)
[2019-07-23 03:04] LABS: Calcium 9.2 mg/dL (8.6-10.3); Magnesium 1.8 mg/dL (1.6-2.6); Potassium 3.5 mEq/L (3.5-5.1)
[2019-07-23] MEDS: Levalbuterol Neb 1.25 MG/3 ML IH SCH ×4 (03:30→22:13)
[2019-07-23] MEDS: levoFLOXacin 750 MG/150 ML 750 MG/150 ML BAG IVPB SCH (06:28)
[2019-07-23] MEDS: amLODIPine 5 MG TABLET PO SCH (07:49)
[2019-07-23] MEDS: Isosorbide MONOnitrate (24 HR) 60 MG TAB.ER.24H PO SCH (07:49)
[2019-07-23] MEDS: Ranolazine 500 MG TAB.ER.12H PO SCH ×2 (07:49→21:46)
[2019-07-23] MEDS: Aspirin 81 MG TAB.CHEW PO SCH (07:49)
[2019-07-23] MEDS: Cholecalciferol (D-3) 1,000 UNIT (25MCG) TABLET PO SCH (07:50)
[2019-07-23] MEDS: Furosemide 40 MG/4 ML VIAL IVP SCH (07:50)
[2019-07-23] MEDS: Insulin DETEMIR 100 UNIT/ML X5UNITS SQ SCH ×3 (07:51→21:46)
[2019-07-23] MEDS: Insulin LISPRO 300 UNITS/3 ML VIAL SQ SCH ×3 (10:12→17:31)
[2019-07-23] MEDS: Heparin 25,000 UNIT/250 ML D5W 25,000 UNIT/250 ML IV.SOLN IVC SCH (14:10)
[2019-07-23] MEDS: Metoprolol XL (24 HR) Succ 50 MG TAB.ER.24H PO SCH (17:32)
[2019-07-24] MEDS: Levalbuterol Neb 1.25 MG/3 ML IH SCH ×4 (03:29→22:16)
[2019-07-24 05:04] LABS: Basophils % 0.2 %; Hemoglobin 10.1 g/dL (11.5-15.4)
[2019-07-24 05:06] LABS: Eosinophils # 0.1 K/mcL (0.0-0.6); Hematocrit 31.1 % (35.3-44.9); Immature Granulocytes % 0.5 % (0-4); Immature Platelets 8.6 % (1.1-6.1); Lymphocytes # 0.3 K/mcL (0.6-4.6); Lymphocytes % 5.4 %; Mean Corpuscular HGB Conc 32.5 g/dL (31.6-35.5); Mean Corpuscular Hemoglobin 30.4 pg (28.0-33.3); Mean Corpuscular Volume 93.7 fL (83.0-100.0); Mean Platelet Volume 11.3 fL (9.4-12.4); Monocytes # 0.5 K/mcL (0.0-1.3); Neutrophils # 4.9 K/mcL (1.6-8.9); Platelet Count 79 K/mcL (140-400); Red Blood Count 3.32 M/mcL (3.82-4.97); Red Cell Distribution Width 14.7 % (11.5-14.5); Segmented Neutrophils % 84.9 %; White Blood Count 5.8 K/mcL (4.3-11.1)
[2019-07-24 05:11] LABS: Magnesium 1.8 mg/dL (1.6-2.6)
[2019-07-24] MEDS: Heparin 25,000 UNIT/250 ML D5W 25,000 UNIT/250 ML IV.SOLN IVC SCH (05:33)
[2019-07-24] MEDS: levoFLOXacin 750 MG/150 ML 750 MG/150 ML BAG IVPB SCH (06:47)
[2019-07-24] MEDS: Insulin DETEMIR 100 UNIT/ML X5UNITS SQ SCH ×2 (08:55→20:07)
[2019-07-24] MEDS: Furosemide 40 MG/4 ML VIAL IVP SCH (08:55)
[2019-07-24] MEDS: Ranolazine 500 MG TAB.ER.12H PO SCH ×2 (08:56→20:06)
[2019-07-24] MEDS: Cholecalciferol (D-3) 1,000 UNIT (25MCG) TABLET PO SCH (08:56)
[2019-07-24] MEDS: amLODIPine 5 MG TABLET PO SCH (08:56)
[2019-07-24] MEDS: Aspirin 81 MG TAB.CHEW PO SCH (08:56)
[2019-07-24] MEDS: Isosorbide MONOnitrate (24 HR) 60 MG TAB.ER.24H PO SCH (08:56)
[2019-07-24] MEDS: Insulin LISPRO 300 UNITS/3 ML VIAL SQ SCH ×3 (08:57→17:03)
[2019-07-24] MEDS ORDERED: Isovue-370 500 ML BOTTLE IVP ONE ×2 (15:45→15:47)
[2019-07-24] MEDS: *HR* Heparin 5,000 UNIT/ML VIAL SQ SCH (17:03)
[2019-07-24] MEDS: Metoprolol XL (24 HR) Succ 50 MG TAB.ER.24H PO SCH (17:03)
[2019-07-25] MEDS: Levalbuterol Neb 1.25 MG/3 ML IH SCH ×4 (04:05→22:13)
[2019-07-25 05:52] LABS: Hemoglobin 10.4 g/dL (11.5-15.4); Mean Corpuscular Volume 93.5 fL (83.0-100.0)
[2019-07-25 05:54] LABS: Hematocrit 31.7 % (35.3-44.9); Immature Platelets 8.7 % (1.1-6.1); Mean Corpuscular HGB Conc 32.8 g/dL (31.6-35.5); Mean Corpuscular Hemoglobin 30.7 pg (28.0-33.3); Mean Platelet Volume 11.1 fL (9.4-12.4); Red Blood Count 3.39 M/mcL (3.82-4.97); Red Cell Distribution Width 14.5 % (11.5-14.5); White Blood Count 4.8 K/mcL (4.3-11.1)
[2019-07-25 06:11] LABS: BUN/Creatinine Ratio 29 (6-26); Blood Urea Nitrogen 31 mg/dL (8-23); Calcium 9.4 mg/dL (8.6-10.3); Carbon Dioxide 36 mEq/L (23-29); Chloride 96 mEq/L (98-107); Glucose 164 mg/dL (70-105); Magnesium 1.9 mg/dL (1.6-2.6); Osmolality,Calculated 302 (280-300); Potassium 3.6 mEq/L (3.5-5.1); Sodium 141 mEq/L (136-145); eGFR For African Americans > 60 (> 60); eGFR For Non-African Americans 51 (> 60)
[2019-07-25] MEDS: *HR* Heparin 5,000 UNIT/ML VIAL SQ SCH ×2 (06:12→17:28)
[2019-07-25] MEDS: Insulin LISPRO 300 UNITS/3 ML VIAL SQ SCH ×3 (08:08→17:10)
[2019-07-25] MEDS: Ranolazine 500 MG TAB.ER.12H PO SCH ×2 (08:09→21:09)
[2019-07-25] MEDS: Insulin DETEMIR 100 UNIT/ML X5UNITS SQ SCH ×2 (08:09→21:10)
[2019-07-25] MEDS: amLODIPine 5 MG TABLET PO SCH (08:09)
[2019-07-25] MEDS: levoFLOXacin 750 MG TABLET PO SCH (08:10)
[2019-07-25] MEDS: Isosorbide MONOnitrate (24 HR) 60 MG TAB.ER.24H PO SCH (08:10)
[2019-07-25] MEDS: Furosemide 40 MG/4 ML VIAL IVP SCH (08:11)
[2019-07-25] MEDS: Cholecalciferol (D-3) 1,000 UNIT (25MCG) TABLET PO SCH (08:11)
[2019-07-25] MEDS: Aspirin 81 MG TAB.CHEW PO SCH (08:11)
[2019-07-25 12:38] LABS: Bilirubin,Urine Negative (Negative); Blood,Urine Negative (Negative); Clarity,Urine Clear (Clear); Color,Urine Yellow (Yellow); Glucose,Urine (UA) Normal (Normal); Ketones,Urine Negative (Negative); Leukocyte Esterase,Urine Negative (Negative); Nitrite,Urine Negative (Negative); Protein,Urine Negative (Neg-Trace); Specific Gravity,Urine > 1.030 (1.010-1.025); Urobilinogen,Urine Normal (Normal)
[2019-07-25] MEDS: Metoprolol XL (24 HR) Succ 50 MG TAB.ER.24H PO SCH (17:28)
[2019-07-26] MEDS: Levalbuterol Neb 1.25 MG/3 ML IH SCH ×4 (03:51→22:36)
[2019-07-26 05:02] LABS: Basophils % 0.2 %
[2019-07-26 05:04] LABS: Eosinophils # 0.1 K/mcL (0.0-0.6); Eosinophils % 2.3 %; Hematocrit 31.6 % (35.3-44.9); Hemoglobin 10.3 g/dL (11.5-15.4); Immature Granulocytes % 0.6 % (0-4); Immature Platelets 7.3 % (1.1-6.1); Lymphocytes # 0.3 K/mcL (0.6-4.6); Lymphocytes % 5.8 %; Mean Corpuscular HGB Conc 32.6 g/dL (31.6-35.5); Mean Corpuscular Hemoglobin 30.3 pg (28.0-33.3); Mean Corpuscular Volume 92.9 fL (83.0-100.0); Mean Platelet Volume 10.8 fL (9.4-12.4); Monocytes # 0.5 K/mcL (0.0-1.3); Monocytes % 9.3 %; Red Cell Distribution Width 14.6 % (11.5-14.5); Segmented Neutrophils % 81.8 %; White Blood Count 4.9 K/mcL (4.3-11.1)
[2019-07-26 05:08] LABS: Platelet Count 95 K/mcL (140-400)
[2019-07-26 05:26] LABS: Albumin 3.9 g/dL (3.5-5.7); Albumin/Globulin Ratio 1.6 (1.1-2.2); Bilirubin,Total 1.1 mg/dL (0.3-1.0); Calcium 9.1 mg/dL (8.6-10.3); Globulin 2.5 g/dL (2.4-3.5); Potassium 4.2 mEq/L (3.5-5.1); Total Protein 6.4 g/dL (6.4-8.9)
[2019-07-26] MEDS: *HR* Heparin 5,000 UNIT/ML VIAL SQ SCH ×2 (05:42→16:39)
[2019-07-26] MEDS: Insulin DETEMIR 100 UNIT/ML X5UNITS SQ SCH ×2 (08:00→21:47)
[2019-07-26] MEDS: Insulin LISPRO 300 UNITS/3 ML VIAL SQ SCH ×3 (08:00→16:40)
[2019-07-26] MEDS: levoFLOXacin 750 MG TABLET PO SCH (08:03)
[2019-07-26] MEDS: Isosorbide MONOnitrate (24 HR) 60 MG TAB.ER.24H PO SCH (08:03)
[2019-07-26] MEDS: Cholecalciferol (D-3) 1,000 UNIT (25MCG) TABLET PO SCH (08:03)
[2019-07-26] MEDS: Ranolazine 500 MG TAB.ER.12H PO SCH ×2 (08:03→21:47)
[2019-07-26] MEDS: amLODIPine 5 MG TABLET PO SCH (08:04)
[2019-07-26] MEDS: Aspirin 81 MG TAB.CHEW PO SCH (08:04)
[2019-07-26] MEDS ORDERED: *HR* Heparin 10,000 UNIT/10 ML VIAL ONE (09:00)
[2019-07-26] MEDS ORDERED: 0.9 % Sodium Chloride 1,000 ML ONE (09:00)
[2019-07-26] MEDS ORDERED: Heparin 1,000 UNITS/500 mL 500 ML ONE (09:00)
[2019-07-26] MEDS ORDERED: ISOVUE-370 200 ML INFUS..BTL ONE (09:00)
[2019-07-26] MEDS ORDERED: Nitroglycerin 1,000 MCG/10 ML VIAL IV ONE (09:01)
[2019-07-26] MEDS ORDERED: *HR* FentaNYL (PF) 100 MCG/2 ML VIAL ONE (09:14)
[2019-07-26] MEDS ORDERED: *HR* Midazolam HCl 2 MG/2 ML VIAL ONE (09:14)
[2019-07-26] MEDS: Metoprolol XL (24 HR) Succ 50 MG TAB.ER.24H PO SCH (16:48)
[2019-07-26 18:55] LABS: % Iron Saturation 24 % (15-50); Iron 61 mcg/dL (50-170); Transferrin 181 mg/dL (203-362)
[2019-07-27] MEDS: Acetaminophen 325 MG TABLET PO PRN (01:43)
[2019-07-27] MEDS: Levalbuterol Neb 1.25 MG/3 ML IH SCH ×2 (03:59→10:29)
[2019-07-27 04:15] LABS: Mean Corpuscular Hemoglobin 30.4 pg (28.0-33.3); Red Cell Distribution Width 14.6 % (11.5-14.5)
[2019-07-27 04:16] LABS: Hematocrit 28.3 % (35.3-44.9); Hemoglobin 9.3 g/dL (11.5-15.4); Immature Platelets 5.7 % (1.1-6.1); Mean Corpuscular HGB Conc 32.9 g/dL (31.6-35.5); Mean Corpuscular Volume 92.5 fL (83.0-100.0); Red Blood Count 3.06 M/mcL (3.82-4.97); White Blood Count 5.8 K/mcL (4.3-11.1)
[2019-07-27 04:28] LABS: BUN/Creatinine Ratio 24 (6-26); Blood Urea Nitrogen 25 mg/dL (8-23); Calcium 8.5 mg/dL (8.6-10.3); Carbon Dioxide 32 mEq/L (23-29); Chloride 97 mEq/L (98-107); Glucose 280 mg/dL (70-105); Magnesium 1.8 mg/dL (1.6-2.6); Osmolality,Calculated 298 (280-300); Potassium 4.2 mEq/L (3.5-5.1); Sodium 137 mEq/L (136-145); eGFR For African Americans > 60 (> 60); eGFR For Non-African Americans 52 (> 60)
[2019-07-27] MEDS: *HR* Heparin 5,000 UNIT/ML VIAL SQ SCH (05:50)
[2019-07-27] MEDS: Insulin LISPRO 300 UNITS/3 ML VIAL SQ SCH ×2 (08:02→12:27)
[2019-07-27] MEDS: Isosorbide MONOnitrate (24 HR) 60 MG TAB.ER.24H PO SCH (08:03)
[2019-07-27] MEDS: Cholecalciferol (D-3) 1,000 UNIT (25MCG) TABLET PO SCH (08:03)
[2019-07-27] MEDS: levoFLOXacin 750 MG TABLET PO SCH (08:03)
[2019-07-27] MEDS: Ranolazine 500 MG TAB.ER.12H PO SCH (08:03)
[2019-07-27] MEDS: amLODIPine 5 MG TABLET PO SCH (08:03)
[2019-07-27] MEDS: Insulin DETEMIR 100 UNIT/ML X5UNITS SQ SCH (08:04)
[2019-07-27] MEDS: Aspirin 81 MG TAB.CHEW PO SCH (08:04)
[2019-07-27 08:05] VITALS: BP 141/55
[2019-07-27] MEDS ORDERED: Furosemide 20 MG TABLET PO SCH (09:00)
== END 2019-07-27 14:58 | disposition home or self-care (01) | DRG 280 ==
LOC: 2ANU → OBSVTOIN 15:28 → SUATTDRO 15:28
PROVIDERS: ADMIT Pharmacist; ATTEND Internal Medicine

== ENCOUNTER 2019-10-15 10:09 | Observation (INO) ==
[2019-10-15] MEDS ORDERED: Ondansetron 4 MG/2 ML VIAL IVP PRN (10:47)
[2019-10-15] MEDS ORDERED: *HR* Metoprolol 5 MG/5 ML VIAL IVP PRN (10:47)
[2019-10-15] MEDS ORDERED: *HR* Promethazine 25 MG/ML VIAL IVP PRN (10:47)
[2019-10-15] MEDS ORDERED: D5% in Water 1,000 ML IVC PRN (10:54)
[2019-10-15] MEDS ORDERED: Dextrose Gel 15 GM/37.5 ML TUBE PO PRN ×2 (10:54)
[2019-10-15] MEDS ORDERED: *HR* Dextrose 50 % in Water (Syg) 50 ML SYRINGE IVP PRN (10:54)
[2019-10-15] MEDS: Insulin LISPRO 300 UNITS/3 ML VIAL SQ SCH ×2 (12:13→16:40)
[2019-10-15 13:36] LABS: Basophils % 0.4 %; Eosinophils # 0.1 K/mcL (0.0-0.6); Eosinophils % 1.7 %; Hematocrit 35.5 % (35.3-44.9); Hemoglobin 11.7 g/dL (11.5-15.4); Immature Granulocytes % 0.4 % (0-4); Lymphocytes # 0.4 K/mcL (0.6-4.6); Lymphocytes % 6.8 %; Mean Corpuscular Hemoglobin 29.8 pg (28.0-33.3); Mean Corpuscular Volume 90.6 fL (83.0-100.0); Mean Platelet Volume 10.8 fL (9.4-12.4); Monocytes # 0.4 K/mcL (0.0-1.3); Monocytes % 8.1 %; Neutrophils # 4.4 K/mcL (1.6-8.9); Platelet Count 106 K/mcL (140-400); Red Blood Count 3.92 M/mcL (3.82-4.97); Red Cell Distribution Width 14.6 % (11.5-14.5); Segmented Neutrophils % 82.6 %; White Blood Count 5.3 K/mcL (4.3-11.1)
[2019-10-15 13:42] LABS: INR 1.2; Prothrombin Time 13.1 Seconds (9.4-12.1)
[2019-10-16] MEDS ORDERED: 0.9 % Sodium Chloride 1,000 ML IVC SCH (00:05)
[2019-10-16] MEDS ORDERED: *HR* Propofol 200 MG/20 ML VIAL IVP ONE ×2 (06:38→07:31)
[2019-10-16] MEDS ORDERED: *HR* FentaNYL (PF) 100 MCG/2 ML VIAL ONE ×2 (06:40→07:31)
[2019-10-16] MEDS ORDERED: Lidocaine -MPF 4% 5 ML AMPUL ONE ×2 (06:42→07:31)
[2019-10-16] MEDS ORDERED: Clindamycin 900 MG/50 ML 900 MG/50 ML IV.SOLN IVPB ONE ×2 (07:44→07:53)
[2019-10-16] MEDS ORDERED: Dexamethasone 4 MG/ML VIAL ONE (08:28)
[2019-10-16] MEDS ORDERED: *HR* PHENYLEPHRINE 1,000 MCG/10 ML SYRINGE IVP ONE (08:31)
[2019-10-16] MEDS ORDERED: Metoprolol XL (24 HR) Succ 50 MG TAB.ER.24H PO SCH (09:00)
[2019-10-16] MEDS ORDERED: Isosorbide MONOnitrate (24 HR) 60 MG TAB.ER.24H PO SCH (09:00)
[2019-10-16] MEDS ORDERED: amLODIPine 5 MG TABLET PO SCH (09:00)
[2019-10-16] MEDS ORDERED: Ipratropium/Albuterol Neb 3 ML ONE (10:24)
[2019-10-16] MEDS ORDERED: Ipratropium/Albuterol Neb 3 ML IH ONE (10:24)
[2019-10-16] MEDS: Insulin LISPRO 300 UNITS/3 ML VIAL SQ SCH ×3 (11:00→19:06)
[2019-10-16] MEDS ORDERED: D5% in Water 1,000 ML IVC PRN (12:30)
[2019-10-16] MEDS ORDERED: *HR* HYDROcodone/Acet 5/325 mg TABLET PO PRN (12:30)
[2019-10-16] MEDS ORDERED: *HR* Dextrose 50 % in Water (Syg) 50 ML SYRINGE IVP PRN (12:30)
[2019-10-16] MEDS ORDERED: *HR* Promethazine 25 MG/ML VIAL IVP PRN (12:30)
[2019-10-16] MEDS ORDERED: Dextrose Gel 15 GM/37.5 ML TUBE PO PRN ×2 (12:30)
[2019-10-16] MEDS ORDERED: *HR* Metoprolol 5 MG/5 ML VIAL IVP PRN (12:30)
[2019-10-16] MEDS ORDERED: Ondansetron 4 MG/2 ML VIAL IVP PRN (12:30)
[2019-10-16] MEDS ORDERED: Furosemide 20 MG/2 ML VIAL IVP ONE (14:18)
[2019-10-16] MEDS: Metoprolol XL (24 HR) Succ 50 MG TAB.ER.24H PO SCH (15:59)
[2019-10-16] MEDS: Isosorbide MONOnitrate (24 HR) 60 MG TAB.ER.24H PO SCH (15:59)
[2019-10-16] MEDS: amLODIPine 5 MG TABLET PO SCH (16:00)
[2019-10-16] MEDS: Ipratropium/Albuterol Neb 3 ML IH SCH ×2 (19:24→21:59)
[2019-10-16] MEDS: metOLazone 5 MG TABLET PO SCH (21:16)
[2019-10-17] MEDS: Ipratropium/Albuterol Neb 3 ML IH SCH ×2 (03:46→11:46)
[2019-10-17 05:39] LABS: Basophils % 0.1 %; Immature Granulocytes % 0.4 % (0-4); Mean Corpuscular Hemoglobin 29.5 pg (28.0-33.3); Red Blood Count 3.39 M/mcL (3.82-4.97); Red Cell Distribution Width 14.4 % (11.5-14.5)
[2019-10-17 05:41] LABS: Hematocrit 31.4 % (35.3-44.9); Immature Platelets 7.5 % (1.1-6.1); Lymphocytes # 0.2 K/mcL (0.6-4.6); Lymphocytes % 2.6 %; Mean Corpuscular HGB Conc 31.8 g/dL (31.6-35.5); Mean Corpuscular Volume 92.6 fL (83.0-100.0); Mean Platelet Volume 11.1 fL (9.4-12.4); Monocytes # 0.4 K/mcL (0.0-1.3); Monocytes % 4.9 %; Neutrophils # 7.4 K/mcL (1.6-8.9)
[2019-10-17 05:43] LABS: Platelet Count 85 K/mcL (140-400); Platelet Estimate Decreased (Normal)
[2019-10-17 06:04] LABS: Calcium 8.9 mg/dL (8.6-10.3); Phosphorous 3.8 mg/dL (2.7-4.5); Potassium 3.4 mEq/L (3.5-5.1)
[2019-10-17] MEDS: Insulin LISPRO 300 UNITS/3 ML VIAL SQ SCH ×2 (07:33→11:34)
[2019-10-17] MEDS: metOLazone 5 MG TABLET PO SCH (07:34)
[2019-10-17] MEDS: Metoprolol XL (24 HR) Succ 50 MG TAB.ER.24H PO SCH (07:34)
[2019-10-17] MEDS: amLODIPine 5 MG TABLET PO SCH (07:34)
[2019-10-17] MEDS: Isosorbide MONOnitrate (24 HR) 60 MG TAB.ER.24H PO SCH (07:34)
[2019-10-17] MEDS ORDERED: Furosemide 20 MG TABLET PO SCH (09:00)
[2019-10-17] MEDS ORDERED: Isosorbide MONOnitrate (24 HR) 60 MG TAB.ER.24H PO SCH (09:00)
[2019-10-17] MEDS ORDERED: Metoprolol XL (24 HR) Succ 50 MG TAB.ER.24H PO SCH (09:00)
[2019-10-17] MEDS ORDERED: amLODIPine 5 MG TABLET PO SCH (09:00)
[2019-10-17 11:31] VITALS: BP 137/62
== END 2019-10-17 13:25 | disposition home or self-care (01) ==
LOC: ICNU → CDU 10:09 → 2ANU 13:32 → EDSTATUS 10-16 07:45
PROVIDERS: ADMIT Surgery; ATTEND Surgery
PROC: IRLYMPH (2019-10-16 07:45)